=== PATIENT | male | born 1955 | race Caucasian/White ===

== ENCOUNTER → 2017-11-28 08:57 | Outpatient (CLI) | payer MEDICAID, SELFPAY ==
--- NOTE | 2017-11-28 09:01 | RAD_ITS ---
STUDY: X-RAY - CERVICAL SPINE REASON FOR EXAM: Male, 62 years old. Neck pain. TECHNIQUE: 3 view(s) of the cervical spine were obtained. COMPARISON: None FINDINGS: Normal anterior atlantoaxial articulation. Normal odontoid process. Normal cervical lordosis. Normal vertebral bodies and endplates. There is intervertebral disc space narrowing at C4-5, C5-6 and C6-7, most marked at C6-7 with osteophyte formation and subchondral sclerosis. There is diffuse facet sclerosis. There is minimal left carotid calcification. RAD/Cerv Spine 2 or 3 Views IMPRESSION: Lower cervical spondylosis as described. Electronically Signed: Selvin Thompson MD at 16:59 EST , Service support ,
== END ==
PROVIDERS: Family Provider Internal Medicine; PCP Internal Medicine; Visit Provider Internal Medicine
DX: M50.90 Cervical disc disorder, unspecified, unspecified cervical region (principal)
CPT/HCPCS: 72040

== ENCOUNTER 2017-12-07 10:14 | Emergency (ER) | payer MEDICAID, SELFPAY ==
[2017-12-07 10:15] VITALS: BP 163/90; PULSE 72; RESP 16; TEMP 36.4; O2SAT 99; BMI 33.3
--- NOTE | 2017-12-07 10:36 | EKG12_ITS ---
Test Reason : CP Blood Pressure : / mmHG Vent. Rate : 074 BPM Atrial Rate : 074 BPM P-R Int : 126 ms QRS Dur : 070 ms QT Int : 348 ms P-R-T Axes : 063 -05 -10 degrees QTc Int : 386 ms Normal sinus rhythm Normal ECG Confirmed by PAULA HUANG ([id number]), videotape editor FELICIANO ORTIZ ([id number]) on 12/11/2017 1:47:27 PM Referred By: Urszula Rubi Confirmed By:PAULA HUANG
[2017-12-07] MEDS: Ondansetron 4 MG/2 ML Vial IV (10:45)
[2017-12-07] MEDS: 0.9% Normal Saline 1,000 ML 1000 ML IV (10:46)
[2017-12-07 10:54] LABS: Absolute Lymphocyte Count 1.42 X10^3/ul (0.83-4.51); Absolute Neutrophil Count 4.8 X10^3/uL (2.0-7.7); Basophil# 0.02 X10^3/uL; Basophil% 0.3 % (0-1); Eosinophil# 0.12 X10^3/uL; Eosinophils% 1.7 % (0-5); Hematocrit 48.7 % (40-54); Lymphocyte # 1.42 X10^3/ul (4.0); Lymphocyte % 19.9 % (19-41); Mean Corp Hgb Conc 32.9 g/gl (32-36); Mean Corpuscular Hgb 28.9 pg (27.0-32.0); Mean Corpuscular Volume 87.9 fL (80-94); Mean Platelet Vol. 10.9 fl (6.2-12.0); Monocyte# 0.77 X10^3/uL; Monocyte% 10.8 % (0-10); Neutrophil # 4.81 X10^3/uL (2.7-7.7); Neutrophil % 67.2 % (47-70); Platelet Count 190 K/mm3 (150-450); RBC Distribution Width CV 13.1 % (11.6-14.6); RBC Distribution Width SD 42.4 fl (35.1-43.9); Red Blood Count 5.54 M/mm3 (4.6-6.2); White Blood Count 7.2 K/mm3 (4.4-11.0)
[2017-12-07 10:56] LABS: POSITIVE COUNT NO; POSITIVE DIFFERENTIAL NO; POSITIVE MORPHOLOGY NO
--- NOTE | 2017-12-07 10:57 | ED.DCSUM_ITS ---
- ER Visit Summary Date of Service: 12/07/17 Chief Complaint: Left-sided abdominal pain that awoke patient at 03: 00 History of Present Illness: The patient is a 62 M resents because he was awakened from sleep at 03:00 with acute left sided stabbing sharp abdominal pain with intermittent radiation to the back. There is a remote history of renal/ureterolithiasis. He denies dysuria, frequency, urgency or hematuria. He states movement does cause him pain. He does complain of nausea without vomiting. He denies any testicular pain. He has no history of hernia. He denies prior history. He denies history of diverticulosis/diverticulitis. He does have history of GERD and is on Celebrex. There is no alleviating factors. He denies chest discomfort, palpitations or rapid heart rate. He denies shortness of breath, cough, dyspnea on exertion, orthopnea or PND. He denies fever, chills or night sweats. No history of trauma. 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 Physical Examination: Patient appears uncomfortable. Blood pressure is elevated 163/90. Head is atraumatic normocephalic. Pupils are equal round reactive. Extraocular muscles are intact. TMs are pearly white with landmarks noted. Nares patent with no drainage. Posterior pharynx without erythema or exudate. Uvula is midline. There is no dysphonia or dysphasia. Trachea is midline. There is no stridor with auscultation of the neck. Heart is regular without murmur, gallop or rub. S1 and S2 are normal. Lungs are clear to auscultation with good movement of air bilaterally. Abdomen is slightly distended tympanitic with decreased bowel sounds. There is tenderness to palpation on the right without guarding or rebound tenderness. He has well- healed scars noted. There is no evidence of inguinal hernia or inguinal lymphadenopathy. Testes are descended bilateral no testicular epididymal tenderness. There is no CVA tenderness noted. There is no rash or skin lesions noted. Neuro exam is nonfocal Test Results: EKG was obtained per nurse protocol and reveals a sinus rhythm rate of 74 and is normal. CBC normal. BMP reveals slight elevation of BUN. UA is unremarkable. CT of the abdomen and pelvis with IV contrast only reveals mild pancreatitis. Patient states he is an alcoholic. Has not had a alcoholic beverage in 8 months. He has been using Listerine recently. He was informed there is significant amount of alcohol and Listerine. Emergency Department Course and Treatment: To evaluate patient's abdominal pain CBC, BMP and UA were obtained. He was medicated with Zofran and morphine. Differential includes perforation, diverticulitis, ureterolithiasis. Treatment Plan: Zofran, opiate analgesia and follow-up with PCP Disposition: Discharge to home in stable and improved condition Impression: 1. Acute pancreatitis 2. History of GERD 3. Status post cholecystectomy This note was generated with [employer] dictation software. It may contain incorrect words, spelling, and punctuation that were not noted in review of the chart prior to signing ED Disposition - Plan for ED Patient: Disposition: Home or Assisted Living Chief Complaint: Chest Pain Instructions: ED Pancreatitis Prescriptions: Oxycodone HCl/Acetaminophen [Percocet 7.5-325 mg Tablet] 1 tablet PO Q6H PRN PRN 5 Days #20 tablet PRN Reason: Pain Ondansetron [Zofran Odt] 8 mg PO Q12H PRN PRN #5 tab.rapdis PRN Reason: Nausea/Vomiting Referrals: Urszula Rubi MD [Primary Care Provider] - 3-5 Days
[2017-12-07 11:02] LABS: Anion Gap 6 (5-15); BUN 21 mg/dL (7-18); BUN/Creat Ratio 21.5 RATIO (10-20); Calcium,Total 8.7 mg/dL (8.5-10.1); Chloride 106 mmol/L (98-107); Creatinine, Serum 0.98 mg/dL (0.70-1.30); EST Glomerular Filtration Rate 83 mL/min (>60); Est Glom Filt Rate - Afr Amer 101 mL/min (>60); Estimated Creatinine Clearance 68.86 ml/min; Glucose 104 mg/dL (74-106); Potassium 4.1 mmol/L (3.5-5.1); Sodium Level 140 mmol/L (136-145)
[2017-12-07 11:32] VITALS: BP 118/101; PULSE 69; RESP 16; O2SAT 98
[2017-12-07 11:35] LABS: Mucous, Urine 0 SEEN /hpf (<or=2+); Squamous Epithelial Cells - UA 0 SEEN /hpf (0-5); White Blood Cells 0 SEEN /hpf (0-5)
[2017-12-07 11:42] LABS: Color, Urine Yellow (Yellow); Glucose, Dipstick Normal (Normal); Ketone-Dipstick Negative (Negative); Leukocyte Esterase-Dipstick Negative /ul (Negative); Nitrite-Dipstick Negative (Negative); Occult Blood-Urine Negative /ul (Negative); Protein-Dipstick Negative (Negative); Specific Gravity, Urine 1.015 (1.002-1.030); Urine Bilirubin Dipstick Negative (Negative); Urine Clarity Clear (Clear); Urine Urobilinogen 4 mg/dl (Normal)
[2017-12-07 11:56] LABS: Bacteria 1+ /hpf (None Seen); Red Blood Cells-Urine 0-5 SEEN /hpf (0-5)
[2017-12-07 12:09] VITALS: BP 140/93; PULSE 62; RESP 14; O2SAT 96
--- NOTE | 2017-12-07 12:22 | CT_ITS ---
STUDY: CT ABDOMEN AND PELVIS WITH CONTRAST REASON FOR EXAM: Male, 62 years old. Epigastric pain. RADIATION DOSAGE (If Supplied By Facility): CTDIvol = ( 14.38 ) mGy, DLP = ( 1035.37 ) mGycm TECHNIQUE: Transaxial images were obtained from the dome of the diaphragm to the symphysis pubis without oral contrast. 100 ml of Isovue 300 contrast was administered. Sagittal and coronal images were reconstructed. Individualized dose optimization techniques were used for this CT. COMPARISON: Comparison is made with prior study dated June 27, 2017. FINDINGS: Stable mild degree of increased linear markings at the lung bases suggestive of linear atelectasis and/or scarring. The visualized portions of the heart are within normal limits. Stable 1.5 cm cyst in the left lobe of the liver. There are surgical clips in the gallbladder fossa consistent with a prior cholecystectomy. Normal spleen. There now is evidence of a mild degree of increased markings in the peripancreatic mesenteric fat suggestive of mild degree of pancreatitis. No fluid collection or pseudocyst is seen at this time. Normal bilateral adrenal glands. Question tiny angiomyolipoma in the inferior posterior aspect of the right kidney. Normal left kidney. There is a small hiatal hernia. Normal small intestine. Normal colon. The appendix is visualized and appears normal. There is scattered atherosclerotic calcification of the abdominal aorta, without a demonstrated aneurysm. Normal inferior vena cava. Normal retroperitoneum. The urinary bladder is distended. Small inguinal hernias containing fat. There are mild degenerative changes of the visualized lumbar spine. CT/Abdomen/Pelvis W IV Cont ONLY IMPRESSION: Findings suggestive of a mild degree of pancreatitis without complications. The patient is status post cholecystectomy. Electronically Signed: Jefferson Garrido MD at 13:02 EDT Tel [phone], Service support ,
[2017-12-07 13:25] VITALS: PULSE 67; RESP 15; O2SAT 97
[2017-12-07 13:57] VITALS: BP 139/86; PULSE 71; RESP 16; O2SAT 97
[2017-12-07 14:20] LABS: AST(SGOT) 173 U/L (15-37); Alanine Aminotransfer ALT/SGPT 180 U/L (16-61); Alkaline Phosphatase 93 U/L (45-117); Globulin 3.5 g/dL (2.2-4.2); Lipase 12406 U/L (73-393); Protein, Total 7.5 g/dL (6.4-8.2)
== END 2017-12-07 13:57 | disposition home or self-care (01) ==
PROVIDERS: Emergency Provider Emergency Medicine; Family Provider Internal Medicine; PCP Internal Medicine
DX: K85.90 Acute pancreatitis without necrosis or infection, unspecified (principal); K21.9 Gastro-esophageal reflux disease without esophagitis; Z90.49 Acquired absence of other specified parts of digestive tract; F10.20 Alcohol dependence, uncomplicated; E66.9 Obesity, unspecified; Z87.442 Personal history of urinary calculi; Z79.899 Other long term (current) drug therapy
CPT/HCPCS: 74177; 80048; 80076; 81001; 83690; 85025; 93005; 96361; 96374; 96375; 99285; J7030; Q9967; A4216; J2405

== ENCOUNTER → 2017-12-14 07:26 | Outpatient (CLI) | payer MEDICAID, SELFPAY ==
[2017-12-14 10:04] LABS: AST(SGOT) 19 U/L (15-37); Alanine Aminotransfer ALT/SGPT 50 U/L (16-61); Albumin, Serum 3.7 g/dL (3.2-5.0); Alkaline Phosphatase 79 U/L (45-117); Anion Gap 5 (5-15); BUN 24 mg/dL (7-18); BUN/Creat Ratio 23.3 RATIO (10-20); Chloride 106 mmol/L (98-107); Cholesterol 125 mg/dL (200); Creatinine, Serum 1.03 mg/dL (0.70-1.30); EST Glomerular Filtration Rate 78 mL/min (>60); Est Glom Filt Rate - Afr Amer 94 mL/min (>60); Globulin 3.8 g/dL (2.2-4.2); Glucose 109 mg/dL (74-106); High Density Lipoprotein 35 mg/dL; Lipase 287 U/L (73-393); Potassium 4.3 mmol/L (3.5-5.1); Protein, Total 7.5 g/dL (6.4-8.2); Sodium Level 142 mmol/L (136-145); Triglycerides 128 mg/dL; Very Low Density Lipoprotein 26 mg/dL (5-40)
== END ==
PROVIDERS: Family Provider Internal Medicine; PCP Internal Medicine; Visit Provider Internal Medicine
DX: K85.90 Acute pancreatitis without necrosis or infection, unspecified (principal)
CPT/HCPCS: 36415; 80053; 80061; 83690

== ENCOUNTER → 2017-12-19 07:13 | Outpatient (CLI) | payer MEDICAID, SELFPAY | PROVIDERS: Family Provider Internal Medicine; PCP Internal Medicine; Visit Provider Internal Medicine | DX: R73.09 Other abnormal glucose (principal) | CPT/HCPCS: 36415; 83036 ==

== ENCOUNTER → 2017-12-21 08:33 | Outpatient (CLI) | payer MEDICAID, SELFPAY ==
--- NOTE | 2017-12-21 08:35 | RAD_ITS ---
STUDY: X-RAY - LEFT HAND REASON FOR EXAM: Male, 62 years old. Wrist pain. TECHNIQUE: 2 view(s) of the hand. COMPARISON: None. FINDINGS: Bones: There is mild generalized osteopenia. Joints: There is mild arthrosis of the radial carpal row, the first carpometacarpal joint, the metacarpophalangeal joints and the interphalangeal joints. Soft tissues: The soft tissues are unremarkable. Foreign body: None RAD/Hand 2 Views IMPRESSION: Mild generalized osteopenia with osteoarthritic changes as described. Electronically Signed: Selvin Thompson MD at 12:38 EDT , Service support ,
--- NOTE | 2017-12-21 08:35 | RAD_ITS ---
STUDY: X-RAY - RIGHT HAND REASON FOR EXAM: Male, 62 years old. Wrist pain. TECHNIQUE: 2 view(s) of the hand. COMPARISON: None. FINDINGS: Bones: There is mild generalized osteopenia. Joints: There is mild arthrosis of the radial carpal row, the first carpometacarpal joint, the metacarpophalangeal joints and the interphalangeal joints. Soft tissues: The soft tissues are unremarkable. Foreign body: None RAD/Hand 2 Views IMPRESSION: Mild generalized osteopenia with osteoarthritic changes as described. Electronically Signed: Selvin Thompsno MD at 12:37 EDT , Service support ,
== END ==
PROVIDERS: Family Provider Internal Medicine; PCP Internal Medicine; Visit Provider Orthopaedic Surgery
DX: G56.03 Carpal tunnel syndrome, bilateral upper limbs (principal)
CPT/HCPCS: 73120

== ENCOUNTER → 2018-03-14 07:53 | Outpatient (CLI) | payer MEDICAID, SELFPAY ==
--- NOTE | 2018-03-14 14:21 | NEURO ---
NCS and/or EMG Patient Report Ordering Doctor: Caryn Delatorre DATE OF SERVICE: 03/14/18 Lyle Riddle is a 62-year-old male presents for electrodiagnostic testing of the right upper limb. He has chief complaint of numbness and tingling in the right hand. He does not wish to pursue testing of the left upper limb today. Electrodiagnostic findings: Right median motor nerve demonstrates prolonged distal latency with reduced amplitude and reduced conduction velocity. Normal ulnar motor response, including conduction across the elbow. Prolonged right median F wave. Prolonged right median sensory sensory latency. Prolonged right median palmar latency. Prolonged right ulnar sensory latency. Needle EMG testing demonstrates 1+ fibrillation potentials in the right first dorsal interosseous. Electrodiagnostic impression: This is an abnormal study. 1. Electrodiagnostic findings demonstrate right-sided median mononeuropathy, consistent with an advanced right carpal tunnel syndrome. 2. Electrodiagnostic findings demonstrate right-sided ulnar sensory neuropathy. If there are any further questions, please not hesitate to contact me
== END ==
PROVIDERS: Family Provider Internal Medicine; PCP Internal Medicine; Visit Provider Orthopaedic Surgery
DX: G56.03 Carpal tunnel syndrome, bilateral upper limbs (principal)
CPT/HCPCS: 95886; 95910

== ENCOUNTER 2018-03-24 10:30 | Emergency (ER) | payer MEDICAID, SELFPAY ==
[2018-03-24 10:31] VITALS: BP 148/91; PULSE 69; RESP 16; TEMP 36.2; O2SAT 97; BMI 32.8
--- NOTE | 2018-03-24 10:41 | CT_ITS ---
STUDY: CT ABDOMEN AND PELVIS WITH CONTRAST REASON FOR EXAM: Male, 62 years old. Abdominal pain and weakness. RADIATION DOSAGE (If Supplied By Facility): CTDIvol = ( 18.02 ) mGy, DLP = ( 1188.95 ) mGycm TECHNIQUE: Transaxial images were obtained from the dome of the diaphragm to the symphysis pubis without oral contrast. 100 ml of Isovue 300 contrast was administered. Sagittal and coronal images were reconstructed. Individualized dose optimization techniques were used for this CT. COMPARISON: 12/07/2017 FINDINGS: The visualized lung bases are unremarkable. The visualized portions of the heart are within normal limits. Normal liver. There are surgical clips in the gallbladder fossa consistent with a prior cholecystectomy. Normal spleen. There is diffuse atrophy of the pancreas. Normal bilateral adrenal glands. Normal right kidney. Normal left kidney. There is a small hiatal hernia. Normal small intestine. There are multiple colonic diverticula consistent with diverticulosis. The appendix is visualized and appears normal. Normal abdominal aorta. Normal inferior vena cava. Normal retroperitoneum. Normal urinary bladder. Normal visualized prostate gland. Normal abdominal wall. There are diffuse degenerative changes of the visualized lumbar spine. CT/Abdomen/Pelvis W IV Cont ONLY IMPRESSION: Chronic diverticulosis without acute diverticulitis. Unremarkable appendix. No acute findings. Electronically Signed: Jonas Baez DO at 12:51 EDT Tel , Service support ,
--- NOTE | 2018-03-24 10:44 | ED.VISSUMM ---
- ER Visit Summary Date of Service: 03/24/18 Chief Complaint: Abdominal pain History of Present Illness: The patient is a 62 M who states for the past 2 days he has just ill. He states he has had decreased p.o. He notes diarrhea yesterday none today and a lot of gas. He notes he has pain lower abdomen right upper right flank. He notes increased amount of urination. He notes chills headache and myalgias. No fevers. He states this reminds him of when he had pancreatitis. He has had cholecystectomy. He takes Celebrex and omeprazole but has not taken them for the past 2 days because he has not felt well. Physical Examination: Afebrile vital signs are stable Gen: Well-nourished well-developed Head: Normocephalic atraumatic Eyes: Perrl EOMI ENT: TMs clear no rhinorrhea moist mucous membranes Neck: Supple no lymphadenopathy no JVD nontender CVS: Regular rate rhythm no murmurs normal S1-S2 Respiratory: No distress clear to auscultation bilaterally chest nontender Abdomen: Soft diffusely tender to palpation without guarding or rebound nondistended normal bowel sounds no masses Back: Nontender Extremity: Nontender no edema Skin: Normal color no rash Neuro: alert orientated ?3 CN II-XII intact normal strength sensation reflexes gait cerebellar Psych: Normal affect normal mood Test Results: CBC is normal. Total bilirubin at 1.7. Alk phos 74 ALT 95 AST 112. Lipase 117. Urinalysis is normal. CT scan of the abdomen pelvis was also negative. Emergency Department Course and Treatment: Patient received a dose of Zofran. Same. Imodium as needed for diarrhea. Return if worsening or concerns. Impression: 1. Gastroenteritis This note was generated with [employer] dictation software. It may contain incorrect words, spelling, and punctuation that were not noted in review of the chart prior to signing ED Disposition - Plan for ED Patient: Disposition: Home or Assisted Living Chief Complaint: Abd Pain Instructions: ED Gastroenteritis Viral Prescriptions: Ondansetron [Zofran Odt] 4 mg PO Q8H PRN PRN #10 tab PRN Reason: Nausea Referrals: Urszula Rubi MD [Primary Care Provider] - 3-5 Days if not improving
[2018-03-24] MEDS: Ondansetron 4 MG/2 ML Vial IV (11:36)
[2018-03-24 11:41] LABS: Absolute Lymphocyte Count 1.48 X10^3/ul (0.83-4.51); Absolute Neutrophil Count 5.9 X10^3/uL (2.0-7.7); Basophil# 0.03 X10^3/uL; Basophil% 0.3 % (0-1); Eosinophils% 1.1 % (0-5); Hematocrit 47.7 % (40-54); Lymphocyte # 1.48 X10^3/ul (4.0); Lymphocyte % 16.8 % (19-41); Mean Corp Hgb Conc 33.5 g/gl (32-36); Mean Corpuscular Hgb 28.8 pg (27.0-32.0); Mean Corpuscular Volume 85.8 fL (80-94); Mean Platelet Vol. 10.8 fl (6.2-12.0); Monocyte# 1.29 X10^3/uL; Monocyte% 14.6 % (0-10); POSITIVE COUNT NO; POSITIVE DIFFERENTIAL NO; POSITIVE MORPHOLOGY NO; Platelet Count 201 K/mm3 (150-450); RBC Distribution Width CV 13.5 % (11.6-14.6); RBC Distribution Width SD 42.2 fl (35.1-43.9); Red Blood Count 5.56 M/mm3 (4.6-6.2); White Blood Count 8.8 K/mm3 (4.4-11.0)
[2018-03-24 11:51] LABS: Bacteria 0 SEEN /hpf (None Seen); Mucous, Urine 0 SEEN /hpf (<or=2+); Red Blood Cells-Urine 0 SEEN /hpf (0-5); Squamous Epithelial Cells - UA 0 SEEN /hpf (0-5); White Blood Cells 0 SEEN /hpf (0-5)
[2018-03-24 11:52] LABS: Color, Urine Yellow (Yellow); Glucose, Dipstick Normal (Normal); Ketone-Dipstick Negative (Negative); Leukocyte Esterase-Dipstick Negative /ul (Negative); Nitrite-Dipstick Negative (Negative); Occult Blood-Urine Negative /ul (Negative); Protein-Dipstick Negative (Negative); Specific Gravity, Urine 1.015 (1.002-1.030); Urine Bilirubin Dipstick Negative (Negative); Urine Clarity Clear (Clear); Urine Urobilinogen 1 mg/dl (Normal)
[2018-03-24 11:58] LABS: AST(SGOT) 112 U/L (15-37); Alanine Aminotransfer ALT/SGPT 95 U/L (16-61); Albumin, Serum 3.7 g/dL (3.2-5.0); Alkaline Phosphatase 74 U/L (45-117); Anion Gap 6 (5-15); BUN 20 mg/dL (7-18); BUN/Creat Ratio 21.2 RATIO (10-20); Chloride 108 mmol/L (98-107); Creatinine, Serum 0.94 mg/dL (0.70-1.30); EST Glomerular Filtration Rate 86 mL/min (>60); Est Glom Filt Rate - Afr Amer 104 mL/min (>60); Estimated Creatinine Clearance 71.79 ml/min; Globulin 3.6 g/dL (2.2-4.2); Glucose 158 mg/dL (74-106); Lipase 117 U/L (73-393); Potassium 3.9 mmol/L (3.5-5.1); Protein, Total 7.3 g/dL (6.4-8.2); Sodium Level 142 mmol/L (136-145)
[2018-03-24 13:00] VITALS: RESP 20; O2SAT 97
[2018-03-24 14:08] VITALS: BP 129/84; PULSE 58; RESP 16; O2SAT 96
== END 2018-03-24 14:14 | disposition home or self-care (01) ==
PROVIDERS: Emergency Provider Emergency Medicine; Family Provider Internal Medicine; PCP Internal Medicine
DX: K52.9 Noninfective gastroenteritis and colitis, unspecified (principal); K21.9 Gastro-esophageal reflux disease without esophagitis; Z79.899 Other long term (current) drug therapy
CPT/HCPCS: 74177; 80053; 81001; 83690; 85025; 96374; 99283; Q9967; A4216; J2405

== ENCOUNTER → 2018-07-09 06:29 | Outpatient (CLI) | payer MEDICAID, SELFPAY ==
--- NOTE | 2018-07-09 06:48 | MRI_ITS ---
STUDY: MRI CERVICAL SPINE WITHOUT CONTRAST REASON FOR EXAM: Male, 62 years old. CERVICAL RADICULITIS, SPONDYLOSIS, NECK PAIN, SOME N/T. TECHNIQUE: Standardized fat and water weighted pulse sequences were obtained in the sagittal and axial planes. COMPARISON: None FINDINGS: Normal foramen magnum and brainstem-cervical cord junction. Normal craniovertebral junction. Normal anterior atlantoaxial articulation. Normal odontoid process. Normal cervical lordosis. C2-3: Normal endplates. Normal disc height, signal and morphology. Normal central canal and intervertebral neural foramina. C3-4: There is minimal disc space narrowing and endplate spondylosis. There is no significant disc herniation, central canal or foraminal stenosis. C4-5: There is moderate disc space narrowing and endplates spondylosis. There is mild disc osteophyte complex with moderate central canal stenosis. There is uncovertebral and facet arthropathy with moderate right and mild left foraminal stenosis. C5-6: There is mild disc space narrowing and endplates spondylosis. There is minimal disc osteophyte complex without significant central canal stenosis. Uncovertebral and facet arthropathy with mild right and moderate left foraminal stenosis. C6-7: There is moderate disc space narrowing and endplates spondylosis. there is mild disc osteophyte complex with mild central canal stenosis. Uncovertebral arthropathy with mild right and moderate left foraminal stenosis. C7-T1: Normal endplates. Normal disc height, signal and morphology. Normal central canal and intervertebral neural foramina. Normal cervical cord. Normal visualized soft tissue structures. MRI/Spine Cervical (Routine) IMPRESSION: C4/C5: Moderate central canal stenosis. Moderate right foraminal stenosis. C5/C6: Moderate left foraminal stenosis. C6/C7: Moderate left foraminal stenosis. Electronically Signed: Fabian Urrutia MD at 15:49 EDT Tel , Service support ,
== END ==
PROVIDERS: Family Provider Internal Medicine; PCP Internal Medicine; Referring Provider Nurse Practitioner Family
DX: M51.37 Other intervertebral disc degeneration, lumbosacral region (principal); M47.817 Spondylosis without myelopathy or radiculopathy, lumbosacral region
CPT/HCPCS: 72141

== ENCOUNTER → 2018-07-23 11:00 | Outpatient (CLI) | payer MEDICAID, SELFPAY | PROVIDERS: Family Provider Internal Medicine; PCP Internal Medicine; Visit Provider Nurse Practitioner Family | DX: G47.33 Obstructive sleep apnea (adult) (pediatric) (principal); Z46.89 Encounter for fitting and adjustment of other specified devices | CPT/HCPCS: 98960; G0463 ==

== ENCOUNTER 2019-02-07 17:00 | Outpatient (RCR) | payer MEDICAID, SELFPAY ==
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
--- NOTE | 2019-04-16 09:54 | HP.PTDCNRP_ITS ---
HP - Discharge Summary (1) - Patient Information BERKLEY ROMAN was seen in my office for initial evaluation on 12/21/18. The following Plan of Care was established for this patient: Initial Frequency: 2x /Week Initial Duration: 4 Weeks - Anticipated Interventions Patient/Client Instruction: Educate patient on: Condition, Plan of Care For the Purpose of:: To decrease pain, To increase ROM, To improve muscle perfor radha and motor function, To improve ability to perform ADL's, To increase tolerance to activity/condition/position, To improve ability of physical actions for home/community/work/leisure, To improve health of tissue, To decrease soft tissue restriction, To increase flexibility/ROM, To reduce risk of recurrence, To improve ability to perform tasks related to life management Therapeutic Exercise to Include: Strength training, Postural training, Flexibilty training, Active ROM For the Purpose of:: To decrease pain, To increase ROM, To improve muscle performance and motor function, To increase tolerance to activity/condition/position, To improve ability of physical actions for home/community/work/leisure, To improve health of tissue, To decrease soft tissue restriction, To increase flexibility/ROM, To improve ability to perform tasks related to life management Manual Therapy Techniques to Include: Mobilization Comment: CERVICAL TRACTION For the Purpose of:: To decrease pain, To increase ROM, To improve health of tissue, To decrease soft tissue restriction TENS: Yes IF ES: Yes Thermo therapy (hot pack): Yes Ultrasound (thermal/non thermal): Yes Intermittent cervical traction: Yes For the Purpose of:: To decrease pain, To increase ROM, To improve nutrient delivery to tissue, To increase oxygenation perfusion, To improve health of tissue, To decrease soft tissue restriction This patient was last seen in our office 02/07/19. Pertinent comments regarding their Physical therapy will appear below: Patient seen for PT for cervical DDD with PT rx focused on ICTX ,cervical /postural ex's ,strengthening thus is d/c after patient making progress with decreasing pain. At this point I will be discontinuing this patient from physical therapy. I would be happy to see this patient again in the future if found appropriate by the physician. Thank you! Juni Gastelum, PT, Cert MDT, OCS
== END 2019-02-07 19:00 | disposition home or self-care (01) ==
LOC: PT 17:00
PROVIDERS: Family Provider Internal Medicine; PCP Internal Medicine; Referring Provider Nurse Practitioner Family; Visit Provider Nurse Practitioner Family
DX: M50.30 Other cervical disc degeneration, unspecified cervical region (principal); M47.812 Spondylosis without myelopathy or radiculopathy, cervical region; G44.89 Other headache syndrome; M54.12 Radiculopathy, cervical region; M79.10 Myalgia, unspecified site; M48.9 Spondylopathy, unspecified
CPT/HCPCS: 97012; 97033; 97110; 97162

== ENCOUNTER 2019-02-09 12:52 | Emergency (ER) | payer MEDICAID, SELFPAY ==
[2019-01-29 08:19] VITALS: BMI 33.6
[2019-02-09 12:52] VITALS: BP 156/87; PULSE 76; RESP 16; TEMP 36.8; O2SAT 96; BMI 32.3
--- NOTE | 2019-02-09 13:18 | CT_ITS ---
STUDY: CT ABDOMEN AND PELVIS WITH CONTRAST REASON FOR EXAM: Male, 63 years old. Pain RADIATION DOSAGE (If Supplied By Facility): DLP = ( 1196.45 ) mGycm TECHNIQUE: Transaxial images were obtained from the dome of the diaphragm to the symphysis pubis with oral contrast. 100 ml of Isovue 300 contrast was administered. Sagittal and coronal images were reconstructed. Individualized dose optimization techniques were used for this CT. COMPARISON: CT abdomen and pelvis March 24, 2018 FINDINGS: The visualized lung bases are clear. The visualized portions of the heart and pericardium are within normal limits. The gallbladder has been removed. The liver is within normal limits. There are no suspicious hepatic lesions. A left hepatic 1.3 cm cyst is present. The spleen is normal in size. The pancreas is within normal limits. The adrenal glands are within normal limits. There are no obstructing renal stones. There is no hydronephrosis There are no focal renal lesions. A small to moderate hiatal hernia is present.. There is mild thickening of the distal esophageal wall at the GE junction. There is no bowel obstruction or inflammation. There is prominent stool throughout the colon.. A small right inguinal fat-containing hernia is present. The aorta is normal in caliber. There is no abdominal or pelvic free air, free fluid, fluid collection or lymphadenopathy. There are no destructive osseous lesions. CT/Abdomen/Pelvis WITH Contrast IMPRESSION: No acute abdominal or pelvic pathology. Prominent stool throughout the colon suggesting constipation. Small to moderate hernia. Mild thickening of the distal esophageal wall at the GE junction. Correlate clinically. Small right inguinal hernia containing fat. Electronically Signed: Pj Da Silva, at 15:34 EDT Tel , Service support ,
[2019-02-09] MEDS: 0.9% Normal Saline 1,000 ML 150 ML IV (13:33)
[2019-02-09 13:59] LABS: AST(SGOT) 20 U/L (15-37); Alanine Aminotransfer ALT/SGPT 32 U/L (16-61); Albumin, Serum 3.7 g/dL (3.2-5.0); Alkaline Phosphatase 73 U/L (45-117); Anion Gap 4 (5-15); BUN 13 mg/dL (7-18); BUN/Creat Ratio 14.2 RATIO (10-20); Bilirubin, Direct 0.23 mg/dL (0.00-0.30); Calcium,Total 8.9 mg/dL (8.5-10.1); Chloride 109 mmol/L (98-107); Creatinine, Serum 0.91 mg/dL (0.70-1.30); EST Glomerular Filtration Rate 89 mL/min (>60); Est Glom Filt Rate - Afr Amer 108 mL/min (>60); Estimated Creatinine Clearance 75.95 ml/min; Globulin 3.3 g/dL (2.2-4.2); Glucose 86 mg/dL (74-106); Lipase 87 U/L (73-393); Potassium 4.2 mmol/L (3.5-5.1); Sodium Level 141 mmol/L (136-145)
[2019-02-09 14:10] LABS: Absolute Lymphocyte Count 1.67 X10^3/ul (0.83-4.51); Absolute Neutrophil Count 2.6 X10^3/uL (2.0-7.7); Basophil# 0.03 X10^3/uL; Basophil% 0.6 % (0-1); Eosinophil# 0.18 X10^3/uL; Eosinophils% 3.4 % (0-5); Hematocrit 46.9 % (40-54); Hemoglobin 15.9 g/dl (13.0-16.5); Lymphocyte # 1.67 X10^3/ul (4.0); Lymphocyte % 31.9 % (19-41); Mean Corp Hgb Conc 33.9 g/gl (32-36); Mean Corpuscular Hgb 29.4 pg (27.0-32.0); Mean Corpuscular Volume 86.9 fL (80-94); Mean Platelet Vol. 11.1 fl (6.2-12.0); Monocyte# 0.79 X10^3/uL; Monocyte% 15.1 % (0-10); Neutrophil # 2.57 X10^3/uL (2.7-7.7); Platelet Count 186 K/mm3 (150-450); RBC Distribution Width SD 41.4 fl (35.1-43.9); White Blood Count 5.2 K/mm3 (4.4-11.0)
[2019-02-09 14:11] LABS: POSITIVE COUNT NO; POSITIVE DIFFERENTIAL NO; POSITIVE MORPHOLOGY NO
--- NOTE | 2019-02-09 14:39 | ED.DCSUM_ITS ---
- ER Visit Summary Date of Service: 02/09/19 Chief Complaint: Abdominal pain History of Present Illness: The patient is a 63 M with history of frequent abdominal pain and IBS. Patient states abdominal pain is been worse since yesterday. He points to the lower abdomen and left lower quadrant. He does report having increased gas. He reports having only small bowel movements in the last 4 days. He states at times he will go for 5 days without having a bowel movement. He denies having fever or chills. He has had no urinary symptoms. Physical Examination: Blood pressure is 156/87, otherwise vitals normal. Patient lying in bed no acute distress. He is nontoxic appearing. Head and neck examination normal. Heart is regular rate and rhythm. Lung sounds are clear. Abdomen is soft with mild tenderness in the left lower quadrant. Hypoactive bowel sounds are noted. There is no guarding or rebound. Test Results: CBC and chemistry studies normal. LFTs and lipase normal. CT scan abdomen pelvis with contrast is unremarkable other than prominent stool th roughout the colon. Emergency Department Course and Treatment: Patient is given morphine, Zofran, and IV fluids. Test results discussed with the patient. He was advised that the p.o. contrast for the CAT scan will sometimes help to treat constipation. He will be written for magnesium citrate. If he has not had significant bowel movement tomorrow morning he will take this. Treatment Plan: [] Disposition: Discharge Impression: 1. Abdominal pain 2. Constipation This note was generated with [employer] dictation software. It may contain incorrect words, spelling, and punctuation that were not noted in review of the chart prior to signing ED Disposition - Plan for ED Patient: Disposition: Home or Assisted Living Instructions: ED Constipation Prescriptions: Magnesium Citrate [Citrate Of Magnesia] 150 ml PO Q6H PRN PRN #300 ml PRN Reason: Constipation Referrals: Urszula Rubi MD [Primary Care Provider] - Virginie Badillo [NON-STAFF] - Keep Vinnie appointment
[2019-02-09 15:33] VITALS: BP 141/91; PULSE 87; RESP 18; O2SAT 98
[2019-02-09 16:04] VITALS: RESP 16
--- NOTE | 2019-02-09 16:05 | ED.RN ---
REVIEWED D/C INSTRUCTIONS, FOLLOW UP CARE, PRESCRIPTION, AND S/S THAT WOULD WARRANT A RETURN TO THE ED WITH PT. PT VERBALIZED AN UNDERSTANDING AND DENIES FURTHER QUESTIONS FOR THIS RN. PT SKIN P/W/D, RESP EVEN AND UNLABORED, PT A&O X 3, NO DISTRESS NOTED. PT AMBULATED OUT OF ED, GAIT STEADY.
== END 2019-02-09 16:05 | disposition home or self-care (01) ==
PROVIDERS: Emergency Provider Emergency Medicine; Family Provider Internal Medicine; PCP Internal Medicine
DX: K58.1 Irritable bowel syndrome with constipation (principal); R10.32 Left lower quadrant pain; K21.9 Gastro-esophageal reflux disease without esophagitis; Z87.442 Personal history of urinary calculi; Z79.899 Other long term (current) drug therapy
CPT/HCPCS: 74177; 80048; 80076; 83690; 85025; 96360; 96361; 99283; J7030; A4216; J2405

== ENCOUNTER → 2019-07-16 | Outpatient (CLI) | payer MEDICAID, SELFPAY ==
[2019-07-16 09:39] VITALS: BMI 32.3
--- NOTE | 2019-07-16 09:46 | RAD_ITS ---
STUDY: X-RAY - CERVICAL SPINE REASON FOR EXAM: Male, 63 years old. Neck pain. TECHNIQUE: 3 view(s) of the cervical spine were obtained. COMPARISON: None FINDINGS: There are degenerative changes of the anterior atlantoaxial articulation. Normal odontoid process. Normal cervical lordosis. There is multi-level endplate spondylosis. There is multi-level degenerative disc disease with multilevel disc space narrowing. There is no evidence of acute fracture or loss of vertebral axial height. There is maintenance of normal alignment. There is no alteration of alignment with flexion or extension. The soft tissue structures are unremarkable. RAD/Cerv Spine 4 or 5 Views IMPRESSION: Degenerative changes of the cervical spine. Electronically Signed: Gustavo Tirado DO at 19:55 EDT Tel [phone], Service support ,
== END | disposition home or self-care (01) ==
LOC: HPRAD 09:46
PROVIDERS: Family Provider Internal Medicine; PCP Internal Medicine; Referring Provider Orthopaedic Surgery; Visit Provider Orthopaedic Surgery
DX: M54.2 Cervicalgia (principal)
CPT/HCPCS: 72050

== ENCOUNTER 2019-08-10 18:17 | Emergency (ER) | payer MEDICAID, SELFPAY ==
[2019-07-16 09:39] VITALS: BMI 32.3
[2019-08-10 18:18] VITALS: BP 157/87; PULSE 73; RESP 16; TEMP 36.2; BMI 32.6
--- NOTE | 2019-08-10 18:35 | ED.VISSUMM ---
- ER Visit Summary Date of Service: 08/10/19 Chief Complaint: [Laceration right arm] History of Present Illness: The patient is a 63 M [presents to the emergency department with complaint of laceration to his right arm that occurred this evening. Patient states that he was moving a couch when he lacerated the antecubital region of his arm. Patient is right-hand dominant. He is up-to-date on tetanus. He denies any other injuries. Patient was unsure if he should come in but his made him come in.] Physical Examination: [Right arm-patient has a linear abrasion measuring approximately 5 cm over the right antecubital region of his arm. There is very superficial abrasion through the epidermis. There is no gaping. It does not involve any fat extruding from the wound. Is neurovascular intact distally. He is got normal range of motion flexion extension at the elbow.] Test Results: [None indicated] Emergency Department Course and Treatment: [Patient had the wound cleansed and clean dressing was applied.] Treatment Plan: [Patient to follow-up with primary care physician for wound check in 3 to 5 days. Vice return if increasing pain, redness, swelling, purulent drainage, or conditions worsen anyway. Laceration is very superficial and do not feel repair of any kind is indicated.] Disposition: [Discharged home in stable condition.] Impression: [Laceration right arm-superficial and no repair indicated] This note was generated with [employer] dictation software. It may contain incorrect words, spelling, and punctuation that were not noted in review of the chart prior to signing ED Disposition - Plan for ED Patient: Referrals: Urszula Rubi MD [Primary Care Provider] -
--- NOTE | 2019-08-10 18:38 | ED.DEP ---
ED Disposition - Plan for ED Patient: Instructions: LACERATION, Small/superficial, Not sutured Referrals: Urszula Rubi MD [Primary Care Provider] - 3-5 Days
== END 2019-08-10 19:00 | disposition home or self-care (01) ==
LOC: ED 18:51
PROVIDERS: Emergency Provider Emergency Medicine; Family Provider Internal Medicine; PCP Internal Medicine
DX: S41.111A Laceration without foreign body of right upper arm, initial encounter (principal); K21.9 Gastro-esophageal reflux disease without esophagitis; W26.8XXA Contact with other sharp object(s), not elsewhere classified, initial encounter; Y93.89 Activity, other specified; Y92.009 Unspecified place in unspecified non-institutional (private) residence as the place of occurrence of the external cause; Y99.8 Other external cause status
CPT/HCPCS: 99282

== ENCOUNTER 2020-02-05 15:31 | Emergency (ER) | payer MEDICAID, SELFPAY ==
[2019-11-08 09:59] VITALS: BMI 32.6
[2020-02-05 15:31] VITALS: BP 152/81; PULSE 80; RESP 18; TEMP 36.6; O2SAT 96; BMI 32.8
--- NOTE | 2020-02-05 15:54 | ED.VIS.UPPEX ---
History of Present Illness Chief Complaint: Upper Extremity Injury Informant: Patient Occurred: Yesterday Mechanism/Context: - - Heavy lifting Context: Sudden Onset Timing: Continuous Quality of Pain: Aching Location: Left volar upper arm near AC fossa Current Severity: Moderate Maximum Severity: Severe Worsened by: Bending at the elbow Relieved by: Remaining still Associated Symptoms: Negative for: Parasthesia, Weakness, Loss of Funtion Narrative: Patient was lifting a heavy box, 30 or 40 pounds, he felt sudden onset of pain and crackling in the muscle in his AC fossa of the left upper extremity. He has had some swelling there since then. He is right-hand dominant. He initially had some numbness down into his hand, but that resolved and has not recurred. - Past Medical History (1) Arthritis Status: Chronic (2) DDD (degenerative disc disease), lumbar Status: Chronic (3) Degenerative disc disease Status: Chronic (4) GERD (gastroesophageal reflux disease) Status: Chronic Past Medical History - Allergies and Home Meds Allergies/Adverse Reactions: Allergies No Known Allergies Allergy (Verified 02/05/20 15:34) Primary Care Physician: Urszula Rubi MD [Primary Care Provider] - Smoking Status: Former smoker Review of Systems General: Denies: Chills, Fever, Sweats Eyes: Denies: Visual changes - bilaterally, Diplopia ENT: Denies: Rhinorrhea, Sore throat Cardiovascular: Denies: Chest pain, Palpitations Respiratory: Denies: Dyspnea, Cough, Dyspnea on exertion Gastrointestinal: Denies: Abdominal pain, Nausea, Vomiting, Diarrhea, Melena, Hematochezia Genitourinary: Denies: Dysuria, Hematuria, Frequency Musculoskeletal: Reports: Extremity Pain. Denies: Back pain Skin: Denies: Rash, Wounds Neurological: Reports: Numbness - Resolved. See HPI.. Denies: Headache, Weakness Physical Exam Vital Signs/Narrative: Vital Signs Temp Pulse Resp BP Pulse Ox 02/05/20 15:31 97.8 F 80 18 152/81 H 96 General: Well nourished, Well developed, - - nad Head: Normocephalic, Atraumatic Eyes: Perrl, EOMI ENT: No Trauma, Moist Mucous Membranes Extremeties: Mild Vadim deformity of the left biceps muscle. There is palpable asymmetry at the insertion, with a gap palpable on the left. He is able to flex, but it is painful. Very painful Yergason sign maneuver. Skin: Normal color, No rash, No Trauma Neurological: Alert, Oriented x3, Cranial nerves II-XII grossly intact, Normal Strength, Normal Sensation, Normal Gait Psychological: Normal affect, Normal Mood Diagnostic/Tx/Re-eval Clinical Impression(s) from Imaging Studies Humerus X-Ray 02/05/20 16:01 IMPRESSION: No acute fracture or dislocation. Electronically Signed: Gustavo Tirado DO at 16:16 EDT Tel [phone], Service support , - Medical Decision Making X-ray shows no avulsion fracture. I suspect he ruptured the insertion of his biceps muscle at the AC fossa. He is placed in a sling given some analgesics and referred to orthopedics as an outpatient. Discussed with patient and all questions answered at the bedside. His left upper extremity is neurovascularly intact distally. ED Disposition - Plan for ED Patient: Disposition: Home or Assisted Living Diagnosis: Rupture of left distal biceps tendon Instructions: ED Strain Muscle Ext Prescriptions: traMADol [Ultram] 50 mg PO Q4H PRN PRN 3 Days #18 tablet PRN Reason: Pain Transmission Status: Received by [facility] Referrals: Urszula Rubi MD [Primary Care Provider] - Terrence Huertas DO [STAFF PHYSICIAN] - As soon as possible Additional Instructions: Suspected ruptured biceps tendon
[2020-02-05] MEDS: traMADol 50 MG Tablet PO (15:57)
--- NOTE | 2020-02-05 16:01 | RAD_ITS ---
STUDY: X-RAY - LEFT HUMERUS REASON FOR EXAM: Male, 64 years old. Left arm pain. [place] a pop after lifting something. TECHNIQUE: 2 view(s) of the humerus. COMPARISON: None. FINDINGS: Normal visualized humerus. There is no demonstrated fracture or osseous destructive process. The shoulder and elbow appear grossly unremarkable. There is no demonstrated soft tissue abnormality. RAD/Humerus min 2 Views IMPRESSION: No acute fracture or dislocation. Electronically Signed: Gustavo Tirado DO at 16:16 EDT Tel [phone], Service support ,
[2020-02-05 16:45] VITALS: BP 145/95; PULSE 78; RESP 15; O2SAT 98
--- NOTE | 2020-02-05 16:45 | ED.RN ---
PT GIVEN WRITTEN AND VERBAL DISCHARGE INSTRUCTIONS AND HOME GOING PAPERWORK. PT VERBALIZES UNDERSTANDING AND DENIES FURTHER QUESTIONS. EDUCATED NOT TO DRIVE WHEN TAKING PAIN MEDS. PT INSTRUCTED TO FOLLOW UP WITH ORTHOPEDICS REFERRED.
== END 2020-02-05 16:48 | disposition home or self-care (01) ==
PROVIDERS: Emergency Provider Emergency Medicine; PCP Internal Medicine
DX: S46.212A Strain of muscle, fascia and tendon of other parts of biceps, left arm, initial encounter (principal); K21.9 Gastro-esophageal reflux disease without esophagitis; M19.90 Unspecified osteoarthritis, unspecified site; Z87.891 Personal history of nicotine dependence; X50.0XXA Overexertion from strenuous movement or load, initial encounter; Y93.89 Activity, other specified; Y92.89 Other specified places as the place of occurrence of the external cause; Y99.8 Other external cause status
CPT/HCPCS: 73060; 99283

== ENCOUNTER → 2020-05-22 | Outpatient (CLI) | payer MEDICAID, SELFPAY ==
[2020-05-22 07:38] VITALS: BMI 32.8
[2020-05-22 11:54] LABS: Absolute Lymphocyte Count 1.28 X10^3/uL (0.83-4.51); Absolute Neutrophil Count 2.5 X10^3/uL (2.0-7.7); Basophil# 0.04 X10^3/uL; Basophil% 0.8 % (0-1); Eosinophils% 4.2 % (0-5); Hematocrit 46.8 % (40-54); Hemoglobin 14.9 g/dL (13.0-16.5); Lymphocyte # 1.28 X10^3/ul (4.0); Lymphocyte % 27.1 % (19-41); Mean Corp Hgb Conc 31.8 g/dL (32-36); Mean Corpuscular Hgb 28.5 pg (27.0-32.0); Mean Corpuscular Volume 89.5 fL (80-94); Mean Platelet Vol. 11.7 fl (6.2-12.0); Monocyte# 0.69 X10^3/uL; Monocyte% 14.6 % (0-10); NRBC Flagged by Analyzer 0 % (0-5); Neutrophil # 2.49 X10^3/uL (2.7-7.7); Neutrophil % 52.9 % (47-70); Platelet Count 197 K/mm3 (150-450); RBC Distribution Width CV 13.2 % (11.6-14.6); RBC Distribution Width SD 43.2 fl (35.1-43.9); Red Blood Count 5.23 M/mm3 (4.6-6.2); White Blood Count 4.7 K/mm3 (4.4-11.0)
[2020-05-22 12:47] LABS: ALB/GLOB Ratio 0.8 RATIO (0.9-2.4); AST(SGOT) 24 U/L (15-37); Alanine Aminotransfer ALT/SGPT 31 U/L (16-61); Albumin, Serum 3.4 g/dL (3.2-5.0); Alkaline Phosphatase 58 U/L (45-117); Anion Gap 5 (5-15); BUN 19 mg/dL (7-18); BUN/Creat Ratio 21.1 RATIO (10-20); Calcium,Total 8.7 mg/dL (8.5-10.1); Chloride 109 mmol/L (98-107); Cholesterol 114 mg/dL (200); EST Glomerular Filtration Rate 90 mL/min (>60); Est Glom Filt Rate - Afr Amer 109 mL/min (>60); Globulin 4.2 g/dL (2.2-4.2); Glucose 107 mg/dL (74-106); High Density Lipoprotein 38 mg/dL; Potassium 4.1 mmol/L (3.5-5.1); Protein, Total 7.6 g/dL (6.4-8.2); Sodium Level 141 mmol/L (136-145); Triglycerides 80 mg/dL; Very Low Density Lipoprotein 16 mg/dL (5-40)
[2020-05-27 14:08] LABS: Testosterone, Free 12.58 ng/dL (5.00-21.00)
[2020-05-27 17:22] LABS: Testosterone, Total 740 ng/dL (264-916)
== END | disposition home or self-care (01) ==
LOC: BIMLAB 08:00
PROVIDERS: PCP Internal Medicine; Referring Provider Nurse Practitioner Family; Visit Provider Nurse Practitioner Family
DX: K21.9 Gastro-esophageal reflux disease without esophagitis (principal); N52.9 Male erectile dysfunction, unspecified; E78.5 Hyperlipidemia, unspecified
CPT/HCPCS: 36415; 80053; 80061; 83036; 84402; 84403; 84443; 85025

== ENCOUNTER 2020-11-25 13:08 | Day surgery (SDC) | payer MEDICAID, SELFPAY ==
[2020-11-18 13:12] VITALS: BMI 31.9
[2020-11-25] VITALS (7 sets, daily range): BP systolic 125–134; BP diastolic 73–88; PULSE 66–75; RESP 16–18; TEMP 36.1–36.6; O2SAT 94–99
--- NOTE | 2020-11-25 10:52 | HP_ITS ---
I have re-examined the patient. There are no clinical changes since date of exam. Intake Intake Visit Reasons: RIGHT WRIST Accompanied by: Self Is patient in pain?: Yes Allergies No Known Allergies Allergy (Verified 11/12/20 10:05) Medications celecoxib 100 mg capsule 100 mg PO BID #60 cap 11/05/20 [Rx Confirmed 11/12/20] omeprazole 40 mg capsule,delayed release 40 mg PO DAILY #90 cap 11/06/20 [Rx Confirmed 11/12/20] PFSH Medical History (Updated 11/12/20 @ 10:18 by Zehra Taylor) Degenerative disc disease (Chronic) History of skin cancer (Acute) GERD (gastroesophageal reflux disease) (Chronic) Hearing loss (Chronic) Arthritis (Chronic) Surgical History History of cholecystectomy (Acute) Family History Father Alcoholism Arthritis Heart disease Social History (Updated 11/12/20 @ 10:[address] Caryn Delatorre DO) Smoking Status: Former smoker alcohol intake: never substance use type: does not use what type of physical activity do you participate in: none HPI RIGHT WRIST: Surgical H&P: Yes Details: Parts of this documentation were recorded by a scribe, this documentation accurately reflects the service provided and the decisions made by me, Dr. Caryn Delatorre DO 11/12/20 1003. BERKLEY ROMAN is a 65 year old M here today for to discuss having CTR done. Patient states his pain is worsening. Patient was last seen on: 04/30/2019 to discuss surgery. Basic ADL's causes pain. Pain is entire wrist, effecting all his digits. Reports numbness, stiffness and tingling. Reports fingers lock up. Pain is rated: 1/10 from the pain scale. Pain worsens at qhs. Patient reports he drops things frequently. ROS [facility] [place] system reviewed and no additional complaints, except as docu, Reports joint pain, Reports numbness, Reports stiffness, Reports tingling Neuro Yes numbness, Yes tingling Ortho Exam Right Wrist/Hand A1 arturo trigger: No Motor: EPL: 5, FDP-2: 4, 1st Dorsal Interosseous: 5, APB: 4 Sensation: Radial: I, Ulnar: I, Median: D Assessment & Plan Problems 1. Severe carpal tunnel syndrome of right wrist G56.01 2. Carpal tunnel syndrome of right wrist G56.01 Plan Personally reviewed the patient's medical history, medications, surgeries and recent exams if available. Reviewed the pre-operative plans with the patient. Risks and benefits of the procedure were fully explained, including but not limited to infection, neurovascular injury, continued pain, arthritis, stiffness, need for further surgery, re-injury, DVT, PE, general risks of anesthesia, and loss of limb or life. The patient understands all the risks and does wish to proceed with written consent for right carpal tunnel release. All questions answered. Patient in agreement of plan. Follow up post-op or sooner if pain, swelling, numbness or associated symptoms, or concerns develop. Plan Detail Goals Improve ROM Decrease spasm Barriers DDD Coding Level of Care Code Off vis,est,level 4 Diagnoses Severe carpal tunnel syndrome of right wrist G56.01 Carpal tunnel syndrome of right wrist G56.01 COVID (Procedure Consent) Procedure Criteria Procedure Criteria: Yes Elective The surgeon/proceduralist and patient have discussed in detail the risk of exposure to and/or potential harm posed by the COVID-19 virus with having a surgery/procedure at this time versus the risk of? delaying the surgery/procedure. It is not possible to know either the risk of delaying the surgery or procedure or chance of getting an infection with perfect accuracy, but a joint decision was made between the patient and the surgeon/proceduralist ?to proceed at this time with the scheduled surgery/procedure as indicated on the consent form.
[2020-11-25] MEDS: Lactated Ringers 1,000 ML 100 ML IV (13:53)
[2020-11-25] MEDS: Cefazolin 2 GM in 0.9% Normal Saline 100 ML IV (14:05)
--- NOTE | 2020-11-25 14:09 | DCINST_ITS ---
Discharge Diet: No Restrictions - follow up in 2 weeks, leave dressing intact- clean and dry Discharge Activity: May Not Drive May shower in (days): 1 Ice area for (Minutes): 20 - Every hour while awake. Weight Bearing Status: Weight bearing as tolerated Keep extremity elevated above heart level: Operative Extremity Call your doctor if your incision/area has: Continuous Slow Oozing, Sudden Increased Bleeding, Increased Pain/ Swelling, Increased Redness, Foul Smelling Discharge Call your doctor if you observe: Fever of 101 or Higher, Coldness, Increased Pain, Numbness or Tingling, Change in Color, Calf discomfort Allergies/Adverse Reactions: Allergies No Known Allergies Allergy (Verified 11/25/20 13:55) Medications to take at Discharge omeprazole 40 mg capsule,delayed release 40 mg PO DAILY #90 cap 11/06/20 Celecoxib 100 mg PO DAILY 11/20/20 Oxycodone HCl/Acetaminophen [Percocet 5/325] 1 - 2 tab PO Q6H PRN PRN 5 Days #28 tab 11/25/20 The following prescriptions were given: Oxycodone HCl/Acetaminophen [Percocet 5/325] 1 - 2 tab PO Q6H PRN PRN 5 Days #28 tab PRN Reason: Pain Transmission Status: Received by [facility] Primary Care Physician: Urszula Rubi MD [Primary Care Provider] - Test Results: Test results from this visit will be discussed in further detail at your follow- up appointment, if applicable. Please Follow Up With: Caryn Delatorre, - [phone]
--- NOTE | 2020-11-25 14:10 | PCM.OPRPT ---
Report of Operation Date of Procedure: 11/25/20 Pre-Operative Diagnosis: right carpal tunnel syndrome Post-Operative Diagnosis: same Surgery/Procedure Performed:: right carpal tunnel release Type of Anesthesia:: Piyush Lopez Anesthesiologist: Nilesh France Fluids Replaced: see chart Description of Procedure: Preoperative note Patient is a 65 year old patient with nerve conduction study confirming carpal tunnel syndrome. Patient failed conservative treatment for his carpal tunnel elected proceed with right carpal tunnel release. Risks benefits and alternatives surgery discussed with patient. Risks including but not limited to blood loss, blood clot, infection, neurovascular injury, failure procedure, loss of life and loss of limb. Patient is aware like proceed with right carpal tunnel release. Operative note Patient seen and examined preoperative holding area. right hand was marked. History and physical and consent reviewed. Patient was brought to the operating room placed supine on the operating table. Sign in, anesthesia, antibiotics were administered. right upper extremity was prepped and draped after Piyush block was initiated. All bony prominences well-padded SCDs placed on bilateral lower extremities. We marked out our incisions for our carpal tunnel release at the intersection of Ashish's line in the fourth ray flexed. We extended about a centimeter and a half. Timeout was performed. We then checked ensure that the [place] block was working with pickups which it was . We then used a 15 blade to make a skin incision. We then dissected down tenotomy syllable of the transverse carpal ligament. We then used a new 15 blade cut through the transverse carpal ligament down to the level of the median nerve. We then further released the median nerve the combination of the 15 blade and tenotomies. The nerve was grayish in color and adherent to the transverse carpal ligament volarly. We released the transverse carpal ligament distally to the fat pad and then proximally under standard technique. We then palpated to ensure that we released all of the transverse carpal ligament which we did. We irrigated the incision with copious amounts of sterile saline. All bleeders were coagulated. The incision was closed with interrupted 4-0 nylon stitches. Tourniquet was deflated for total working time of 10 minutes. Patient tolerated procedure well there were no complications. Patient transferred to recovery room in stable condition. Postoperative note Hospital pharmacy has prescription Call with concerns Follow-up in 2 weeks Discussed with via phone Call with increased pain numbness tingling further issues arise This note was generated with [employer] software. It may contain incorrect words, spelling, and punctuation that were not noted in checking the note before signing.
[2020-11-25] MEDS: Mupirocin Ointment 22gm Tube 1 APPLIC (14:31)
[2020-11-25] MEDS: HYDROcodone Bitartrate/Apap 5/325 Tablet PO (15:33)
== END 2020-11-25 17:04 | disposition home or self-care (01) ==
LOC: SDC 13:09 → AC 13:10
PROVIDERS: PCP Internal Medicine; Referring Provider Orthopaedic Surgery; Visit Provider Orthopaedic Surgery
PROC: (CPT 64721; principal; 2020-11-25 13:15)
DX: G56.01 Carpal tunnel syndrome, right upper limb (principal); K21.9 Gastro-esophageal reflux disease without esophagitis; M19.90 Unspecified osteoarthritis, unspecified site; G47.30 Sleep apnea, unspecified; Z79.899 Other long term (current) drug therapy; Z87.891 Personal history of nicotine dependence
CPT/HCPCS: 01810; 64721; J7120; A4216

== ENCOUNTER → 2021-04-21 15:53 | Outpatient (CLI) | payer BC, MEDICAID, SELFPAY ==
[2021-04-21 15:17] VITALS: BMI 32.8
[2021-04-21 16:55] LABS: Absolute Neutrophil Count 3.2 X10^3/uL (2.0-7.7); Basophil# 0.03 X10^3/uL; Basophil% 0.5 % (0-1); Eosinophil# 0.25 X10^3/uL; Eosinophils% 4.5 % (0-5); Hematocrit 47.1 % (40-54); Hemoglobin 14.8 g/dL (13.0-16.5); Mean Corp Hgb Conc 31.4 g/dL (32-36); Mean Corpuscular Hgb 28.1 pg (27.0-32.0); Mean Corpuscular Volume 89.5 fL (80-94); Mean Platelet Vol. 11.5 fl (6.2-12.0); Monocyte# 0.72 X10^3/uL; Monocyte% 12.8 % (0-10); NRBC Flagged by Analyzer 0 % (0-5); Platelet Count 198 K/mm3 (150-450); RBC Distribution Width CV 13.1 % (11.6-14.6); RBC Distribution Width SD 42.6 fl (35.1-43.9); Red Blood Count 5.26 M/mm3 (4.6-6.2); White Blood Count 5.6 K/mm3 (4.4-11.0)
[2021-04-21 17:07] LABS: Hemoglobin A1c 5.8 % (3.8-5.6)
[2021-04-21 17:28] LABS: AST(SGOT) 21 U/L (15-37); Alanine Aminotransfer ALT/SGPT 37 U/L (16-61); Albumin, Serum 3.6 g/dL (3.2-5.0); Alkaline Phosphatase 64 U/L (45-117); Amylase 31 U/L (25-115); Anion Gap 5 (5-15); BUN 21 mg/dL (7-18); BUN/Creat Ratio 19.8 RATIO (10-20); Calcium,Total 8.7 mg/dL (8.5-10.1); Chloride 107 mmol/L (98-107); Cholesterol 138 mg/dL (200); Creatinine, Serum 1.06 mg/dL (0.70-1.30); EST Glomerular Filtration Rate 75 mL/min (>60); Est Glom Filt Rate - Afr Amer 90 mL/min (>60); Globulin 3.6 g/dL (2.2-4.2); Glucose 96 mg/dL (74-106); High Density Lipoprotein 43 mg/dL; Lipase 99 U/L (73-393); Protein, Total 7.2 g/dL (6.4-8.2); Sodium Level 141 mmol/L (136-145); Thyroid Stim Hormone (TSH) 1.25 uIU/mL (0.358-3.74); Triglycerides 134 mg/dL; Very Low Density Lipoprotein 27 mg/dL (5-40)
== END ==
PROVIDERS: PCP Internal Medicine; Referring Provider Nurse Practitioner Family; Visit Provider Nurse Practitioner Family
DX: R73.03 Prediabetes (principal); R10.9 Unspecified abdominal pain
CPT/HCPCS: 36415; 80053; 80061; 82150; 83036; 83690; 84443; 85025

== ENCOUNTER 2021-12-27 09:00 | Outpatient (CLI) | payer MEDICAID, MEDICARE, SELFPAY | END 2021-12-27 23:59 | disposition home or self-care (01) | LOC: SL 12-28 10:38 | PROVIDERS: PCP Internal Medicine; Visit Provider Internal Medicine | DX: Z00.00 Encounter for general adult medical examination without abnormal findings (principal) ==

== ENCOUNTER 2021-12-27 09:36 | Outpatient (CLI) | payer MEDICARE, MEDICAID, SELFPAY ==
[2021-12-27 10:26] LABS: Absolute Neutrophil Count 2.8 X10^3/uL (2.0-7.7); Basophil# 0.02 X10^3/uL; Basophil% 0.4 % (0-1); Eosinophil# 0.28 X10^3/uL; Eosinophils% 5.3 % (0-5); Hematocrit 48.4 % (40-54); Hemoglobin 15.8 g/dL (13.0-16.5); Lymphocyte % 26.6 % (19-41); Mean Corp Hgb Conc 32.6 g/dL (32-36); Mean Corpuscular Hgb 28.9 pg (27.0-32.0); Mean Corpuscular Volume 88.5 fL (80-94); Monocyte# 0.74 X10^3/uL; NRBC Flagged by Analyzer 0 % (0-5); Neutrophil # 2.81 X10^3/uL (2.7-7.7); Neutrophil % 53.3 % (47-70); Platelet Count 197 K/mm3 (150-450); RBC Distribution Width SD 42.4 fl (35.1-43.9); Red Blood Count 5.47 M/mm3 (4.6-6.2); White Blood Count 5.3 K/mm3 (4.4-11.0)
[2021-12-27 11:08] LABS: ALB/GLOB Ratio 0.9 RATIO (0.9-2.4); AST(SGOT) 22 U/L (15-37); Alanine Aminotransfer ALT/SGPT 30 U/L (16-61); Albumin, Serum 3.5 g/dL (3.2-5.0); Alkaline Phosphatase 67 U/L (45-117); Amylase 26 U/L (25-115); Anion Gap 3 (5-15); BUN 14 mg/dL (7-18); BUN/Creat Ratio 15.6 RATIO (10-20); Bilirubin, Direct 0.25 mg/dL (0.00-0.30); Calcium,Total 9.1 mg/dL (8.5-10.1); Chloride 107 mmol/L (98-107); EST Glomerular Filtration Rate 90 mL/min (>60); Est Glom Filt Rate - Afr Amer 109 mL/min (>60); Glucose 109 mg/dL (74-106); Lipase 50 U/L (73-393); Potassium 4.3 mmol/L (3.5-5.1); Protein, Total 7.5 g/dL (6.4-8.2); Sodium Level 140 mmol/L (136-145)
== END 2021-12-27 23:59 | disposition home or self-care (01) ==
LOC: LAB 09:43
PROVIDERS: PCP Internal Medicine; Visit Provider Nurse Practitioner Adult Health
DX: R10.9 Unspecified abdominal pain (principal); K58.1 Irritable bowel syndrome with constipation; Z87.19 Personal history of other diseases of the digestive system
CPT/HCPCS: 36415; 80053; 82150; 82248; 83690; 85025

== ENCOUNTER → 2022-01-25 | Outpatient (CLI) | payer MEDICARE, MEDICAID, SELFPAY ==
--- NOTE | 2022-01-25 17:32 | CT_ITS ---
ACR Level 3 findings have been noted. An addendum which confirms receipt of the report will follow. INDICATION: abd pain -- oral and IV please EXAMINATION: CT Abdomen And Pelvis W/ Contrast Injection TECHNIQUE: Helically acquired images were obtained of the abdomen and pelvis after IV contrast. A radiation dose optimization technique was used for this scan. IV Contrast dosage and agent: Oral Readi-CAT Oral contrast: None. COMPARISON: 02/09/2019. FINDINGS: Visualized lung bases: Unremarkable Liver: Simple 1.4 center cyst in the left hepatic lobe. Gallbladder: Surgically absent. Spleen: Unremarkable Pancreas: Fatty atrophic changes. Adrenal Glands: Unremarkable Kidneys: Unremarkable Vasculature: Mild scattered aortoiliac atherosclerotic calcifications. GI Tract: A few loops of small bowel are dilated up to 3.2 cm in diameter. Lymphadenopathy: None Peritoneum: No ascites. Bladder: Unremarkable Reproductive organs: Unremarkable Bones/Soft tissues: Mild scattered degenerative changes of the visualized spine. CT/Abdomen/Pelvis WITH Contrast IMPRESSION: A few loops of proximal small bowel are dilated up to 3.2 cm. This could represent early or partial small bowel obstruction. Note clear transition point. Electronically Signed: Mark Peters MD at 21:12 EDT ,
== END | disposition home or self-care (01) ==
LOC: CT 17:30
PROVIDERS: PCP Internal Medicine; Visit Provider Nurse Practitioner Adult Health
DX: R10.9 Unspecified abdominal pain (principal); K58.1 Irritable bowel syndrome with constipation
CPT/HCPCS: 74177

== ENCOUNTER → 2022-01-28 | Outpatient (CLI) | payer MEDICARE, MEDICAID, SELFPAY ==
--- NOTE | 2022-01-28 08:50 | RAD_ITS ---
EXAM: XR ABDOMEN, 1 VIEW CLINICAL INDICATION: SBO on CT, eval if contrast passed TECHNIQUE: Frontal supine view of the abdomen/pelvis. This report was created using [employer] report generation technology. COMPARISON: CT Jan 25 2022 5:43pm FINDINGS: LOWER THORAX: No acute pathology. GASTROINTESTINAL TRACT: Since the study performed 3 days ago, contrast is now visualized in the rectal vault. Non-obstructive. No bowel or stomach distention. ORGANS: The gallbladder is surgically absent. No organomegaly. No abnormal calcifications. BONES/JOINTS: Degenerative findings in the lumbar spine. SOFT TISSUES: No acute pathology. RAD/Abdomen Single View IMPRESSION: Since the study performed 3 days ago, contrast is now visualized in the rectal vault. Electronically Signed: Cristiano Cali MD at 17:05 EDT Reading Location ID and State: [facility] / [place] , Service support ,
== END | disposition home or self-care (01) ==
PROVIDERS: PCP Internal Medicine; Referring Provider Nurse Practitioner Adult Health; Visit Provider Nurse Practitioner Adult Health
DX: K56.609 Unspecified intestinal obstruction, unspecified as to partial versus complete obstruction (principal)
CPT/HCPCS: 74018

== ENCOUNTER → 2022-01-29 | Outpatient (CLI) | payer MEDICARE, MEDICAID, SELFPAY ==
--- NOTE | 2022-01-29 07:55 | RAD_ITS ---
HISTORY: patency capsule. TECHNIQUE: XR Abdomen 3 views. COMPARISON: 01/28/2022. FINDINGS: BOWEL GAS PATTERN: Residual enteric contrast and moderate stool in the colon. No dilated bowel loops identified. Patency capsule identified in the right upper quadrant in the region of the hepatic flexure colon. Right upper quadrant surgical clips noted. FREE AIR: Not assessed on supine views. RAD/Abdomen Single View IMPRESSION: Patency capsule in the right upper quadrant. Moderate stool in the colon with retained enteric contrast in the colon again noted. Electronically Signed: Veronica Monique MD at 16:48 EDT ,
== END | disposition home or self-care (01) ==
LOC: RAD 07:54
PROVIDERS: PCP Internal Medicine; Referring Provider Nurse Practitioner Adult Health; Visit Provider Nurse Practitioner Adult Health
DX: K56.609 Unspecified intestinal obstruction, unspecified as to partial versus complete obstruction (principal)
CPT/HCPCS: 74018

== ENCOUNTER → 2022-02-02 | Outpatient (CLI) | payer MEDICARE, MEDICAID, SELFPAY ==
--- NOTE | 2022-02-02 10:50 | RAD_ITS ---
INDICATION: reevaluate constipation EXAMINATION/TECHNIQUE: X-RAY - XR Abdomen 1 View COMPARISON: 01/29/2022 FINDINGS: BOWEL GAS PATTERN: There is a nonobstructive bowel gas pattern. Patency capsule noted on prior exam is not visualized on current exam. No evidence of bowel obstruction. There has been a limitation of the contrast previously noted in the colon. No pneumatosis. Postoperative changes are present in the gallbladder fossa. FREE AIR: Not assessed on a single supine view. ORGANOMEGALY: Not seen. CALCIFICATIONS: No abnormal calcifications observed. LOWER CHEST: No acute pathology. BONES AND SOFT TISSUES: No acute pathology. RAD/Abdomen Single View IMPRESSION: 1. Non-obstructive bowel gas pattern. 2. Patency capsule noted on prior exam is not present on current exam.. Electronically Signed: Jeff Macario MD at 21:44 EDT ,
== END | disposition home or self-care (01) ==
PROVIDERS: PCP Internal Medicine; Visit Provider Nurse Practitioner Adult Health
DX: K59.01 Slow transit constipation (principal)
CPT/HCPCS: 74018

== ENCOUNTER 2022-11-21 06:03 | Day surgery (SDC) | payer MEDICARE, MEDICAID, SELFPAY ==
--- NOTE | 2022-11-21 | IMM_PTH ---
PATIENT: BERKLEY ROMAN LOC: EN U#:[id number] AGE/SX: 67/M ROOM: RE11/21/[address]: Dr. Tate Chase DO : 1955 BED: DIS: 11/21/2022 SPEC #: [id number] RECD: 11/22/22 13:47 STATUS: ALFREDO REQ #: [id number] MOHINDER: 11/21/22 00:[address]: Tate Chase DEPT: IMMUNOHISTOCHEMISTRY RECD BY: Anitra Marion ENTERED: 11/22/22 13:48 SP TYPE: IMMUNO OTHR DR: Dr. Urszula Rubi MD Tissues: Esophagus, NOS Procedures: P53 (initial) KI-67 (add) PHYSICIAN & INSTITUTION [place] [address] SPECIMEN INFORMATION: Tissue Source: Distal esophagus Clinical Info: GERD, Terry?s esophagus Specimen Number: [id number] CPT code: 93430, 27562 METHODOLOGY: Deparaffinized sections of prefer/formalin-fixed tissue or PAP/DQ stained slides are incubated with monoclonal/polyclonal antibodies/oligonucleotide probes. Localization is made via biotin free immunoperoxidase method. Appropriate controls are performed and reacted as expected. Results on target cell population are indicated in the following table: RESULTS: ANTIBODY / CLONE RESULT P53 (DO-7) negative Ki-67 (30-9) positive, low These tests were developed and their performance characteristics determined by [facility]. They may not have been cleared or approved by the U.S. Food and Drug Administration. The FDA has determined that such clearance or approval is not necessary. The above immunohistochemical/dualISH markers are ordered and reviewed by the Pathologist. INTERPRETATION: Distal esophagus, biopsy: Negative for dysplasia. WOOD:lesa 11/23/2022
--- NOTE | 2022-11-21 | ESO_PTH ---
PATIENT: BERKLEY ROMAN LOC: EN U#:[id number] AGE/SX: 67/M ROOM: RE11/21/[address]: Dr. Tate Chase DO : 1955 BED: DIS: 11/21/2022 SPEC #: [id number] RECD: 11/21/22 11:20 STATUS: ALFREDO ASHKAN #: [id number] MOHINDER: 11/21/22 00:[address]: Tate Chase DEPT: SURGICAL PATHOLOGY RECD BY: Benoit Lucas ENTERED: 11/21/22 11:20 SP TYPE: WINSOME DALY DR: Dr. 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 Chronic inflammation. Negative for dysplasia. See comment. WOOD:lesa 11/22/2022 COMMENT Alcian blue/PAS stain with matched control is used in the evaluation of the specimen. Immunohistochemistry ([id number]) for P53 and Ki-67 will be performed and results will be reported separately. Case has been reviewed in consultation with Dr. Fishman who concurs with the above diagnosis. IDC:AM MICROSCOPIC DESCRIPTION Slides are reviewed. GROSS DESCRIPTION Received in fixative is one container labeled with the patient's name and designated distal esophagus. The specimen consists of multiple irregular fragments of light wilkins soft tissue that in aggregate measure 1.5 x 1.0 x 0.1 cm. The specimen is totally submitted in one cassette. / AM:lesa 11/21/2022 TC:5 CPT: 78073, 41378
[2022-11-21 06:23] VITALS: BP 136/95; PULSE 76; RESP 16; TEMP 35.7; O2SAT 96; BMI 31.8
[2022-11-21] MEDS: Lactated Ringers 1,000 ML 15 ML IV (06:29)
--- NOTE | 2022-11-21 07:03 | PCM.HP.BLA ---
History and Physical Date of Admission: 11/21/22 BERKLEY ROMAN, is a 66 M who presents to the office today requesting refill of esomeprazole 40 mg daily.? At his last appointment in January 2022 the plan was for him to get EGD because of history of Terry's esophagus, as well as screening colonoscopy.? He has chronic constipation.? He canceled his endoscopies and got a second opinion with another zigzag topstitcher.? He was prescribed something for constipation, it may have been Linzess, but the prescription was too expensive.? He reports he is managing his constipation with prune juice.? He says that zigzag topstitcher declined to prescribe medication for acid reflux.? If he does not take as omeprazole then he has terrible heartburn and difficulty swallowing.? He says his and daughter question if he should remain on it.? Patient says he would like to proceed with upper endoscopy at this time. Exam Const General: cooperative and comfortable Nutritional Appearance: overweight Orientation: alert, awake and oriented x3 Quality Reporting Tobacco Screening ([facility]) Smoking Status: Never smoker Assessment and Plan Assessment and Plan (1) GERD (gastroesophageal reflux disease): ?Status:?Chronic ?Plan: 66 yr old male with GERD, hx Terry's esophagus. Will refill his esomeprazole 40 mg daily. He will be scheduled for EGD with office f/u 2 wks later. (2) History of Terry's esophagus: ?Status:?Acute ?Plan: as above ? ? ? Medications: Refilled esomeprazole magnesium 40 mg? PO DAILY 90 caps 3RF ? ? I have examined the patient and the H&P has been reviewed. There are no clinical changes since date of exam. ROS Eyes Eyes: No blurry vision, change in vision, double vision, irritation, discharge, vision loss, dry eyes, bulging eyes, floaters, visual disturbances, eye pain, Light sensitivity, spots in vision, tunnel vision or other ENT ENT: No abnormal hearing, ear or mastoid pain, ear discharge, ear pressure, hearing loss, tinnitus, dizziness/vertigo, balance problems, nosebleed/epistaxis, nasal congestion, nasal obstruction, nose pain, sinus pressure, sinus pain, nasal discharge, post nasal drip, facial pain, dental pain, dry mouth, difficulty swallowing, bad breath, hoarseness, lip swelling, mouth lesions, mouth pain, neck pain, sore throat, tongue swelling, throat swelling or other Resp Respiratory: No cough, change in phlegm color, chest congestion, excessive phlegm production, hemoptysis, pain on inspiration, shortness of breath, pain with cough, stridor, wheezing or other Cardio Cardiology: No chest pain at rest, chest pain with exertion, leg pain with exertion, shortness of breath, dyspnea on exertion, generalized swelling, irregular heart rhythm, lightheadedness, orthopnea, radiating jaw, neck or arm pain, fast heart rate, slow heart rate, palpitations, difficulty breathing or other Gastro GI: No abdominal pain, No belching, No bloating, No change in bowel habits, No change in stool character, No coffee ground emesis, No constipation, No cramping, No diarrhea, No heartburn, No Difficulty Swallowing, No feeling full early, No excessive flatus, No incontinent of stools, No Vomiting blood/hematemesis, No Blood in stool, No loose stools, No Black,tarry stools, No nausea/dyspepsia, No pain with swallowing, No vomiting, No hemorrhoids and No rectal pain Genitourinary: No difficulty urinating, burning urination, painful urination, urinary incontinence, urinary frequency, urinary urgency, urinary hesitancy, urinary retention, blood in urine, Frequent nighttime urination/ nocturia, post void dribbling, suprapubic fullness, side pain, sexual problems, genital lesions, genital itching, hot flashes, abnormal periods, abnormal vaginal bleeding, absent period, painful periods, light periods, heavy periods, difficulty getting , painful intercourse, pelvic pain, vaginal dryness, vaginal odor, vaginal itching, erectile dysfunction, penile discharge, difficulty with ejaculations, blood in semen, scrotal swelling, testicle lump, testicle pain or other Musc Musculoskeletal: No abnormal gait, joint pain, back pain, deformity, joint swelling, limited range of motion, loss of height, muscle cramps, muscle weakness, decreased muscle mass, myalgias, neck pain, numbness, radiating pain into limb, stiffness, tingling, Arthritis, sciatica, restless legs, leg pain at night, leg pain with exertion or other Breast Breast: No change in breast shape, breast lump, breast pain, breast skin changes, breast swelling or nipple discharge Neuro Neurology: No abnormal gait, abnormal hearing, numbness, tingling, visual disturbances or restless legs Psych Psychiatric: No lack of enjoyment, No anxiety, No depression, No difficulty concentrating, No hopelessness, No irritability, No mood swings, No panic attacks, No paranoia, No Thoughts of harming yourself/Others, No hallucinations, No Behavioral Problems, No Compulsive Behavior, No hyperactivity, No inattentiveness, No obsessions/compulsions, No Temper Tantrums, No suicidal ideation and No other Endo Endo: No change in body appearance, No cold intolerance, No flushing, No heat intolerance, No increased thirst/drinking, No increased hunger, No increased urine leakage, No change in pigmentation, No nervousness, No abnormal hair distribution, No abnormal change in skin pigmentation, No tremors and No other Aller/Imm Allergy/Immunologic: No food intolerance, lip swelling, seasonal allergy symptoms, throat swelling, tongue swelling, hives, wheezing or other Evans/Lymp Hematologic/Lymphatic: No easy bleeding, easy bruising, enlarged lymph nodes or other
[2022-11-21 08:00] VITALS: BP 120/88; BP 136/95; PULSE 86; RESP 16; TEMP 36.5; O2SAT 95
--- NOTE | 2022-11-21 08:02 | OP.EGD_ITS ---
Patient Name: Lyle Sarmiento Procedure Date: 11/21/2022 7:37 AM Date of : 1955 Age: 67 Procedure: Upper GI endoscopy Indications: Heartburn Providers: Tate Chase DO Medicines: Monitored Anesthesia Care Patient Profile: This is a 67 year old male. Refer to note in patient chart for documentation of history and physical. Patient has symptoms of chronic heartburn. Complications: No immediate complications. Procedure: Pre-Anesthesia Assessment: - Prior to the procedure, a History and Physical was performed, and patient medications and allergies were reviewed. The risks and benefits of the procedure and the sedation options and risks were discussed with the patient. All questions were answered and informed consent was obtained. Patient identification and proposed procedure were verified by the physician. Mental Status Examination: normal. Prophylactic Antibiotics: The patient does not require prophylactic antibiotics. Prior Anticoagulants: The patient has taken no previous anticoagulant or antiplatelet agents. After reviewing the risks and benefits, the patient was deemed in satisfactory condition to undergo the procedure. The anesthesia plan was to use monitored anesthesia care (MAC). Immediately prior to administration of medications, the patient was re-assessed for adequacy to receive sedatives. The heart rate, respiratory rate, oxygen saturations, blood pressure, adequacy of pulmonary ventilation, and response to care were monitored throughout the procedure. The physical status of the patient was re-assessed after the procedure. After obtaining informed consent, the endoscope was passed under direct vision. Throughout the procedure, the patient's blood pressure, pulse, and oxygen saturations were monitored continuously. The gastroscope was introduced through the mouth, and advanced to the second part of duodenum. The upper GI endoscopy was accomplished without difficulty. The patient tolerated the procedure well. Scope In: 7:49:31 AM Scope Out: 7:56:55 AM Total Procedure Duration Time 0 hours 7 minutes 24 seconds Findings: There were esophageal mucosal changes suggestive of short-segment Terry's esophagus present in the lower third of the esophagus. The maximum longitudinal extent of these mucosal changes was 3 cm in length. Mucosa was biopsied with a cold forceps for histology in 4 quadrants at intervals of 1 cm in the lower third of the esophagus. One specimen bottle was sent to pathology. Verification of patient identification for the specimen was done. Estimated blood loss was minimal. A small hiatal hernia was present. No other significant abnormalities were identified in a careful examination of the stomach. The duodenal bulb was normal. Impression: - Esophageal mucosal changes suggestive of short-segment Terry's esophagus. Biopsied. - Small hiatal hernia. - Normal duodenal bulb. Recommendation: - Discharge patient to home. - Resume previous diet. - Continue present medications. - Await pathology results. Procedure Code(s): --- Professional --- 43001, Esophagogastroduodenoscopy, flexible, transoral; with biopsy, single or multiple CPT copyright 2017 [employer]. All rights reserved. The codes documented in this report are preliminary and upon jet handler review may be revised to meet current compliance requirements. Tate Chase DO 11/21/2022 8:02:09 AM This report has been signed electronically. Number of Addenda: 0 Note Initiated On: 11/21/2022 7:37 AM
--- NOTE | 2022-11-21 08:03 | OP.CCLET_ITS ---
11/21/2022 Urszula Rubi MD [address] [place] [address] [place] [address] Re : Upper GI endoscopy procedure for Lyle Sarmiento Dear Dr. Rubi This procedure was performed on Monday, November 21, 2022. My impressions and recommendations are as follows: Impressions : - Esophageal mucosal changes suggestive of short-segment Terry's esophagus. Biopsied. - Small hiatal hernia. - Normal duodenal bulb. Recommendations : - Discharge patient to home. - Resume previous diet. - Continue present medications. - Await pathology results. My findings are described in the full procedure note, which is enclosed. If I can be of further assistance, please feel free to contact me at . Sincerely, Tate Chase, 11/21/2022 8:02:09 AM This report has been signed electronically.
[2022-11-21 08:05] VITALS: BP 124/94; BP 136/95; PULSE 64; RESP 16; O2SAT 97
[2022-11-21 08:10] VITALS: BP 136/87; BP 136/95; PULSE 63; RESP 18; O2SAT 96
[2022-11-21 08:15] VITALS: BP 132/87; BP 136/95; PULSE 62; RESP 18; TEMP 36.3; O2SAT 97
== END 2022-11-21 09:45 | disposition home or self-care (01) ==
LOC: EN 06:06 → AC 06:07
PROVIDERS: PCP Internal Medicine; Referring Provider Internal Medicine; Visit Provider Internal Medicine Gastroenterology
PROC: 0DJ08ZZ Inspection of Upper Intestinal Tract, Via Natural or Artificial Opening Endoscopic (ICD-10-PCS; CPT 43235; principal; 2022-11-21 07:25)
DX: K22.70 Barrett's esophagus without dysplasia (principal); K44.9 Diaphragmatic hernia without obstruction or gangrene; K21.9 Gastro-esophageal reflux disease without esophagitis
CPT/HCPCS: 43239; 88305; 88313; 88341; 88342; J7120; J2405

== ENCOUNTER 2022-12-10 09:29 | Emergency (ER) | payer MEDICARE, MEDICAID, SELFPAY ==
[2022-12-10 09:29] VITALS: BP 141/89; PULSE 79; RESP 18; TEMP 36.5; O2SAT 99; BMI 31.6
--- NOTE | 2022-12-10 10:05 | CT_ITS ---
STUDY: CT ABDOMEN AND PELVIS WITH CONTRAST REASON FOR EXAM: Male, 67 years old. Abdominal pain -- RADIATION DOSAGE (If Supplied By Facility): CTDIvol = ( 16.75 ) mGy, DLP = ( 1041.04 ) mGycm TECHNIQUE: Transaxial images were obtained from the dome of the diaphragm to the symphysis pubis with oral contrast. IV 100mL Isovue-370 was administered. Sagittal and coronal images were reconstructed. Individualized dose optimization techniques were used for this CT. COMPARISON: January 25, 2022. FINDINGS: The visualized lung bases are unremarkable. The visualized portions of the heart are within normal limits. There is 1.2 cm cyst in the liver. There are surgical clips in the gallbladder fossa consistent with a prior cholecystectomy. Normal spleen. Normal pancreas. Normal bilateral adrenal glands. Normal right kidney. Normal left kidney. There is a small hiatal hernia. Normal small intestine. Normal colon. There is moderately abundant stool. The appendix is visualized and appears normal. There is atherosclerotic calcification of the abdominal aorta, without a demonstrated aneurysm. Normal inferior vena cava. Normal retroperitoneum. Normal urinary bladder. There is no free fluid in the abdomen or pelvis. Normal abdominal wall. There are diffuse degenerative changes of the visualized lumbar spine. CT/Abdomen/Pelvis WITH Contrast IMPRESSION: No obstruction. Electronically Signed: Kg Guajardo MD at 14:14 EDT ,
[2022-12-10] MEDS: Ondansetron 4 MG/2 ML Vial IV (10:14)
[2022-12-10] MEDS: Morphine 4 MG/ML Syringe IV (10:14)
[2022-12-10] MEDS: 0.9% Normal Saline 1,000 ML 1000 ML IV (10:15)
[2022-12-10 10:32] LABS: Absolute Lymphocyte Count 1.15 X10^3/uL (0.83-4.51); Basophil# 0.02 X10^3/uL; Basophil% 0.5 % (0-1); Eosinophil# 0.22 X10^3/uL; Eosinophils% 5.3 % (0-5); Hematocrit 49.6 % (40-54); Hemoglobin 15.9 g/dL (13.0-16.5); Lymphocyte # 1.15 X10^3/ul (0.83-4.51); Lymphocyte % 27.8 % (19-41); Mean Corp Hgb Conc 32.1 g/dL (32-36); Mean Corpuscular Hgb 28.7 pg (27.0-32.0); Mean Corpuscular Volume 89.5 fL (80-94); Mean Platelet Vol. 11.8 fl (6.2-12.0); Monocyte# 0.73 X10^3/uL; Monocyte% 17.6 % (0-10); NRBC Flagged by Analyzer 0 % (0-5); Neutrophil # 2.01 X10^3/uL (2.7-7.7); Neutrophil % 48.6 % (47-70); Platelet Count 173 K/mm3 (150-450); RBC Distribution Width CV 12.9 % (11.6-14.6); RBC Distribution Width SD 42.5 fl (35.1-43.9); Red Blood Count 5.54 M/mm3 (4.6-6.2); White Blood Count 4.1 K/mm3 (4.4-11.0)
--- NOTE | 2022-12-10 10:34 | NURSING ---
NEED A NEW BLUE TOP,
--- NOTE | 2022-12-10 10:38 | ED.VIS.GI ---
HPI HPI - GI History of Present Illness Chief Complaint: Abd Pain Informant: patient Abdominal Pain/Flank Pain Onset: Today Context: Gradual Onset Timing: Intermittent and Lasts (40 minutes to an hour) Quality: Aching Location: Diffuse Worsened by: Nothing Relieved by: Nothing Nausea/Vomiting/Emesis GI Symptom: Positive for Nausea and Vomiting Quality: Negative for Blood streaks, Coffee ground or Hematemesis Diarrhea/Melena/Hematochezia GI Symptom: Negative for Diarrhea, Melena or Hematochezia Associated Symptoms Associated Symptoms: Negative for Dysuria, Frequency or Hematuria Narrative Narrative: Patient present with nausea and vomiting that began today. Patient states she also has diffuse abdominal pain today. Patient states that he has had similar episodes in the past but those have been on the right side of his abdomen. Patient states today the pain is more diffuse across his abdomen. Patient states it comes and goes. Patient states it lasted approxi-40 minutes to an hour. Patient states nothing makes it worse and nothing makes it better. Patient denies any hematemesis or coffee-ground emesis. Patient denies any diarrhea, melena, or hematochezia. Patient denies any urinary complaints. PFSH [facility] Medical History Abdominal pain Anxiety Arthritis Chest pain CPAP (continuous positive airway pressure) dependence Degenerative disc disease Fatigue Gastric reflux GERD (gastroesophageal reflux disease) Hearing loss History of Terry's esophagus History of IBS History of skin cancer Hx of pancreatitis Injury of head and neck Irritable bowel syndrome with constipation Kidney stone Obstructive sleep apnea Prediabetes Severe headache Shortness of breath on exertion Wears glasses Wears hearing aid Home Medications celecoxib 100 mg capsule 100 mg PO DAILY 11/15/22 [History Last Taken Unknown] esomeprazole magnesium 40 mg capsule,delayed release 40 mg PO BID #180 caps 12/05/22 [Rx Last Taken Unknown] Allergy/AdvReac Type Severity Reaction Status Date / Time No Known Allergies Allergy Verified 12/10/22 09:32 Family History Father Alcoholism Arthritis Heart disease Surgical History History of carpal tunnel surgery of right wrist History of cholecystectomy Social History Smoking Status: Never smoker alcohol intake: never substance use type: does not use what type of physical activity do you participate in: none ROS ROS ED Constitutional Constitutional ED: Denies chills or fever(s) Eyes Eyes: Denies blurry vision or change in vision ENT ENT ED: Denies rhinorrhea or sore throat Cardiovascular Cardiovascular: Denies chest pain or palpitations Respiratory/Chest Respiratory/Chest: Reports cough; Denies dyspnea Gastrointestinal Gastrointestinal: Reports abdominal pain, nausea and vomiting Genitourinary Genitourinary ED: Denies dysuria or hematuria Musculoskeletal Musculoskeletal: Denies back pain or neck pain Integumentary Denies abscess or rash Neurologic Neurologic: Denies headache(s) or weakness Allergic/Immunologic Allergic/Immunologic ED: Denies mouth swelling or urticaria EXAM Physical Exam Const Vital Signs: 12/10/22 09:29 12/10/22 11:29 12/10/22 13:29 Temperature 97.7 F L Temperature Source Oral Pulse Rate 79 Respiratory Rate 18 18 Blood Pressure 141/89 H 133/81 H Blood Pressure Mean 106 98 Pulse Ox 99 Oxygen Delivery Method Room Air Positive well nourished and well developed General Appearance ED: well developed and NAD HEENT Reports moist mucous membranes Neck supple and no JVD Resp normal respiratory effort and clear to auscultation bilaterally Cardio regular rate, regular rhythm and no murmurs GI normal to inspection, nondistended, normoactive bowel sounds Palpation: soft and tender epigastric, LLQ, RLQ, LUQ, RUQ, periumbilical and suprapubic; Negative for guarding or rebound tenderness present Extremity normal to inspection General Extremety ED: Negative for edema or tenderness General Extremity: Negative for edema Neuro oriented x3, CN's II-XII intact bilaterally and no sensory deficits noted Sensorium / Orientation: alert Motor Exam: strength 5/5 throughout Psych mental status grossly normal Skin no rashes or lesions noted MDM MDM MDM Narrative Medical decision making narrative: Differential diagnosis includes pancreatitis, gastroenteritis, bowel obstruction, perforation, pyelonephritis, urinary tract infection, ureteral calculus, and hepatitis. CBC will be obtained to assess for leukocytosis and anemia. Comprehensive metabolic profile will be obtained to assess for electrolyte abnormality, renal function. Lipase will be obtained to assess for pancreatitis. PT was INR and PTT will be obtained to assess for coagulopathy. Urinalysis will be obtained to assess for urinary tract infection and hematuria. CT scan of the abdomen pelvis will be obtained to assess for bowel obstruction, perforation, and pancreatitis. Lab Data Lab results narrative: CBC was reviewed and was essentially within normal limits. Comprehensive metabolic profile was reviewed and was within normal limits. Lipase was reviewed and was normal. PT with INR and PTT were reviewed and were within normal limits. Urinalysis was reviewed and was within normal limits. Labs: Laboratory Results - last 24 hr 12/10/22 12/10/22 12/10/22 10:10 10:10 10:10 WBC 4.1 L RBC 5.54 Hgb 15.9 Hct 49.6 MCV 89.5 MCH 28.7 MCHC 32.1 RDW Std Deviation 42.5 RDW Coeff of Campos 12.9 Plt Count 173 MPV 11.8 Immature Gran % (Auto) 0.200 Neut % (Auto) 48.6 Lymph % (Auto) 27.8 Hubbard % (Auto) 17.6 H Eos % (Auto) 5.3 H Baso % (Auto) 0.5 Absolute Neuts (auto) 2.0 Absolute Lymphs (auto) 1.15 Nucleated RBC % 0 PT Cancelled INR Cancelled APTT Cancelled Sodium 143 Potassium 4.0 Chloride 107 Carbon Dioxide 28.0 Anion Gap 8 BUN 18 Creatinine 1.03 Estim Creat Clear Calc 61.37 Est GFR (MDRD) Af Amer 93 Est GFR (MDRD) Non-Af 77 BUN/Creatinine Ratio 17.5 Glucose 82 Calcium 9.1 Total Bilirubin 1.20 H AST 33 ALT 37 Alkaline Phosphatase 73 Total Protein 7.7 Albumin 3.5 Globulin 4.2 Albumin/Globulin Ratio 0.8 L Lipase 84 Urine Color Urine Clarity Urine pH Ur Specific [place] Urine Protein Urine Glucose (UA) Urine Ketones Urine Occult Blood Urine Nitrite Urine Bilirubin Urine Urobilinogen Ur Leukocyte Esterase Urine RBC Urine WBC Ur Squamous Epith Cells Urine Bacteria Urine Mucus 12/10/22 12/10/22 10:35 12:00 WBC RBC Hgb Hct MCV MCH MCHC RDW Std Deviation RDW Coeff of Campos Plt Count MPV Immature Gran % (Auto) Neut % (Auto) Lymph % (Auto) Hubbard % (Auto) Eos % (Auto) Baso % (Auto) Absolute Neuts (auto) Absolute Lymphs (auto) Nucleated RBC % PT 13.1 INR 1.0 APTT 28.8 Sodium Potassium Chloride Carbon Dioxide Anion Gap BUN Creatinine Estim Creat Clear Calc Est GFR (MDRD) Af Amer Est GFR (MDRD) Non-Af BUN/Creatinine Ratio Glucose Calcium Total Bilirubin AST ALT Alkaline Phosphatase Total Protein Albumin Globulin Albumin/Globulin Ratio Lipase Urine Color Yellow Urine Clarity Clear Urine pH 7.0 Ur Specific [place] 1.010 Urine Protein Negative Urine Glucose (UA) Normal Urine Ketones Negative Urine Occult Blood Negative Urine Nitrite Negative Urine Bilirubin Negative Urine Urobilinogen Normal Ur Leukocyte Esterase Negative Urine RBC 0 SEEN Urine WBC 0 SEEN Ur Squamous Epith Cells 0 SEEN Urine Bacteria 0 SEEN Urine Mucus 0 SEEN Radiography Diagnostic Testing: Clinical Impression(s) from Imaging Studies Abdomen/Pelvis CT 12/10/22 10:05 IMPRESSION: No obstruction. Electronically Signed: Kg Guajardo MD at 14:14 EDT , CT scan of the abdomen pelvis was obtained. There is no evidence of bowel obstruction or perforation. There is no free air or free fluid. There is no ureteral calculus noted. There is no hydronephrosis or hydroureter noted. This was interpreted by the radiologist and was also independently reviewed by myself. Treatment and Re-Evaluation :: Patient was given IV fluids, morphine, and Zofran. Patient is feeling better on reevaluation. Patient was advised of his findings. Patient was instructed to follow-up with his primary care physician in 5 to 7 days for further evaluation. Patient understood and was agreeable with the plan. All questions were answered. Discharge Plan Triage Chief Complaint: Abd Pain Other Complaint: Shortness of Breath ED Provider: Hi Fisher Dx/Rx/DC Orders Clinical Impression: Abdominal pain, Prediabetes, Obesity (BMI 30-39.9) Instructions: ED Abdominal Pain Unkn Cause Male... Prescriptions: No Action esomeprazole magnesium 40 mg capsule,delayed release(DR/EC) 40 mg PO BID Qty: 180 3RF celecoxib 100 mg capsule 100 mg PO DAILY Primary Care Provider: Urszula Rubi Referrals: Urszula Rubi MD [Primary Care Provider] - 5-7 Days Disposition Disposition: Home, Self Care
[2022-12-10 10:44] LABS: ALB/GLOB Ratio 0.8 RATIO (0.9-2.4); AST(SGOT) 33 U/L (15-37); Alanine Aminotransfer ALT/SGPT 37 U/L (16-61); Albumin, Serum 3.5 g/dL (3.2-5.0); Alkaline Phosphatase 73 U/L (45-117); Anion Gap 8 (5-15); BUN 18 mg/dL (7-18); BUN/Creat Ratio 17.5 RATIO (10-20); Calcium,Total 9.1 mg/dL (8.5-10.1); Chloride 107 mmol/L (98-107); Creatinine, Serum 1.03 mg/dL (0.70-1.30); EST Glomerular Filtration Rate 77 mL/min (>60); Est Glom Filt Rate - Afr Amer 93 mL/min (>60); Estimated Creatinine Clearance 61.37 ml/min; Globulin 4.2 g/dL (2.2-4.2); Glucose 82 mg/dL (74-106); Lipase 84 U/L (73-393); Protein, Total 7.7 g/dL (6.4-8.2); Sodium Level 143 mmol/L (136-145)
[2022-12-10 10:52] LABS: Prothrombin Time (Protime)PT. 13.1 SECONDS (11.7-14.9)
[2022-12-10 10:53] LABS: Partial Thromboplast Time 28.8 Seconds (24.1-36.2)
[2022-12-10 11:29] VITALS: BP 133/81
[2022-12-10 12:01] LABS: Bacteria 0 SEEN /hpf (None Seen); Mucous, Urine 0 SEEN /hpf (<or=2+); Red Blood Cells-Urine 0 SEEN /hpf (0-5); Squamous Epithelial Cells - UA 0 SEEN /hpf (0-5); White Blood Cells 0 SEEN /hpf (0-5)
[2022-12-10 12:03] LABS: Color, Urine Yellow (Yellow); Glucose, Dipstick Normal (Normal); Ketone-Dipstick Negative (Negative); Leukocyte Esterase-Dipstick Negative /ul (Negative); Nitrite-Dipstick Negative (Negative); Occult Blood-Urine Negative /ul (Negative); Protein-Dipstick Negative (Negative); Urine Bilirubin Dipstick Negative (Negative); Urine Clarity Clear (Clear); Urine Urobilinogen Normal (Normal)
[2022-12-10 13:29] VITALS: RESP 18
[2022-12-10 14:51] VITALS: BP 135/88; PULSE 72; RESP 16; O2SAT 98
== END 2022-12-10 14:52 | disposition home or self-care (01) ==
PROVIDERS: Emergency Provider Emergency Medicine; PCP Internal Medicine; Visit Provider Emergency Medicine
DX: R10.9 Unspecified abdominal pain (principal); R06.02 Shortness of breath; R11.2 Nausea with vomiting, unspecified; E66.9 Obesity, unspecified; R73.03 Prediabetes
CPT/HCPCS: 74177; 80053; 81001; 83690; 85025; 85610; 85730; 96361; 96374; 96375; 99283; J7030; Q9967; A4216; J2405

== ENCOUNTER 2023-02-11 09:52 | Emergency (ER) | payer MEDICARE, MEDICAID, SELFPAY ==
[2023-02-11 09:53] VITALS: BP 151/85; PULSE 75; RESP 18; TEMP 36.6; O2SAT 98; BMI 31.7
--- NOTE | 2023-02-11 10:14 | EDS_ITS ---
HPI History of Present Illness Chief Complaint: Wound Check Narrative Narrative: 67-year-old male presenting with foot wound on the left foot second digit. He states this started as a blister. He states he had it evaluated by his primary care who states its not infection but they did put him on Keflex. He has a referral to a truck service technician on Monday. No systemic signs or symptoms. No fevers or chills. He is actually cut his sock and the top part of his shoe off so that his toe is open to air. He denies any trauma. There is no numbness. Taking inflammatories covers his pain. [facility] Medical History Abdominal pain Anxiety Arthritis Chest pain CPAP (continuous positive airway pressure) dependence Degenerative disc disease Fatigue Gastric reflux GERD (gastroesophageal reflux disease) Hearing loss History of Terry's esophagus History of IBS History of skin cancer Hx of pancreatitis Injury of head and neck Irritable bowel syndrome with constipation Kidney stone Obstructive sleep apnea Prediabetes Severe headache Shortness of breath on exertion Wears glasses Wears hearing aid Home Medications celecoxib 100 mg capsule 100 mg PO DAILY 11/15/22 [History Last Taken Unknown] esomeprazole magnesium 40 mg capsule,delayed release 40 mg PO BID #180 caps 12/05/22 [Rx Last Taken Unknown] Allergy/AdvReac Type Severity Reaction Status Date / Time No Known Allergies Allergy Verified 02/11/23 09:56 Family History Father Alcoholism Arthritis Heart disease Surgical History History of carpal tunnel surgery of right wrist History of cholecystectomy Social History Smoking Status: Never smoker alcohol intake: never substance use type: does not use what type of physical activity do you participate in: none ROS ROS ED Constitutional Constitutional ED: Denies chills, fever(s) or sweats Eyes Eyes: Denies blurry vision or change in vision ENT ENT ED: Denies ear pain or sore throat Cardiovascular Cardiovascular: Denies chest pain, palpitations or racing heartbeat Respiratory/Chest Respiratory/Chest: Denies cough, dyspnea or sputum Gastrointestinal Gastrointestinal: Denies abdominal pain, constipation, diarrhea, nausea or vomiting Genitourinary Genitourinary ED: Denies dysuria, hematuria or urinary frequency Musculoskeletal Musculoskeletal: Denies arthralgias, myalgias or neck pain Integumentary Reports rash; Denies abscess or Abrasions Neurologic Neurologic: Denies headache(s), paresthesias or weakness Psychiatric Psychiatric: Denies anxiety, depression, suicidal ideation or suicidal thoughts Endocrine Endocrinology: Denies polydipsia or polyuria EXAM Physical Exam Const Vital Signs: 02/11/23 09:53 Temperature 97.8 F Temperature Source Temporal Pulse Rate 75 Respiratory Rate 18 Blood Pressure 151/85 H Blood Pressure Mean 107 Pulse Ox 98 Oxygen Delivery Method Room Air Positive well nourished General Appearance ED: NAD HEENT normocephalic and atraumatic Resp normal respiratory effort Auscultation: Negative for rales, rhonchi or wheezes Cardio regular rate and regular rhythm Extremity Extremity Narrative: Left foot second digit has a large fluid-filled blister. The fluid inside is pink. There is no erythema anywhere else on the foot. No lymphangitic streaking. Normally tender to palpation. Left foot neurovascular intact with brisk cap refill to all 5 toes. Neuro oriented x3 and CN's II-XII intact bilaterally Psych mental status grossly normal Skin Skin Narrative: As described above MDM MDM MDM Narrative Medical decision making narrative: 67-year-old male presenting with concern for infected left second digit. This looks like a fluid-filled blister. He states he is having some pain but is denying any analgesia. He is able to ambulate. No systemic signs or symptoms. Differential includes a blister, cellulitis, osteomyelitis, occult fracture. CBC to assess white blood cell count, hemoglobin, platelets. BMP to assess renal function, electrolytes. ESR and CRP to assess for inflammation. X-ray of the left foot will be obtained to rule out fracture. Foot x-ray on my interpretation shows no acute fractures. No evidence of osteomyelitis. CBC shows a white blood count of 4.4. Hemoglobin 14.8, platelets 188. Renal function within normal limits. Electrolytes normal. CRP is less than 2.90. ESR 16. Patient counseled this is likely not cellulitis because his inflammatory markers are low and his white blood cell count is low. I recommended wound care and follow-up with his truck service technician. He has an appointment on Monday. Impression: 1. Blister Lab Data Attestation: I reviewed the patient's lab results. Labs: Laboratory Results - last 24 hr 02/11/23 02/11/23 10:25 10:25 WBC 4.4 RBC 5.07 Hgb 14.8 Hct 44.7 MCV 88.2 MCH 29.2 MCHC 33.1 RDW Std Deviation 42.9 RDW Coeff of Campos 13.3 Plt Count 188 MPV 10.7 Immature Gran % (Auto) 0.200 Neut % (Auto) 52.6 Lymph % (Auto) 27.6 [place] % (Auto) 13.2 H Eos % (Auto) 5.5 H Baso % (Auto) 0.9 Absolute Neuts (auto) 2.3 Absolute Lymphs (auto) 1.21 Nucleated RBC % 0 ESR 16 Sodium 143 Potassium 4.3 Chloride 110 H Carbon Dioxide 26.0 Anion Gap 7 BUN 23 H Creatinine 0.84 Estim Creat Clear Calc 75.25 Est GFR (MDRD) Af Amer 117 Est GFR (MDRD) Non-Af 97 BUN/Creatinine Ratio 27.3 H Glucose 127 H Calcium 9.0 C-React Prot Ext Range < 2.90 Radiography Diagnostic Testing: Clinical Impression(s) from Imaging Studies Foot X-Ray 02/11/23 10:51 IMPRESSION: Minimal bone spur in the lateral surface of the metatarsal head of the left big toe but no acute osseous abnormality of the left foot. Electronically Signed: Carlos Odom MD at 11:11 EDT Reading Location ID and State: [address] [place] [address] , Service support , Discharge Plan Triage Chief Complaint: Wound Check ED Provider: Rivera Dumont Dx/Rx/DC Orders Clinical Impression: Blister Instructions: ED Blister (Adult) Prescriptions: No Action esomeprazole magnesium 40 mg capsule,delayed release(DR/EC) 40 mg PO BID Qty: 180 3RF celecoxib 100 mg capsule 100 mg PO DAILY Primary Care Provider: Urszula Rubi Referrals: Urszula Rubi MD [Primary Care Provider] - Disposition Disposition: Home, Self Care Discharge Date/Time: 02/11/23 11:30
[2023-02-11 10:35] LABS: Absolute Lymphocyte Count 1.21 X10^3/uL (0.83-4.51); Absolute Neutrophil Count 2.3 X10^3/uL (2.0-7.7); Basophil# 0.04 X10^3/uL; Basophil% 0.9 % (0-1); Eosinophil# 0.24 X10^3/uL; Eosinophils% 5.5 % (0-5); Hematocrit 44.7 % (40-54); Hemoglobin 14.8 g/dL (13.0-16.5); Lymphocyte # 1.21 X10^3/ul (0.83-4.51); Lymphocyte % 27.6 % (19-41); Mean Corp Hgb Conc 33.1 g/dL (32-36); Mean Corpuscular Hgb 29.2 pg (27.0-32.0); Mean Corpuscular Volume 88.2 fL (80-94); Mean Platelet Vol. 10.7 fl (6.2-12.0); Monocyte# 0.58 X10^3/uL; Monocyte% 13.2 % (0-10); NRBC Flagged by Analyzer 0 % (0-5); Neutrophil # 2.31 X10^3/uL (2.7-7.7); Neutrophil % 52.6 % (47-70); Platelet Count 188 K/mm3 (150-450); RBC Distribution Width CV 13.3 % (11.6-14.6); RBC Distribution Width SD 42.9 fl (35.1-43.9); Red Blood Count 5.07 M/mm3 (4.6-6.2); White Blood Count 4.4 K/mm3 (4.4-11.0)
[2023-02-11 10:45] LABS: Erythrocyte Sedimentation Rate 16 mm/hr (0-20)
[2023-02-11 10:50] LABS: Anion Gap 7 (5-15); BUN 23 mg/dL (7-18); BUN/Creat Ratio 27.3 RATIO (10-20); CRP < 2.90 mg/L (0.0-3.0); Chloride 110 mmol/L (98-107); Creatinine, Serum 0.84 mg/dL (0.70-1.30); EST Glomerular Filtration Rate 97 mL/min (>60); Est Glom Filt Rate - Afr Amer 117 mL/min (>60); Estimated Creatinine Clearance 75.25 ml/min; Glucose 127 mg/dL (74-106); Potassium 4.3 mmol/L (3.5-5.1); Sodium Level 143 mmol/L (136-145)
--- NOTE | 2023-02-11 10:51 | RAD_ITS ---
EXAM: XR LEFT FOOT COMPLETE, 3 OR MORE VIEWS CLINICAL INDICATION: Left foot pain. TECHNIQUE: Frontal, lateral and oblique views of the left foot. COMPARISON: No relevant prior studies available. FINDINGS: BONES/JOINTS: Minimal bone spur in the lateral surface of the first metatarsal head. No acute fracture. No subluxation. Normal alignment. Preservation of the joint space. No sclerotic or destructive changes observed. SOFT TISSUES: Unremarkable. No soft tissue swelling or gas. No radiopaque foreign body. RAD/Foot min 3 Views IMPRESSION: Minimal bone spur in the lateral surface of the metatarsal head of the left big toe but no acute osseous abnormality of the left foot. Electronically Signed: Carlos Odom MD at 11:11 EDT ,
== END 2023-02-11 11:30 | disposition home or self-care (01) ==
PROVIDERS: Emergency Provider Student in an Organized Health Care Education/Training Program; PCP Internal Medicine; Visit Provider Student in an Organized Health Care Education/Training Program
DX: S90.425A Blister (nonthermal), left lesser toe(s), initial encounter (principal); X58.XXXA Exposure to other specified factors, initial encounter
CPT/HCPCS: 73630; 80048; 85025; 85652; 86140; 99283

== ENCOUNTER 2023-05-19 14:59 | Observation (INO) | payer MEDICARE, SELFPAY ==
[2023-05-19] VITALS (12 sets, daily range): BP systolic 133–175; BP diastolic 80–100; PULSE 18–96; RESP 13–75; TEMP 36.2–36.7; O2SAT 94–99; BMI 31.6; BMI 29.5
--- NOTE | 2023-05-19 15:03 | NURSING ---
STROKE ALERT CALLED
--- NOTE | 2023-05-19 15:11 | CT_ITS ---
We are attempting to reach an attending provider to discuss findings. An addendum with communication details will be sent when the communication is complete. INDICATION: Stroke symptoms EXAMINATION: CT BRAIN - CT Head or Brain W/O Contrast Injection TECHNIQUE: Multiple axial images were obtained of the head without intravenous contrast. A radiation dose optimization technique was used for this scan. IV Contrast dosage and agent: None. COMPARISON: None. FINDINGS: BRAIN PARENCHYMA: No intra- or extra-axial hemorrhage. No evidence of acute infarct. No intracranial mass or mass effect. Posterior fossa structures are unremarkable. CSF SPACES: Appropriate for age. No hydrocephalus. Basal cisterns are patent. CALVARIUM, SKULL BASE, PARANASAL SINUSES AND MASTOID AIR CELLS: Clear. No discrete lytic or blastic abnormalities. ORBITS: Both globes, extraocular muscles, optic nerves and retrobulbar fat appear unremarkable. ASPECTS Score for Acute Strokes: 10 CT/STROKE Brain/Head without Cont IMPRESSION: No acute intracranial findings. Electronically Signed: Myke Dixon MD at 15:31 EDT ,
--- NOTE | 2023-05-19 15:11 | CT_ITS ---
We are attempting to reach an attending provider to discuss findings. An addendum with communication details will be sent when the communication is complete. INDICATION: STROKE ALERT EXAMINATION: CTA CAROTIDS AND BRAIN - CTA Head and Neck Stroke W/ Contrast (and W/O if performed) TECHNIQUE: Routine CTA of the head and neck was performed with post processing of the angiographic images for volumetric reconstructions. In addition, images were obtained of the [place] of [place]. [place]et criteria using the distal ICAs for comparison were used for evaluation of stenoses. 3D reconstructions were reviewed. A radiation dose optimization technique was used for this scan. IV Contrast dosage and agent: 100 cc [id number] COMPARISON: Noncontrast head CT same date. FINDINGS: --NECK: AORTIC ARCH AND BRANCHES: Vessel origins patent. RIGHT CCA: No occlusion, significant stenosis or dissection. RIGHT ICA: No occlusion, significant stenosis or dissection. LEFT CCA: No occlusion, significant stenosis or dissection. LEFT ICA: No occlusion, significant stenosis or dissection. RIGHT VERTEBRAL ARTERY: No occlusion, significant stenosis or dissection. LEFT VERTEBRAL ARTERY: No occlusion, significant stenosis or dissection. NECK SOFT TISSUES: Unremarkable. LUNG APICES: Clear. BONES: Mild degenerative changes. --HEAD: --Anterior circulation: ICAs: No significant stenosis at the intracranial/visualized segments. ACAs: No significant stenosis at the visualized segments. ACOM: Present. MCAs: No significant stenosis at the visualized segments. --Posterior circulation: PCOMs: Patent on the left. van helper: No significant stenosis at the visualized segments. BASILAR ARTERY: No significant stenosis. VERTEBRAL ARTERIES: No significant stenosis at the intradural/visualized segments. No evidence of intracranial aneurysm or vascular malformation. CT/STROKE CTA Head AND Neck W/Con IMPRESSION: Negative CTA Head and Neck. Electronically Signed: Myke Dixon MD at 15:59 EDT ,
--- NOTE | 2023-05-19 15:26 | ED.VIS.STROK ---
HPI History of Present Illness Chief Complaint: Stroke Alert Detail of Chief Complaint: Stroke CT and CTA was placed by Dr. Hansen. Informant: patient and spouse/S.O. Onset/Context/Timing Onset: - (Patient had dizziness that started May 15. Please read HPI narrative for complete detail) Timing: Continuous (With respect to the dizziness) and Intermittent (With respect to expressive aphasia) Quality and Location: Positive for Expressive Aphasia and Difficulty with Ambulation Onset: Monday thought it may be benign positional vertigo. Monday at 299 diffic Current Severity: Moderate Maximum Severity: Moderate Worsened by: Nothing Relieved by: Nothing Associated Symptoms Associated Symptoms: Negative for Headache, Nausea, Vomiting or Chest Pain Narrative Narrative: Patient is a 67-year-old male with history of pancreatitis, sleep apnea, Terry's esophagitis, irritable bowel syndrome, prediabetes and skin cancer who presents because of dizziness. Dizziness started on Monday. He thought he was having benign positional vertigo and did not present. Monday at 0300 patient had difficulty ambulating to the restroom. told him to lie back in bed and presumed it was paroxysmal benign positional vertigo. He has had persistent dizziness since Monday. He has had problems with his gait that is been intermittent. Apparently he was able to walk without problems this morning and presented to the emergency room at 11 AM; however, he left because he thought it was busy. states at 1430 he was unable to speak. He also had twitching of his extremity. He is still complaining of dizziness. He was unaware that he had a facial droop. Patient and states his speech is back to normal. Prior similar symptoms: No Recent Illness/Hospitalization: No PFSH PFSH Medical History Abdominal pain Anxiety Arthritis Chest pain CPAP (continuous positive airway pressure) dependence Degenerative disc disease Fatigue Gastric reflux GERD (gastroesophageal reflux disease) Hearing loss History of Terry's esophagus History of IBS History of skin cancer Hx of pancreatitis Injury of head and neck Irritable bowel syndrome with constipation Kidney stone Obstructive sleep apnea Prediabetes Severe headache Shortness of breath on exertion Wears glasses Wears hearing aid Home Medications celecoxib 100 mg capsule 100 mg PO DAILY pain 05/19/23 [History Last Taken 05/19/23] cephalexin 500 mg capsule 500 mg PO Q8H 05/19/23 [History Last Taken 05/19/23] esomeprazole magnesium 40 mg capsule,delayed release 40 mg PO Q24H 05/19/23 [History Last Taken 05/19/23] mupirocin 2 % topical ointment 1 applic topical BID SORE ON LEG 05/19/23 [History Last Taken 05/19/23] Allergy/AdvReac Type Severity Reaction Status Date / Time No Known Allergies Allergy Verified 02/11/23 09:56 Family History Father Alcoholism Arthritis Heart disease Surgical History History of carpal tunnel surgery of right wrist History of cholecystectomy Social History Smoking Status: Never smoker alcohol intake: never substance use type: does not use what type of physical activity do you participate in: none ROS ROS ED Constitutional Constitutional ED: Denies chills, fever(s), subjective, sweats or weakness Eyes Eyes: Denies blurry vision, change in vision or diplopia ENT ENT ED: Denies ear pain, rhinorrhea or sore throat Cardiovascular Cardiovascular: Denies chest pain, palpitations, paroxysmal nocturnal dyspnea or racing heartbeat Respiratory/Chest Respiratory/Chest: Denies cough, dyspnea, dyspnea on exertion or paroxysmal nocturnal dyspnea Gastrointestinal Gastrointestinal: Reports nausea; Denies abdominal pain, constipation, diarrhea, melena or vomiting Genitourinary Genitourinary ED: Denies dysuria, hematuria or urinary frequency Musculoskeletal Musculoskeletal: Denies arthralgias, back pain or myalgias Neurologic Neurologic: Denies headache(s), paresthesias or weakness Endocrine Endocrinology: Denies polydipsia or polyphagia Hematologic/Lymphatic Hematologic/Lymphatic: Denies easy bleeding or easy bruising EXAM Physical Exam Const Vital Signs: 05/19/23 15:04 05/19/23 15:06 05/19/23 15:25 Temperature 97.2 F L 97.7 F L Temperature Source Temporal Temporal Pulse Rate 18 L 75 96 Respiratory Rate 75 H 18 18 Blood Pressure 175/100 H 175/100 H 157/88 H Blood Pressure Mean 125 125 111 Pulse Ox 97 97 99 Oxygen Delivery Method Room Air Room Air Room Air 05/19/23 15:55 Temperature 98.1 F Temperature Source Oral Pulse Rate 75 Respiratory Rate 18 Blood Pressure 150/89 H Blood Pressure Mean 109 Pulse Ox 97 Oxygen Delivery Method Room Air Positive well nourished, well developed and obese General Appearance ED: well developed and NAD Nutritional Appearance: obese HEENT Reports TM's clear and moist mucous membranes atraumatic Tympanic Membrane ED: Yes TM's clear Eyes PERRL and EOMs intact bilaterally General Eye ED: Negative for pale conjunctiva or scleral icterus Neck no lymphadenopathy, supple and no JVD Neck Narrative: There are no carotid bruits. Chest Wall inspection of chest normal and palpation of chest normal Resp normal respiratory effort and clear to auscultation bilaterally Cardio no murmurs Rate: regular rate Rhythm: regular rhythm Heart Sounds: S1 normal and S2 normal GI normal to inspection, nondistended, normoactive bowel sounds, soft to palpation, non-tender, non-distended and no masses Back/Spine no CVA tenderness Extremity Extremity Narrative: Patient has a nonhealing wound anterior distal right leg. Eschar is noted. There is slight erythema. There is no induration, warmth, lymphangitis or popliteal lymphadenopathy. Patient does have stigmata of peripheral arterial disease. Neuro oriented x3, No CN's II-XII intact bilaterally and no sensory deficits noted Lutz Coma Scale: document GCS findings Spontaneous Obeys Commands Oriented 15 Sensorium / Orientation: alert Speech: speech normal Gait (Neuro): Negative for normal gait Motor Exam: strength 5/5 throughout Psych mental status grossly normal Skin No no wounds Skin Narrative: Abrasion anterior right leg General Skin Exam: Negative for jaundice Lesions: no lesions NIHSS NIHSS Initial: 1a Level of Consciousness: 0 1b LOC Questions (Score 2 if aphasic/stupor): 0 1c LOC Commands (Only score 1st attempt): 0 2 Best Gaze (If aphasic, use reflexive mvmts.): 0 3 Visual: 0 4 Facial Palsy: 1 5 Motor Arm Right (UN = amputation/fusion): 0 5 Motor Arm Left: 0 6 Motor Leg Right: 0 6 Motor Leg Left: 0 7 Limb ataxia (Only + if out of proportion): 2 8 Sensory (Aphasia/stupor=0 or 1, coma=2): 0 9 Best Language: 0 10 Dysarthria (mute, coma=2, intubated=UN): 0 11 Extinction and Inattention (only scored if +): 0 Total Score: 3 MDM MDM MDM Narrative Medical decision making narrative: Patient presents with posterior strokelike symptoms. Also an expressive aphasia. Stroke order set was initiated. Prior labs were reviewed. History & Record Review Discussion w/independent historian: Patient Additional record(s) reviewed:: Prior outpatient record (Office visit with Dr. Gaffney, orthopedic visit for fractured rib with Dr. TAMAYO), Prior ED visit and Prior labs Lab Data Attestation: I reviewed the patient's lab results. Lab results narrative: CBC is well. Basic metabolic panel is unremarkable. BUN to creatinine ratio is elevated. Troponin is normal. Labs: Laboratory Results - last 24 hr 05/19/23 15:10 WBC 6.4 RBC 5.15 Hgb 14.9 Hct 45.9 MCV 89.1 MCH 28.9 MCHC 32.5 RDW Std Deviation 41.6 RDW Coeff of Campos 12.6 Plt Count 193 MPV 10.8 Immature Gran % (Auto) 0.200 Neut % (Auto) 56.8 Lymph % (Auto) 26.5 [place] % (Auto) 12.6 H Eos % (Auto) 3.3 Baso % (Auto) 0.6 Absolute Neuts (auto) 3.6 Absolute Lymphs (auto) 1.68 Nucleated RBC % 0 PT 13.5 INR 1.0 APTT 30.4 Sodium 139 Potassium 3.8 Chloride 109 H Carbon Dioxide 25.0 Anion Gap 5 BUN 22 H Creatinine 0.85 Estim Creat Clear Calc 74.36 Est GFR (MDRD) Af Amer 116 Est GFR (MDRD) Non-Af 96 BUN/Creatinine Ratio 25.9 H Glucose 96 Calcium 9.1 Troponin I High Sens 12 Radiography Chest X-Ray - ED: 1 View and Read by ED Physician (Independently reviewed interpreted by me as negative for any abnormality. There is no infiltrate, effusion, pneumothorax, cardiac silhouette and size normal. Perihilar region normal. Osseous structures are normal.) Diagnostic Testing: Clinical Impression(s) from Imaging Studies Brain CT 05/19/23 15:11 IMPRESSION: No acute intracranial findings. Electronically Signed: Myke Dixon MD at 15:31 EDT , ADDENDUM: 05/19/23 1544 IMPRESSION: No acute intracranial findings. N.B. : The above Results were Read Back by Myke Dixon MD to Brayan Bhatt MD, and understanding confirmed on 05/19/2023 15:37:32 (ET). Electronically Signed: Myke Dixon MD at 15:31 EDT , ADDENDUM: 05/19/23 1608 IMPRESSION: No acute intracranial findings. N.B. : The above Results were Read Back by Myke Dixon MD to Brayan Bhatt MD, and understanding confirmed on 05/19/2023 16:01:51 (ET). Electronically Signed: Myke Dixon MD at 15:31 EDT , Head/Neck CTA 05/19/23 15:11 IMPRESSION: Negative CTA Head and Neck. Electronically Signed: Myke Dixon MD at 15:59 EDT , ADDENDUM: 05/19/23 1608 IMPRESSION: Negative CTA Head and Neck. N.B. : The above Results were Read Back by Myke Dixon MD to MILLER HUSAIN MD, and understanding confirmed on 05/19/2023 16:01:37 (ET). Electronically Signed: Myke Dixon MD at 15:59 EDT , Chest X-Ray 05/19/23 15:50 IMPRESSION: No definite acute or significant abnormality seen. Electronically Signed: Kumar Servin MD at 16:16 EDT , EKG Initial EKG: Interpretation: Sinus Rhythm (Rate is 80. GA interval is 98 ms. Cures duration 72 ms. QT duration 3 and 54 ms. [place] is normal. There is artifact which computer is reading as an ossific ST-T wave changes.) Management Discussion w/another healthcare provider: Hospitalist, Radiologist (Spoke with the radiologist regarding the unenhanced scan. There is no obvious abnormality noted.) and Other (Neurologist at [facility] and since that time is truly unknown he is not a candidate for thrombolytics and he is outside the window for clot retrieval.) Stroke Documentation Questions Stroke Team Activated: Yes Reviewed Inclusion/Exclusion criteria: Yes IV Thrombolytic Administered: No (After further detail since he was sent from triage to radiology suite was d) No contraindications from thrombolytic administration: No (Outside of window) Risks, Benefits, Alternatives Discussed: No Discharge Plan Dx/Rx/DC Orders Clinical Impression: Expressive aphasia, Ataxia due to cerebrovascular disease, Abrasion of leg, right Disposition Disposition: Acute Care Hospital [facility]
[2023-05-19 15:33] LABS: Absolute Lymphocyte Count 1.68 X10^3/uL (0.83-4.51); Absolute Neutrophil Count 3.6 X10^3/uL (2.0-7.7); Basophil# 0.04 X10^3/uL; Basophil% 0.6 % (0-1); Eosinophil# 0.21 X10^3/uL; Eosinophils% 3.3 % (0-5); Hematocrit 45.9 % (40-54); Hemoglobin 14.9 g/dL (13.0-16.5); Lymphocyte # 1.68 X10^3/ul (0.83-4.51); Lymphocyte % 26.5 % (19-41); Mean Corp Hgb Conc 32.5 g/dL (32-36); Mean Corpuscular Hgb 28.9 pg (27.0-32.0); Mean Corpuscular Volume 89.1 fL (80-94); Mean Platelet Vol. 10.8 fl (6.2-12.0); Monocyte% 12.6 % (0-10); NRBC Flagged by Analyzer 0 % (0-5); Neutrophil # 3.61 X10^3/uL (2.7-7.7); Neutrophil % 56.8 % (47-70); Platelet Count 193 K/mm3 (150-450); RBC Distribution Width CV 12.6 % (11.6-14.6); RBC Distribution Width SD 41.6 fl (35.1-43.9); Red Blood Count 5.15 M/mm3 (4.6-6.2); White Blood Count 6.4 K/mm3 (4.4-11.0)
[2023-05-19 15:38] LABS: Prothrombin Time (Protime)PT. 13.5 SECONDS (11.7-14.9)
[2023-05-19 15:39] LABS: Partial Thromboplast Time 30.4 Seconds (24.1-36.2)
[2023-05-19 15:46] LABS: Anion Gap 5 (5-15); BUN 22 mg/dL (7-18); BUN/Creat Ratio 25.9 RATIO (10-20); Calcium,Total 9.1 mg/dL (8.5-10.1); Chloride 109 mmol/L (98-107); Creatinine, Serum 0.85 mg/dL (0.70-1.30); EST Glomerular Filtration Rate 96 mL/min (>60); Est Glom Filt Rate - Afr Amer 116 mL/min (>60); Estimated Creatinine Clearance 74.36 ml/min; Glucose 96 mg/dL (74-106); Potassium 3.8 mmol/L (3.5-5.1); Sodium Level 139 mmol/L (136-145); Troponin-I HS 12 pg/mL (3.0-78.0)
--- NOTE | 2023-05-19 15:50 | RAD_ITS ---
STUDY: X-RAY CHEST REASON FOR EXAM: Male, 67 years old. Neuro deficit, acute, stroke suspected TECHNIQUE: Single AP portable view of the chest. COMPARISON: None. FINDINGS: The lungs are clear and expanded. There is no demonstrated pleural abnormality. Normal size heart. Normal mediastinum and merlin. Normal visualized pulmonary arteries. Normal visualized aortic arch and descending thoracic aorta. There are diffuse degenerative changes of the visualized thoracic spine. Normal visualized ribs, clavicles, and shoulders. There is no demonstrated abnormality of the visualized soft tissue structures of the upper abdomen. RAD/Chest 1 View IMPRESSION: No definite acute or significant abnormality seen. Electronically Signed: Kumar Servin MD at 16:16 EDT ,
--- NOTE | 2023-05-19 16:51 | HP.PCM.HOS_ITS ---
HPI - General General Date of Admission: 05/19/23 Date of Service: 05/19/23 Chief Complaint: Dizziness, stroke rule out HPI Narrative BERKLEY ROMAN is a 67 M with history of GERD with Terry's esophagus, degenerative disc disease, ROBYN and vertigo who presented to [facility] ED on 05/19/2023 with concern for worsening dizziness with ataxia. Patient seen at bedside, daughters present. Patient sitting comfortably in bed, in no acute distress. Does occasionally have some slowing/jumbling of speech, but is answering all questions appropriately. Patient states that symptoms have been going on since Monday. He reports dizziness/lightheadedness specifically when going from sitting to standing over that timeframe. Has no history of hypertension, does not take any antihypertensive medications at home. Patient reports eating and drinking fine recently. He states that he feels like his balance is very off, and he is not able to walk straight. He also began to notice slurring of his speech over the last few days. He does have a history of vertigo, with last episode a few years back. States those episodes were more consistent with the room spinning at various times, very different than current episode. He denies any fevers or chills. Denies any recent infections. Denies any chest pain or shortness of breath. He denies any arm or leg weakness. Denies any numbness or paresthesia in his limbs. No other acute concerns. Vitals on admit were notable for mild hypertension, otherwise benign. Labs were unremarkable. CT head and CTA head/neck showed no acute pathology. Chest x-ray was nonacute. [facility] Medical History (Updated 05/19/23 @ 20:[address] Ford Blanc DO) Abdominal pain Anxiety Arthritis Chest pain CPAP (continuous positive airway pressure) dependence Degenerative disc disease Fatigue Gastric reflux GERD (gastroesophageal reflux disease) Hearing loss History of Terry's esophagus History of IBS History of skin cancer Hx of pancreatitis Injury of head and neck Irritable bowel syndrome with constipation Kidney stone Non-smoker Obstructive sleep apnea Prediabetes Severe headache Shortness of breath on exertion Spondylarthrosis Wears glasses Wears hearing aid Home Medications celecoxib 100 mg capsule 100 mg PO DAILY pain 05/19/23 [History Last Taken 05/19/23] cephalexin 500 mg capsule 500 mg PO Q8H 05/19/23 [History Last Taken 05/19/23] esomeprazole magnesium 40 mg capsule,delayed release 40 mg PO Q24H 05/19/23 [History Last Taken 05/19/23] mupirocin 2 % topical ointment 1 applic topical BID SORE ON LEG 05/19/23 [History Last Taken 05/19/23] Allergy/AdvReac Type Severity Reaction Status Date / Time No Known Allergies Allergy Verified 02/11/23 09:56 Family History Father Alcoholism Arthritis Heart disease Surgical History History of carpal tunnel surgery of right wrist History of cholecystectomy Social History Smoking Status: Never smoker alcohol intake: never substance use type: does not use what type of physical activity do you participate in: none ROS Constitutional Constitutional: Denies chills, fatigue, fever(s) or weakness Eyes Eyes: Denies change in vision Cardiovascular Cardiovascular: Denies chest pain Respiratory/Chest Respiratory/Chest: Denies cough Gastrointestinal Gastrointestinal: Denies abdominal pain Musculoskeletal Musculoskeletal: Denies arthralgias Neurologic Neurologic: Reports abnormal speech, disequilibrium and dizziness; Denies confusion, headache(s), numbness or paresthesias Vital Signs Vital Signs Vital Signs: 05/19/23 15:04 05/19/23 15:06 05/19/23 15:25 Temperature 97.2 F L 97.7 F L Temperature Source Temporal Temporal Pulse Rate 18 L 75 96 Respiratory Rate 75 H 18 18 Blood Pressure 175/100 H 175/100 H 157/88 H Blood Pressure Mean 125 125 111 Pulse Ox 97 97 99 Oxygen Delivery Method Room Air Room Air Room Air 05/19/23 15:55 05/19/23 16:25 Temperature 98.1 F Temperature Source Oral Pulse Rate 75 72 Respiratory Rate 18 15 Blood Pressure 150/89 H 152/87 H Blood Pressure Mean 109 108 Pulse Ox 97 96 Oxygen Delivery Method Room Air Room Air Weight Weight: 86.4 kg Body Mass Index (BMI) 31.6 Physical Exam Const alert and oriented x3 Constitutional Narrative: Sitting comfortably in bed, conversing normally, no acute distress. General Appearance: cooperative and comfortable HEENT normocephalic, head/scalp atraumatic, hearing grossly normal bilaterally, nasal mucous membranes and turbinates normal and moist oral mucous membranes Eyes PERRL, EOMs intact bilaterally and conjunctivae normal Neck full ROM, no lymphadenopathy and supple Lymph Lymphatic: no lymphadenopathy noted Chest inspection of chest normal Resp normal respiratory effort, normal air movement, no use of accessory muscles and clear to auscultation bilaterally Cardio regular rate, regular rhythm, no murmurs and peripheral pulses 2+ throughout GI normal to inspection, nondistended, normoactive bowel sounds, soft to palpation, non-tender and non-distended Back/Spine normal ROM Extremity normal to inspection, full ROM and no pedal edema Skin no rashes or lesions noted Neuro moves all extremities and no focal motor deficits Sensorium / Orientation: awake and alert Psych mental status grossly normal Results Lab / Micro Data 05/19/23 15:10 05/19/23 15:10 Labs: Laboratory Results - last 24 hr 05/19/23 15:10: WBC 6.4, RBC 5.15, Hgb 14.9, Hct 45.9, MCV 89.1, MCH 28.9, MCHC 32.5, RDW Std Deviation 41.6, RDW Coeff of Campos 12.6, Plt Count 193, MPV 10.8, Immature Gran % (Auto) 0.200, Neut % (Auto) 56.8, Lymph % (Auto) 26.5, [place] % (Auto) 12.6 H, Eos % (Auto) 3.3, Baso % (Auto) 0.6, Absolute Neuts (auto) 3.6, Absolute Lymphs (auto) 1.68, Nucleated RBC % 0, PT 13.5, INR 1.0, APTT 30.4, Sodium 139, Potassium 3.8, Chloride 109 H, Carbon Dioxide 25.0, Anion Gap 5, BUN 22 H, Creatinine 0.85, Estim Creat Clear Calc 74.36, Est GFR (MDRD) Af Amer 116, Est GFR (MDRD) Non-Af 96, BUN/Creatinine Ratio 25.9 H, Glucose 96, Calcium 9.1, Troponin I High Sens [address] 05/19/23 15:11 IMPRESSION: No acute intracranial findings. Electronically Signed: Myke Dixon MD at 15:31 EDT , ADDENDUM: 05/19/23 1544 IMPRESSION: No acute intracranial findings. N.B. : The above Results were Read Back by Myke Dixon MD to Brayan Bhatt MD, and understanding confirmed on 05/19/2023 15:37:32 (ET). Electronically Signed: Myke Dixon MD at 15:31 EDT , ADDENDUM: 05/19/23 1608 IMPRESSION: No acute intracranial findings. N.B. : The above Results were Read Back by Myke Dixon MD to Brayan Bhatt MD, and understanding confirmed on 05/19/2023 16:01:51 (ET). Electronically Signed: Myke Dixon MD at 15:31 EDT , Head/Neck CTA 05/19/23 15:11 IMPRESSION: Negative CTA Head and Neck. Electronically Signed: Myke Dixon MD at 15:59 EDT , ADDENDUM: 05/19/23 1608 IMPRESSION: Negative CTA Head and Neck. N.B. : The above Results were Read Back by Myke Dixon MD to MILLER HUSAIN MD, and understanding confirmed on 05/19/2023 16:01:37 (ET). Electronically Signed: Myke Dixon MD at 15:59 EDT , Chest X-Ray 05/19/23 15:50 IMPRESSION: No definite acute or significant abnormality seen. Electronically Signed: Kumar Servin MD at 16:16 EDT , Assessment & Plan Assessment/Plan (1) Dizziness: PLAN: Plan Patient is a 67-year-old male with history of GERD with Terry's esophagus, degenerative disc disease, ROBYN and vertigo who presented to [facility] ED on 05/19/2023 with concern for worsening dizziness with ataxia. 1. Dizziness, concern for CVA Unclear etiology, requires CVA rule out. Does have known history of vertigo in the past, but had not had symptoms for several years. Notes that this episode was different than previous episodes of vertigo, was more consistent with ataxia rather than room spinning. Rule out orthostatic hypotension. CT head and CTA head/neck in the ED negative for any acute pathology as noted above. -MRI brain ordered. Orthostatic vitals ordered. TTE ordered. PT/OT/case management consulted. Lipid panel ordered. We will hold on aspirin and statin for now, can consider as needed. 2. GERD with Terry's esophagus ? Continue home PPI. DVT prophylaxis: Lovenox CODE STATUS: Full code, verified Expected disposition: Home, 1 to 2 days Total clinical time spent by myself addressing the patient's medical issues, re viewing all the data, and collaborating with patient's care team: 55 minutes. Charges/Coding Visit Charges Inpatient E&M: 03531 Init Hosp L2
--- NOTE | 2023-05-19 18:19 | ECHOD_ITS ---
Reason For Study: TIA/CVA Procedure This was a 2D Doppler, Color Flow transthoracic echocardiogram. Exam performed portable in patient room. Left Ventricle Normal size and thickness. The left ventricular ejection fraction is 65 %. Normal diastology for age. Right Ventricle Normal right ventricle. Atria The left and right atria are normal. Bubble contrast study is negative for PFO/ASD. Mitral Valve Trivial mitral valve insufficiency. Tricuspid Valve Mild tricuspid valve insufficiency. Normal pulmonary artery pressure. Aortic Valve Normal aortic valve. Pulmonic Valve The pulmonic valve is not well visualized. Great Vessels Normal sized aortic root. Pericardium/Pleural No pericardial effusion. Medication Performed a rapid injection of agitated mix of 9 cc saline and 1cc air to assess for atrial septal defect. MMode/2D Measurements & Calculations LVIDd: 4.4 cm IVSd: 0.94 cm Ao root diam: 3.1 cm LVIDs: 3.2 cm LVPWd: 1.0 cm RVDd: 2.8 cm FS: 27.7 % LAV(MOD-bp): 58.6 ml LVAd ap4: 29.2 cm2 SV(MOD-sp4): 50.1 ml LAV(MOD-bp) Indexed: 31.2 ml/m2 LVLd ap4: 8.4 cm LAV(MOD-sp2): 39.8 ml EDV(MOD-sp4): 83.2 ml LAV(MOD-sp4): 71.4 ml EDV(sp4-el): 85.8 ml LVAs ap4: 15.6 cm2 LVLs ap4: 6.2 cm ESV(MOD-sp4): 33.1 ml ESV(sp4-el): 33.0 ml EF(MOD-sp4): 60.2 % EF(sp4-el): 61.5 % SV(sp4-el): 52.8 ml LA A4 area: 23.7 cm2 RA A4 area: 17.8 cm2 TAPSE: 2.0 cm Time Measurements MV dec time: 0.20 sec Doppler Measurements & Calculations MV E max vamsi: 66.1 cm/sec Lat Peak E' Vamsi: 11.0 cm/sec Med Peak E' Vamsi: 8.0 cm/sec MV A max vamsi: 67.8 cm/sec E/E' lat: 6.0 E/E' med: 8.3 MV E/A: 0.98 MV V2 max: 80.4 cm/sec Ao V2 max: 124.5 cm/sec MV max P.6 mmHg MV dec slope: 348.9 cm/sec2 Ao max P.2 mmHg MV V2 mean: 45.0 cm/sec Ao V2 mean: 80.0 cm/sec MV mean P.93 mmHg Ao mean P.0 mmHg MV V2 VTI: 25.1 cm Ao V2 VTI: 28.1 cm AV (velocity ratio): 0.91 LV V1 max: 117.0 cm/sec PA V2 max: 81.6 cm/sec TR max vamsi: 260.5 cm/sec LV V1 max P.5 mmHg PA V2 mean: 57.8 cm/sec TR max P.1 mmHg LV V1 mean P.0 mmHg LV V1 mean: 81.0 cm/sec LV V1 VTI: 25.5 cm ECHO/Echo Complete Interpretation Summary The left ventricular ejection fraction is 65 %. Bubble contrast study is negative for PFO/ASD. Mild tricuspid valve insufficiency. Ordering Physician: Ford Blanc Referring Physician: Urszula Rubi Performed By: Kellie Fajardo RCS
--- NOTE | 2023-05-19 18:19 | MRI_ITS ---
STUDY: MRI BRAIN WITHOUT CONTRAST REASON FOR EXAM: Male, 67 years old. CVA rule out, dizzy, difficulty with speach TECHNIQUE: Standardized multiplanar fat and water weighted pulse sequences were obtained. COMPARISON: CT earlier today FINDINGS: Normal size of the ventricles and extra-axial spaces for the patient''s age. Normal white matter tracts of the supratentorial brain. There is no evidence for recent intracranial ischemia or other cause of cytotoxic edema on diffusion weighted imaging (DWI). Normal T2* images of the brain without demonstrated susceptibility artifact. There is no demonstrated hemosiderin stain. Normal bilateral basal ganglia. Normal thalami. There is no extra-axial fluid accumulation. Normal flow voids within the major intracranial circulation suggesting patency by spin echo criteria. Normal sella turcica, pituitary gland, infundibular stalk, optic chiasm and hypothalamus. Normal tectal plate and pineal gland. Normal midbrain, zara and medulla. Normal cerebellum. Normal basal cisterns. Normal bilateral temporal bones. Normal bilateral internal auditory canals. No demonstrated orbital abnormality, within the constraints of a routine brain study. Normal visualized paranasal sinuses. Normal calvarium and skull base. Normal visualized soft tissue structures. Normal visualized upper cervical spine. MRI/Brain without Contrast IMPRESSION: Normal unenhanced MRI of the brain. Electronically Signed: Jeff Simmons MD at 20:21 EDT ,
[2023-05-19] MEDS: Mupirocin Ointment 22gm Tube 1 APPLIC TOPICAL (20:47)
[2023-05-19 21:10] LABS: Bedside Glucose 84 mg/dL (74-106)
[2023-05-19 21:41] LABS: Cholesterol 156 mg/dL (200); High Density Lipoprotein 44 mg/dL; Triglycerides 162 mg/dL; Very Low Density Lipoprotein 32 mg/dL (5-40)
[2023-05-20 00:30] VITALS: BP 130/80; BP 145/84; BP 161/81; PULSE 64; PULSE 69; PULSE 71; RESP 18; TEMP 36.5; O2SAT 97
[2023-05-20 01:35] VITALS: BMI 29.5
[2023-05-20 03:35] LABS: Bedside Glucose 99 mg/dL (74-106)
[2023-05-20 04:30] VITALS: BP 129/79; PULSE 60; RESP 18; TEMP 36.5; O2SAT 99
--- NOTE | 2023-05-20 05:41 | PCM.PN.HOSP ---
Reason for Visit Reason for Visit: Diagnoses Dizziness and giddiness (05/19/23) Subjective Subjective Patient with no acute events overnight per self and per nursing report. He notes resolution of neurological symptoms except still has some mild dizziness but but denies any at this moment and denies specifically any vertiginous type symptoms or any leaning to one side specifically. He states he did have chronic issues with dizziness in the past. Bilateral ear evaluation today with significant cerumen impaction and discussed this with him and his family present with planned ENT follow-up per their preference. Patient denies fevers, chills, nausea, emesis, abdominal pain, chest pain or dyspnea. Objective Data Objective Data Vital Signs: Vital Signs Temp Pulse Resp BP Pulse Ox O2 Del Method 97.7 F L 60 18 129/79 H 99 CPAP 05/20/23 04:30 05/20/23 04:30 05/20/23 04:30 05/20/23 04:30 05/20/23 04:30 05/20/23 04:30 Oxygen Delivery Method CPAP Weight: 177 lb 4.026 oz Body Mass Index (BMI) 29.5 Intake & Output: Intake and Output for Last 24 Hours 05/18/23 05/19/23 05/20/23 23:59 23:59 23:59 Intake Total 100 / 100 Balance 100 / 100 Lab / Micro Data 05/20/23 06:55 05/20/23 06:55 Labs: Laboratory Results - last 24 hr 05/19/23 15:10: WBC 6.4, RBC 5.15, Hgb 14.9, Hct 45.9, MCV 89.1, MCH 28.9, MCHC 32.5, RDW Std Deviation 41.6, RDW Coeff of Campos 12.6, Plt Count 193, MPV 10.8, Immature Gran % (Auto) 0.200, Neut % (Auto) 56.8, Lymph % (Auto) 26.5, [place] % (Auto) 12.6 H, Eos % (Auto) 3.3, Baso % (Auto) 0.6, Absolute Neuts (auto) 3.6, Absolute Lymphs (auto) 1.68, Nucleated RBC % 0, PT 13.5, INR 1.0, APTT 30.4, Sodium 139, Potassium 3.8, Chloride 109 H, Carbon Dioxide 25.0, Anion Gap 5, BUN 22 H, Creatinine 0.85, Estim Creat Clear Calc 74.36, Est GFR (MDRD) Af Amer 116, Est GFR (MDRD) Non-Af 96, BUN/Creatinine Ratio 25.9 H, Glucose 96, Calcium 9.1, Troponin I High Sens 12, Triglycerides 162, Cholesterol 156, LDL Cholesterol 80, VLDL Cholesterol 32, HDL Cholesterol 44 05/19/23 20:43: POC Glucose 84 05/20/23 03:08: POC Glucose 99 Radiography Diagnostic Testing: Radiology Impression Brain CT 05/19/23 15:11 IMPRESSION: No acute intracranial findings. Electronically Signed: Myke Dixon MD at 15:31 EDT , ADDENDUM: 05/19/23 1544 IMPRESSION: No acute intracranial findings. N.B. : The above Results were Read Back by Myke Dixon MD to Brayan Bhatt MD, and understanding confirmed on 05/19/2023 15:37:32 (ET). Electronically Signed: Myke Dixon MD at 15:31 EDT , ADDENDUM: 05/19/23 1608 IMPRESSION: No acute intracranial findings. N.B. : The above Results were Read Back by Myke Dixon MD to Brayan Bhatt MD, and understanding confirmed on 05/19/2023 16:01:51 (ET). Electronically Signed: Myke Dixon MD at 15:31 EDT , Head/Neck CTA 05/19/23 15:11 IMPRESSION: Negative CTA Head and Neck. Electronically Signed: Myke Dixon MD at 15:59 EDT , ADDENDUM: 05/19/23 1608 IMPRESSION: Negative CTA Head and Neck. N.B. : The above Results were Read Back by Myke Dixon MD to LOU HUSAIN MD, and understanding confirmed on 05/19/2023 16:01:37 (ET). Electronically Signed: Myke Dixon MD at 15:59 EDT , Chest X-Ray 05/19/23 15:50 IMPRESSION: No definite acute or significant abnormality seen. Electronically Signed: Kumar Servin MD at 16:16 EDT , Brain MRI 05/19/23 18:19 IMPRESSION: Normal unenhanced MRI of the brain. Electronically Signed: Jeff Simmons MD at 20:21 EDT , Physical Exam Narrative Physical Examination: General: Awake, alert, oriented x 3 and cooperative, seated upright in the bedside chair, no acute distress, notes feeling well and all neurological symptoms currently resolved. Does state he occasionally will have dizziness and this has been chronic but has been sometime since has had it. Skin: Normal color, normal turgor, no icterus, no cyanosis built various stage abrasions and ecchymoses, recent abrasion to the right anterior soto with scab in place, appears to be healing. HEENT: AT/NC, EOMI, PERRLA, MMM, bilateral ear cerumen impaction noted. Lungs: CTA bilaterally, moderate effort, mild decrease BL bases, no rales, ronchi or wheezing. Heart: Regular rate and rhythm; no gallop, rub audible. Abdomen: Soft, weight, NTTP, ND, normal BS. Extremities: No cyanosis, clubbing, or edema, see skin. Neurological: Patient awake, alert, oriented as noted, cognitive function is baseline intact; pupils equally reactive to light and accommodation, cranial nerves II-XII grossly normal, moving all 4 extremities, strength mildly to moderately global decrease but no focal deficits, no aphasia, dysarthria, sensation intact, denies any dizziness at this time but has noted bilateral cerumen impaction evident. Psychiatric: Affect appears normal, no acute evidence of depressive or anxiety feelings. Assessment & Plan Assessment/Plan (1) Dizziness: PLAN: Plan The patient is a 67 y/o F M w/ PMHx: Obesity, Anxiety and Depression, ROBYN on CPAP, GERD w/ Hx Terry's esophagus, Prediabetes, Hx Pancreatitis who presents to the [facility] ED on 05/19/23 with history of dizziness starting 05/15/2023 which has been continuous however he had onset of intermittent expressive aphasia as well as difficulty ambulating and given since it was recurrent including episode most recently at 1430 on day of presentation with inability to speak as well as questionable twitching of his extremities and dizziness in addition to a facial droop although normalized prior to ED arrival prompted ED evaluation. #1. Intermittent dizziness, intermittent expressive aphasia as well as gait disturbance concerning for TIA, CVA Ruled out: Work-up in the ED included T97.8, heart rate 68, BP 133/88, respiratory rate 16, 94% on room air, CBC with WBC 6.4, hemoglobin 14.9, platelet 193 without marked shift, unremarkable coags, BMP not marked appearing, troponin 12, CT the brain with no acute intracranial findings, CTA head and neck unremarkable, chest x-ray with no acute cardiopulmonary findings, EKG with sinus rhythm with no acute evidence of ischemia. ED initial NIH stroke scale noted to be 3. Admitted to PCU, MRI brain without acute intracranial findings with no evidence of any acute stroke, ECHO w/ left ventricular ejection fraction is 65 %, mild TVI, bubble contrast study is negative for PFO/ASD. PT/OT/Speech/Nutrition evaluation per protocol. Patient maintained on asa, added statin w/ AM FLP, fall precautions. Mag 2.2, TSH 3.35, FLP with TG 162, TChol 156, LDL 80, VLDL 32, HDL 44, HgbA1c 5.8% with last noted prior 04/21/21 HgBA1c 5.8%. Given clinical improvement and no obvious evidence of stroke patient discharged to home with TIA with recommended continue baby aspirin and low-dose statin as well as follow-up with ENT as noted #2 as well as PCP follow-up. #2. Bilateral cerumen impaction: Likely contributing to patient complaint of dizziness and he notes that he has had chronic issues with dizziness previously but has not had it in some time. Discussed with staff unable to unfortunately have irrigation performed at this time therefore following discussion with patient and family present we will have patient follow-up outpatient with ENT with recommended usage of system like Debrox until evaluation. #3. Anxiety and depression: From current list on regimen, encourage continued outpatient follow-up and evaluation as needed. #4. Right lower extremity anterior leg abrasion with possibly recent cellulitis diagnosis: We will continue patient recently initiated mupirocin and oral Keflex regimen. #5. GERD with history of Terry's esophagus: We will continue patient on PPI. #6. Prediabetes: Not on regimen, ADA diet, accu checks w/ ISS, HgBA1c 5.8% unchanged from prior remote noted 04/21/21, nutrition consulted also per stroke protocol encouraged continued lifestyle and diet changes to bring this down further. #7. Obesity: Weight loss and lifestyle changes encouraged. #8. ROBYN: CPAP nightly. #9. DVT prophylaxis: Lovenox. Charges/Coding Visit Charges Inpatient E&M: 73554 Subs Hosp L2
[2023-05-20] MEDS: Cephalexin 500 MG Capsule PO ×2 (06:20→13:40)
[2023-05-20 07:07] LABS: Bedside Glucose 97 mg/dL (74-106)
[2023-05-20 08:36] LABS: Hemoglobin A1c 5.8 % (3.8-5.6)
[2023-05-20 08:50] LABS: Cholesterol 150 mg/dL (200); High Density Lipoprotein 50 mg/dL; Magnesium 2.2 mg/dL (1.6-2.6); Thyroid Stim Hormone (TSH) 3.53 uIU/mL (0.358-3.74); Triglycerides 91 mg/dL; Very Low Density Lipoprotein 18 mg/dL (5-40)
[2023-05-20 09:40] VITALS: BP 134/69; PULSE 67; RESP 16; TEMP 37; O2SAT 96
[2023-05-20] MEDS: Mupirocin Ointment 22gm Tube 1 APPLIC TOPICAL (09:41)
[2023-05-20] MEDS: Aspirin 81 MG TAB.CHEW PO (09:41)
[2023-05-20 09:54] LABS: ALB/GLOB Ratio 0.9 RATIO (0.9-2.4); AST(SGOT) 16 U/L (15-37); Alanine Aminotransfer ALT/SGPT 24 U/L (16-61); Albumin, Serum 3.4 g/dL (3.2-5.0); Alkaline Phosphatase 66 U/L (45-117); Anion Gap 9 (5-15); BUN 16 mg/dL (7-18); BUN/Creat Ratio 22.5 RATIO (10-20); Calcium,Total 9.1 mg/dL (8.5-10.1); Chloride 109 mmol/L (98-107); Creatinine, Serum 0.71 mg/dL (0.70-1.30); EST Glomerular Filtration Rate 118 mL/min (>60); Est Glom Filt Rate - Afr Amer 142 mL/min (>60); Estimated Creatinine Clearance 63.21 ml/min; Globulin 3.6 g/dL (2.2-4.2); Glucose 94 mg/dL (74-106); Potassium 3.8 mmol/L (3.5-5.1); Sodium Level 142 mmol/L (136-145)
[2023-05-20 10:06] LABS: Absolute Neutrophil Count 3.4 X10^3/uL (2.0-7.7); Basophil# 0.04 X10^3/uL; Basophil% 0.7 % (0-1); Eosinophil# 0.24 X10^3/uL; Hematocrit 46.9 % (40-54); Hemoglobin 15.2 g/dL (13.0-16.5); Lymphocyte % 26.4 % (19-41); Mean Corp Hgb Conc 32.4 g/dL (32-36); Mean Corpuscular Hgb 28.7 pg (27.0-32.0); Mean Corpuscular Volume 88.5 fL (80-94); Mean Platelet Vol. 11.9 fl (6.2-12.0); Monocyte# 0.72 X10^3/uL; Monocyte% 11.9 % (0-10); NRBC Flagged by Analyzer 0 % (0-5); Neutrophil # 3.44 X10^3/uL (2.7-7.7); Neutrophil % 56.8 % (47-70); Platelet Count 183 K/mm3 (150-450); RBC Distribution Width CV 12.8 % (11.6-14.6); RBC Distribution Width SD 41.9 fl (35.1-43.9); White Blood Count 6.1 K/mm3 (4.4-11.0)
--- NOTE | 2023-05-20 11:36 | CASEMGMT ---
Social Work PHQ-9 not completed as stroke has been ruled out. SINDI Cordova
[2023-05-20 13:17] VITALS: O2SAT 98
--- NOTE | 2023-05-20 13:40 | DCINST_ITS ---
Discharge Instructions Diet Discharge Diet: Low fat / Low cholesterol and 1800 Calorie Control Diet Activity Discharge Activity: - (Encourage slow positional changes, use assistive devices especially until ENT visit for cerumen removal.) May resume sexual activity in: No Restrictions Dressing / Incision Call your doctor if you observe: Fever of 101 or Higher, Numbness or Tingling, Shortness of breath, Dizziness (Increased dizziness, lightheadedness, vertigo.), Chest pain, Increased palpitations (irregular heartbeat), Calf discomfort, Uncontrolled pain and - (Please also notify your physician if your right lower extremity appears red or starts to have drainage/odor.) Follow Up Care Test Results: Test results from this visit will be discussed in further detail at your follow- up appointment, if applicable. Discharge Plan Admission Admit Date/Time: 05/19/23 17:36 Primary Reason for Your Visit: TIA, acute CVA ruled out, Bilateral cerumen impaction Attending Provider: Renata Ness Primary Care Provider: Urszula Rubi Consulting Providers: oFrd Blanc Patient Instructions: What Is a TIA?, TIA Dc, Impacted Earwax Additional Instructions / Restrictions: ADDITIONAL INSTRUCTIONS/RECOMMENDATIONS: During the admission you were evaluated for potential acute stroke however this was ruled out an MRI demonstrating no acute evidence of recent stroke. In the situations with neurological changes that have resolved within 24 hours we consider this a transient ischemic attack. Work-up has included an echocardiogram which did not demonstrate any concerning findings, MRI with no acute findings as noted as well as routine lab work-up. Your hemoglobin A1c is still 5.8% and was last noted the same level in 2020 therefore we encourage diet and lifestyle continued changes with repeat follow-up testing with PCP. Your thyroid function was normal. Magnesium level was normal. Cholesterol was not severely elevated however in this situation we did start a low-dose cholesterol medicine as well as a baby aspirin and these were continued at discharge. Please continue to utilize antibiotic therapy both topical and oral which was prescribed to you prior to presentation for your right lower extremity abrasion. Please continue to wash your lower extremity gently with soap and water and pat dry with an application of the antibiotic topical as prescribed. You did have noted bilateral cerumen impaction and we encourage you until you have follow-up with ear nose and throat to utilize [id number] Debrox earwax removal as an option. Discharge Orders/Prescriptions Prescriptions: New atorvastatin 20 mg Tablet 20 mg PO QHS 30 Days Qty: 30 0RF aspirin 81 mg Tablet,Chewable 81 mg PO BREAKFAST 30 Days Qty: 30 0RF Continued esomeprazole magnesium 40 mg capsule,delayed release(DR/EC) 40 mg PO Q24H celecoxib 100 mg capsule 100 mg PO DAILY cephalexin 500 mg capsule 500 mg PO Q8H Rx Instructions: X7D FILLED 05/16 mupirocin 2 % ointment 1 applic TOPICAL BID Referrals / Follow Up: Urszula Rubi MD [Primary Care Provider] - (Follow-up within 3-5 days to review admission, medication additions.) Benjamin Pierre MD [Med Staff - Active Staff] - (Please follow-up with ENT, may see physician with first open visit for assessment BL cerumen impaction.) Juan Pablo Gillespie DPM [Med Staff - Active Staff] - (Please follow-up with podiatry for your routine foot care. Please contact office to make visit with the filter filler you have been following with most recently.) Disposition Disposition (needs filled in before D/C Order can be placed): Home, Self Care
--- NOTE | 2023-05-20 13:42 | PCM.DC.SUM ---
Providers Date of Admission: 05/19/23 Date of Discharge: 05/20/23 Primary Care Physician: Dr. Urszula Rubi MD Reason For Visit: CVA RULE OUT Diagnosis Discharge Diagnosis (1) Dizziness: Status: Acute Code(s): R42 - Dizziness and giddiness Plan: Discharge Diagnoses: #1. Intermittent dizziness, intermittent expressive aphasia as well as gait disturbance concerning for TIA, CVA Ruled out complicated by #2 #2. Bilateral cerumen impaction #3. Anxiety and depression #4. Right lower extremity anterior leg abrasion with possibly recent cellulitis diagnosis, well appearing, on treatment #5. GERD with history of Terry's esophagus #6. Prediabetes (HgBA1c 5.8%, similar to last 2020 level noted in [place]) #7. Obesity #8. ROBYN on CPAP nightly. Medications at Discharge Home Medications celecoxib 100 mg capsule 100 mg PO DAILY pain 05/19/23 cephalexin 500 mg capsule 500 mg PO Q8H 05/19/23 esomeprazole magnesium 40 mg capsule,delayed release 40 mg PO Q24H 05/19/23 mupirocin 2 % topical ointment 1 applic topical BID SORE ON LEG 05/19/23 aspirin 81 mg chewable tablet 81 mg PO BREAKFAST 30 days #30 tabs 05/20/23 atorvastatin 20 mg tablet 20 mg PO QHS 30 days #30 tabs 05/20/23 Hospital Course Operations None Procedures 2-D Echocardiogram and EKG Summary of Care Provided Minutes Spent on Discharge: 35 Hospital Course: The patient is a 67 y/o F M w/ PMHx: Obesity, Anxiety and Depression, ROBYN on CPAP, GERD w/ Hx Terry's esophagus, Prediabetes, Hx Pancreatitis who presented to the [facility] [place] ED on 05/19/23 with history of dizziness starting 05/15/2023 which has been continuous however he had onset of intermittent expressive aphasia as well as difficulty ambulating and given since it was recurrent including episode most recently at 1430 on day of presentation with inability to speak as well as questionable twitching of his extremities and dizziness in addition to a facial droop although normalized prior to ED arrival prompted ED evaluation. Work-up in the ED included T97.8, heart rate 68, BP 133/88, respiratory rate 16, 94% on room air, CBC with WBC 6.4, hemoglobin 14.9, platelet 193 without marked shift, unremarkable coags, BMP not marked appearing, troponin 12, CT the brain with no acute intracranial findings, CTA head and neck unremarkable, chest x-ray with no acute cardiopulmonary findings, EKG with sinus rhythm with no acute evidence of ischemia. ED initial NIH stroke scale noted to be 3. Admitted to PCU, MRI brain without acute intracranial findings with no evidence of any acute stroke, ECHO w/ left ventricular ejection fraction is 65 %, mild TVI, bubble contrast study is negative for PFO/ASD. PT/OT/Speech/Nutrition evaluation per protocol. Patient maintained on asa, added lower dose statin w/ AM FLP, fall precautions. Mag 2.2, TSH 3.35, FLP with TG 162, TChol 156, LDL 80, VLDL 32, HDL 44, HgbA1c 5.8% with last noted prior 04/21/21 HgBA1c 5.8%. Patient with bilateral cerumen impaction and unfortunately unable to have irrigation system in house thus following discussion with patient and family preference will have follow-up with ENT in the interim recommended usage of potentially Debrox type system outpatient. Patient with recent right lower extremity abrasion healing well with recent cellulitis diagnosed outpatient, appears resolving and encouraged completion of his antibiotic topical and oral regimen. Patient given clinical improvement and resolution of neurological symptoms was discharged home in stable condition with recommended follow-up with primary care physician as well as ENT. Weight / BMI Weight Weight: 177 lb 4.026 oz Body Mass Index (BMI) 29.5 ABG / Lab / Microbiology Data 05/20/23 06:55 05/20/23 06:55 Laboratory: Laboratory Results - last 24 hr 05/19/23 15:10: WBC 6.4, RBC 5.15, Hgb 14.9, Hct 45.9, MCV 89.1, MCH 28.9, MCHC 32.5, RDW Std Deviation 41.6, RDW Coeff of Campos 12.6, Plt Count 193, MPV 10.8, Immature Gran % (Auto) 0.200, Neut % (Auto) 56.8, Lymph % (Auto) 26.5, [place] % (Auto) 12.6 H, Eos % (Auto) 3.3, Baso % (Auto) 0.6, Absolute Neuts (auto) 3.6, Absolute Lymphs (auto) 1.68, Nucleated RBC % 0, PT 13.5, INR 1.0, APTT 30.4, Sodium 139, Potassium 3.8, Chloride 109 H, Carbon Dioxide 25.0, Anion Gap 5, BUN 22 H, Creatinine 0.85, Estim Creat Clear Calc 74.36, Est GFR (MDRD) Af Amer 116, Est GFR (MDRD) Non-Af 96, BUN/Creatinine Ratio 25.9 H, Glucose 96, Calcium 9.1, Troponin I High Sens 12, Triglycerides 162, Cholesterol 156, LDL Cholesterol 80, VLDL Cholesterol 32, HDL Cholesterol 44 05/19/23 20:43: POC Glucose 84 05/20/23 03:08: POC Glucose 99 05/20/23 06:22: POC Glucose 97 05/20/23 06:55: WBC 6.1, RBC 5.30, Hgb 15.2, Hct 46.9, MCV 88.5, MCH 28.7, MCHC 32.4, RDW Std Deviation 41.9, RDW Coeff of Campos 12.8, Plt Count 183, MPV 11.9, Immature Gran % (Auto) 0.200, Neut % (Auto) 56.8, Lymph % (Auto) 26.4, [place] % (Auto) 11.9 H, Eos % (Auto) 4.0, Baso % (Auto) 0.7, Absolute Neuts (auto) 3.4, Absolute Lymphs (auto) 1.60, Nucleated RBC % 0, Sodium 142, Potassium 3.8, Chloride 109 H, Carbon Dioxide 24.0, Anion Gap 9, BUN 16, Creatinine 0.71, Estim Creat Clear Calc 63.21, Est GFR (MDRD) Af Amer 142, Est GFR (MDRD) Non-Af 118, BUN/Creatinine Ratio 22.5 H, Glucose 94, Hemoglobin A1c 5.8 H, Calcium 9.1, Magnesium 2.2, Total Bilirubin 1.10 H, AST 16, ALT 24, Alkaline Phosphatase 66, Total Protein 7.0, Albumin 3.4, Globulin 3.6, Albumin/Globulin Ratio 0.9, Triglycerides 91, Cholesterol 150, LDL Cholesterol 82, VLDL Cholesterol 18, HDL Cholesterol 50, TSH 3.53 Radiography Diagnostic Testing: Radiology Impression Brain CT 05/19/23 15:11 IMPRESSION: No acute intracranial findings. Electronically Signed: Myke Dixon MD at 15:31 EDT , ADDENDUM: 05/19/23 1544 IMPRESSION: No acute intracranial findings. N.B. : The above Results were Read Back by Myke Dixon MD to Brayan Bhatt MD, and understanding confirmed on 05/19/2023 15:37:32 (ET). Electronically Signed: Myke Dixon MD at 15:31 EDT , ADDENDUM: 05/19/23 1608 IMPRESSION: No acute intracranial findings. N.B. : The above Results were Read Back by Myke Dixon MD to Brayan Bhatt MD, and understanding confirmed on 05/19/2023 16:01:51 (ET). Electronically Signed: Myke Dixon MD at 15:31 EDT , Head/Neck CTA 05/19/23 15:11 IMPRESSION: Negative CTA Head and Neck. Electronically Signed: Myke Dixon MD at 15:59 EDT , ADDENDUM: 05/19/23 1608 IMPRESSION: Negative CTA Head and Neck. N.B. : The above Results were Read Back by Myke Dixon MD to LOU HUSAIN MD, and understanding confirmed on 05/19/2023 16:01:37 (ET). Electronically Signed: Myke Dixon MD at 15:59 EDT , Chest X-Ray 05/19/23 15:50 IMPRESSION: No definite acute or significant abnormality seen. Electronically Signed: Kumar Servin MD at 16:16 EDT , Brain MRI 05/19/23 18:19 IMPRESSION: Normal unenhanced MRI of the brain. Electronically Signed: Jeff Simmons MD at 20:21 EDT , Echocardiogram 05/19/23 18:19 Interpretation Summary The left ventricular ejection fraction is 65 %. Bubble contrast study is negative for PFO/ASD. Mild tricuspid valve insufficiency. Ordering Physician: Ford Blanc Referring Physician: Urszula Rubi Performed By: Kellie Fajardo RCS D/C Instructions Discharge Diet: Low fat / Low cholesterol and 1800 Calorie Control Diet May resume sexual activity in: No Restrictions Call your doctor if you observe: Fever of 101 or Higher, Numbness or Tingling, Shortness of breath, Dizziness (Increased dizziness, lightheadedness, vertigo.), Chest pain, Increased palpitations (irregular heartbeat), Calf discomfort, Uncontrolled pain and - (Please also notify your physician if your right lower extremity appears red or starts to have drainage/odor.) Meaningful Use Info Meaningful Use Diagnoses (Choose all that apply): None applicable Discharge Plan Admission Admit Date/Time: 05/19/23 17:36 Primary Reason for Your Visit: TIA, acute CVA ruled out, Bilateral cerumen impaction Attending Provider: Renata Ness Primary Care Provider: Urszula Rubi Consulting Providers: Ford Blanc Instructions Patient Instructions: What Is a TIA?, TIA Dc, Impacted Earwax Additional Instructions / Restrictions: ADDITIONAL INSTRUCTIONS/RECOMMENDATIONS: During the admission you were evaluated for potential acute stroke however this was ruled out an MRI demonstrating no acute evidence of recent stroke. In the situations with neurological changes that have resolved within 24 hours we consider this a transient ischemic attack. Work-up has included an echocardiogram which did not demonstrate any concerning findings, MRI with no acute findings as noted as well as routine lab work-up. Your hemoglobin A1c is still 5.8% and was last noted the same level in 2020 therefore we encourage diet and lifestyle continued changes with repeat follow-up testing with PCP. Your thyroid function was normal. Magnesium level was normal. Cholesterol was not severely elevated however in this situation we did start a low-dose cholesterol medicine as well as a baby aspirin and these were continued at discharge. Please continue to utilize antibiotic therapy both topical and oral which was prescribed to you prior to presentation for your right lower extremity abrasion. Please continue to wash your lower extremity gently with soap and water and pat dry with an application of the antibiotic topical as prescribed. You did have noted bilateral cerumen impaction and we encourage you until you have follow-up with ear nose and throat to utilize [id number] Debrox earwax removal as an option. Discharge Orders/Prescriptions Prescriptions: New atorvastatin 20 mg Tablet 20 mg PO QHS 30 Days Qty: 30 0RF aspirin 81 mg Tablet,Chewable 81 mg PO BREAKFAST 30 Days Qty: 30 0RF Continued esomeprazole magnesium 40 mg capsule,delayed release(DR/EC) 40 mg PO Q24H celecoxib 100 mg capsule 100 mg PO DAILY cephalexin 500 mg capsule 500 mg PO Q8H Rx Instructions: X7D FILLED 05/16 mupirocin 2 % ointment 1 applic TOPICAL BID Referrals / Follow Up: Urszula Rubi MD [Primary Care Provider] - (Follow-up within 3-5 days to review admission, medication additions.) Benjamin Pierre MD [Med Staff - Active Staff] - (Please follow-up with ENT, may see physician with first open visit for assessment BL cerumen impaction.) Juan Pablo Gillespie DPM [[facility] Staff - Active Staff] - (Please follow-up with podiatry for your routine foot care. 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
--- NOTE | 2023-05-20 14:41 | CASEMGMT ---
FRANCISCA MARTINES DC Planning: Reviewed PT and OT evaluations. Noted recommendations for vestibular tx at discharge. Script obtained from Dr. Ness and was provided to pt. Pt agreeable for outpt tx. Noted walker was recommended but pt declines at this time. Pt states he doesn't think there is enough room in his home to navigate with a walker and states he will use his cane. Family at bedside state that pt will be supervised 17/04 and pt agreeable. Information provided re: [facility] for possible ear impaction procedure. Pt denies any additional needs at this time. Plan: Home w/family support and outpt PT for vestibular tx. Rachel Lobo RN CM
[2023-05-20 15:15] VITALS: BP 122/81; PULSE 68; RESP 16; TEMP 36.6; O2SAT 97
[2023-05-31 10:36] LABS: Bedside Glucose 93 mg/dL (74-106)
== END 2023-05-20 13:35 | disposition home or self-care (01) ==
LOC: ED 15:48 → PCU 17:52
PROVIDERS: Admitting Provider Hospitalist; Emergency Provider Emergency Medicine; PCP Internal Medicine; Visit Provider Family Medicine
DX: R42 Dizziness and giddiness (principal); K21.9 Gastro-esophageal reflux disease without esophagitis; F41.9 Anxiety disorder, unspecified; F32.A Depression, unspecified; G47.33 Obstructive sleep apnea (adult) (pediatric); S80.811A Abrasion, right lower leg, initial encounter; R47.01 Aphasia; E66.9 Obesity, unspecified; H61.23 Impacted cerumen, bilateral; R73.03 Prediabetes; I69.393 Ataxia following cerebral infarction; Z68.31 Body mass index [BMI] 31.0-31.9, adult; Z79.899 Other long term (current) drug therapy; X58.XXXA Exposure to other specified factors, initial encounter; I08.1 Rheumatic disorders of both mitral and tricuspid valves; R94.31 Abnormal electrocardiogram [ECG] [EKG]; R29.810 Facial weakness; R06.02 Shortness of breath
CPT/HCPCS: 36415; 70450; 70496; 70498; 70551; 71045; 80048; 80053; 80061; 82962; 83036; 83735; 84443; 84484; 85025; 85610; 85730; 93005; 93306; 97162; 97166; 99221; 99285; Q9967; G0378

== ENCOUNTER 2023-05-30 07:48 | Outpatient (RCR) | payer MEDICARE, SELFPAY ==
[2023-05-30 08:02] VITALS: BP 133/83; PULSE 63; RESP 16; TEMP 36.1; BMI 28.3
--- NOTE | 2023-05-30 14:12 | HP.PCM_ITS ---
History of Present Illness Date of Service: 05/30/23 Chief Complaint: Ulceration of the right medial calf History of Wound: This is a 67-year-old male who presents with an ulceration on the right medial calf. It has been present for several weeks, and started as a blister. Patient has been treated with a course of cephalexin 500 mg p.o. every 8 hours, which is now finished. He has been applying mupirocin topically. The patient denies a history of swelling. He also denies a history of lower ext remity thrombophlebitis. 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 Patient owns graduated compression stockings, but is unaware of the degree of compression. The patient was admitted to the emergency department at [facility] on May 19, 2023, with symptoms of a TIA. A CT scan revealed no acute intracranial findings. A CTA of the head and neck was negative. EKG revealed a normal sinus rhythm. An echocardiogram was unremarkable. The patient's laboratory studies were as follows: White blood count 6.1, hemoglobin 15.2, hematocrit 46.9, platelets 183,000, sodium 142, potassium 3.8, chloride 109, BUN 16, creatinine 0.71, glucose 94, calcium 9.1, magnesium 2.2, total bilirubin 1.10, AST 16, ALT 24, alkaline phosphatase 66, total protein 7.0, albumin 3.4. The patient was discharged on May 20, 2023, one day following his admission. [facility] Medical History Abdominal pain Anxiety Arthritis Chest pain Chronic venous insufficiency CPAP (continuous positive airway pressure) dependence Degenerative disc disease Edema of right lower leg Fatigue Gastric reflux GERD (gastroesophageal reflux disease) Hearing loss History of Terry's esophagus History of IBS History of skin cancer History of TIA (transient ischemic attack) Hx of pancreatitis Injury of head and neck Irritable bowel syndrome with constipation Kidney stone Mini stroke Non-smoker Obstructive sleep apnea Prediabetes Right leg swelling Severe headache Shortness of breath on exertion Spondylarthrosis Venous stasis ulcer Wears glasses Wears hearing aid Home Medications celecoxib 100 mg capsule 100 mg PO DAILY pain 05/19/23 [History Last Taken 05/19/23] esomeprazole magnesium 40 mg capsule,delayed release 40 mg PO Q24H 05/19/23 [History Last Taken 05/19/23] mupirocin 2 % topical ointment 1 applic topical BID SORE ON LEG 05/19/23 [History Last Taken 05/19/23] aspirin 81 mg chewable tablet 81 mg PO BREAKFAST 30 days #30 tabs 05/20/23 [Rx Last Taken Unknown] atorvastatin 20 mg tablet 20 mg PO QHS 30 days #30 tabs 05/20/23 [Rx Last Taken Unknown] Allergy/AdvReac Type Severity Reaction Status Date / Time No Known Allergies Allergy Verified 05/30/23 08:16 Family History Father Alcoholism Arthritis Heart disease Surgical History History of carpal tunnel surgery of right wrist History of cholecystectomy Social History Smoking Status: Never smoker alcohol intake: never substance use type: does not use what type of physical activity do you participate in: none Vital Signs Vital Signs Vital Signs: 05/30/23 08:02 Temperature 96.9 F L Temperature Source Temporal Pulse Rate 63 Respiratory Rate 16 Blood Pressure 133/83 H Blood Pressure Mean 99 Blood Pressure Source Monitor Blood Pressure Position Sitting Blood Pressure Location Right Arm Oxygen Delivery Method Room Air Weight Weight: 170 lb Body Mass Index (BMI) 28.3 Physical Exam Const alert, oriented x3, no apparent distress, average body habitus and well nourished General Appearance: cooperative, comfortable, well kempt and well developed Orientation / Consciousness: awake, oriented to person, oriented to place and oriented to time HEENT normocephalic, head/scalp atraumatic and hearing grossly normal bilaterally Head and Scalp: normal to inspection, normocephalic and atraumatic External Ear: external ears normal Eyes PERRL and EOMs intact bilaterally General Eye: normal appearance of both eyes Resp normal respiratory effort, normal air movement, no retractions and no use of accessory muscles Effort and Inspection: able to speak in complete sentences Extremity no calf tenderness General Extremity: Negative for clubbing or cyanosis Skin Wound Narrative: A small ulceration is noted on the patient right medial calf. Dimensions are documented elsewhere. There is a moderate amount of bioburden. There is no sign of infection or cellulitis. Slight swelling is noted in the patient's right lower extremity. Neuro oriented x3, CN's II-XII intact bilaterally and moves all extremities Sensorium / Orientation: awake, alert, oriented to person, oriented to place and oriented to time Psych Appearance: grossly normal and appropriate Attitude: calm and engaged Activity / Motor Behavior: appropriate eye contact Speech: normal speech Mood & Affect: euthymic mood Thought Process: normal thought process Thought Content: normal thought content Attention / Concentration: attention grossly intact Debridement Note Debridement Note Wound debrided: Right medial calf Laterality: Right Type of Debridement: Excisional debridement Anesthesia Used: 5% Lidocaine Gel Depth: Down to and including healthy tissue and in the subcutaneous layer Percentage of wound debrided: 100 Instrument Used: 5mm curette Severity: Fat Layer Exposed Amount of bleeding with debridement: Mild Bleeding Controlled with: Compression and gauze Patient tolerated procedure: Patient tolerated procedure well Post-Debridement Measurements and Additional Note: Post-Debridement Measurements/Treatment - Nurse 1 - General Ulcer Assessment Start: 05/30/23 08:02 Freq: Status: Active Protocol: ANKUSH Activity Type Activity Date Activity User E-sign Co-sign Detail Recorded Client Recorded Date Recorded By Document 05/30/23 08:02 [facility] [id number] 05/30/23 08:13 [facility] 05/30/23 08:02 - Today's Visit Information Type of service Initial Visit Arrival Mode Ambulatory Transfer Assistance None Patient Identification Verified (Name & Yes ) Patient Requires Transmission-Based No Precautions Height and Weight Height 5 ft 5 in Weight 170 lb Weight in Pounds 170.0 lbs Body Mass Index (BMI) 28.3 BMI Classification Overweight BSA - Donell 1.85 Vital Signs Temperature (97.8 F-99.1 F) 96.9 F L Temperature Source Temporal Pulse Rate (60-100) 63 Pulse Location Monitor Respiratory Rate (12-18) 16 Respiratory rate source Observation Oxygen Delivery Method Room Air Blood Pressure (90/60-120/80) 133/83 H Blood Pressure Mean 99 Source Monitor Position Sitting Blood Pressure Location Right Arm History Since Last Visit- (Skip if this is Patient's initial visit) Left Footwear Regular Shoe Right Footwear Regular Shoe Pain Scale: 0-10 Numeric Is Patient Pain Free? Yes Lower Extremity Assessment/ Foot Assessment/ Toe Nail Assessment Right -Posterior Tibial Doppler Multiphasic -Dorsalis Pedis Palpable Yes -Dorsalis Pedis Doppler Multiphasic -Extremity Color Hyperpigmented -Hair Growth on Legs Yes -Hair Growth on Toes No -Thick Yes -Discolored Yes -Deformed No -Improper Length & Hygeine Yes Left -Posterior Tibial Palpable Yes -Posterior Tibial Doppler Multiphasic -Dorsalis Pedis Palpable Yes -Dorsalis Pedis Doppler Multiphasic -Extremity Color Hyperpigmented -Hair Growth on Legs Yes -Hair Growth on Toes No -Thick Yes -Discolored Yes -Deformed No -Improper Length & Hygeine Yes Communication Assessment Preferred language Maltese Design Coordinator Required No Able to Read Yes Able to Write Yes Communication Tools None Right Hearing Abillity Normal Left Hearing Abillity Normal Visual Assistive Devices Glasses Teaching Assessment Preferences Verbal,Written, Audio/Visual, Demonstration Barriers to Learning None Readiness To Learn Excellent Willingness to Engage in Self Management High Activies Readiness to Engage in Self Management High Activities Anxiety Level Calm Cooperation Cooperative Perception Coherent Interest in Health Problem Asks Questions Education Importance Acknowledges Need Does Patient Smoke tobacco or other No substances Is Patient Diabetic Yes Culture/Nondenominational/Truck 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 Cultural/Nondenominational Needs that may affect No Treatment Plan Teaching: Wound Center *Welcome to the Wound Center -Person Taught Patient,Family -Teaching Method Discussion -Response to teaching Verbalize understanding Welcome to the Wound Care Center English PALMER - Nurse 1 - General Ulcer Measurement Start: 05/30/23 08:02 Freq: Status: Active Protocol: Activity Type Activity Date Activity User E-sign Co-sign Detail Recorded Client Recorded Date Recorded By Document 05/30/23 08:02 [facility] [id number] 05/30/23 08:13 [facility] 05/30/23 08:02 Wound Center Nurse 1 #1- R MED LE -Combined with other wound No -Current Size (cm) - Length 0.1 -Current Size (cm) - Width 0.1 -Current Size (cm) - Depth 0.1 -Total Square Cm 0.01 -Date of Last Picture (Recall this 05/30/23 field) -Photo Taken Yes -Exudate Amt None Present -Wound Margin Distinct, Outline Attached -Slough/Fibrin Yes -Necrosis Amt Large (67-100%) -Necrotic Tissue Type Eschar -Texture (Barbara-wound Skin Appearance) Assessed, Scarring -Moisture (Barbara-wound Skin Appearance) Assessed -Color (Barbara-wound Skin Appearance) Assessed -Temperature (Barbara-wound Skin No Abnormality Appearance) (Pt Warm) -Tenderness on Palpation (Barbara-wound No Skin Appearance) -Ulcer Cleansing Rinsed/ Irrigated with Saline -Foul Odor after Cleansing No -Anesthetic Used 5% Lidocaine Gel Lower Limb Edema Present Yes Right Calf (cm) 36.8 Right Ankle (cm) 22.1 Left Calf (cm) 32.8 Left Ankle (cm) 20.4 WC - Nurse 2 - General Ulcer CM Notes Start: 05/30/23 08:02 Freq: Status: Active Protocol: Activity Type Activity Date Activity User E-sign Co-sign Detail Recorded Client Recorded Date Recorded By Document 05/30/23 13:55 [address] [id number] 05/30/23 13:56 PL 05/30/23 13:55 Wound Center Nurse 2 #1- R MED LE -Time 08:26 -Correct Patient Yes -Correct Side, Site, Position Yes -Correct Procedure Yes -Procedure Performed Yes -Type of Procedure Debridement -Clinical Debridement Subcutaneous -Tissue Removed Subcutaneous -Post Debridement (cm) - Length 0.1 -Post Debridement (cm) - Width 0.1 -Post Debridement (cm) - Depth 0.1 -Total Square (Post) (cm) 0.01 -Area of Debridement (cm) - Length 0.1 -Area of Debridement (cm) - Width 1.1 -Total Square (Area) (cm) 0.11 -Tunneling No -Undermining/Tunneling No -Circular Undermining No -Wound/Ulcer Outcome Not Healed -Ulcer Cleansing Rinsed/ Irrigated with Saline -Foul Odor after Cleansing No -Bioengineered Tissue No -Bleeding Controlled with Pressure -Treatment Response Procedure Tolerated Well -Debridement - Subq, 1st 20sq cm Yes Pain Scale: 0-10 Numeric Is Patient Pain Free? Yes - Nurse 3 - General Ulcer D/C NN Start: 05/30/23 08:02 Freq: Status: Active Protocol: Activity Type Activity Date Activity User E-sign Co-sign Detail Recorded Client Recorded Date Recorded By Document 05/30/23 08:56 DL [id number] 05/30/23 08:57 DL 05/30/23 08:56 Wound Care Center Nurse 3 #1- R MED LE -Ulcer Cleansing Rinsed/ Irrigated with Saline -Foul Odor after Cleansing No -Primary Dressing Applied C Hydrogel ($), Mepilex Border -Mepilex Border 1 sahil -Multi-Layered Wrap Application Multi-Layer Comp - Bilat ($ ) Treatment Response Procedure Tolerated Well Pain Scale: 0-10 Numeric Is Patient Pain Free? Yes WC - Visit Discharge Discharge Condition Stable Ambulatory Status Ambulatory Transportation Private Auto Assessment/Plan Assessment/Plan (1) Venous stasis ulcer: CODE(S): I83.009 - Varicose veins of unspecified lower extremity with ulcer of unspecified site; L97.909 - Non-pressure chronic ulcer of unspecified part of unspecified lower leg with unspecified severity (2) Right leg swelling: CODE(S): M79.89 - Other specified soft tissue disorders (3) Edema of right lower leg: CODE(S): R60.0 - Localized edema (4) Chronic venous insufficiency: CODE(S): I87.2 - Venous insufficiency (chronic) (peripheral) (5) Terry's esophagus without dysplasia: CODE(S): K22.70 - Terry's esophagus without dysplasia (6) Sleep apnea: CODE(S): G47.30 - Sleep apnea, unspecified (7) Hx of pancreatitis: CODE(S): Z87.19 - Personal history of other diseases of the digestive system (8) Psoriasis, unspecified: CODE(S): L40.9 - Psoriasis, unspecified (9) DDD (degenerative disc disease), lumbar: CODE(S): M51.36 - Other intervertebral disc degeneration, lumbar region (10) Chronic constipation: CODE(S): K59.09 - Other constipation (11) Degenerative cervical disc: CODE(S): M50.30 - Other cervical disc degeneration, unspecified cervical region (12) Obstructive sleep apnea: CODE(S): G47.33 - Obstructive sleep apnea (adult) (pediatric) (13) History of Terry's esophagus: CODE(S): Z87.19 - Personal history of other diseases of the digestive system (14) Irritable bowel syndrome with constipation: CODE(S): K58.1 - Irritable bowel syndrome with constipation (15) Prediabetes: CODE(S): R73.03 - Prediabetes (16) Degenerative disc disease: (17) History of skin cancer: CODE(S): Z85.828 - Personal history of other malignant neoplasm of skin (18) GERD (gastroesophageal reflux disease): CODE(S): K21.9 - Gastro-esophageal reflux disease without esophagitis (19) Arthritis: CODE(S): M19.90 - Unspecified osteoarthritis, unspecified site (20) History of TIA (transient ischemic attack): CODE(S): Z86.73 - Personal history of transient ischemic attack (TIA), and cerebral infarction without residual deficits PLAN: Plan This is a 67-year-old male who presented with an ulceration on the right medial calf. It started as a blister several weeks prior to his presentation. We are to implement the conservative treatment regimen. Patient has been advised to elevate his lower extremities is much as possible. Elevation is to be to heart level, or higher, is much as possible. This is to be accomplished during both daytime and nighttime hours. He has been encouraged to sleep on a flat surface at night. Prolonged idle sitting has been discouraged. Activity has been encouraged. We are to implement compression to the lower extremities by means of Tubigrip's, which will be donned on a daily basis. Tubigrip's of 20 to 30 mmHg compression have been provided. Collagen hydrogel will be applied topically to the ulceration on the right medial calf. This will be applied on a daily basis. The patient has been instructed in the appropriate means of application. The patient has been instructed to bring his graduated compression stockings with him to his next clinic visit, so it can be ascertained whether these are appropriately fitted and of adequate compression. Total time: 50 minutes
--- NOTE | 2023-05-30 14:28 | PCM.WC.PN ---
History of Present Illness Date of Service: 05/30/23 Chief Complaint: Ulceration of the right medial calf History of Wound: This is a 67-year-old male who presents with an ulceration on the right medial calf. It has been present for several weeks, and started as a blister. Patient has been treated with a course of cephalexin 500 mg p.o. every 8 hours, which is now finished. He has been applying mupirocin topically. The patient denies a history of swelling. He also denies a history of lower extremity thrombophlebitis. 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 Patient owns graduated compression stockings, but is unaware of the degree of compression. The patient was admitted to the emergency department at [facility] on May 19, 2023, with symptoms of a TIA. A CT scan revealed no acute intracranial findings. A CTA of the head and neck was negative. EKG revealed a normal sinus rhythm. An echocardiogram was unremarkable. The patient's laboratory studies were as follows: White blood count 6.1, hemoglobin 15.2, hematocrit 46.9, platelets 183,000, sodium 142, potassium 3.8, chloride 109, BUN 16, creatinine 0.71, glucose 94, calcium 9.1, magnesium 2.2, total bilirubin 1.10, AST 16, ALT 24, alkaline phosphatase 66, total protein 7.0, albumin 3.4. The patient was discharged on May 20, 2023, one day following his admission. Objective Data Objective Data Vital Signs: Vital Signs Temp Pulse Resp BP O2 Del Method 96.9 F L 63 16 133/83 H Room Air 05/30/23 08:02 05/30/23 08:02 05/30/23 08:02 05/30/23 08:02 05/30/23 08:02 Oxygen Delivery Method Room Air Weight: 170 lb Body Mass Index (BMI) 28.3 Debridement Note Debridement Note Post-Debridement Measurements and Additional Note: Post-Debridement Measurements/Treatment WC - Nurse 1 - General Ulcer Assessment Start: 05/30/23 08:02 Freq: Status: Active Protocol: ABBIEXSheila Activity Type Activity Date Activity User E-sign Co-sign Detail Recorded Client Recorded Date Recorded By Document 05/30/23 08:02 [facility] [id number] 05/30/23 08:13 [facility] 05/30/23 08:02 WC - Today's Visit Information Type of service Initial Visit Arrival Mode Ambulatory Transfer Assistance None Patient Identification Verified (Name & Yes ) Patient Requires Transmission-Based No Precautions Height and Weight Height 5 ft 5 in Weight 170 lb Weight in Pounds 170.0 lbs Body Mass Index (BMI) 28.3 BMI Classification Overweight BSA - Donell 1.85 Vital Signs Temperature (97.8 F-99.1 F) 96.9 F L Temperature Source Temporal Pulse Rate (60-100) 63 Pulse Location Monitor Respiratory Rate (12-18) 16 Respiratory rate source Observation Oxygen Delivery Method Room Air Blood Pressure (90/60-120/80) 133/83 H Blood Pressure Mean 99 Source Monitor Position Sitting Blood Pressure Location Right Arm History Since Last Visit- (Skip if this is Patient's initial visit) Left Footwear Regular Shoe Right Footwear Regular Shoe Pain Scale: 0-10 Numeric Is Patient Pain Free? Yes Lower Extremity Assessment/ Foot Assessment/ Toe Nail Assessment Right -Posterior Tibial Doppler Multiphasic -Dorsalis Pedis Palpable Yes -Dorsalis Pedis Doppler Multiphasic -Extremity Color Hyperpigmented -Hair Growth on Legs Yes -Hair Growth on Toes No -Thick Yes -Discolored Yes -Deformed No -Improper Length & Hygeine Yes Left -Posterior Tibial Palpable Yes -Posterior Tibial Doppler Multiphasic -Dorsalis Pedis Palpable Yes -Dorsalis Pedis Doppler Multiphasic -Extremity Color Hyperpigmented -Hair Growth on Legs Yes -Hair Growth on Toes No -Thick Yes -Discolored Yes -Deformed No -Improper Length & Hygeine Yes Communication Assessment Preferred language Fijian Slat Basket Top Maker Required No Able to Read Yes Able to Write Yes Communication Tools None Right Hearing Abillity Normal Left Hearing Abillity Normal Visual Assistive Devices Glasses Teaching Assessment Preferences Verbal,Written, Audio/Visual, Demonstration Barriers to Learning None Readiness To Learn Excellent Willingness to Engage in Self Management High Activies Readiness to Engage in Self Management High Activities Anxiety Level Calm Cooperation Cooperative Perception Coherent Interest in Health Problem Asks Questions Education Importance Acknowledges Need Does Patient Smoke tobacco or other No substances Is Patient Diabetic Yes Culture/Uatsdin/Automotive Sales Specialist Cultural/Uatsdin Needs that may affect No Treatment Plan Teaching: Wound Center *Welcome to the Wound Center -Person Taught Patient,Family -Teaching Method Discussion -Response to teaching Verbalize understanding Welcome to the Wound Care Center Fijian - Nurse 1 - General Ulcer Measurement Start: 05/30/23 08:02 Freq: Status: Active Protocol: Activity Type Activity Date Activity User E-sign Co-sign Detail Recorded Client Recorded Date Recorded By Document 05/30/23 08:02 [facility] [id number] 05/30/23 08:13 [facility] 05/30/23 08:02 Wound Center Nurse 1 #1- R MED LE -Combined with other wound No -Current Size (cm) - Length 0.1 -Current Size (cm) - Width 0.1 -Current Size (cm) - Depth 0.1 -Total Square Cm 0.01 -Date of Last Picture (Recall this 05/30/23 field) -Photo Taken Yes -Exudate Amt None Present -Wound Margin Distinct, Outline Attached -Slough/Fibrin Yes -Necrosis Amt Large (67-100%) -Necrotic Tissue Type Eschar -Texture (Barbara-wound Skin Appearance) Assessed, Scarring -Moisture (Barbara-wound Skin Appearance) Assessed -Color (Barbara-wound Skin Appearance) Assessed -Temperature (Barbara-wound Skin No Abnormality Appearance) (Pt Warm) -Tenderness on Palpation (Barbara-wound No Skin Appearance) -Ulcer Cleansing Rinsed/ Irrigated with Saline -Foul Odor after Cleansing No -Anesthetic Used 5% Lidocaine Gel Lower Limb Edema Present Yes Right Calf (cm) 36.8 Right Ankle (cm) 22.1 Left Calf (cm) 32.8 Left Ankle (cm) 20.4 - Nurse 2 - General Ulcer CM Notes Start: 05/30/23 08:02 Freq: Status: Active Protocol: Activity Type Activity Date Activity User E-sign Co-sign Detail Recorded Client Recorded Date Recorded By Document 05/30/23 13:55 PL [id number] 05/30/23 13:56 PL 05/30/23 13:55 Wound Center Nurse 2 #1- R MED LE -Time 08:26 -Correct Patient Yes -Correct Side, Site, Position Yes -Correct Procedure Yes -Procedure Performed Yes -Type of Procedure Debridement -Clinical Debridement Subcutaneous -Tissue Removed Subcutaneous -Post Debridement (cm) - Length 0.1 -Post Debridement (cm) - Width 0.1 -Post Debridement (cm) - Depth 0.1 -Total Square (Post) (cm) 0.01 -Area of Debridement (cm) - Length 0.1 -Area of Debridement (cm) - Width 1.1 -Total Square (Area) (cm) 0.11 -Tunneling No -Undermining/Tunneling No -Circular Undermining No -Wound/Ulcer Outcome Not Healed -Ulcer Cleansing Rinsed/ Irrigated with Saline -Foul Odor after Cleansing No -Bioengineered Tissue No -Bleeding Controlled with Pressure -Treatment Response Procedure Tolerated Well -Debridement - Subq, 1st 20sq cm Yes Pain Scale: 0-10 Numeric Is Patient Pain Free? Yes - Nurse 3 - General Ulcer D/C NN Start: 05/30/23 08:02 Freq: Status: Active Protocol: Activity Type Activity Date Activity User E-sign Co-sign Detail Recorded Client Recorded Date Recorded By Document 05/30/23 08:56 DL [id number] 05/30/23 08:57 DL 05/30/23 08:56 Wound Care Center Nurse 3 #1- R MED LE -Ulcer Cleansing Rinsed/ Irrigated with Saline -Foul Odor after Cleansing No -Primary Dressing Applied C Hydrogel ($), Mepilex Border -Mepilex Border 1 sahil -Multi-Layered Wrap Application Multi-Layer Comp - Bilat ($ ) Treatment Response Procedure Tolerated Well Pain Scale: 0-10 Numeric Is Patient Pain Free? Yes WC - Visit Discharge Discharge Condition Stable Ambulatory Status Ambulatory Transportation Private Auto
== END 2023-06-24 23:59 | disposition home or self-care (01) ==
LOC: WC 07:48
PROVIDERS: PCP Family Medicine; Referring Provider Surgery; Visit Provider Surgery
DX: I83.012 Varicose veins of right lower extremity with ulcer of calf (principal); L97.212 Non-pressure chronic ulcer of right calf with fat layer exposed; G47.33 Obstructive sleep apnea (adult) (pediatric); M50.30 Other cervical disc degeneration, unspecified cervical region; L40.9 Psoriasis, unspecified; I87.2 Venous insufficiency (chronic) (peripheral); K58.9 Irritable bowel syndrome, unspecified; Z79.82 Long term (current) use of aspirin; R73.03 Prediabetes; M19.90 Unspecified osteoarthritis, unspecified site; K22.70 Barrett's esophagus without dysplasia; I83.90 Asymptomatic varicose veins of unspecified lower extremity; Z79.1 Long term (current) use of non-steroidal anti-inflammatories (NSAID); R60.0 Localized edema; M51.36 Other intervertebral disc degeneration, lumbar region
CPT/HCPCS: 11042; 29581; 99213; G0463

== ENCOUNTER 2023-10-11 12:21 | Emergency (ER) | payer MEDICARE, SELFPAY ==
[2023-10-11 12:22] VITALS: BP 152/89; PULSE 73; RESP 18; TEMP 35.5; O2SAT 99; BMI 29.8
--- NOTE | 2023-10-11 14:07 | ED.RN ---
PATIENT UPSET WITH WAIT TIME. PT INFORMED HE IS NEXT TO GO BACK WHEN A ROOM IS AVAILABLE LONG SOMETHING MORE URGENT DOES NOT COME IN
--- NOTE | 2023-10-11 15:21 | CT_ITS ---
STUDY: CT ABDOMEN AND PELVIS WITH CONTRAST REASON FOR EXAM: Male, 68 years old. LLQ pain RADIATION DOSAGE (If Supplied By Facility): CTDIvol = ( 16.94 ) mGy, DLP = ( 918.35 ) mGycm TECHNIQUE: Transaxial images were obtained from the dome of the diaphragm to the symphysis pubis without oral contrast. IV 100mL Isovue-370 was administered. Sagittal and coronal images were reconstructed. Individualized dose optimization techniques were used for this CT. COMPARISON: December 10 2022 FINDINGS: The visualized lung bases are unremarkable. The visualized portions of the heart are within normal limits. Liver is normal in size and homogeneous attenuation. There is a small cyst in left lobe. Bile ducts are not dilated.. Normal gallbladder and extrahepatic biliary system. Normal spleen. Mildly atrophic fatty infiltrated pancreas. Normal bilateral adrenal glands. Normal right kidney. Normal left kidney. Normal visualized stomach. Normal small intestine. Normal colon. The appendix is visualized and appears normal. Minor atherosclerotic change of the aorta without evidence for aneurysm. Normal inferior vena cava. Normal retroperitoneum. Poorly distended thick walled bladder likely of no significance. Nonspecific prominence of the prostate Small bilateral inguinal hernias . the lumbar spine demonstrates degenerative changes CT/Abdomen/Pelvis W IV Cont ONLY IMPRESSION: Mild nonspecific enlargement of prostate. Poorly distended thick walled bladder of uncertain significance. No evidence for small bowel obstruction or other acute abnormality. Electronically Signed: Pj Gao MD at 16:29 EST ,
--- NOTE | 2023-10-11 15:35 | EX.ED.DYSGE1 ---
HPI History of Present Illness Chief Complaint: Abd Pain Informant: patient Onset/Context/Timing Onset: Days (4 days) Narrative Narrative: Patient presents with 4-day history of intermittent sharp left lower quadrant abdominal pain. He states when he tries to flex his hips 90 degrees to sit upright he gets sharp pain in the left lower quadrant. He has not felt a bulge consistent with a hernia. He reports some intermittent mild dysuria. He does have a history of diverticulitis as well. PFSH PFS Medical History Abdominal pain Anxiety Arthritis Chest pain Chronic venous insufficiency CPAP (continuous positive airway pressure) dependence Degenerative disc disease Edema of right lower leg Fatigue Gastric reflux GERD (gastroesophageal reflux disease) Hearing loss History of Terry's esophagus History of IBS History of skin cancer History of TIA (transient ischemic attack) Hx of pancreatitis Injury of head and neck Irritable bowel syndrome with constipation Kidney stone Mini stroke Non-smoker Obstructive sleep apnea Prediabetes Right leg swelling Severe headache Shortness of breath on exertion Spondylarthrosis Venous stasis ulcer Wears glasses Wears hearing aid Home Medications mupirocin 2 % topical ointment 1 applic topical BID SORE ON LEG 05/19/23 [History Last Taken 05/19/23] aspirin 81 mg chewable tablet 81 mg PO BREAKFAST 30 days #30 tabs 05/20/23 [Rx Last Taken Unknown] atorvastatin 20 mg tablet 20 mg PO QHS 30 days #30 tabs 05/20/23 [Rx Last Taken Unknown] celecoxib 100 mg capsule See Rx Instructions .Route .COMPLEX #90 caps 05/31/23 [Rx Last Taken Unknown] esomeprazole magnesium 40 mg capsule,delayed release 40 mg PO Q24H #30 caps 06/14/23 [Rx Last Taken Unknown] naproxen 500 mg tablet (Naprosyn) 500 mg PO BID PRN pain #10 tabs 10/11/23 [Rx Last Taken Unknown] Allergy/AdvReac Type Severity Reaction Status Date / Time No Known Allergies Allergy Verified 10/11/23 12:22 Family History Father Alcoholism Arthritis Heart disease Surgical History History of carpal tunnel surgery of right wrist History of cholecystectomy Social History household members: spouse housing: house Smoking Status: Never smoker alcohol intake: never substance use type: does not use what type of physical activity do you participate in: none ROS ROS ED Constitutional Constitutional ED: Denies chills or fever(s) Eyes Eyes: Denies discharge from eye(s) ENT ENT ED: Denies discharge from eye(s), rhinorrhea or sore throat Cardiovascular Cardiovascular: Denies chest pain or palpitations Respiratory/Chest Respiratory/Chest: Denies cough or dyspnea Gastrointestinal Gastrointestinal: Reports abdominal pain; Denies diarrhea, nausea or vomiting Genitourinary Genitourinary ED: Reports dysuria Musculoskeletal Musculoskeletal: Denies back pain or extremity pain Integumentary Denies Abrasions or rash Neurologic Neurologic: Denies headache(s) or weakness Psychiatric Psychiatric: Denies anxiety or depression Allergic/Immunologic Allergic/Immunologic ED: Denies lip swelling or urticaria EXAM Physical Exam Const Vital Signs: 10/11/23 12:22 Temperature 96 F L Temperature Source Temporal Pulse Rate 73 Respiratory Rate 18 Blood Pressure 152/89 H Blood Pressure Mean 110 Pulse Ox 99 Oxygen Delivery Method Room Air Positive well nourished and well developed General Appearance ED: well developed HEENT Reports moist mucous membranes Eyes EOMs intact bilaterally Chest Wall inspection of chest normal and palpation of chest normal Resp normal respiratory effort and clear to auscultation bilaterally Cardio regular rate and regular rhythm GI GI Narrative: Abdomen soft with no reproducible tenderness to palpation. No overlying skin changes. No evidence of hernia or palpable mass. Back/Spine no CVA tenderness Extremity normal to inspection Neuro oriented x3 and no sensory deficits noted Motor Exam: strength 5/5 throughout Psych mental status grossly normal Skin no rashes or lesions noted MDM MDM MDM Narrative Medical decision making narrative: IV line will be initiated. Labwork obtained to evaluate for leukocytosis, anemia, and electrolyte derangement. Urinalysis obtained to evaluate for infection/hematuria. CT scan of the abdomen pelvis with IV contrast will be obtained to evaluate for potential hernia, diverticulitis, kidney stone. History & Record Review Discussion w/independent historian: Patient Additional record(s) reviewed:: Prior ED visit and Prior labs Lab Data Attestation: I reviewed the patient's lab results. Labs: Laboratory Results - last 24 hr 10/11/23 15:31 WBC 6.5 RBC 5.13 Hgb 15.1 Hct 45.5 MCV 88.7 MCH 29.4 MCHC 33.2 RDW Std Deviation 42.5 RDW Coeff of Campos 13.1 Plt Count 211 MPV 10.9 Immature Gran % (Auto) 0.200 Neut % (Auto) 53.4 Lymph % (Auto) 27.8 Meriwether % (Auto) 12.4 H Eos % (Auto) 5.6 H Baso % (Auto) 0.6 Absolute Neuts (auto) 3.5 Absolute Lymphs (auto) 1.80 Nucleated RBC % 0 Sodium 141 Potassium 3.9 Chloride 109 H Carbon Dioxide 30.0 Anion Gap 2 L BUN 19 H Creatinine 0.79 Estim Creat Clear Calc 91.05 Est GFR (MDRD) Af Amer 126 Est GFR (MDRD) Non-Af 104 BUN/Creatinine Ratio 24.1 H Glucose 86 Calcium 9.2 Urine Color Yellow Urine Clarity Clear Urine pH 7.0 Ur Specific Eads 1.010 Urine Protein Negative Urine Glucose (UA) Normal Urine Ketones Negative Urine Occult Blood Negative Urine Nitrite Negative Urine Bilirubin Negative Urine Urobilinogen Normal Ur Leukocyte Esterase Negative Urine RBC 0 SEEN Urine WBC 0 SEEN Ur Squamous Epith Cells 0 SEEN Urine Bacteria 0 SEEN Urine Mucus 0 SEEN Radiography Diagnostic Testing: Clinical Impression(s) from Imaging Studies Abdomen/Pelvis CT 10/11/23 15:21 IMPRESSION: Mild nonspecific enlargement of prostate. Poorly distended thick walled bladder of uncertain significance. No evidence for small bowel obstruction or other acute abnormality. Electronically Signed: Pj Gao MD at 16:29 EST Reading Location ID and State: [facility] / [place] Tel , Service support , Treatment and Re-Evaluation :: CBC was in a white count 6.5 with a hemoglobin of 15.1. Normal differential. Chemistry studies unremarkable. Urinalysis reveals no evidence of infection or hematuria. CT scan with IV contrast shows mild nonspecific enlargement of the prostate. No other acute abnormality. Test results discussed with the patient. He has focal sharp pain over the anterior abdominal area. We discussed potential of nerve being pinched in this area, possibly by scar tissue. He is currently on Celebrex. He will stop this and we will put him on 5 days and naproxen to see if we get better anti-inflammatory response. He can then go back on his Celebrex. We did discuss potential follow-up with pain management for nerve block if this does not help. He voices understanding and agreement. Discharge Plan Triage Chief Complaint: Abd Pain ED Provider: Trini Slater Dx/Rx/DC Orders Clinical Impression: Abdominal wall pain Instructions: ED Abdominal Pain Unkn Cause Male... Prescriptions: New naproxen [Naprosyn] 500 mg tablet 500 mg PO BID PRN (Reason: pain) Qty: 10 0RF No Action mupirocin 2 % ointment 1 applic TOPICAL BID atorvastatin 20 mg Tablet 20 mg PO QHS 30 Days Qty: 30 0RF aspirin 81 mg Tablet,Chewable 81 mg PO BREAKFAST 30 Days Qty: 30 0RF celecoxib 100 mg capsule See Rx Instructions .ROUTE .COMPLEX Qty: 90 0RF Dose Instruction: TAKE 1 CAPSULES BY MOUTH DAILY NEEDED FOR PAIN Rx Instructions: TAKE 1 CAPSULES BY MOUTH DAILY NEEDED FOR PAIN esomeprazole magnesium 40 mg capsule,delayed release(DR/EC) 40 mg PO Q24H Qty: 30 11RF Primary Care Provider: Kinsey Rogers Referrals: Kinsey Rogers, [Primary Care Provider] - 10-14 Days if not better Activity Restrictions/Additional Instructions: As discussed, please stop your Celebrex while you are taking the naproxen. Once the naproxen course is finished you can restart your Celebrex. Disposition Disposition: Home, Self Care Capacity [employer] Consultant Reflex Medical hold order details:: IF a medical hold is selected below, a suggested order for a MEDICAL HOLD will reflex upon signing the document. Next of kin: [place] law dictates a PRIORITY LIST for identifying legal decision-maker/legal next of kin in the following order (LNOK): 1st: The patient?s legal guardian, if any 2nd: The patient's spouse (if status is questionable, consult Risk Management) 3rd: The patient?s adult child(consuelo) (majority, if multiple children) 4th: The patient?s parents 5th: The patient?s adult siblings (majority, if multiple children siblings)
[2023-10-11 15:42] LABS: Bacteria 0 SEEN /hpf (None Seen); Mucous, Urine 0 SEEN /hpf (<or=2+); Red Blood Cells-Urine 0 SEEN /hpf (0-5); Squamous Epithelial Cells - UA 0 SEEN /hpf (0-5); White Blood Cells 0 SEEN /hpf (0-5)
[2023-10-11 15:53] LABS: Absolute Neutrophil Count 3.5 X10^3/uL (2.0-7.7); Basophil# 0.04 X10^3/uL; Basophil% 0.6 % (0-1); Eosinophil# 0.36 X10^3/uL; Eosinophils% 5.6 % (0-5); Hematocrit 45.5 % (40-54); Hemoglobin 15.1 g/dL (13.0-16.5); Lymphocyte % 27.8 % (19-41); Mean Corp Hgb Conc 33.2 g/dL (32-36); Mean Corpuscular Hgb 29.4 pg (27.0-32.0); Mean Corpuscular Volume 88.7 fL (80-94); Mean Platelet Vol. 10.9 fl (6.2-12.0); Monocyte% 12.4 % (0-10); NRBC Flagged by Analyzer 0 % (0-5); Neutrophil # 3.46 X10^3/uL (2.7-7.7); Neutrophil % 53.4 % (47-70); Platelet Count 211 K/mm3 (150-450); RBC Distribution Width CV 13.1 % (11.6-14.6); RBC Distribution Width SD 42.5 fl (35.1-43.9); Red Blood Count 5.13 M/mm3 (4.6-6.2); White Blood Count 6.5 K/mm3 (4.4-11.0)
[2023-10-11 15:57] LABS: Color, Urine Yellow (Yellow); Glucose, Dipstick Normal (Normal); Ketone-Dipstick Negative (Negative); Leukocyte Esterase-Dipstick Negative /ul (Negative); Nitrite-Dipstick Negative (Negative); Occult Blood-Urine Negative /ul (Negative); Protein-Dipstick Negative (Negative); Urine Bilirubin Dipstick Negative (Negative); Urine Clarity Clear (Clear); Urine Urobilinogen Normal (Normal)
[2023-10-11 15:59] LABS: Anion Gap 2 (5-15); BUN 19 mg/dL (7-18); BUN/Creat Ratio 24.1 RATIO (10-20); Calcium,Total 9.2 mg/dL (8.5-10.1); Chloride 109 mmol/L (98-107); Creatinine, Serum 0.79 mg/dL (0.70-1.30); EST Glomerular Filtration Rate 104 mL/min (>60); Est Glom Filt Rate - Afr Amer 126 mL/min (>60); Estimated Creatinine Clearance 91.05 ml/min; Glucose 86 mg/dL (74-106); Potassium 3.9 mmol/L (3.5-5.1); Sodium Level 141 mmol/L (136-145)
--- OUTSIDE RECORDS SUMMARY | 2023-10-11 16:22 | XMS RPT_ITS | CCD ---
Author Name Unknown Address [address] [place] [address] Organization [facility] Care Team Providers Care Dairy Helper Name Role Phone EZIO FYLNN Attending Unavailable IMCA Referring Unavailable Urszula Rubi MD Primary Care Provider [phone] OLEGHE, EFEWONGBE B Primary Care Unavailable OLEGHE, EFEWONGBE B Primary Care Unavailable JUSTIN DANG Referring Unavailable OLEGHE, EFEWONGBE B Primary Care Unavailable OLEGHE, EFEWONGBE B Primary Care Unavailable OLEGHE, EFEWONGBE B Primary Care Unavailable T[place]SA [place] Referring Unavailable OLEGHE, EFEWONGBE B Primary Care Unavailable OLEGHE, EFEWONGBE B Primary Care Unavailable OLEGHE, EFEWONGBE B Primary Care Unavailable OLEGHE, EFEWONGBE B Primary Care Unavailable FRANDY WHITEHEAD Referring Unavailable Gregorio Lemus DO Primary Care Provid er GREGORIO LEMUS Attending GREGORIO Travis Primary Care Walt paredes Medications Current Medications Medication Drug Class(es) Dates Sig (Normalized) Sig (Original) aspirin 81 mg delayed release oral tablet (2 sources) Platelet Aggregation Inhibitor, Nonsteroidal Anti-inflammatory Drug Start: 06-01-2023 take 1 tablet by mouth once daily aspirin, enteric coated (ADULT LOW DOSE ASPIRIN) 81 mg EC tablet Take 1 tablet by mouth once daily. 90 tablet 3 06/01/2023 Active Completed/Discontinued Medications Medication Drug Class(es) Dates Sig (Normalized) Sig (Original) acetaminophen 500 mg oral tablet (1 source) take 1 tablet by mouth every eight hours as needed acetaminophen (TYLENOL EXTRA STRENGTH) 500 mg tablet Take 500 mg by mouth every 8 hours as needed. 0 Active Problems Active Problems Problem Classification Problem Date Documented Da te Episodic/Chronic Chronic ulcer of skin (1 source) Non-pressure chronic ulcer of other part of right lower leg limited to breakdown of skin; Translations: [Venous stasis ulcer of other part of right lower leg limited to breakdown of skin with varicose veins (HCC)] Onset: 3 Chronic Conditions associated with dizziness or vertigo (1 source) Dizziness; Translations: [Dizziness and giddiness] 05-19-2023 Episodic Disorders of lipid metabolism (2 sources) Mixed hyperlipidemia; Translations: [Mixed hyperlipidemia] Onset: 3 06-01-2023 Chronic Esophageal disorders (7 sources) Gastroesophageal reflux disease; Translations: [Gastro-esophageal reflux disease without esophagitis] Onset: 6 11-11-2015 Chronic Other gastrointestinal disorders (6 sources) Irritable bowel syndrome with diarrhea; Translations: [Irritable bowel syndrome with diarrhea] Onset: 6 11-11-2015 Chronic Other nutritional; endocrine; and metabolic disorders (6 sources) Morbid obesity; Translations: [Morbid (severe) obesity due to excess calories] Onset: 6 11-11-2015 Chronic Other nutritional; endocrine; and metabolic disorders (1 source) Overweight; Translations: [Overweight with body mass index (BMI) of 29 to 29.9 in adult] Onset: 3 Episodic Other nutritional; endocrine; and metabolic disorders (1 source) Body mass index (BMI) 29.0-29.9, adult; Translations: [Overweight with body mass index (BMI) of 29 to 29.9 in adult] Onset: 3 Episodic Residual codes; unclassified (6 sources) Obstructive sleep apnea syndrome; Translations: [Obstructive sleep apnea (adult) (pediatric)] Onset: 6 09-20-2021 Chronic Skin and subcutaneous tissue infections (2 sources) Infection of skin; Translations: [Local infection of the skin and subcutaneous tissue, unspecified] Onset: 3 05-16-2023 Episodic Spondylosis; intervertebral disc disorders; other back problems (2 sources) Lumbar arthritis; Translations: [Spondylosis without myelopathy or radiculopathy, lumbar region] Onset: 3 06-01-2023 Chronic Transient cerebral ischemia (2 sources) Transient cerebral ischemia; Translations: [Transient cerebral ischemic attack, unspecified] Onset: 3 06-01-2023 Chronic Unclassified (1 source) Acute cough; Translations: [Acute cough] Onset: 3 Varicose veins of lower extremity (2 sources) Skin ulcer; Translations: [Varicose veins of unspecified lower extremity with ulcer of unspecified site] Onset: 3 06-01-2023 Episodic Past or Other Problems Problem Classification Problem Date Documented Da te Episodic/Chronic Malaise and fatigue (6 sources) Left hemiparesis; Translations: [Weakness] Onset: 11-11-2015 11-11-2015 Episodic Open wounds of extremities (1 source) Laceration without foreign body of left wrist, initial encounter; Translations: [Wrist laceration, left, initial encounter] Onset: 06-03-2022 Episodic Other and unspecified benign neoplasm (6 sources) History of polyp of colon; Translations: [Personal history of colonic polyps] Onset: 02-17-2016 09-20-2021 Episodic Other gastrointestinal disorders (6 sources) History of Terry's esophagus; Translations: [Personal history of other diseases of the digestive system] Onset: 02-17-2016 02-17-2016 Episodic Other inflammatory condition of skin (1 source) Itching of skin; Translations: [Pruritus, unspecified] Onset: 11-11-2015 11-11-2015 Episodic Other inflammatory condition of skin (5 sources) Pruritus, unspecified; Translations: [Unspecified pruritic disorder] Onset: 11-11-2015 11-11-2015 Episodic Other non-epithelial cancer of skin (6 sources) History of malignant neoplasm of skin; Translations: [Personal history of other malignant neoplasm of skin] Onset: 11-11-2015 09-20-2021 Episodic Other skin disorders (6 sources) Asteatosis cutis; Translations: [Xerosis cutis] Onset: 11-11-2015 11-11-2015 Episodic Other upper respiratory infections (1 source) Acute upper respiratory infection, unspecified; Translations: [URI, acute] Onset: 12-07-2022 Episodic Spondylosis; intervertebral disc disorders; other back problems (6 sources) Cervical disc disorder with radiculopathy; Translations: [Cervical disc disorder with radiculopathy, unspecified cervical region] Onset: 03-25-2019 03-25-2019 Episodic Results Test Name Value Interpretation Reference Range Facil ity Vital Signs Date Time Vital Sign Value Performing Clinician Karishma elbert 05-19-2023 10:57-0400 Body temperature 97.59 [degF] Sonali Alfredo APRN.SHIPYARD HELPER Work Phone: [facility] 05-19-2023 10:57-0400 Body weight 81.92 kg Sonali Alfredo APRN.SHIPYARD HELPER Work Phone: [facility] 05-19-2023 10:57-0400 Diastolic blood pressure 78 mm[Hg] Sonali Alfredo APRN.SHIPYARD HELPER Work Phone: [facility] 05-19-2023 10:57-0400 Heart rate 74 /min Sonali Alfredo APRN.SHIPYARD HELPER Work Phone: [facility] 05-19-2023 10:57-0400 Respiratory rate 18 /min Sonali Alfredo APRN.SHIPYARD HELPER Work Phone: [facility] 05-19-2023 10:57-0400 SaO2% (BldA) [Mass fraction] 97 % Sonali Alfredo APRN.SHIPYARD HELPER Work Phone: [facility] 05-19-2023 10:57-0400 Systolic blood pressure 126 mm[Hg] Sonali Alfredo APRN.SHIPYARD HELPER Work Phone: [facility] 05-16-2023 13:28-0400 Body temperature 97.39 [degF] Tessa Beach APRN.SHIPYARD HELPER Work Phone: [facility] 05-16-2023 13:28-0400 Body weight 81.83 kg Tessa Beach APRN.SHIPYARD HELPER Work Phone: [facility] 05-16-2023 13:28-0400 Diastolic blood pressure 80 mm[Hg] Tessa Quiñonez-Prabhakar PROPOSAL CONSULTANT.SHIPYARD HELPER Work Phone: [facility] 05-16-2023 13:28-0400 Heart rate 76 /min Tessa Beach APRN.SHIPYARD HELPER Work Phone: [facility] 05-16-2023 13:28-0400 Respiratory rate 18 /min Tessa Beach APRN.SHIPYARD HELPER Work Phone: [facility] 05-16-2023 13:28-0400 SaO2% (BldA) [Mass fraction] 96 % Tessa Beach APRN.AROLDO Work Phone: [facility] 05-16-2023 13:28-0400 Systolic blood pressure 118 mm[Hg] Tessa Beach APRN.SHIPYARD HELPER Work Phone: [facility] Encounters Encounter Date Encounter Type Care Provider Facility Start: 05-31-2023 ambulatory [place] Maurice Lemus DO Work Phone: [facility] Procedures Date Procedure Procedure Detail Performing Clinician Start: 05-16-2023 Cul bact xcpt urine blood/stool aerobic isol Tessa Beach APRN.SHIPYARD HELPER Work Phone: Start: 03-15-2019 Colonoscopy Burt MEDRANO Work Phone: Plan of Treatment Date Care Activity Detail Author Start: 03-15-2029 Colonoscopy COLONOSCOPY [facility] Start: 03-15-2029 COLORECTAL CANCER SCREENING COLORECTAL CANCER SCREENING [facility] Start: 08-10-2027 Urine microalbumin profile [facility] Start: 05-16-2026 DIABETES SCREEN DIABETES SCREEN [facility] Start: 05-26-2023 Influenza vaccination INFLUENZA (#1) [facility] Start: 05-16-2023 End: 07-16-2023 Comprehensive metabolic 2000 panel - Serum or Plasma [facility] Work Phone: Immunizations Immunization Date Immunization Notes Care Provider Adenike castellanos 08-10-2017 tetanus toxoid, redu henri diphtheria toxoid, and acellular pertussis vaccine, adsorbed Burt MEDRANO Work Phone: [facility] 08-03-2017 influenza, injectabl e, madin adalgisa canine kidney, preservative free Burt MEDRANO Work Phone: [facility] 10-29-2014 TD(adult) unspecifie d formulation Burt MEDRANO Work Phone: [facility] 10-29-2014 tetanus and diphther ia toxoids, adsorbed, preservative free, for adult use (2 Lf of tetanus toxoid and 2 Lf of diphtheria toxoid) Burt MEDRANO Work Phone: [facility] 11-09-2011 tetanus toxoid, redu henri diphtheria toxoid, and acellular pertussis vaccine, adsorbed Burt Barroso PA Work Phone: [facility] Work Phone: 07-22-2011 influenza, seasonal, injectable Burt MEDRANO Work Phone: [facility] 12-11-2002 tetanus toxoid, adsorbed Burt MEDRANO Work Phone: [facility] Payers Date Payer Category Payer Medicare [id number] 2023 Unknown [id number] 2021 Medicaid [place] [id number] 2021-Present [phone] [address] [place] [address] Medicaid [id number] 2021 Medicaid [id number] 2021 Medicare [id number] 2021 Medicare [id number] 1955 Unknown [id number] Medicaid [id number] Social History Date Type Detail Facility Start: 06-03-2022 [facility] Start: 09-25-1967 End: 09-25-1978 History of tobacco use Current smoker [facility] Start: 09-25-1967 End: 09-25-1978 History of tobacco use Cigarette Smoker [facility] Start: 06-03-2022 End: 05-25-2023 Cigarettes smoked current (pack per day) - Reported 1 [facility] Start: 06-03-2022 Tobacco use and exposure Smoke less tobacco non-user [facility] Start: 12-07-2022 End: 05-19-2023 Alcohol intake Current non-drinker of alcohol (finding) [facility] Start: 1955 Sex Assigned At Not on file [facility] Start: 05-16-2023 End: 05-25-2023 Tobacco use panel [facility] Adult Depression Scr eening Assessment 0 [facility] Start: 05-25-2023 Alcohol intake Ex-drinker (finding) [facility] Clinical Notes 06-03-2022 to 05-25-2023 Sonali Alfredo APRN.[facility] - 05/19/2023 11:09 AM EDTTelephone Encounter - Rin Moore MA - 05/19/2023 8:15 AM EDTTelephone Encounter - Pj Sepulveda APRN.[facility] - 05/19/2023 7:15 AM EDT Note Date & Type Note Facility 05-25-2023 Note HNO ID: [id number] Author: Gregorio Lemus DO Service: ? Author Type: Physician Type: Progress Notes Filed: 06/01/2023 6:37 AM Note Text: [facility] Gregorio Lemus DO [address] [place] [address] Date of Evaluation: 05/25/2023 Patient Name: Lyle Sarmiento : 1955 Chief Complaint: Patient presents with: Establish Care Follow Up: TIA having trouble taking Atorvastatin Nursing Intake: There are no exam notes on file for this visit. Subjective Mr. Sarmiento is a 67 year old male who presents with the following complaint(s): The history is provided by the patient. No construction technician was used. Review of Systems Constitutional: Negative for fatigue and unexpected weight change. HENT: Negative for nosebleeds. Eyes: Negative for redness and visual disturbance. Respiratory: Negative for apnea, cough and shortness of breath. Cardiovascular: Negative for chest pain, palpitations and leg swelling. Genitourinary: Negative for hematuria. Neurological: Negative for dizziness, weakness, light-headedness, numbness and headaches. Hematological: Does not bruise/bleed easily. Psychiatric/Behavioral: The patient is not nervous/anxious. PAST MEDICAL HISTORY Diagnosis Date Anxiety 2011 Arthritis Terry's esophagus 11/11/2015 Degenerative disc disease 2012 neck Diverticulosis Fecal incontinence Fibromyalgia GERD (gastroesophageal reflux disease) 11/11/2015 Hemorrhoids Hiatal hernia History of colon polyps 02/17/2016 Tubular adenoma History of shingles History of skin cancer 11/11/[address] Boss? 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, postpolio per patient Morbid obesity due to excess calories (HCC) 11/11/2015 ROBYN on CPAP 11/11/2015 AutoPAP 6-16 DME [facility] Pancreatitis Panic disorder Rectal bleeding Snoring Xerosis cutis 11/11/2015 PAST SURGICAL HISTORY Procedure Laterality Date COLONOSCOPY FLX DX W/COLLJ SPEC WHEN PFRMD 11/10/06;01/16/2009 Colonoscopy COLONOSCOPY FLX DX W/COLLJ SPEC WHEN PFRMD 03/15/2019 Colonoscopy ESOPHAGOGASTRODUODENOSCOPY TRANSORAL DIAGNOSTIC 2004,2006,12/2008 EGD ESOPHAGOGASTRODUODENOSCOPY TRANSORAL DIAGNOSTIC 03/15/2019 EGD LAPAROSCOPY SURG CHOLECYSTECTOMY 11/19/2007 Cholecystectomy, lap PAST SURGICAL 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 Current Outpatient Medications Medication Sig MULTI-VITAMIN ORAL Take 1 tablet by mouth once daily. vitamin B complex (B COMPLEX 1 ORAL) Take 1 tablet by mouth twice daily. B cmplx 4/vit D3/C/folic/zinc (VITAL-D RX ORAL) Take 1 capsule by mouth once daily. zinc sulfate (ZINC-15 ORAL) Take 1 tablet by mouth once daily. Ascorbic Acid (VITAMIN C) 1,000 mg tablet Take 1,000 mg by mouth once daily. Vitamin E, dl, acetate, 1,000 unit capsule Take 1,000 Units by mouth once daily. acetaminophen (TYLENOL EXTRA STRENGTH) 500 mg tablet Take 500 mg by mouth every 8 hours as needed. aspirin 81 mg chewable tablet Take 81 mg by mouth once daily. atorvastatin (LIPITOR) 20 mg tablet Take 20 mg by mouth once daily. Omeprazole 40 mg capsule Take 1 capsule by mouth once daily. celecoxib (CELEBREX) 100 mg capsule Take by mouth. lactase (LACTAID) 3,000 unit tablet Take 1 tablet by mouth three times daily with meals. CPAP Chin strap used with CPAP device. CPAP AutoPAP 6-16 cmH2O, suitable mask, humidity, filters. Lifetime supplies. Dx: G47.33. Download to [facility] in 6 weeks. mupirocin (BACTROBAN) 2 % ointment Apply 1 application to affected area twice daily. (Patient not taking: Reported on 05/25/2023) polyethylene glycol 3350 (MIRALAX, GLYCOLAX) 17 gram/dose powder Take 17 g by mouth once daily. (Patient not taking: Reported on 05/25/2023) No current facility-administered medications for this visit. I have confirmed and edited as necessary the past medical, family and social histories, HPI, and ROS obtained by others. Objective BP 120/80 Pulse 70 Temp 98 Ht 5' 5 (1.65m) Wt 177 lb (80.3kg) SpO2 97% BMI 29.45 kg/(m2). Physical Exam Vitals and nursing note reviewed. Constitutional: General: He is not in acute distress. Appearance: Normal appearance. He is well-developed. He (more content not included)... [facility] 05-19-2023 Note HNO ID: [id number] Author: Sonali Alfredo APRN.[facility] Service: ? Author Type: Nurse Practitioner Type: Progress Notes Filed: 05/19/2023 11:20 AM Note Text: She came in with complaints of extreme dizziness. Patient says he feels like he is going to fall over. Patient says it seems to be getting worse over the last few days. Patient recently had lab work done that all seem to be within normal limits. At this time patient is being referred to the emergency room for full evaluation due to symptoms severity. Patient was okay with this care plan and prefers to take himself. [facility] 05-19-2023 History of Presen t illness Narrative She came in with complaints of extreme dizziness. Patient says he feels like he is going to fall over. Patient says it seems to be getting worse over the last few days. Patient recently had lab work done that all seem to be within normal limits. At this time patient is being referred to the emergency room for full evaluation due to symptoms severity. Patient was okay with this care plan and prefers to take himself. documented in this encounter [facility] 05-19-2023 Miscellaneous Notes Patient notified of results, verbalized understanding of instructions given. Rin Moore MA No significant bacterial infection noted on wound culture. Continue antibiotics symptoms are improving. Pj Sepulveda APRN.CNP documented in this encounter [facility] 05-17-2023 Miscellaneous Notes Patient given results and verbalized understanding of instructions given. Romy Espitia No significant abnormal findings noted on lab work. Follow-up with PCP as discussed during visit. Pj Sepulveda APRN.CNP documented in this encounter [facility] 05-16-2023 Note HNO ID: [id number] Author: Tessa Beach APRN.SHIPYARD HELPER Service: ? Author Type: Nurse Practitioner Type: Progress Notes Filed: 05/16/2023 2:01 PM Note Text: Subjective HPI Lyle Sarmiento is a 67 year old male who presents with a sore on his right lower leg. Present for the past 5 days. He states it started as a blister and then the blister popped and now it is just an open sore. He states it is painful. He has not used any medication on it at home. He has not had a fever. He saw the injection wax molder for a similar blister on his toe and he told him he probably has diabetes. Review of Systems Constitutional: Negative for chills and fever. Respiratory: Negative. Cardiovascular: Negative. Musculoskeletal: Negative for falls, joint pain and myalgias. Skin: Negative for itching and rash. See HPI BP 118/80 Pulse 76 Temp 36.3 ?C (97.4 ?F) (Tympanic) Resp 18 Wt 81.8 kg (180 lb 6.4 oz) SpO2 96% BMI 29.12 kg/m? PAST MEDICAL HISTORY Diagnosis Date Anxiety 2011 Arthritis Terry's esophagus 11/11/2015 Degenerative disc disease 2012 neck Diverticulosis Fecal incontinence Fibromyalgia GERD (gastroesophageal reflux disease) 11/11/2015 Hemorrhoids Hiatal hernia History of colon polyps 02/17/2016 Tubular adenoma History of shingles History of skin cancer 11/11/[address] Boss? 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, postpolio per patient Morbid obesity due to excess calories (HCC) 11/11/2015 ROBYN on CPAP 11/11/2015 AutoPAP 6-16 DME [facility] Panic disorder Rectal bleeding Snoring Xerosis cutis 11/11/2015 PAST SURGICAL HISTORY Procedure Laterality Date COLONOSCOPY FLX DX W/COLLJ SPEC WHEN PFRMD 11/10/06;01/16/2009 Colonoscopy COLONOSCOPY FLX DX W/COLLJ SPEC WHEN PFRMD 03/15/2019 Colonoscopy ESOPHAGOGASTRODUODENOSCOPY TRANSORAL DIAGNOSTIC 2004,2006,12/2008 EGD ESOPHAGOGASTRODUODENOSCOPY TRANSORAL DIAGNOSTIC 03/15/2019 EGD LAPAROSCOPY SURG CHOLECYSTECTOMY 11/19/2007 Cholecystectomy, lap PAST SURGICAL HISTORY OF 7 congenital pyloric stenosis ALLERGIES Patient has no known allergies. MEDICATIONS Omeprazole 40 mg capsule Take 1 capsule by mouth once daily. celecoxib (CELEBREX) 100 mg capsule Take by mouth. CPAP Chin strap used with CPAP device. CPAP AutoPAP 6-16 cmH2O, suitable mask, humidity, filters. Lifetime supplies. Dx: G47.33. Download to [facility] in 6 weeks. cephALEXin (KEFLEX) 500 mg capsule Take 1 capsule by mouth three times daily for 7 days. mupirocin (BACTROBAN) 2 % ointment Apply 1 application to affected area twice daily. polyethylene glycol 3350 (MIRALAX, GLYCOLAX) 17 gram/dose powder Take 17 g by mouth once daily. lactase (LACTAID) 3,000 unit tablet Take 1 tablet by mouth three times daily with meals. (Patient not taking: Reported on 10/22/2022) FAMILY HISTORY Problem Relation Age of Onset Heart Father heart enlargement Alcohol/Drug Father No Ocular Disease No Family History Social History Tobacco Use Smoking status: Former Packs/day: 1.00 Years: 10.00 Additional pack years: 0.00 Total pack years: 10.00 Types: Cigarettes Start date: 09/25/1967 Quit date: 09/25/1978 Years since quittin.6 Smokeless tobacco: Never Substance Use Topics Alcohol use: No Drug use: No Comment: No IVDA. Objective Physical Exam Vitals and nursing note reviewed. Constitutional: Appearance: Normal appearance. Cardiovascular: Rate and Rhythm: Normal rate and regular rhythm. Skin: General: Skin is warm and dry. Capillary Refill: Capillary refill takes less than 2 seconds. Findings: Erythema and lesion present. No rash. Neurological: Mental Status: He is alert. ASSESSMENT/PLAN: 1. Skin infection - ICD9: 686.9, ICD10: L08.9 - Begin treatment with Cephalexin - continue warm water and epsom salt soaks. - HGB A1C - CBC + DIFF - COMP METABOLIC PANEL - ABSCESS AND WOUND CULTURE WITH GRAM STAIN - CEPHALEXIN 500 MG CAPSULE - Follow-up with your PCP in 3-5 days if symptoms have not improved or sooner if symptoms worsen - Discussed red flags and need for immediate medical evaluation if any occur. - Discussed supportive care treatment with fluids, rest and analgesia. - Discussed expected course of illness Tessa Beach APRN.[facility] 05-16-2023 History of Presen t illness Narrative Images from the original note were not included. Subjective HPI Lyle Sarmiento is a 67 year old male who presents with a sore on his right lower leg. Present for the past 5 days. He states it started as a blister and then the blister popped and now it is just an open sore. He states it is painful. He has not used any medication on it at home. He has not had a fever. He saw the injection wax molder for a similar blister on his toe and he told him he probably has diabetes. Review of Systems Constitutional: Negative for chills and fever. Respiratory: Negative. Cardiovascular: Negative. Musculoskeletal: Negative for falls, joint pain and myalgias. Skin: Negative for itching and rash. See HPI BP 118/80 Pulse 76 Temp 36.3 C (97.4 F) (Tympanic) Resp 18 Wt 81.8 kg (180 lb 6.4 oz) SpO2 96% BMI 29.12 kg/m PAST MEDICAL HISTORY Diagnosis Date Anxiety 2012 Arthritis Terry's esophagus 11/11/2015 Degenerative disc disease 2012 neck Diverticulosis Fecal incontinence Fibromyalgia GERD (gastroesophageal reflux disease) 11/11/2015 Hemorrhoids Hiatal hernia History of colon polyps 02/17/2016 Tubular adenoma History of shingles History of skin cancer 11/11/[address] Boss? 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, postpolio per patient Morbid obesity due to excess calories (HCC) 11/11/2015 ROBYN on CPAP 11/11/2015 AutoPAP 6-16 [facility] Panic disorder Rectal bleeding Snoring Xerosis cutis 11/11/2015 PAST SURGICAL HISTORY Procedure Laterality Date COLONOSCOPY FLX DX W/COLLJ SPEC WHEN PFRMD 11/10/06;01/16/2009 Colonoscopy COLONOSCOPY FLX DX W/COLLJ SPEC WHEN PFRMD 03/15/2019 Colonoscopy ESOPHAGOGASTRODUODENOSCOPY TRANSORAL DIAGNOSTIC 2004,2006,12/2008 EGD ESOPHAGOGASTRODUODENOSCOPY TRANSORAL DIAGNOSTIC 03/15/2019 EGD LAPAROSCOPY SURG CHOLECYSTECTOMY 11/19/2007 Cholecystectomy, lap PAST SURGICAL 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 MEDICATIONS Omeprazole 40 mg capsule Take 1 capsule by mouth once daily. celecoxib (CELEBREX) 100 mg capsule Take by mouth. CPAP Chin strap used with CPAP device. CPAP AutoPAP 6-16 cmH2O, suitable mask, humidity, filters. Lifetime supplies. Dx: G47.33. Download to [facility] in 6 weeks. cephALEXin (KEFLEX) 500 mg capsule Take 1 capsule by mouth three times daily for 7 days. mupirocin (BACTROBAN) 2 % ointment Apply 1 application to affected area twice daily. polyethylene glycol 3350 (MIRALAX, GLYCOLAX) 17 gram/dose powder Take 17 g by mouth once daily. lactase (LACTAID) 3,000 unit tablet Take 1 tablet by mouth three times daily with meals. (Patient not taking: Reported on 10/22/2022) FAMILY HISTORY Problem Relation Age of Onset Heart Father heart enlargement Alcohol/Drug Father No Ocular Disease No Family History Social History Tobacco Use Smoking status: Former Packs/day: 1.00 Years: 10.00 Additional pack years: 0.00 Total pack years: 10.00 Types: Cigarettes Start date: 09/25/1967 Quit date: 09/25/1978 Years since quittin.6 Smokeless tobacco: Never Substance Use Topics Alcohol use: No Drug use: No Comment: No IVDA. Objective Physical Exam Vitals and nursing note reviewed. Constitutional: Appearance: Normal appearance. Cardiovascular: Rate and Rhythm: Normal rate and regular rhythm. Skin: General: Skin is warm and dry. Capillary Refill: Capillary refill takes less than 2 seconds. Findings: Erythema and lesion present. No rash. Neurological: Mental Status: He is alert. ASSESSMENT/PLAN: 1. Skin infection - ICD9: 686.9, ICD10: L08.9 - Begin treatment with Cephalexin - continue warm water and epsom salt soaks. - HGB A1C - CBC + DIFF - COMP METABOLIC PANEL - ABSCESS AND WOUND CULTURE WITH GRAM STAIN - CEPHALEXIN 500 MG CAPSULE - Follow-up with your PCP in 3-5 days if symptoms have not improved or sooner if symptoms worsen - Discussed red flags and need for immediate medical evaluation if any occur. - Discussed supportive care treatment with fluids, rest and analgesia. - Discussed expected course of illness Tessa Beach APRN.SHIPYARD HELPER documented in this encounter [facility] 05-16-2023 Instructions Tessa Beach APRN.AROLDO - 05/16/2023 1:42 PM EDT ASSESSMENT/PLAN: 1. Skin infection - ICD9: 686.9, ICD10: L08.9 - Begin treatment with Cephalexin - continue warm water and epsom salt soaks. - HGB A1C - CBC + DIFF - COMP METABOLIC PANEL - ABSCESS AND WOUND CULTURE WITH GRAM STAIN - CEPHALEXIN 500 MG CAPSULE - Follow-up with your PCP in 3-5 days if symptoms have not improved or sooner if symptoms worsen - Discussed red flags and need for immediate medical evaluation if any occur. - Discussed supportive care treatment with fluids, rest and analgesia. - Discussed expected course of illness Tessa Beach APRN.SHIPYARD HELPER [facility] PATIENT INFO SKIN INFECTION OVERVIEW Cellulitis is an infection of the skin and soft tissue of the skin. The infection is usually caused by bacteria that normally live on the skin, such as staphylococci ( Staph ) or streptococci ( Strep ). The infection develops when there is a break in the skin, such as a wound or injury, which may be minor. This allows bacteria to enter the skin and grow, causing infection and swelling. Most cases of cellulitis are mild and heal completely with antibiotic treatment. However, the infection can become severe and cause a bodywide infection if left untreated. It is important to seek medical care promptly if you could have a skin infection. SKIN INFECTION RISK FACTORS Certain conditions increase the risk of developing cellulitis. These include: Recent injury to the skin (a wound, abrasion, cut, recent shaving, or injection drug use) Swelling of the skin due to radiation therapy Current skin infection, such as athlete's foot or impetigo Accumulation of fluid (edema) due to poor circulation, heart failure, liver disease, or past surgery to remove lymph nodes Being overweight Chronic skin conditions, such as eczema or psoriasis However, cellulitis can also develop in people who have no known risk factors. SKIN INFECTION SYMPTOMS Cellulitis -- The most common symptom of cellulitis is pain or tenderness. Other cellulitis symptoms can include swelling, warmth, and redness in a distinct area of skin. These symptoms usually worsen and the redness may expand over the course of a few days. The skin is usually smooth and shiny rather than raised or bumpy. Fever and chills are not common. The most common areas of the body for cellulitis to develop include the legs and the arms; it can also develop around the eye, on the abdominal wall, in the mouth, and around the anus. Other skin infections -- Other types of skin infections include abscesses, furuncles ( boils ), and carbuncles. These usually cause a collection of pus under the skin. Skin that is raised, reddened, tender, and pus-filled may be caused by a skin infection known as methicillin-resistant Staphylococcus aureus (MRSA). DO I NEED TO BE EXAMINED? There are many types and causes of skin infections, and it is important to know the most likely cause of the infection before beginning treatment. Using the wrong treatment could allow the infection to worsen. To ensure that the correct treatment is used, it is important to be evaluated by a healthcare provider. SKIN INFECTION TREATMENT Cellulitis treatment includes antibiotics as well as treatment of any underlying condition that led to the skin infection. Elevate the area -- Elevating the arm or leg above the level of the heart can help to reduce swelling and speed healing. Keep the area clean and dry -- It is important to keep the infected area clean and dry. You can shower or bathe normally, and pat the area dry with a clean towel. You can use a bandage or gauze to protect the skin, if needed. Do not use any antibiotic ointments or creams. Antibiotics -- Most people with cellulitis are treated with an antibiotic that is taken by mouth for one to two weeks. The best antibiotic depends upon your situation. If the infection is severe, you may need to be hospitalized and treated with antibiotics given into a vein (IV). It is important to take the antibiotic exactly as recommended and to finish the entire course of treatment. Skipping doses or ending treatment early could potentially allow the bacteria to become resistant and require longer treatment. Time to heal -- The swelling, warmth, and redness should begin to improve within one to three days after starting antibiotics, although these symptoms can persist for two weeks. If the reddened area becomes larger, more swollen, or more tender, call your healthcare provider. He or she may want to reexamine you to determine if further testing or an alternate antibiotic are needed. SKIN INFECTION PROGNOSIS In most cases, you will recover completely from an episode of cellulitis without any complications. If you have skin infection risk factors talk to your healthcare provider to determine if there are steps you can take to minimize the risk of infections in the future. documented in this encounter [facility] 02-07-2023 Note HNO ID: [id number] Author: Tessa Beach APRN.SHIPYARD HELPER Service: ? Author Type: Nurse Practitioner Type: Progress Notes Filed: 02/07/2023 12:11 PM Note Text: Subjective HPI Lyle Sarmiento is a 67 year old male who presents with a blister on his left second toe. He has had this for 3 days. It is painful if he touches it. He thinks it is from a new pair of socks he was wearing which were tight. He denies fever. He denies any drainage from the blister. He denies any injury to the toe. Review of Systems Constitutional: Negative for chills and fever. Musculoskeletal: Negative for falls and joint pain. Skin: Negative for itching and rash. BP 120/72 Pulse 76 Temp 36.3 ?C (97.4 ?F) Resp 16 Wt 86.6 kg (191 lb) SpO2 97% BMI 30.83 kg/m? PAST MEDICAL HISTORY Diagnosis Date Anxiety 2012 Arthritis Terry's esophagus 11/11/2015 Degenerative disc disease 2012 neck Diverticulosis Fecal incontinence Fibromyalgia GERD (gastroesophageal reflux disease) 11/11/2015 Hemorrhoids Hiatal hernia History of colon polyps 02/17/2016 Tubular adenoma History of shingles History of skin cancer 11/11/[address] Boss? 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, postpolio per patient Morbid obesity due to excess calories (HCC) 11/11/2015 ROBYN on CPAP 11/11/2015 AutoPAP 6-16 [facility] Panic disorder Rectal bleeding Snoring Xerosis cutis 11/11/2015 PAST SURGICAL HISTORY Procedure Laterality Date COLONOSCOPY FLX DX W/COLLJ SPEC WHEN PFRMD 11/10/06;01/16/2009 Colonoscopy COLONOSCOPY FLX DX W/COLLJ SPEC WHEN PFRMD 03/15/2019 Colonoscopy ESOPHAGOGASTRODUODENOSCOPY TRANSORAL DIAGNOSTIC 2004,2006,12/2008 EGD ESOPHAGOGASTRODUODENOSCOPY TRANSORAL DIAGNOSTIC 03/15/2019 EGD LAPAROSCOPY SURG CHOLECYSTECTOMY 11/19/2007 Cholecystectomy, lap PAST SURGICAL 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 MEDICATIONS Omeprazole 40 mg capsule Take 1 capsule by mouth once daily. celecoxib (CELEBREX) 100 mg capsule Take by mouth. CPAP Chin strap used with CPAP device. CPAP AutoPAP 6-16 cmH2O, suitable mask, humidity, filters. Lifetime supplies. Dx: G47.33. Download to [facility] in 6 weeks. cephALEXin (KEFLEX) 500 mg capsule Take 1 capsule by mouth twice daily for 7 days. polyethylene glycol 3350 (MIRALAX, GLYCOLAX) 17 gram/dose powder Take 17 g by mouth once daily. lactase (LACTAID) 3,000 unit tablet Take 1 tablet by mouth three times daily with meals. (Patient not taking: Reported on 10/22/2022) FAMILY HISTORY Problem Relation Age of Onset Heart Father heart enlargement Alcohol/Drug Father No Ocular Disease No Family History Social History Tobacco Use Smoking status: Former Packs/day: 1.00 Years: 10.00 Pack years: 10.00 Types: Cigarettes Start date: 09/25/1967 Quit date: 09/25/1978 Years since quittin.4 Smokeless tobacco: Never Substance Use Topics Alcohol use: No Drug use: No Comment: No IVDA. Objective Physical Exam Vitals and nursing note reviewed. Constitutional: Appearance: Normal appearance. Musculoskeletal: General: Swelling and tenderness present. No signs of injury. Feet: Feet: Left foot: Skin integrity: Blister and erythema present. Toenail Condition: Left toenails are abnormally thick. Skin: General: Skin is warm and dry. Capillary Refill: Capillary refill takes less than 2 seconds. Findings: Erythema present. No bruising or rash. Neurological: Mental Status: He is alert. ASSESSMENT/PLAN: 1. Infected blister of second toe - ICD9: 917.3, ICD10: S90.426A, L08.9 - Begin treatment with Cephalaxin (Keflex) - CEPHALEXIN 500 MG CAPSULE - warm water with epsom salt soaks 2-3 times daily - CONSULT TO PODIATRY - Follow-up with your PCP in 3-5 days if symptoms have not improved or sooner if symptoms worsen - Discussed red flags and need for immediate medical evaluation if any occur. - Discussed supportive care treatment with fluids, rest and analgesia. - Discussed expected course of illness Tessa Beach APRN.AROLDO [facility] 12-08-2022 Miscellaneous Notes Patient notified and verbalized understanding of instructions given.Alma Villar LPN You tested positive for COVID-19. Follow the CDC guidelines for isolation: 1. Everyone, regardless of vaccination status, should stay home for 5 days. 2. If you have no symptoms or your symptoms are resolving after 5 days, you can leave your house. 3. Continue to wear a mask around others for 5 additional days. If you have a fever, continue to stay home until your fever resolves, even if it is longer than 5 days. You may be eligible for additional treatments for COVID-19. -Please tell patient to call PCP or schedule an [facility] care virtual visit to discuss antiviral if interested. documented in this encounter [facility] 12-07-2022 Note HNO ID: [id number] Author: RT Esther(Juliocesar) Service: ? Author Type: Mechanic/Welder Type: Progress Notes Filed: 12/07/2022 4:34 PM Note Text: Radiology Service Progress Note PATIENT NAME: Lyle Sarmiento DATE OF SERVICE: December 07, 2022 TIME: 4:26 PM PATIENT IDENTITY VERIFICATION COMPLETED USING TWO (2) IDENTIFIERS: Name and Date of confirmed by patient verbally. FALL SCREENING: Has the patient had 2 falls in the last year or 1 fall with injury or currently using an Ambulatory Assistive Device (Walker, Cane, Wheelchair, Crutches, etc.)? No PATIENT GENDER DATA: Male PATIENT RELEVANT IMPLANT DATA REVIEWED: Yes RADIOLOGY DEPARTMENT: General X-ray: Exam(s) Completed: Chest X-Ray PERIPHERAL IV DATA: Not applicable SIGNED BY: RT Esther(R) December 07, 2022 4:26 PM [facility] 12-07-2022 Note HNO ID: [id number] Author: Frandy Whitehead APRN.SHIPYARD HELPER Service: ? Author Type: Nurse Practitioner Type: Progress Notes Filed: 12/07/2022 5:14 PM Note Text: This note was created using ConsiderCriter. Subjective Lyle Sarmiento is a 67 year old male. 67 year old male with PMH GERD, IBS, obesity presents for illness. Acute onset 3 days ago +fever +sore throat + cough +chest congestion +yellow and productive sputum. +headache Just felt like I was hit by something States he slept for 14 hours. Endorses he is starting to feel better today. Denies tobacco usage. States is starting with illness. The history is provided by the patient. No construction technician was used. Cough This is a new problem. The current episode started more than 2 days ago. The problem occurs constantly. The problem has been gradually improving. The cough is Productive of sputum. The maximum temperature recorded prior to his arrival was 100 to 100.9 F. Associated symptoms include sore throat, myalgias and shortness of breath. Pertinent negatives include no chest pain, no chills, no sweats, no weight loss, no ear congestion, no ear pain, no headaches, no rhinorrhea, no wheezing and no eye redness. He has tried nothing for the symptoms. He is not a smoker. His past medical history does not include bronchitis, pneumonia, bronchiectasis, COPD, emphysema or asthma. PAST MEDICAL HISTORY Diagnosis Date Anxiety 2011 Arthritis Terry's esophagus 11/11/2015 Degenerative disc disease 2012 neck Diverticulosis Fecal incontinence Fibromyalgia GERD (gastroesophageal reflux disease) 11/11/2015 Hemorrhoids Hiatal hernia History of colon polyps 02/17/2016 Tubular adenoma History of shingles History of skin cancer 11/11/[address] Boss? 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, postpolio per patient Morbid obesity due to excess calories (HCC) 11/11/2015 ROBYN on CPAP 11/11/2015 AutoPAP 6-16 [facility] Panic disorder Rectal bleeding Snoring Xerosis cutis 11/11/2015 PAST SURGICAL HISTORY Procedure Laterality Date COLONOSCOPY FLX DX W/COLLJ SPEC WHEN PFRMD 11/10/06;01/16/2009 Colonoscopy COLONOSCOPY FLX DX W/COLLJ SPEC WHEN PFRMD 03/15/2019 Colonoscopy ESOPHAGOGASTRODUODENOSCOPY TRANSORAL DIAGNOSTIC 2004,2006,12/2008 EGD ESOPHAGOGASTRODUODENOSCOPY TRANSORAL DIAGNOSTIC 03/15/2019 EGD LAPAROSCOPY SURG CHOLECYSTECTOMY 11/19/2007 Cholecystectomy, lap PAST SURGICAL 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 MEDICATIONS Omeprazole 40 mg capsule Take 1 capsule by mouth once daily. celecoxib (CELEBREX) 100 mg capsule Take by mouth. CPAP Chin strap used with CPAP device. CPAP AutoPAP 6-16 cmH2O, suitable mask, humidity, filters. Lifetime supplies. Dx: G47.33. Download to [facility] in 6 weeks. polyethylene glycol 3350 (MIRALAX, GLYCOLAX) 17 gram/dose powder Take 17 g by mouth once daily. lactase (LACTAID) 3,000 unit tablet Take 1 tablet by mouth three times daily with meals. (Patient not taking: Reported on 10/22/2022) FAMILY HISTORY Problem Relation Age of Onset Heart Father heart enlargement Alcohol/Drug Father No Ocular Disease No Family History Social History Tobacco Use Smoking status: Former Packs/day: 1.00 Years: 10.00 Pack years: 10.00 Types: Cigarettes Start date: 09/25/1967 Quit date: 09/25/1978 Years since quittin.2 Smokeless tobacco: Never Substance Use Topics Alcohol use: No Drug use: No Comment: No IVDA. Review of Systems Constitutional: Positive for activity change and fatigue. Negative for chills and weight loss. HENT: Positive for congestion, postnasal drip and sore throat. Negative for ear pain and rhinorrhea. Eyes: Negative for pain, discharge, redness and itching. Respiratory: Positive for cough and shortness of breath. Negative for apnea, choking, chest tightness and wheezing. Cardiovascular: Negative for chest pain, palpitations and leg swelling. Gastrointestinal: Negative for abdominal pain, diarrhea, nausea and vomiting. Musculoskeletal: Positive for myalgias. Negative for back pain. Skin: Negative for color change, pallor, rash and wound. Allergic/Immunologic: Negative for environmental allergies, food allergies and immunocompromised state. Neurological: Negative for dizziness, facial asymmetry and headaches. Hematological: Negative for adenopathy. Does not bruise/bleed easily. Psychiatric/Behavioral: Negative for agitation and behavioral problems. Objective BP 142/72 Pulse 74 Temp 36.9 ?C (98.4 ?F) (Tympanic) Resp 16 Wt 89.2 kg (196 lb 9.6 oz) SpO2 97% BMI 31.73 kg/m? Physical Exam Vitals and nursing note reviewed. Constitutional: General: He is not in acute distress. Appearance: Normal appearance. He is obese. He is not ill-appearing, toxic-appearing or diaphoretic. HENT: (more content not included)... [facility] 10-22-2022 Note HNO ID: [id number] Author: Asha Mclean APRN.SHIPYARD HELPER Service: ? Author Type: Nurse Practitioner Type: Progress Notes Filed: 10/22/2022 11:00 AM Note Text: Subjective The history is provided by the patient. No construction technician was used. HPI Lyle Sarmiento is a 67 year old male who presents today for CC of dental/jaw pain on right lower jaw. This started over the past 2 days. He has used tylenol without relief. He denies any fever chills body aches. No ear pain. Per patient normal kidney function. BP 148/88 Pulse 76 Temp 36.1 ?C (97 ?F) Resp 21 Wt 89 kg (196 lb 3.2 oz) SpO2 97% BMI 31.67 kg/m? Social History Tobacco Use Smoking status: Former Packs/day: 1.00 Years: 10.00 Pack years: 10.00 Types: Cigarettes Start date: 09/25/1967 Quit date: 09/25/1978 Years since quittin.1 Smokeless tobacco: Never Substance Use Topics Alcohol use: No Drug use: No Comment: No IVDA. PAST MEDICAL HISTORY Diagnosis Date Anxiety 2012 Arthritis Terry's esophagus 11/11/2015 Degenerative disc disease 2012 neck Diverticulosis Fecal incontinence Fibromyalgia GERD (gastroesophageal reflux disease) 11/11/2015 Hemorrhoids Hiatal hernia History of colon polyps 02/17/2016 Tubular adenoma History of shingles History of skin cancer 11/11/[address] Boss? 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 HENT: Dental, jaw pain Musculoskeletal: Negative for joint pain and myalgias. Skin: Negative for itching and rash. All other systems reviewed and are negative. Objective Physical Exam Vitals and nursing note reviewed. HENT: Head: Normocephalic and atraumatic. Right Ear: Tympanic membrane, ear canal and external ear normal. Left Ear: Tympanic membrane, ear canal and external ear normal. Nose: No mucosal edema, congestion or rhinorrhea. Right Sinus: No maxillary sinus tenderness or frontal sinus tenderness. Left Sinus: No maxillary sinus tenderness or frontal sinus tenderness. Mouth/Throat: Mouth: Mucous membranes are moist. Dentition: Abnormal dentition. Dental caries present. Pharynx: No pharyngeal swelling or posterior oropharyngeal erythema. Comments: Area of discomfort marked. Pulmonary: Effort: Pulmonary effort is normal. Skin: General: Skin is warm and dry. Neurological: Mental Status: He is alert and oriented to person, place, and time. Psychiatric: Mood and Affect: Affect normal. ASSESSMENT/PLAN: 1. Pain, dental - ICD9: 525.9, ICD10: K08.89 (primary diagnosis) 2. Jaw pain - ICD9: 784.92, ICD10: R68.84 Appears to be possible dental infection, mild swelling along lower jaw, no sign of parotid gland swelling, TMJ Amoxil as ordered Follow up with dentist on Monday To er for worsening pain or swelling Diagnosis and treatment plan were discussed and questions were answered to the patient's satisfaction. Pt acknowledged understanding of concepts and follow up plan. Specific signs and symptoms that would indicate the need for higher level of care were discussed in detail warranting prompt ER evaluation. Asha Mclean APRN.[facility] 06-03-2022 Note HNO ID: [id number] Author: Justin Dang PA-C Service: ? Author Type: Physician Joint Finisher Type: Progress Notes Filed: 06/03/2022 1:22 PM Note Text: This note was created using NoteWriter. Subjective Lyle Sarmiento is a 66 year old male. HPI Patient presents with a left hand laceration. He states he was trying to cut a watermelon when the knife slipped and cut him in the bottom of the hand wrist area. This happened about 18 hours ago. His last Tdap was 2016. He still had pain today and it was little bit red around it so he came in for evaluation. No numbness or weakness. No active bleeding. Review of Systems Constitutional: Negative. HENT: Negative. Musculoskeletal: Left hand laceration All other systems reviewed and are negative. PAST MEDICAL HISTORY Diagnosis Date Anxiety 2011 Arthritis Terry's esophagus 11/11/2015 Degenerative disc disease 2012 neck Diverticulosis Fecal incontinence Fibromyalgia GERD (gastroesophageal reflux disease) 11/11/2015 Hemorrhoids Hiatal hernia History of colon polyps 02/17/2016 Tubular adenoma History of shingles History of skin cancer 11/11/[address] Boss? 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 30 capsule 11 celecoxib (CELEBREX) 100 mg capsule Take by mouth. lactase (LACTAID) 3,000 unit tablet Take 1 tablet by mouth three times daily with meals. 90 tablet 3 CPAP Chin strap used with CPAP device. 1 Device 0 CPAP AutoPAP 6-16 cmH2O, suitable mask, humidity, filters. Lifetime supplies. Dx: G47.33. Download to [facility] in 6 weeks. 1 Device 0 cephALEXin (KEFLEX) 500 mg capsule Take 1 capsule by mouth three times daily for 5 days. 15 capsule 0 polyethylene glycol 3350 (MIRALAX, GLYCOLAX) 17 gram/dose powder Take 17 g by mouth once daily. 510 g 11 No current facility-administered medications for this visit. 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 Objective BP 132/84 Pulse 82 Temp 36.7 ?C (98.1 ?F) Resp 16 Wt 86 kg (189 lb 9.6 oz) SpO2 97% BMI 30.60 kg/m? Physical Exam Vitals reviewed. Constitutional: Appearance: Normal appearance. HENT: Head: Normocephalic and atraumatic. Musculoskeletal: Hands: Comments: 1 cm laceration to the dorsal distal wrist/hand area. No active bleeding. There is some mild surrounding erythema. Normal strength against resistance of the first and second digits. No sign of tendon laceration. Does have some pain on flexion of the wrist. Radial pulse 2+. Normal distal sensation. Skin: General: Skin is warm and dry. Neurological: Mental Status: He is alert. Assessment and Plan ASSESSMENT/PLAN: 1. Wrist laceration, left, initial encounter - ICD9: 881.02, ICD10: S61.512A Patient was concern for bony injury so x-ray was obtained and unremarkable. I did clean the wound out and place a Steri-Strip. At this time follow risk for infection was too high to suture at this point. It is well approximated. His Tdap was already updated. Discussed wound care and signs to return. Given Keflex prophylactically. Patient agreeable with plan. - XR WRIST INJURY 4V PA/LAT/OBL/SCAPH LEFT Justin Dang PA-C [facility] 06-03-2022 Note HNO ID: [id number] Author: Rosamaria Marshall RT(R) Service: Radiology Author Type: Technologist Type: Progress Notes Filed: 06/03/2022 11:24 AM Note Text: Radiology Service Progress Note PATIENT NAME: Lyle Sarmiento DATE OF SERVICE: June 03, 2022 TIME: 11:17 AM PATIENT IDENTITY VERIFICATION COMPLETED USING TWO (2) IDENTIFIERS: Name and Date of confirmed by patient verbally. FALL SCREENING: Has the patient had 2 falls in the last year or 1 fall with injury or currently using an Ambulatory Assistive Device (Walker, Cane, Wheelchair, Crutches, etc.)? No PATIENT GENDER DATA: Male PATIENT RELEVANT IMPLANT DATA REVIEWED: Yes RADIOLOGY DEPARTMENT: General X-ray: Exam(s) Completed: Upper Extremity X-Ray(s): Wrist, left PERIPHERAL IV DATA: Not applicable SIGNED BY: Rosamaria Marshall RT(R) June 03, 2022 11:17 AM [facility] Dizziness- Primary Dizziness and giddiness documented in this encounter [facility] Summary Purpose Family History No Family History Records FoundNo Family History Records FoundNo Family History Records Found Advance Directives No Advanced Directives Records FoundNo Advanced Directives Records FoundNo Advanced Directives Records Found Health Concerns Infection Onset Date Last Indicated Resolved Time COVID-19 Rule-Out 12/07/2022 12/07/2022 12/08/2022 4:28 AM EDT COVID-19 Confirmed 12/07/2022 12/07/2022 Additional Source Comments (unrecognized sect ion and content) No Status Records FoundNo Status Records FoundNo Status Records Found INFORMATION SOURCE (unrecogn ized section and content) DATE CREATED AUTHOR AUTHOR'S ORGANIZ ATION 05/20/2023 [facility] DATE CREATED AUTHOR AUTHOR'S ORGANIZ ATION 06/02/2023 [facility] Source Comments (unrecognize d section and content) In the event this informatio n is protected by the Federal Confidentiality of Alcohol and Drug Abuse Patient Records regulations: The Federal rules restrict any use of the information to criminally investigate or prosecute any alcohol or drug abuse patient.[facility] the event this information is protected by the Federal Confidentiality of Alcohol and Drug Abuse Patient Records regulations: The Federal rules restrict any use of the information to criminally investigate or prosecute any alcohol or drug abuse patient.[facility] the event this information is protected by the Federal Confidentiality of Alcohol and Drug Abuse Patient Records regulations: The Federal rules restrict any use of the information to criminally investigate or prosecute any alcohol or drug abuse patient.[facility] the event this information is protected by the Federal Confidentiality of Alcohol and Drug Abuse Patient Records regulations: The Federal rules restrict any use of the information to criminally investigate or prosecute any alcohol or drug abuse patient.[facility] the event this information is protected by the Federal Confidentiality of Alcohol and Drug Abuse Patient Records regulations: The Federal rules restrict any use of the information to criminally investigate or prosecute any alcohol or drug abuse patient.[facility] the event this information is protected by the Federal Confidentiality of Alcohol and Drug Abuse Patient Records regulations: The Federal rules restrict any use of the information to criminally investigate or prosecute any alcohol or drug abuse patient.[facility] Reason for Visit (unrecogniz ed section and content) Reason Comments sore on right lower leg X 5 days Reason Comments dizzy and nausea X 3 days Care Teams (unrecognized sec tion and content) Dairy Helper Relationship Specialty Start Date End Date Urszula Rubi MD PCP - General Internal Medicine 03/23/19 Dairy Helper Relationship Specialty Start Date End Date Urszula Rubi MD PCP - General Internal Medicine 03/23/19 Dairy Helper Relationship Specialty Start Date End Date Urszula Rubi MD PCP - General Internal Medicine 03/23/19 Dairy Helper Relationship Specialty Start Date End Date Gregorio Lemus DO [address] [place] [address] PCP - General Family Medicine 05/22/23 FOR RECORDS PERTAINING TO PATIENTS WHO ARE OR HAVE BEEN ENROLLED IN A CHEMICAL DEPENDENCY/SUBSTANCEABUSE PROGRAM, SOME INFORMATION MAY BE OMITTED. This clinical summary was aggregated from multiple sources. Caution should be exercised in using it in the provision of clinical care. This summary normalizes information from multiple sources, and as a consequence, information in this document may materially change the coding, format and clinical context of patient data. In addition, data may be omitted in some cases. CLINICAL DECISIONS SHOULD BE BASED ON THE PRIMARY CLINICAL RECORDS. [facility] [employer] [facility]. provides no warranty or guarantee of the accuracy or completeness of information in this document.
== END 2023-10-11 17:01 | disposition home or self-care (01) ==
PROVIDERS: Emergency Provider Emergency Medicine; PCP Family Medicine; Visit Provider Emergency Medicine
DX: R10.32 Left lower quadrant pain (principal); R30.0 Dysuria
CPT/HCPCS: 74177; 80048; 81001; 85025; 99283; Q9967; A4216

== ENCOUNTER 2023-11-27 09:30 | Outpatient (CLI) | payer MEDICARE, SELFPAY ==
[2023-11-27 10:18] LABS: Erythrocyte Sedimentation Rate 6 mm/hr (0-20)
[2023-11-27 10:41] LABS: CRP < 2.90 mg/L (0.0-3.0)
[2023-11-28 11:09] LABS: Anti-Centromere B Ab <0.2 AI (0.0-0.9); Anti-Chromatin <0.2 AI (0.0-0.9); Anti-Jo <0.2 AI (0.0-0.9); Anti-Scleroderma-70 AB <0.2 AI (0.0-0.9); Anti-dsDNA Ab <1 IU/mL (0-9); RNP Ab 0.5 AI (0.0-0.9); SJOGREN'S Anti-SS-A test < 0.2 AI (0.0-0.9); SJOGREN'S Anti-SS-B test < 0.2 AI (0.0-0.9); Smith Ab <0.2 AI (0.0-0.9)
[2023-11-30 16:10] LABS: Anti-Parietal Cell AB, QN 2.5 Units (0.0-20.0); Carbohydrate AG 19-9 8 U/mL (0-35); Cytoplasmic Ab (C-ANCA) <1:20 titer (Neg:<1:20); Endomysial Antibody IgA Negative (Negative); Gastrin, Serum 16 pg/mL (0-115); IgG, Quant 1123 mg/dL (603-1613); Immunoglobulin A 80 mg/dL (61-437); Immunoglobulin G, Subclass 1 484 mg/dL (248-810); Immunoglobulin G, Subclass 2 361 mg/dL (130-555); Immunoglobulin G, Subclass 3 80 mg/dL (15-102); Immunoglobulin G, Subclass 4 82 mg/dL (2-96); Intrinsic Factor Ab 1.1 AU/mL (0.0-1.1); Perinuclear Ab (P-ANCA) <1:20 titer (Neg:<1:20); t-Transglutaminase IgA <2 U/mL (0-3)
== END 2023-11-27 23:59 | disposition home or self-care (01) ==
LOC: LAB 09:33
PROVIDERS: PCP Family Medicine Geriatric Medicine; Referring Provider Internal Medicine Gastroenterology; Visit Provider Internal Medicine Gastroenterology
DX: K85.90 Acute pancreatitis without necrosis or infection, unspecified (principal)
CPT/HCPCS: 36415; 82784; 82787; 82941; 83516; 85652; 86140; 86225; 86235; 86255; 86256; 86301; 86340

== ENCOUNTER 2024-01-15 09:26 | Day surgery (SDC) | payer MEDICARE, SELFPAY ==
--- NOTE | 2024-01-15 | IMM_PTH ---
PATIENT: BERKLEY ROMAN LOC: EN U#:[id number] AGE/SX: 68/M ROOM: RE01/15/[address]: Dr. Tate Chase DO : 1955 BED: DIS: 01/15/2024 SPEC #: [id number] RECD: 01/16/24 11:16 STATUS: ALFREDO REQ #: [id number] MOHINDER: 01/15/24 00:[address]: Tate Chase DEPT: IMMUNOHISTOCHEMISTRY RECD BY: Yoseph Gallegos ENTERED: 01/16/24 11:16 SP TYPE: IMMUNO OTHR DR: Dr. Kinsey Rogers DO Tissues: Esophagus, NOS Procedures: P53 (initial) KI-67 (add) PHYSICIAN & INSTITUTION [place] [id number] SPECIMEN INFORMATION: Tissue Source: Distal esophagus biopsy Clinical Info: Pancreatitis, Terry's esophagus without dysplasia Specimen Number: [id number] CPT code: 26495,46532 METHODOLOGY: Deparaffinized sections of prefer/formalin-fixed tissue or PAP/DQ stained slides are incubated with monoclonal/polyclonal antibodies/oligonucleotide probes. Localization is made via biotin free immunoperoxidase method. Appropriate controls are performed and reacted as expected. Results on target cell population are indicated in the following table: RESULTS: ANTIBODY / CLONE RESULT P53 (DO-7) negative (null pattern) Ki-67 (30-9) positive, low These tests were developed and their performance characteristics determined by [facility]. They may not have been cleared or approved by the U.S. Food and Drug Administration. The FDA has determined that such clearance or approval is not necessary. The above immunohistochemical/dualISH markers are ordered and reviewed by the Pathologist. INTERPRETATION: Distal esophagus, biopsy: Negative for dysplasia. WOOD/ 01/17/2024
[2024-01-15 09:49] VITALS: BP 139/77; PULSE 65; RESP 16; TEMP 36.3; O2SAT 98; BMI 29.7
[2024-01-15] MEDS: Lactated Ringers 1,000 ML 15 ML IV (09:58)
--- NOTE | 2024-01-15 10:03 | PCM.HP.BLA ---
History and Physical Date of Admission: 01/15/24 BERKLEY ROMAN, is a 68 M who presents to the office today for follow up. *BGI established 4.4.22 with intermittent abdominal pain approximately monthly with nausea lasting 45 minutes before spontaneously passing. BM are hard stool with difficult passing; prune juice causes gas. History of pancreatitis with heavy alcohol use, stopped.?Start Linzess, esomeprazole. EGD/colonoscopy recommended, rescheduled ?Biochemical 4.4.22?CBC, CMP, d.bili, amylase without pertinent abnormality? AST 22-ALT 30-AP 67-t.bili H1.3, lipase L50 ?CT abd/pel 5..22?simple hepatic cyst; small bowel loop dilation, ?early SBO; fatty pancreas ?KUB 5.6.22?contrast seen in rectal vault ?KUB 5.7.22?patency capsule RUQ; moderate stool burden ?KUB 5.11.22?patency capsule not visualized OV 5.16 using smooth-move tea and psyllium husk with PRN MiraLAX for BM; continue esomeprazole. EGD rescheduled, declines colonoscopy OV 09.08.22?continue esomeprazole ?EGD 11.21.22?short-segment Terry?s, metaplasia+; small hiatal hernia OV 3?increase esomeprazole to BID?as Mylanta has been needed recently ?CT abd/pel 12.10.22 (PCP)?s/p cholecystectomy; small hiatal hernia ?CT abd/pel 1 (ED, LLQ pain)?small hepatic cyst; fatty pancreas; small bilateral inguinal hernia OV 3.4.24 Pt well since last visit. Continues to take Esomeprazole 40mg BID. Is not having any heartburn or dysphagia. Reports his BM are regular as long as he drinks prune juice daily. Also reports increase in gas. ROS Const Constitutional: No fatigue ENT ENT: No difficulty swallowing Gastro GI: Positive for constipation; No abdominal pain, belching, bloating, change in bowel habits, change in stool character, coffee ground emesis, cramping, diarrhea, heartburn, difficulty swallowing, feeling full early, excessive flatus, incontinent of stools, Vomiting blood/hematemesis, Blood in stool, loose stools, Black,tarry stools, nausea/dyspepsia, pain with swallowing, vomiting or other Musc Musculoskeletal: No joint pain Skin Skin: No yellowing of the eye or itchy eyes Psych Psychiatric: No anxiety and No depression Endo Endocrine: No fatigue Aller/Imm Allergy/Immunologic: No itchy eyes Evans/Lymp Hematologic/Lymphatic: No easy bleeding or easy bruising Exam Const General: cooperative, healthy appearing, comfortable and no acute distress Orientation: alert, awake and oriented x3 HENMT Head: normal to inspection and atraumatic Ears: hearing grossly normal bilaterally, external ears normal, TM's normal bilaterally, EAC's normal, mastoids normal and EAC abnormal cerumen impaction bilaterally (Right- 90% Blocked, Left-50%) Nose: external nose normal, nares normal and no nasal discharge Mouth: oral mucosae normal, lip normal, tongue normal, oropharynx normal, moist mucous membranes and no drooling Teeth and gingiva: dentition normal Throat: posterior oropharynx normal, tonsils normal and uvula midline Eyes General: appearance normal, both eyes and all related structures Eyelids: eyelids normal Conjunctivae: conjunctivae normal Neck Neck: normal visual inspection and no lymphadenopathy Chest Chest palpation & inspection: normal inspection of the chest Resp Effort & Inspection: normal respiratory effort, able to speak in complete sentences and symmetric chest movement Auscultation: Bilateral: Clear to Auscultation Cardio Rhythm: regular rhythm Heart Sounds: S1 normal, S2 normal and no murmurs GI Inspection: normal to inspection Auscultation: normal bowel sounds Palpation: soft, not firm, no guarding and nontender Skin General: no rashes or lesions noted Quality Reporting Tobacco Screening ([facility] 138) Smoking Status: Never smoker Assessment and Plan Assessment and Plan (1) Pancreatitis: Status: Acute (2) Terry's esophagus without dysplasia: Status: Chronic Plan: 68-year-old gentleman with past medical history of 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 We will perform a surveillance endoscopy on. Because he is having some problems with bloating, abdominal pain, cramping we will also order some blood work due to his history of pancreatitis. His last imaging did not show any signs of chronic pancreatitis and has been gaining weight and not having any diarrhea at this time. Orders: Orders Gastrin, Serum Today K85.90 - Acute pancreatitis without necrosis or infection, unspecified Erythrocyte Sed Rate Today K85.90 - Acute pancreatitis without necrosis or infection, unspecified CRP Today K85.90 - Acute pancreatitis without necrosis or infection, unspecified Anti-Parietal Cell AB, QN Today K85.90 - Acute pancreatitis without necrosis or infection, unspecified Intrinsic Factor Ab Today K85.90 - Acute pancreatitis without necrosis or infection, unspecified IgG Subclasses Today K85.90 - Acute pancreatitis without necrosis or infection, unspecified KIRK Comprehensive Panel Today K85.90 - Acute pancreatitis without necrosis or infection, unspecified ANCA Today K85.90 - Acute pancreatitis without necrosis or infection, unspecified Carbohydrate AG 19-9 Today K85.90 - Acute pancreatitis without necrosis or infection, unspecified Celiac Disease Profile Today K85.90 - Acute pancreatitis without necrosis or infection, unspecified I have examined the patient and the H&P has been reviewed. There are no clinical changes since date of exam.
--- NOTE | 2024-01-15 10:35 | EGD_PTH ---
PATIENT: BERKLEY ROMAN LOC: EN U#:[id number] AGE/SX: 68/M ROOM: RE01/15/[address]: Dr. Tate Chase DO : 1955 BED: DIS: 01/15/2024 SPEC #: [id number] RECD: 01/15/24 13:15 STATUS: ALFREDO REJessica #: [id number] MOHINDER: 01/15/24 10:[address]: Tate Chase DEPT: SURGICAL PATHOLOGY RECD BY: Saritha Kumar ENTERED: 01/15/24 13:41 SP TYPE: EGD BIOPSY OT DR: Dr. Kinsey Rogers DO Tissues: Esophagus, NOS Procedures: Special Stain Group II Surgery Specimen Level IV Alcian Blue/PAS (control) HEADER OPERATION: EGD PRE-OP DIAGNOSIS: Pancreatitis, Terry's esophagus without dysplasia TISSUE SUBMITTED: Distal esophagus biopsy MICROSCOPIC DIAGNOSIS Distal esophagus, biopsy: Fragments of gastroesophageal mucosa with focal intestinal metaplasia (goblet cell metaplasia), consistent with Terry's esophagus. Chronic inflammation. Negative for dysplasia. See comment. [facility] 01/16/2024 COMMENT Alcian blue/PAS stain with matched control is used in the evaluation of the specimen. Immunohistochemistry ([id number]) for P53 and Ki-67 will be performed and results will be reported separately. MICROSCOPIC DESCRIPTION Slides are reviewed. GROSS DESCRIPTION Received in fixative is one container labeled with the patient's name and designated Distal esophagus biopsy. The specimen consists of multiple irregular fragments of light wilkins soft tissue that in aggregate measure 0.8 x 0.4 x 0.1 cm. The specimen is totally submitted in one cassette. [facility] 01/15/24 TC:5 CPT:14202 ,66149
[2024-01-15 10:51] VITALS: BP 127/84; BP 139/77; PULSE 88; RESP 18; TEMP 36.2; O2SAT 94
--- NOTE | 2024-01-15 10:54 | OP.EGD_ITS ---
Patient Name: Lyle Sarmiento Procedure Date: 01/15/2024 10:32 AM Date of : 1955 Age: 68 Procedure: Upper GI endoscopy Indications: Failure to respond to medical treatment, Follow-up of Terry's esophagus Providers: Tate Chase DO Referring MD: Kinsey Rogers Medicines: Monitored Anesthesia Care Patient Profile: This is a 68 year old male. Refer to note in patient chart for documentation of history and physical. Patient has symptoms of acute chest pain. His most recent EGD for Terry's biopsy. Complications: No immediate complications. Procedure: Pre-Anesthesia Assessment: - Prior to the procedure, a History and Physical was performed, and patient medications and allergies were reviewed. The patient is competent. The risks and benefits of the procedure and the sedation options and risks were discussed with the patient. All questions were answered and informed consent was obtained. Patient identification and proposed procedure were verified by the physician in the pre-procedure area. Mental Status Examination: alert and oriented. Airway Examination: normal oropharyngeal airway and neck mobility. Respiratory Examination: clear to auscultation. CV Examination: normal. Prophylactic Antibiotics: The patient does not require prophylactic antibiotics. Prior Anticoagulants: The patient has taken no anticoagulant or antiplatelet agents. ASA Grade Assessment: II - A patient with mild systemic disease. After reviewing the risks and benefits, the patient was deemed in satisfactory condition to undergo the procedure. The anesthesia plan was to use monitored anesthesia care (MAC). Immediately prior to administration of medications, the patient was re-assessed for adequacy to receive sedatives. The heart rate, respiratory rate, oxygen saturations, blood pressure, adequacy of pulmonary ventilation, and response to care were monitored throughout the procedure. The physical status of the patient was re-assessed after the procedure. After obtaining informed consent, the endoscope was passed under direct vision. Throughout the procedure, the patient's blood pressure, pulse, and oxygen saturations were monitored continuously. The Endoscope was introduced through the mouth, and advanced to the second part of duodenum. The upper GI endoscopy was accomplished without difficulty. The patient tolerated the procedure well. Scope In: 10:42:10 AM Scope Out: 10:45:24 AM Total Procedure Duration Time 0 hours 3 minutes 14 seconds Findings: Abnormal motility was noted in the middle third of the esophagus. The cricopharyngeus was abnormal. There is spasticity and extra peristaltic waves of the esophageal body. The distal esophagus/lower esophageal sphincter is open. There were esophageal mucosal changes secondary to established short-segment Terry's disease present in the lower third of the esophagus. The maximum longitudinal extent of these mucosal changes was 3 cm in length. Mucosa was biopsied with a cold forceps for histology in a targeted manner at intervals of 1 cm in the lower third of the esophagus. One specimen bottle was sent to pathology. Verification of patient identification for the specimen was done. Estimated blood loss was minimal. No gross lesions were noted in the entire examined stomach. But there was bile reflux into the stomach. Diffuse moderately erythematous mucosa without active bleeding and with no stigmata of bleeding was found in the duodenal bulb, in the first portion of the duodenum and in the second portion of the duodenum. This is secondary to a lot of bile in the proximal duodenum. Impression: - Abnormal esophageal motility, suspicious for esophageal spasm. - Esophageal mucosal changes secondary to established short-segment Terry's disease. Biopsied. - No gross lesions in the entire stomach. - Erythematous duodenopathy. Recommendation: - Discharge patient to home. - Resume previous diet. - Continue present medications. - Await pathology results. Procedure Code(s): --- Professional --- 48343, Esophagogastroduodenoscopy, flexible, transoral; with biopsy, single or multiple CPT copyright 2021 [employer]. All rights reserved. The codes documented in this report are preliminary and upon set up mold technician review may be revised to meet current compliance requirements. Tate Chase DO 01/15/2024 10:53:57 AM This report has been signed electronically. Number of Addenda: 0 Note Initiated On: 01/15/2024 10:32 AM
--- NOTE | 2024-01-15 10:54 | OP.CCLET_ITS ---
01/15/2024 Kinsey Rogers Re : Upper GI endoscopy procedure for Lyle Sarmiento Dear Ken This procedure was performed on Monday, January 15, 2024. My impressions and recommendations are as follows: Impressions : - Abnormal esophageal motility, suspicious for esophageal spasm. - Esophageal mucosal changes secondary to established short-segment Terry's disease. Biopsied. - No gross lesions in the entire stomach. - Erythematous duodenopathy. Recommendations : - Discharge patient to home. - Resume previous diet. - Continue present medications. - Await pathology results. My findings are described in the full procedure note, which is enclosed. If I can be of further assistance, please feel free to contact me at . Sincerely, Tate Chase, 01/15/2024 10:53:57 AM This report has been signed electronically.
[2024-01-15 10:55] VITALS: BP 128/78; BP 139/77; PULSE 71; RESP 18; O2SAT 93
[2024-01-15 11:00] VITALS: BP 123/91; BP 139/77; PULSE 68; RESP 18; O2SAT 95
[2024-01-15 11:05] VITALS: BP 122/80; BP 139/77; PULSE 72; RESP 18; TEMP 36.3; O2SAT 96
[2024-01-15 11:35] VITALS: BP 139/77
== END 2024-01-15 11:36 | disposition home or self-care (01) ==
LOC: EN 09:34 → AC 09:35
PROVIDERS: PCP Family Medicine; Referring Provider Family Medicine; Visit Provider Internal Medicine Gastroenterology
PROC: 0DJ08ZZ Inspection of Upper Intestinal Tract, Via Natural or Artificial Opening Endoscopic (ICD-10-PCS; CPT 43235; principal; 2024-01-15 10:30)
DX: K22.70 Barrett's esophagus without dysplasia (principal); K85.90 Acute pancreatitis without necrosis or infection, unspecified; K44.9 Diaphragmatic hernia without obstruction or gangrene; Z79.82 Long term (current) use of aspirin; Z79.899 Other long term (current) drug therapy; K21.00 Gastro-esophageal reflux disease with esophagitis, without bleeding
CPT/HCPCS: 43239; J7120; 88305; 88313; 88341; 88342; J2405

== ENCOUNTER → 2024-03-11 | Outpatient (CLI) | payer MEDICARE, SELFPAY | END | disposition home or self-care (01) | LOC: SL 13:49 | PROVIDERS: PCP Family Medicine | DX: Z00.00 Encounter for general adult medical examination without abnormal findings (principal) ==

== ENCOUNTER → 2024-03-25 | Outpatient (CLI) | payer MEDICARE, SELFPAY ==
[2024-03-25 17:10] LABS: Absolute Lymphocyte Count 1.57 X10^3/uL (0.83-4.51); Absolute Neutrophil Count 2.9 X10^3/uL (2.0-7.7); Basophil# 0.06 X10^3/uL; Eosinophil# 0.44 X10^3/uL; Eosinophils% 7.6 % (0-5); Hematocrit 44.2 % (40-54); Hemoglobin 14.2 g/dL (13.0-16.5); Lymphocyte # 1.57 X10^3/ul (0.83-4.51); Lymphocyte % 27.1 % (19-41); Mean Corp Hgb Conc 32.1 g/dL (32-36); Mean Corpuscular Hgb 28.5 pg (27.0-32.0); Mean Corpuscular Volume 88.8 fL (80-94); Mean Platelet Vol. 11.5 fl (6.2-12.0); Monocyte# 0.79 X10^3/uL; Monocyte% 13.6 % (0-10); NRBC Flagged by Analyzer 0 % (0-5); Neutrophil # 2.91 X10^3/uL (2.7-7.7); Neutrophil % 50.4 % (47-70); Platelet Count 189 K/mm3 (150-450); RBC Distribution Width SD 41.8 fl (35.1-43.9); Red Blood Count 4.98 M/mm3 (4.6-6.2); White Blood Count 5.8 K/mm3 (4.4-11.0)
[2024-03-25 17:43] LABS: Hemoglobin A1c 5.5 % (3.8-5.6)
[2024-03-25 18:25] LABS: ALB/GLOB Ratio 1.1 RATIO (0.9-2.4); AST(SGOT) 21 U/L (15-37); Alanine Aminotransfer ALT/SGPT 28 U/L (16-61); Albumin, Serum 3.5 g/dL (3.2-5.0); Alkaline Phosphatase 62 U/L (45-117); Anion Gap 8 (5-15); BUN 19 mg/dL (7-18); BUN/Creat Ratio 18.4 RATIO (10-20); Chloride 111 mmol/L (98-107); Cholesterol 137 mg/dL (200); Creatinine, Serum 1.03 mg/dL (0.70-1.30); EST Glomerular Filtration Rate 77 mL/min (>60); Est Glom Filt Rate - Afr Amer 93 mL/min (>60); Globulin 3.1 g/dL (2.2-4.2); Glucose 97 mg/dL (74-106); High Density Lipoprotein 44 mg/dL; PSA,Total - Annual Screen 1.44 ng/mL (0.00-4.00); Potassium 4.2 mmol/L (3.5-5.1); Protein, Total 6.6 g/dL (6.4-8.2); Sodium Level 142 mmol/L (136-145); Triglycerides 162 mg/dL; Very Low Density Lipoprotein 32 mg/dL (5-40)
== END | disposition home or self-care (01) ==
LOC: BIMLAB 14:54
PROVIDERS: PCP Internal Medicine; Referring Provider Internal Medicine; Visit Provider Internal Medicine
DX: K21.9 Gastro-esophageal reflux disease without esophagitis (principal); R73.03 Prediabetes; Z86.73 Personal history of transient ischemic attack (TIA), and cerebral infarction without residual deficits; Z13.6 Encounter for screening for cardiovascular disorders; Z12.5 Encounter for screening for malignant neoplasm of prostate
CPT/HCPCS: 36415; 80053; 80061; 83036; 84153; 85025; G0103

== ENCOUNTER → 2025-01-20 | Outpatient (CLI) | payer MEDICARE, SELFPAY ==
[2025-01-20 13:30] LABS: Absolute Lymphocyte Count 1.17 X10^3/uL (0.83-4.51); Absolute Neutrophil Count 3.1 X10^3/uL (2.0-7.7); Basophil# 0.04 X10^3/uL; Basophil% 0.8 % (0-1); Eosinophils% 7.6 % (0-5); Hematocrit 45.6 % (40-54); Hemoglobin 14.7 g/dL (13.0-16.5); Lymphocyte # 1.17 X10^3/ul (0.83-4.51); Lymphocyte % 22.2 % (19-41); Mean Corp Hgb Conc 32.2 g/dL (32-36); Mean Corpuscular Hgb 28.7 pg (27.0-32.0); Mean Corpuscular Volume 89.1 fL (80-94); Mean Platelet Vol. 11.3 fl (6.2-12.0); Monocyte# 0.54 X10^3/uL; Monocyte% 10.2 % (0-10); NRBC Flagged by Analyzer 0 % (0-5); Neutrophil # 3.09 X10^3/uL (2.7-7.7); Neutrophil % 58.6 % (47-70); Platelet Count 199 K/mm3 (150-450); RBC Distribution Width CV 13.2 % (11.6-14.6); RBC Distribution Width SD 43.2 fl (35.1-43.9); Red Blood Count 5.12 M/mm3 (4.6-6.2); White Blood Count 5.3 K/mm3 (4.4-11.0)
[2025-01-20 15:09] LABS: ALB/GLOB Ratio 1.4 RATIO (0.9-2.4); AST(SGOT) 23 U/L (<=37); Alanine Aminotransfer ALT/SGPT 26 U/L (<=46); Albumin, Serum 3.9 g/dL (3.4-4.8); Alkaline Phosphatase 77 U/L (40-129); Anion Gap 12 (5-15); BUN 22 mg/dL (4-19); BUN/Creat Ratio 25.6 RATIO (10-20); Calcium,Total 9.3 mg/dL (7.6-11.0); Carbon Dioxide 21.3 mmol/L (21.0-32.0); Chloride 110 mmol/L (98-108); Cholesterol 154 mg/dL (<=200); Creatinine, Serum 0.85 mg/dL (0.70-1.20); EST Glomerular Filtration Rate 95 (>60); Globulin 2.9 g/dL (2.2-4.2); Glucose 121 mg/dL (70-99); High Density Lipoprotein 52 mg/dL; Low Density Lipoprotein Calc. 87 mg/dL; Potassium 4.4 mmol/L (3.3-5.1); Protein, Total 6.8 g/dL (5.9-8.4); Sodium Level 143 mmol/L (133-145); Total Bilirubin 0.36 mg/dL (0.00-1.30); Triglycerides 78 mg/dL; Very Low Density Lipoprotein 16 mg/dL (5-40); cholesterol:hdl ratio screen 2.97
== END | disposition home or self-care (01) ==
LOC: BIMLAB 10:46
PROVIDERS: PCP Internal Medicine; Visit Provider Internal Medicine
DX: K21.9 Gastro-esophageal reflux disease without esophagitis (principal); R73.03 Prediabetes; E78.5 Hyperlipidemia, unspecified
CPT/HCPCS: 36415; 80053; 80061; 83036; 85025

== ENCOUNTER 2025-05-17 19:11 | Emergency (ER) | payer MEDICARE, SELFPAY ==
[2025-05-17 19:11] VITALS: BP 169/111; PULSE 85; RESP 22; TEMP 36.6; O2SAT 98
[2025-05-17 20:16] VITALS: BMI 31.7
[2025-05-17 20:17] VITALS: BP 174/85; PULSE 69; RESP 16; O2SAT 98; O2SAT 99
--- NOTE | 2025-05-17 20:31 | EX.ED.GENINJ ---
HPI History of Present Illness Chief Complaint: Back [facility] Medical History (Updated 01/20/25 @ 12:[address] Urszula Rubi MD) Flatulence Health care maintenance Borderline type 2 diabetes mellitus History of hiatal hernia Diverticulosis History of TIA (transient ischemic attack) Venous stasis ulcer Edema of right lower leg Right leg swelling Chronic venous insufficiency Mini stroke Spondylarthrosis Non-smoker Wears hearing aid Wears glasses Anxiety Kidney stone Hx of pancreatitis Injury of head and neck History of IBS Gastric reflux CPAP (continuous positive airway pressure) dependence Shortness of breath on exertion Obstructive sleep apnea History of Terry's esophagus Irritable bowel syndrome with constipation Prediabetes Abdominal pain Chest pain Fatigue Severe headache Pancreatitis Degenerative disc disease History of skin cancer GERD (gastroesophageal reflux disease) Hearing loss Arthritis Home Medications ?Medication ?Instructions ?Recorded ?Last Taken ?Type esomeprazole magnesium 40 mg 40 mg PO Q24H #90 caps 02/08/24 Unknown Rx capsule,delayed release olopatadine 0.2 % eye drops 1 drp ophthalmic (eye) QAM #2.5 mL 04/06/24 Unknown Rx (Pataday Once Daily Relief) aspirin 81 mg tablet,delayed 81 mg PO QDAY #90 tabs 05/07/25 Unknown Rx release (Enteric Coated Aspirin) celecoxib 200 mg capsule 200 mg PO Q24H #90 caps 05/07/25 Unknown Rx Allergy/AdvReac Type Severity Reaction Status Date / Time No Known Allergies Allergy Verified 05/17/25 19:11 Family History Father Alcoholism Arthritis Heart disease Surgical History History of wisdom tooth extraction History of esophagogastroduodenoscopy (EGD) History of carpal tunnel surgery of right wrist History of cholecystectomy Social History household members: spouse housing: house Smoking Status: Never smoker alcohol intake: never substance use type: does not use what type of physical activity do you participate in: none EXAM Physical Exam Const Vital Signs: 05/17/25 19:11 05/17/25 20:17 05/17/25 20:17 Temperature 98 F Temperature Source Temporal Pulse Rate 85 69 69 Respiratory Rate 22 H 16 Blood Pressure 169/111 H 174/85 H 174/85 H Blood Pressure Mean 130 114 114 Pulse Ox 98 98 99 Oxygen Delivery Method [place] [facility] [place] Medical decision making narrative: HISTORY OF PRESENT ILLNESS: Chief complaint: Back pain 69-year-old male history of degenerative disc disease, spondylarthritis, IBS, GERD presents with back pain. Acute onset of right lower back pain with no inciting event. Says he was working today but denies any falls or trauma. Denies any difficulty urinating. Denies flank pain. Denies abdominal pain. Denies history of aneurysms. Patient denies any saddle anesthesia, urinary retention, bowel or bladder incontinence, lower extremity weakness, fever or IV drug use, no recent spinal manipulation or surgery, no recent urinary catheterization. REVIEW OF SYSTEMS: Pertinent positives: Back pain Pertinent negatives: As per [facility] PHYSICAL EXAM: Nursing triage notes reviewed, Vital signs reviewed Constitutional: please see [facility] [place] HENT: MMM Eyes: Pupils equal round and reactive to light, Extraocular muscles intact Neck: No stridor, no JVD, full neck ROM Lungs: Clear to auscultation, No wheezing or rales. No increased work of breathing, no conversational dyspnea, no accessory muscle use, no nasal flaring. No respiratory distress noted Heart: Regular rate and rhythm, No murmurs, No rubs and No gallops, 2+ distal pulses (radial, femoral, posterior tibial) in all extremities Abdomen: Soft, there is no tenderness, rigidity, rebound or guarding, no obvious peritoneal signs, no palpable pulsatile abdominal masses, no auscultated abdominal bruit : No CVAT Extremities: No edema Back: TTP over right lateral lumbar spine musculature. No midline tenderness or step-offs or deformities. Neuro: Intact sensation L1-S1 dermatomal distributions. Intact 5/5 strength in hip flexion (T12-L3). Knee extension (L2-L4). Ankle dorsiflexion (L4-L5). Ankle plantar flexion (S1). Great toe extension (L5). 2+ patellar and Achilles DTRs. Skin: No rash or lesions noted MEDICAL DECISION MAKING: Chief Complaint: please see [facility] External records reviewed: Reviewed prior imaging Factors affecting care: As per [facility] Social determinants of health: Denies IV drug use History obtained from others: Significant other Consults: none [facility] Narrative: The patient was initially hemodynamically stable, afebrile and nontoxic-appearing. Exam consistent with musculoskeletal back pain. There is no pulsatile abdominal masses or auscultated bruits. There are no focal neurologic deficits of the lower extremities. There is no CVA tenderness or flank pain noted. I considered the following differential diagnosis: Musculoskeletal back pain, space-occupying lesion spine (Epidural abscess, epidural hematoma), AAA, pyelonephritis The patient's history and physical exam most consistent musculoskeletal back pain. The patient no back pain red flags to suggest a space-occupying lesion of the spine. No indication for MRI or transfer to a neurosurgeon at this time. Initially provided pain relief with IM morphine, IM Toradol, oral Tylenol, Norflex as well as topical Lidoderm patch. Upon reassessment patient was in bed improvement. To ambulate. Will discharge with similar medications including narcotics, steroids and muscle relaxers strict return precautions will be discussed. The patient and/or family, caregivers express understanding. The patient and/or family, caregivers agrees with the plan. Shared decision making: I will have a discussion with the patient and or visitors regarding risk/benefits of further testing or admission. They will be made aware of of the risk/benefits inherent in this decision they will be given the opportunity to voice understanding. Total critical care time today provided was at least 0 minutes. This excludes separately billable procedures. Critical care time (if documented) is secondary to the patient having high probability of clinically significant/life threatening deterioration in the patient's condition which required my urgent intervention. Impression: 1. Acute back pain 2. History of degenerative disc disease Dispo: Discharge home This note was generated with [employer] dictation software. It may contain incorrect words, spelling, and punctuation that were not noted in review of the chart prior to signing. Discharge Plan Triage Chief Complaint: Back ED Provider: Baudilio Andres Dx/Rx/DC Orders Prescriptions: No Action olopatadine [Pataday Once Daily Relief] 0.2 % drops 1 drp ophthalmic (eye) QAM Qty: 2.5 0RF Rx Instructions: One drop per eye once per day esomeprazole magnesium 40 mg capsule,delayed release(DR/EC) 40 mg PO Q24H Qty: 90 11RF celecoxib 200 mg capsule 200 mg PO Q24H Qty: 90 1RF aspirin [Enteric Coated Aspirin] 81 mg tablet,delayed release (DR/EC) 81 mg PO QDAY Qty: 90 1RF Primary Care Provider: Urszula Rubi Referrals: Urszula Rubi MD [Primary Care Provider] - Print Language: Anguill[place]
--- OUTSIDE RECORDS SUMMARY | 2025-05-17 20:52 | XMS RPT_ITS | CCD ---
Author Organization [facility] Care Team Providers Care User Interface Artist Name Role Phone EZIO FLYNN Attending Unavailable [facility] Referring Unavailable Dr. Rinku Rubi Primary Care Provider [phone] Dr. Rinku Rubi Referring Provider [phone] Emanuel MICHAEL, PARAPROFESSIONAL AIDE-C Raoul Attending Provider [phone] Chuck MICHAEL, PARAPROFESSIONAL AIDE-C She Smith Attending Provider [phone]) Dr. Rinku Rubi Primary Care Provider [phone] Dr. Rinku Rubi Referring Provider [phone] Chuck MICHAEL, PARAPROFESSIONAL AIDE-C She Smith Attending Provider [phone]) Dr. Tate Chase Attending Provider [phone] Dr. Tate Chase Other Provider [phone] Rinku Rubi MD Primary Care Provider 1([phone]) Dr. Rinku Rubi Primary Care Provider [phone] Dr. Rinku Rubi Referring Provider [phone] Chuck MICHAEL, PARAPROFESSIONAL AIDE-C She Smith Attending Provider [phone] Dr. Tate Chase Attending Provider [phone] Dr. Tate Chase Other Provider [phone] Dr. Rinku Ruib Primary Care Provider [phone] Dr. Rinku Rubi Referring Provider [phone] Emanuel PARAPROFESSIONAL AIDE, PARAPROFESSIONAL AIDE-C Raoul Attending Provider [phone] OLEGHE, EFEWONGBE B Primary Care Unavailable OLEGHE, EFEWONGBE B Primary Care Unavailable JUSTIN LEIGH Referring Unavailable OLEGHE, EFEWONGBE B Primary Care Unavailable OLEGHE, EFEWONGBE B Primary Care Unavailable OLEGHE, EFEWONGBE B Primary Care Unavailable YONG TESSA Referring Unavailable OLEGHE, EFEWONGBE B Primary Care Unavailable OLEGHE, EFEWONGBE B Primary Care Unavailable OLEGHE, EFEWONGBE B Primary Care Unavailable OLEGHE, EFEWONGBE B Primary Care Unavailable HELENA WHITEHEAD Referring Unavailable Dr. Miller Husain Emergency Provider Dr. Ford Blanc Admit Provider Dr. Ford Blanc Other Provider Dr. Renata Ness Attending Provider Dr. Renata Ness Other Provider Dr. Claire Garcia Attending Provider Ronnell Rogers DO Primary Care [facility] er Dr. Rinku Rubi Primary Care Provider Dr. Claire Garcia Referring Provider Dr. Rinku Rubi Referring Provider [phone] Lucy PARAPROFESSIONAL AIDE, PARAPROFESSIONAL AIDE-Horacio Hancock Attending Provider Dr. Rinku Rubi Referring Provider [phone] Dr. Tate Chase Attending Provider [phone] Dr. Kinsey Rogers Primary Care Provider [phone] Dr. Rinku Rubi Referring Provider [phone] Dr. Tate Chase Attending Provider [phone] Dr. Kinsey Rogers Primary Care Provider Dr. Tate Chase Other Provider [phone] Kinsey Rogers Referring Provider Rinku Rubi MD Primary Care Provider [phone] Ronnell Rogers DO Primary Care Provid er Oleghe, Efewongbe Primary Care Unavailable Roof PARAPROFESSIONAL AIDE, Berkley Hancock Attending Unavailable Oleghe, Efewongbe Referring Unavailable Oleghe, Efewongbe Primary Care Unavailable Shannan Chowdary Attending Unavailable Oleghe, Efewongbe Referring Unavailable Oleghe, Efewongbe Attending Unavailable Oleghe, Efewongbe Primary Care Unavailable Oleghe, Efewongbe Attending Unavailable Oleghe, Efewongbe Primary Care Unavailable Oleghe, Efewongbe Referring Unavailable Medications Current Medications Medication Drug Class(es) Dates Sig (Normalized) Sig (Original) acetaminophen 500 mg oral tablet (7 sources) take 1 tablet by mouth every eight hours as needed acetaminophen (TYLENOL EXTRA STRENGTH) 500 mg tablet Take 500 mg by mouth every 8 hours as needed. Active Comment on above: Take 500 mg by mouth every 8 hours as needed. ascorbic acid 1000 mg oral tablet (7 sources) Vitamin C take 1 tablet by mouth once daily Ascorbic Acid (VITAMIN C) 1,000 mg tablet Take 1,000 mg by mouth once daily. Active Comment on above: Take 1,000 mg by sheldon th once daily. aspirin 81 mg delayed release oral tablet (18 sources) Platelet Aggregation Inhibitor, Nonsteroidal Anti-inflammatory Drug Start: 06-01-2023 take 1 tablet by mouth once daily aspirin, enteric coated (ADULT LOW DOSE ASPIRIN) 81 mg EC tablet Take 1 tablet by mouth once daily. 90 tablet 3 06/01/2023 Active Start: 05-20-2023 take 81 mg by mouth at break st Aspirin Active 81 MG PO WITH BREAKFAST May 20, 2023 12:00am Comment on above: Take 1 tablet by sheldon th once daily. Take 81 mg by mouth once daily. atorvastatin 20 mg oral tablet (17 sources) HMG-CoA Reductase Inhibitor Start: 3 take 1 tablet by mouth once daily atorvastatin (LIPITOR) 20 mg tablet Take 1 tablet by mouth once daily. 90 tablet 3 08/02/2023 Active Comment on above: Take 20 mg by mouth once daily. Take 1 tablet by sheldon th once daily. B cmplx 4/vit D3/C/folic/zinc (VITAL-D RX ORAL) (7 sources) take 1 capsule by mouth once daily B cmplx 4/vit D3/C/folic/zinc (VITAL-D RX ORAL) Take 1 capsule by mouth once daily. Active take 1 capsule by mouth once rebekah ly B cmplx 4/vit D3/C/folic/zinc (VITAL-D RX ORAL) Take 1 capsule by mouth once daily. 0 Active Comment on above: Take 1 capsule by mo [facility] once daily. celecoxib 200 mg oral capsule (20 sources) Nonsteroidal Anti-inflammatory Drug Start: 01-11-2024 End: 01-10-2025 take 1 capsule by mouth once daily celecoxib (CELEBREX) 200 mg capsule Indications: Arthritis, lumbar spine Take 1 capsule by mouth once daily 30 capsule 01/06/2025 Active Start: 01-04-2024 End: 04-03-2024 take 1 capsule by mouth once daily celecoxib (CELEBREX) 100 mg capsule Take 1 capsule by mouth once daily. 30 capsule 0 01/04/2024 01/11/2024 Discontinued Start: 04-22-2021 End: 11-15-2022 take 100 mg by mouth twice daily Celecoxib Discontinued 100 MG PO TWICE A DAY 180 November 15, 2021 2:30pm November 15, 2022 3:48pm Start: 11-28-2017 End: 01-27-2018 take 1 capsule by mouth once daily Celecoxib (Celebrex) 200 mg capsule Discontinued 200 MG PO daily January 24, 2018 1:08pm January 27, 2018 8:59am Start: 07-22-2011 End: 01-02-2024 celecoxib (CELEBREX) 100 mg capsule Take by mouth. 07/22/2011 10/04/2023 Discontinued Start: 07-22-2011 End: 11-20-2020 take 1 capsule by mouth twice daily Celecoxib (Celebrex) 100 mg capsule Discontinued 100 MG PO TWICE A DAY 60 November 05, 2020 10:30am November 20, 2020 2:25pm Comment on above: Take by mouth. Take 1 capsule by mo [facility] once daily. CPAP (20 sources) Start: 08-17-2016 CPAP Chin stra p used with CPAP device. 1 Device 0 08/17/2016 Active Start: 03-30-2016 CPAP Indicatio ns: ROBYN on CPAP AutoPAP 6-16 cmH2O, suitable mask, humidity, filters. Lifetime supplies. Dx: G47.33. Download to [facility] in 6 weeks. 1 Device 0 03/30/2016 Active Comment on above: AutoPAP 6-16 cmH2O, suitable mask, humidity, filters. Lifetime supplies. Dx: G47.33. Download to [facility] in 6 weeks. Chin strap used with CPAP device. esomeprazole 40 mg delayed release oral capsule (20 sources) Proton Pump Inhibitor Start: End: take 40 mg by mouth every twenty-four hours Esomeprazole Magnesium Active 40 MG PO Q24H June 14, 2023 8:41am Start: 12-05-2022 End: 05-19-2023 take 40 mg by mouth twice daily Esomeprazole Magnesium Discontinued 40 MG PO TWICE A DAY December 05, 2022 10:31am May 19, 2023 3:26pm Start: 12-27-2021 End: 12-05-2022 take 40 mg by mouth once daily Esomeprazole Magnesium Discontinued 40 MG PO DAILY July 11, 2022 10:22am September 08, 2022 12:06pm Start: 04-21-2021 End: 04-23-2021 take 1 capsule by mouth once daily Esomeprazole Magnesium (Nexium) 40 mg capsule,delayed release(DR/EC) Discontinued 40 MG PO DAILY April 21, 2021 12:00am April 23, 2021 8:22am Start: 06-28-2017 End: 11-28-2017 take 20 mg by mouth once daily Esomeprazole Magnesium Discontinued 20 MG PO DAILY June 28, 2017 12:00am November 28, 2017 9:22am lactase 3000 unt oral tablet (14 sources) Start: 03-04-2019 take 1 tablet by mouth three times daily at mealtime lactase (LACTAID) 3,000 unit tablet Take 1 tablet by mouth three times daily with meals. 90 tablet 3 03/04/2019 Active Comment on above: Take 1 tablet by sheldon th three times daily with meals. MULTI-VITAMIN ORAL (7 sources) take 1 tablet by mouth once daily MULTI-VITAMIN ORAL Take 1 tablet by mouth once daily. Active take 1 tablet by mouth once alecia y MULTI-VITAMIN ORAL Take 1 tablet by mouth once daily. 0 Active Comment on above: Take 1 tablet by [facility] once daily. mupirocin 0.02 mg/mg topical ointment (16 sources) RNA Synthetase Inhibitor Antibacterial Start: 3 End: 4 mupirocin (BACTROBAN) 2 % ointment Apply 1 application to affected area twice daily. 22 g 05/16/2023 Active Comment on above: Apply 1 application to affected area twice daily. 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 90 capsule 3 01/11/2024 01/10/2025 Active Start: 01-24-2018 End: 12-25-2018 take 40 mg by mouth once daily Omeprazole Discontinued 40 MG PO daily 90 November 27, 2018 9:32am December 25, 2018 11:40am Start: 06-27-2017 End: 12-14-2017 take 1 tablet by mouth once daily Omeprazole Discontinued 1 TABLET PO DAILY June 27, 2017 12:00am December 14, 2017 2:28pm Comment on above: Take 1 capsule by [facility] once daily. polyethylene glycol 3350 76171 mg powder for oral solution (20 sources) Osmotic Laxative Start: 9 End: 2 polyethylene glycol 3350 (MIRALAX, GLYCOLAX) 17 gram/dose powder Indications: Constipation, unspecified constipation type Take 17 g by mouth once daily. 510 g 11 06/04/2019 Active Comment on above: Take 17 g by mouth o nce daily. polyethylene glycol 3350 214394 mg / potassium chloride 2970 mg / sodium bicarbonate 6740 mg / sodium chloride 5860 mg / sodium sulfate 34038 mg powder for oral solution (4 sources) Osmotic Laxative Start: 2 Peg 3350-Electrolytes Active 240 ML PO Q10M 4000 January 31, 2022 8:58am until fecal effluent is clear Vitamin B Complex (7 sources) take 1 tablet by mouth twice daily vitamin B complex (B COMPLEX 1 ORAL) Take 1 tablet by mouth twice daily. Active take 1 tablet by mouth twice rebekah ly vitamin B complex (B COMPLEX 1 ORAL) Take 1 tablet by mouth twice daily. 0 Active Comment on above: Take 1 tablet by sheldon th twice daily. vitamin e 450 mg oral capsule (7 sources) take 1 capsule by mouth once daily Vitamin E, dl, acetate, 1,000 unit capsule Take 1,000 Units by mouth once daily. Active Comment on above: Take 1,000 Units by mouth once daily. Zinc Sulfate (7 sources) take 1 tablet by mouth once daily zinc sulfate (ZINC-15 ORAL) Take 1 tablet by mouth once daily. Active take 1 tablet by mouth once alecia y zinc sulfate (ZINC-15 ORAL) Take 1 tablet by mouth once daily. 0 Active Comment on above: Take 1 tablet by sheldon th once daily. Completed/Discontinued Medications Medication Drug Class(es) Dates Sig (Normalized) Sig (Original) acetaminophen 325 mg / oxyCODONE hydrochloride 5 mg oral tablet (20 sources) Opioid Agonist Start: 11-25-2020 End: 11-30-2020 take 1 tablet by mouth every six hours as needed Oxycodone-Acetamino phen Discontinued 1 - 2 TABLET PO EVERY 6 HOURS NEEDED 19 02November 25, 2020 November 30, 2020 1:03am Start: 12-07-2017 End: 12-12-2017 take 1 tablet by mouth every six hours as needed Oxycodone-Acetaminophen Discontinued 1 TABLET PO EVERY 6 HOURS NEEDED 11 02December 07, 2017 12:00am December 12, 2017 9:32am amoxicillin 875 mg / clavulanate 125 mg oral tablet (13 sources) Penicillin-class Antibacterial Start: 05-22-2020 End: 11-12-2020 take 1 tablet by mouth twice daily Amoxicillin-Pot Clavulanate (Augmentin) 875-125 mg tablet Discontinued 1 TABLET PO TWICE A DAY May 22, 2020 12:00am November 12, 2020 11:05am betamethasone 3 mg/ml / betamethasone acetate 3 mg/ml injectable suspension (1 source) Corticosteroid Start: 12-11-2023 End: 12-11-2023 betamethasone acetate-betamethason e sodium phosphate 6 mg injection (CELESTONE) cephalexin 500 mg oral capsule (9 sources) Cephalosporin Antibacterial Start: 05-19-2023 End: 05-30-2023 take 500 mg by mouth every eight hours Cephalexin Discontinued 500 MG PO Q8H May 19, 2023 12:00am May 30, 2023 8:16am X7D FILLED 05/16 Start: 05-16-2023 End: 05-23-2023 take 1 capsule by mouth three times daily cephALEXin (KEFLEX) 500 mg capsule Indications: Skin infection Take 1 capsule by mouth three times daily for 7 days. 21 capsule 0 05/16/2023 05/23/2023 Active Comment on above: Take 1 capsule by mo [facility] three times daily for 7 days. cyclobenzaprine hydrochloride 10 mg oral tablet (13 sources) Muscle Relaxant Start: 07-03-20 End: 11-29-19 take 10 mg by mouth three times daily Cyclobenzaprine Discontinued 10 MG PO THREE TIMES A DAY July 03, 2017 12:00am November 28, 2017 9:21am hearing evaluation (13 sources) Start: 09-06-20 End: 09-20-20 hearing evaluation Discontinued September 06, 2017 6:22pm September 20, 2017 3:44pm Hearing evaluation for hearing aides Start: 09-06-2017 End: 09-20-2017 hearing evaluation Discontin ued September 06, 2017 1:00am September 20, 2017 3:44pm Hearing evaluation for hearing aides Start: 09-06-2017 End: 09-20-2017 hearing evaluation Discontin ued September 06, 2017 12:00am September 20, 2017 2:44pm Hearing evaluation for hearing aides Lidocaine (1 source) Antiarrhythmic, Amide Local Anesthetic Start: 12-11-2023 End: 12-11-2023 lidocaine 10 mg/mL (1 %) 1 mL injection (XYLOCAINE) linaclotide 0.145 mg oral capsule (13 sources) Guanylate Cyclase-C Agonist Start: 12-27-2021 End: 02-07-2022 take 145 ug by mouth once daily in the morning Linaclotide Discontinued 145 MCG PO EVERY MORNING December 27, 2021 12:00am February 07, 2022 9:02am naproxen 500 mg oral tablet (2 sources) Nonsteroidal Anti-inflammatory Drug Start: 10-11-2023 End: 01-11-2024 take 1 tablet by mouth twice daily Naproxen (Naprosyn) 500 mg tablet Discontinued 500 MG PO TWICE A DAY October 11, 2023 1:00am January 11, 2024 12:31pm ondansetron 4 mg disintegrating oral tablet (20 sources) Serotonin-3 Receptor Antagonist Start: 03-24-2018 End: 07-23-2018 take 4 mg by mouth every eight hours as needed Ondansetron Discontinued 4 MG PO EVERY 8 HOURS NEEDED March 24, 2018 12:00am July 23, 2018 8:20am Start: 12-07-2017 End: 12-12-2017 take 8 mg by mouth every twelve hours as needed Ondansetron Discontinued 8 MG PO EVERY 12 HOURS NEEDED December 07, 2017 12:00am December 12, 2017 9:32am pantoprazole 40 mg delayed release oral tablet (20 sources) Proton Pump Inhibitor Start: 12-22-2021 End: 02-07-2022 take 40 mg by mouth twice daily Pantoprazole Discontinued 40 MG PO TWICE A DAY 60 December 22, 2021 4:06pm February 07, 2022 9:02am Start: 12-14-2017 End: 01-24-2018 take 40 mg by mouth once daily in the morning Pantoprazole Discontinued 40 MG PO EVERY MORNING 60 December 14, 2017 12:00am January 24, 2018 1:09pm silver sulfADIAZINE 10 mg/ml topical cream (13 sources) Sulfonamide Antibacterial Start: 03-19-2020 End: 11-12-2020 Silver Sulfadiazine (Silvadene) 1 % cream Discontinued 1 APPLIC TOPICAL TWICE A DAY 50 March 19, 2020 12:00am November 12, 2020 11:05am apply a 1.5 mm thickness sucralfate 1000 mg oral tablet (20 sources) Aluminum Complex Start: 12-22-2021 End: 02-07-2022 take 1 tablet by mouth at bedtime Sucralfate (Carafate) 1 gram tablet Discontinued 1 GM PO before meals and at bedtime 120 December 22, 2021 4:06pm February 07, 2022 9:01am traMADol hydrochloride 50 mg oral tablet (13 sources) Opioid Agonist Start: 02-05-2020 End: 02-08-2020 take 50 mg by mouth every four hours as needed Tramadol Discontinued 50 MG PO EVERY 4 HOURS NEEDED 18 3 February 05, 2020 12:00am February 08, 2020 12:02am triamcinolone acetonide 0.001 mg/mg topical ointment (13 sources) Corticosteroid Start: 03-19-2020 End: 11-12-2020 Triamcinolone Acetonide Discontinued 1 APPLIC TOPICAL DAILY March 19, 2020 12:00am November 12, 2020 11:05am apply to plaque on right knee Problems Active Problems Problem Classification Problem Date Documented Da te Episodic/Chronic Abdominal pain (20 sources) Abdominal pain; Translations: [Unspecified abdominal pain] Episodic Conditions associated with dizziness or vertigo (3 sources) Dizziness; Translations: [Dizziness and giddiness] 05-19-2023 Episodic Diabetes mellitus without complication (15 sources) Prediabetes; Translations: [Prediabetes] Onset: 5 04-21-2021 Episodic Disorders of lipid metabolism (9 sources) Mixed hyperlipidemia; Translations: [Mixed hyperlipidemia] Onset: 3 06-01-2023 Chronic Esophageal disorders (20 sources) Gastroesophageal reflux disease; Translations: [Gastro-esophageal reflux disease without esophagitis] Onset: 6 Chronic Headache; including migraine (13 sources) Headache; Translations: [Headache] 08-10-2021 Episodic Intestinal obstruction without hernia (11 sources) Small bowel obstruction; Translations: [Unspecified intestinal obstruction, unspecified as to partial versus complete obstruction] 01-27-2022 Episodic Open wounds of extremities (2 sources) Laceration without foreign body of left wrist, initial encounter; Translations: [Laceration of left wrist] Onset: 2 06-03-2022 Episodic Osteoarthritis (18 sources) Arthritis; Translations: [Unspecified osteoarthritis, unspecified site] 11-28-2017 Chronic Other and ill-defined cerebrovascular disease (2 sources) Ataxia; Translations: [Cerebrovascular disease, unspecified] 05-19-2023 Chronic Other and ill-defined cerebrovascular disease (2 sources) Cerebrovascular disease, unspecified; Translations: [Unspecified cerebrovascular disease] 05-19-2023 Chronic Other bone disease and musculoskeletal deformities (20 sources) Segmental and somatic dysfunction; Translations: [Segmental and somatic dysfunction of cervical region] 02-05-2020 Episodic Other circulatory disease (3 sources) History of transient ischemic attack; Translations: [Personal history of transient ischemic attack (TIA), and cerebral infarction without residual deficits] 05-30-2023 Episodic Other circulatory disease (1 source) Personal history of transient ischemic attack (TIA), and cerebral infarction without residual deficits; Translations: [Personal history of transient ischemic attack (TIA), and cerebral infarction without residual deficits] 06-24-2023 Episodic Other connective tissue disease (3 sources) Swelling of right lower limb; Translations: [Other specified soft tissue disorders] 05-30-2023 Episodic Other connective tissue disease (1 source) Other specified soft tissue disorders; Translations: [Swelling of limb] 06-24-2023 Episodic Other connective tissue disease (2 sources) Pain in right hand; Translations: [Pain in right hand] 12-18-2023 Episodic Other diseases of veins and lymphatics (3 sources) Peripheral venous insufficiency; Translations: [Venous insufficiency (chronic) (peripheral)] 05-30-2023 Episodic Other diseases of veins and lymphatics (1 source) Venous insufficiency (chronic) (peripheral); Translations: [Venous (peripheral) insufficiency, unspecified] 06-24-2023 Episodic Other ear and sense organ disorders (13 sources) Hearing loss; Translations: [Unspecified hearing loss, unspecified ear] 11-28-2017 Chronic Other ear and sense organ disorders (3 sources) Impacted cerumen; Translations: [Impacted cerumen, unspecified ear] 05-21-2023 Episodic Other ear and sense organ disorders (1 source) Impacted cerumen, unspecified ear; Translations: [Impacted cerumen] 05-21-2023 Episodic Other gastrointestinal disorders (13 sources) Irritable bowel syndrome characterized by constipation; Translations: [Irritable bowel syndrome with constipation] 12-27-2021 Chronic Other gastrointestinal disorders (7 sources) Irritable bowel syndrome with constipation; Translations: [Irritable bowel syndrome] Chronic Other gastrointestinal disorders (14 sources) Irritable bowel syndrome with diarrhea; Translations: [Irritable bowel syndrome with diarrhea] Onset: 6 11-11-2015 Chronic Other gastrointestinal disorders (13 sources) Chronic constipation; Translations: [Other constipation] 07-23-2018 Episodic Other gastrointestinal disorders (13 sources) History of pancreatitis; Translations: [Personal history of other diseases of the digestive system] 12-27-2021 Episodic Other gastrointestinal disorders (13 sources) Slow transit constipation; Translations: [Slow transit constipation] 03-19-2020 Episodic Other gastrointestinal disorders (16 sources) Personal history of other diseases of the digestive system; Translations: [Personal history of other diseases of digestive system] Episodic Other gastrointestinal disorders (1 source) Other constipation; Translations: [Constipation, unspecified] 06-24-2023 Episodic Other inflammatory condition of skin (13 sources) Psoriasis; Translations: [Psoriasis, unspecified] 03-19-2020 Chronic Other inflammatory condition of skin (1 source) Psoriasis, unspecified; Translations: [Other psoriasis] 06-24-2023 Chronic Other injuries and conditions due to external causes (5 sources) Blister; Translations: [Other injury of unspecified body region, initial encounter] 02-19-2023 Episodic Other lower respiratory disease (1 source) Cough; Translations: [Acute cough] 12-07-2022 Episodic Other nervous system disorders (20 sources) Carpal tunnel syndrome; Translations: [Carpal tunnel syndrome, right upper limb] 11-12-2020 Chronic Other nervous system disorders (2 sources) Expressive dysphasia; Translations: [Aphasia] 05-19-2023 Chronic Other nervous system disorders (2 sources) Aphasia; Translations: [Aphasia] 05-19-2023 Chronic Other nervous system disorders (2 sources) Carpal tunnel syndrome of right wrist; Translations: [Carpal tunnel syndrome, right upper limb] 05-28-2023 Chronic Other non-traumatic joint disorders (1 source) Osteophyte, right wrist; Translations: [Exostosis of unspecified site] 12-11-2023 Episodic Other nutritional; endocrine; and metabolic disorders (14 sources) Morbid obesity; Translations: [Morbid (severe) obesity due to excess calories] Onset: 6 11-11-2015 Chronic Other nutritional; endocrine; and metabolic disorders (6 sources) Body mass index 30+ - obesity; Translations: [Obesity, unspecified] 12-10-2022 Chronic Other nutritional; endocrine; and metabolic disorders (1 source) Obesity; Translations: [Obesity, unspecified] 01-11-2024 Chronic Other screening for suspected conditions (not mental disorders or infectious disease) (2 sources) Patient encounter status; Translations: [Encounter for screening for other suspected endocrine disorder] 01-11-2024 Episodic Other skin disorders (13 sources) Blisters of multiple sites; Translations: [Other skin changes] 03-19-2020 Episodic Other upper respiratory infections (15 sources) Acute upper respiratory infection; Translations: [Acute upper respiratory infection, unspecified] Onset: 3 08-10-2021 Episodic Pancreatic disorders (not diabetes) (15 sources) Pancreatitis; Translations: [Acute pancreatitis without necrosis or infection, unspecified] 12-12-2017 Episodic Residual codes; unclassified (20 sources) Obstructive sleep apnea syndrome; Translations: [Obstructive sleep apnea (adult) (pediatric)] Onset: 6 01-05-2022 Chronic Residual codes; unclassified (11 sources) Sleep apnea; Translations: [Sleep apnea, unspecified] 01-04-2022 Chronic Residual codes; unclassified (5 sources) Obstructive sleep apnea (adult) (pediatric); Translations: [Obstructive sleep apnea (adult)(pediatric)] Chronic Residual codes; unclassified (1 source) Sleep apnea, unspecified; Translations: [Unspecified sleep apnea] 06-24-2023 Chronic Residual codes; unclassified (3 sources) Edema of right lower leg; Translations: [Localized edema] 05-30-2023 Episodic Residual codes; unclassified (1 source) Localized edema; Translations: [Edema] 06-24-2023 Episodic Skin and subcutaneous tissue infections (2 sources) Infection of skin; Translations: [Local infection of the skin and subcutaneous tissue, unspecified] Onset: 3 05-16-2023 Episodic Spondylosis; intervertebral disc disorders; other back problems (20 sources) Degeneration of cervical intervertebral disc; Translations: [Other cervical disc degeneration, unspecified cervical region] Onset: 3 11-28-2017 Chronic Sprains and strains (13 sources) Rupture of tendon of biceps; Translations: [Strain of muscle, fascia and tendon of other parts of biceps, left arm, initial encounter] 02-06-2020 Episodic Superficial injury; contusion (11 sources) Blister of foot; Translations: [Blister (nonthermal), right lesser toe(s), initial encounter] 02-10-2023 Episodic Transient cerebral ischemia (7 sources) Transient cerebral ischemia; Translations: [Transient cerebral ischemic attack, unspecified] Onset: 3 06-01-2023 Chronic Unclassified (1 source) Acute cough; Translations: [Acute cough] Onset: 3 Past or Other Problems Problem Classification Problem Date Documented Da te Episodic/Chronic Malaise and fatigue (14 sources) Left hemiparesis; Translations: [Weakness] Onset: 11-11-2015 11-11-2015 Episodic Other and unspecified benign neoplasm (14 sources) History of polyp of colon; Translations: [Personal history of colonic polyps] Onset: 02-17-2016 09-20-2021 Episodic Other gastrointestinal disorders (20 sources) History of Terry's esophagus; Translations: [Personal history of other diseases of the digestive system] Onset: 02-17-2016 12-27-2021 Episodic Other inflammatory condition of skin (1 source) Itching of skin; Translations: [Pruritus, unspecified] Onset: 11-11-2015 11-11-2015 Episodic Other inflammatory condition of skin (13 sources) Pruritus, unspecified; Translations: [Unspecified pruritic disorder] Onset: 11-11-2015 11-11-2015 Episodic Other non-epithelial cancer of skin (20 sources) History of malignant neoplasm of skin; Translations: [Personal history of other malignant neoplasm of skin] Onset: 11-11-2015 11-28-2017 Episodic Other skin disorders (14 sources) Asteatosis cutis; Translations: [Xerosis cutis] Onset: 11-11-2015 11-11-2015 Episodic Spondylosis; intervertebral disc disorders; other back problems (17 sources) Cervical disc disorder with radiculopathy; Translations: [Cervical disc disorder with radiculopathy, unspecified cervical region] Onset: 03-25-2019 03-25-2019 Episodic Varicose veins of lower extremity (11 sources) Skin ulcer; Translations: [Varicose veins of unspecified lower extremity with ulcer of unspecified site] Onset: 06-01-2023 06-01-2023 Episodic Results Test Name Value Interpretation Reference Range Facility CBC W/Diff, Automatedon 12-25 Absolute Lymph 1.17 X10 3/uL Normal 0.83-4.51 [facility] Comment on above: Performed By: #### L 501.1687, L500.4100, L100.0100, L500.4050 #### [facility] [address] [place], [address] Absolute Neut 3.1 X10 3/uL Normal 2.0-7.7 [facility] Comment on above: Performed By: #### L 501.9985, L500.4100, L100.0100, L500.4050 #### [facility] [address] [place], [address] Basophils/100 WBC (Bld) 0.8 % Normal 0-1 [facility] Comment on above: Performed By: #### L 501.9985, L500.4100, L100.0100, L500.4050 #### [facility] [address] [place], [address] Eosinophils/100 WBC (Bld) 7.6 % High 0-5 [facility] Comment on above: Performed By: #### L 501.9985, L500.4100, L100.0100, L500.4050 #### [facility] [address] [place], [address] Erythrocyte distribution width (RBC) [Ratio] 13.2 % Normal 11.6-14.6 [facility] Comment on above: Performed By: #### L 501.9985, L500.4100, L100.0100, L500.4050 #### [facility] [address] [place], [address] Hematocrit (Bld) [Volume fraction] 45.6 % Normal 40-54 [facility] Comment on above: Performed By: #### L 501.9985, L500.4100, L100.0100, L500.4050 #### [facility] [address] [place], [address] Hemoglobin (Bld) [Mass/Vol] 14.7 g/dL Normal 13.0-16.5 [facility] Comment on above: Performed By: #### L 501.9985, L500.4100, L100.0100, L500.4050 #### [facility] [address] [place], [address] IG% 0.600 Normal 0.0-0.9 [facility] Comment on above: Result Comment: IG% - Immature Granulocytes (promyelocytes, myelocytes and metamyelocytes) > 1% indicates that a LEFT SHIFT is Present. Performed By: #### L 501.9985, L500.4100, L100.0100, L500.4050 #### [facility] [address] [place], [address] Lymphocytes/100 WBC (Bld) 22.2 % Normal 19-41 [facility] Comment on above: Performed By: #### L 501.9985, L500.4100, L100.0100, L500.4050 #### [facility] [address] [place], [address] MCH (RBC) [Entitic mass] 28.7 pg Normal 27.0-32.0 [facility] Comment on above: Performed By: #### L 501.9985, L500.4100, L100.0100, L500.4050 #### [facility] [address] [place], [address] MCHC (RBC) [Mass/Vol] 32.2 g/dL Normal 32-36 [facility] Comment on above: Performed By: #### L 501.9985, L500.4100, L100.0100, L500.4050 #### [facility] [address] [place], [address] MCV (RBC) [Entitic vol] 89.1 fL Normal 80-94 [facility] Comment on above: Performed By: #### L 501.9985, L500.4100, L100.0100, L500.4050 #### [facility] [address] [place], [address] Monocytes/100 WBC (Bld) 10.2 % High 0-10 [facility] Comment on above: Performed By: #### L 501.9985, L500.4100, L100.0100, L500.4050 #### [facility] [address] [place], [address] Neutrophils/100 WBC (Bld) 58.6 % Normal 47-70 [facility] Comment on above: Performed By: #### L 501.9985, L500.4100, L100.0100, L500.4050 #### [facility] [address] [place], [address] Nucleated RBC (Bld) [#/Vol] 0 10*3/uL Normal 0-5 [facility] Comment on above: Performed By: #### L 501.9985, L500.4100, L100.0100, L500.4050 #### [facility] [address] [place], [address] Platelet mean volume (Bld) [Entitic vol] 11.3 fL Normal 6.2-12.0 [facility] Comment on above: Performed By: #### L 501.9985, L500.4100, L100.0100, L500.4050 #### [facility] [address] [place], [address] Platelets (Bld) [#/Vol] 199 10*3/uL Normal 150-450 [facility] Comment on above: Performed By: #### L 501.9985, L500.4100, L100.0100, L500.4050 #### [facility] [address] [place], [address] RBC (Bld) [#/Vol] 5.12 10*6/uL Normal 4.6-6.2 [facility] Comment on above: Performed By: #### L 501.9985, L500.4100, L100.0100, L500.4050 #### [facility] [address] [place], [address] RDW SD 43.2 fl Normal 35.1-43.9 [facility] Comment on above: Performed By: #### L 501.9985, L500.4100, L100.0100, L500.4050 #### [facility] [address] [place], [address] WBC (Bld) [#/Vol] 5.3 10*3/uL Normal 4.4-11.0 [facility] Comment on above: Performed By: #### L 501.9985, L500.4100, L100.0100, L500.4050 #### [facility] [address] [place], [address] Comprehensive Metabolic Prof ilon 01-20-2025 Albumin [Mass/Vol] 3.9 g/dL Normal 3.4-4.8 [facility] Comment on above: Performed By: #### L 501.9985, L500.4100, L100.0100, L500.4050 #### [facility] [address] [place], [address] Albumin/Globulin [Mass ratio] 1.4 {ratio} Normal 0.9-2.4 [facility] Comment on above: Performed By: #### L 501.9985, L500.4100, L100.0100, L500.4050 #### [facility] [address] [place], [address] ALK PHOS 77 U/L Normal 40-129 [facility] Comment on above: Performed By: #### L 501.9985, L500.4100, L100.0100, L500.4050 #### [facility] [address] [place], [address] ALT [Catalytic activity/Vol] 26 U/L Normal <=46 [facility] Comment on above: Performed By: #### L 501.9985, L500.4100, L100.0100, L500.4050 #### [facility] [address] [place], [address] AST [Catalytic activity/Vol] 23 U/L Normal <=37 [facility] Comment on above: Performed By: #### L 501.9985, L500.4100, L100.0100, L500.4050 #### [facility] [address] [place], [address] Bilirubin [Mass/Vol] 0.36 mg/dL Normal 0.00-1.30 [facility] Comment on above: Performed By: #### L 501.9985, L500.4100, L100.0100, L500.4050 #### [facility] [address] [place], [address] BUN/CRE 25.6 RATIO High 10-20 [facility] Comment on above: Performed By: #### L 501.9985, L500.4100, L100.0100, L500.4050 #### [facility] [address] [place], [address] Calcium [Mass/Vol] 9.3 mg/dL Normal 7.6-11.0 [facility] Comment on above: Performed By: #### L 501.9985, L500.4100, L100.0100, L500.4050 #### [facility] [address] [place], [address] Chloride [Moles/Vol] 110 mmol/L High 98-108 [facility] Comment on above: Performed By: #### L 501.9985, L500.4100, L100.0100, L500.4050 #### [facility] [address] [place], [address] CO2 [Moles/Vol] 21.3 mmol/L Normal 21.0-32.0 [facility] Comment on above: Performed By: #### L 501.9985, L500.4100, L100.0100, L500.4050 #### [facility] [address] [place], [address] Creatinine [Mass/Vol] 0.85 mg/dL Normal 0.70-1.20 [facility] Comment on above: Performed By: #### L 501.9985, L500.4100, L100.0100, L500.4050 #### [facility] [address] [place], [address] GAP 12 Normal 5-15 [facility] Comment on above: Performed By: #### L 501.9985, L500.4100, L100.0100, L500.4050 #### [facility] [address] [place], [address] GFR/1.73 sq M.predicted among non-blacks MDRD (S/P/Bld) [Vol rate/Area] 95 mL/min/{1.73_m2} Normal >[address] [facility] Comment on above: Result Comment: mL/m in/1.73m2 CKD-EPI Creatinine Equation (2020) Performed By: #### L 501.9985, L500.4100, L100.0100, L500.4050 #### [facility] [address] [place], [address] Globulin (S) [Mass/Vol] 2.9 g/dL Normal 2.2-4.2 [facility] Comment on above: Performed By: #### L 501.9985, L500.4100, L100.0100, L500.4050 #### [facility] [address] [place], [address] Glucose [Mass/Vol] 121 mg/dL High 70-99 [facility] Comment on above: Performed By: #### L 501.9985, L500.4100, L100.0100, L500.4050 #### [facility] [address] [place], [address] Potassium [Moles/Vol] 4.4 mmol/L Normal 3.3-5.1 [facility] Comment on above: Performed By: #### L 501.9985, L500.4100, L100.0100, L500.4050 #### [facility] [address] [place], [address] Sodium [Moles/Vol] 143 mmol/L Normal 133-145 [facility] Comment on above: Performed By: #### L 501.9985, L500.4100, L100.0100, L500.4050 #### [facility] [address] [place], [address] T PROT 6.8 g/dL Normal 5.9-8.4 [facility] Comment on above: Performed By: #### L 501.9985, L500.4100, L100.0100, L500.4050 #### [facility] [address] [place], [address] Urea nitrogen [Mass/Vol] 22 mg/dL High 4-19 [facility] Comment on above: Performed By: #### L 501.9985, L500.4100, L100.0100, L500.4050 #### [facility] [address] [place], [address] Hemoglobin A1con 01-20-2025 HbA1c (Bld) [Mass fraction] 6.0 % High <=5.6 [facility] Comment on above: Result Comment: Norm al < 5.7 % Prediabetic 5.7 - 6.4 % Diabetic >or= 6.5 % Please note range changes. Performed By: #### L 501.9985, L500.4100, L100.0100, L500.4050 #### [facility] [address] [place], [address] Internal Medicine Office Vis itoleoncio 01-20-2025 Internal Medicine Office Visit [facility] [address] [place] [address] [place] [address] OFFICE VISIT Date of Service: 01/20/25 MR#: [id number] Acct: [id number] Name: BERKLEY SARMIENTO Rep #: [id number] : 1955 Provider: Dr. Rinku lamb MD Age/Sex: 69/M Location: [facility] Status: Signed Intake Vital Signs 06/02/24 12:46 01/20/25 09:54 Height 5 ft 6 in 5 ft 6 in Weight: 190 lb 6 oz BMI 30.7 BP 122/78 H Blood Pressure Location Lt brachial Position Sitting Respiration 16 Pulse 75 Pulse Source Monitor Temp 96.7 F L Temp Source Temporal Pulse Oximetry (%) 75 Oxygen Delivery Method room air Intake Visit Reasons: MED FU Chief Complaint: fu chronic conditions Interventional Radiology Rn Required: No Accompanied by: Self Is patient in pain?: No Allergies No Known Allergies Allergy (Verified 01/20/25 09:53) Medications ???Medication ???Instructions ???Recorded ???Confirmed ???Type esomeprazole magnesium 40 mg 40 mg PO Q24H #90 caps 02/08/24 Rx capsule,delayed release atorvastatin 20 mg tablet 20 mg PO QHS 3 months #90 tabs 10/1801/20/25 Rx loratadine 10 mg tablet 10 mg PO DAILY #30 tabs 04/06/24 0 01/20/25 Rx olopatadine 0.2 % eye drops 1 drp ophthalmic (eye) QAM #2.5 mL 04/06/24 01/20/25 Rx (Pataday Once Daily Relief) celecoxib 200 mg capsule 200 mg PO Q24H #90 caps 12/10/24 0 01/20/25 Rx aspirin 81 mg tablet,delayed 81 mg PO QDAY #90 tabs 12/30/24 Rx release (Enteric Coated Aspirin) Have you fallen in the past year?: No [facility] Medical History (Updated 01/20/25 @ 12:[address] Rinku Rubi MD) Flatulence Health care maintenance Borderline type 2 diabetes mellitus History of hiatal hernia Diverticulosis History of TIA (transient ischemic attack) Venous stasis ulcer Edema of right lower leg Right leg swelling Chronic venous insufficiency Mini stroke Spondylarthrosis Non-smoker Wears hearing aid Wears glasses Anxiety Kidney stone Hx of pancreatitis Injury of head and neck History of IBS Gastric reflux CPAP (continuous positive airway pressure) dependence Shortness of breath on exertion Obstructive sleep apnea History of Terry's esophagus Irritable bowel syndrome with constipation Prediabetes Abdominal pain Chest pain Fatigue Severe headache Pancreatitis Degenerative disc disease History of skin cancer GERD (gastroesophageal reflux disease) Hearing loss Arthritis Surgical History History of wisdom tooth extraction History of esophagogastroduodenoscop y (EGD) History of carpal tunnel surgery of right wrist History of cholecystectomy Family History Father Alcoholism Arthritis Heart disease Social History household members: spouse housing: house Smoking Status: Never smoker alcohol intake: never substance use type: does not use what type of physical activity do you participate in: none HPI HPI Chief Complaint: fu chronic conditions Details: BERKLEY SARMIENTO, is a 69 M who presents to the office today for follow-up of his chronic conditions. He reports a lot of gas. This has been present for years. Recent EGD with no significant concerns noted. History of Terry's currently on Nexium which he reports compliance with. No dark or bloody stool or unintentional weight changes. Chronic history of arthritis. Follows up at [facility] in [place]. Has been on Celebrex which he takes as needed. Pain largely persists. Surgery has been recommended for his right hand however due to his work, he states that he is unable to take time off to do this. Other chronic conditions are stable. ROS Const Constitutional: No body ache, excessive sweating, fatigue, fever(s), frequent falls, headache(s), snoring, weakness, weight change, sleep problems or change in appetite Eyes Eyes: No blurry vision, change in vision, floaters, visual disturbances, eye pain or Light sensitivity ENT ENT: No abnormal hearing, ear or mastoid pain, tinnitus, balance problems, nosebleed/epistaxis, nasal congestion, headache(s), neck pain or sore throat Resp Respiratory: No cough, excessive phlegm production, pain on inspiration, shortness of breath, snoring or wheezing Cardio Cardiology: No chest pain at rest, chest pain with exertion, excessive sweating, shortness of breath, dyspnea on exertion, lightheadedness, orthopnea or palpitations Gastro GI: No abdominal pain, change in bowel habits, constipation, cramping, diarrhea, nausea/dyspepsia or vomiting Genitourinary Male: No burning urination, painful urination, urinary incontinence, urinary frequency or blood in urine Musc Musculoskeletal: Posi (more content not included)... Normal [facility] Lipid Profileon 01-20-2025 CHOL:HDL 2.97 Normal [facility] Comment on above: Performed By: #### L 501.9985, L500.4100, L100.0100, L500.4050 #### [facility] [address] [place], [address] Cholesterol [Mass/Vol] 154 mg/dL Normal <=[address] [facility] Comment on above: Result Comment: Chol esterol level, Desirable <200 mg/dL Borderline high cholesterol 200-239 mg/dL High cholesterol >=240 mg/dL Recommendations of the NCEP Adult Treatment Panel for the following risk-cutoff thresholds for the [place] population. Performed By: #### L 501.9985, L500.4100, L100.0100, L500.4050 #### [facility] [address] [place], [address] Cholesterol in HDL [Mass/Vol] 52 mg/dL Normal [facility] Comment on above: Result Comment: Julissa onal Cholesterol Education Program (NCEP) guidelines: <40 mg/dL: Low HDL-cholesterol (major risk factor for CHD) >= 60 mg/dL: High HDL-cholesterol (negative risk factor for CHD) HDL-cholesterol is affected by a number of factors, e.g. smoking, exercise, hormones, sex and age. Performed By: #### L 501.9985, L500.4100, L100.0100, L500.4050 #### [facility] [address] [place], [address] Cholesterol in LDL [Mass/Vol] 87 mg/dL Normal [facility] Comment on above: Result Comment: Bord swrzps=823-204 mg/dL Higher Hevu=909 mg/dL or greater Performed By: #### L 501.9985, L500.4100, L100.0100, L500.4050 #### [facility] [address] [place], [address] Cholesterol in VLDL [Mass/Vol] 16 mg/dL Normal 5-40 [facility] Comment on above: Performed By: #### L 501.9985, L500.4100, L100.0100, L500.4050 #### [facility] [address] [place], [address] Triglyceride [Mass/Vol] 78 mg/dL Normal [facility] Comment on above: Result Comment: The drugs N-Acetylcysteine and Metamizole may falsely depress this assay. Normal range: <150 mg/dL Borderline High: 150-199 mg/dL High: 200-499 mg/dL Very High: >500 mg/dL Performed By: #### L 501.9985, L500.4100, L100.0100, L500.4050 #### [facility] [address] [place], [address] Urgent Care Visit Reporton 0 06-02-2024 Urgent Care Visit Report [facility] [address], [address] [place], [place] [address] OFFICE VISIT Date of Service: 06/02/24 MR#: [id number] Acct: [id number] Name: BERKLEY SARMIENTO Rep #: [id number] : 1955 Provider: AGNES mcfadden Age/Sex: 68/M [place] [facility] [place] Status: Signed Intake Vital Signs 03/25/24 14:26 06/02/24 12:29 06/02/24 12:46 Height 5 ft 6 in 5 ft 6 in 5 ft 6 in Weight: 190 lb 194 lb 4 oz BMI 30.7 31.3 BP 142/82 H 138/90 H Blood Pressure Location Lt brachial Lt brachial Position Sitting Sitting Respiration 16 18 Pulse 70 78 Pulse Source Monitor Monitor Temp 97.8 F 98.3 F Temp Source Temporal Temporal Pulse Oximetry (%) 98 98 Oxygen Delivery Method room air room air Intake Visit Reasons: Rash Chief Complaint: Rash Is patient in pain?: No Allergies No Known Allergies Allergy (Verified 04/06/24 13:30) Have you fallen in the past year?: No PFSH Medical History (Updated 06/02/24 @ 13:07 by Berkley Ayala PARAPROFESSIONAL AIDE, PARAPROFESSIONAL AIDE-C) Health care maintenance Borderline type 2 diabetes mellitus History of hiatal hernia Diverticulosis History of TIA (transient ischemic attack) Venous stasis ulcer Edema of right lower leg Right leg swelling Chronic venous insufficiency Mini stroke Spondylarthrosis Non-smoker Wears hearing aid Wears glasses Anxiety Kidney stone Hx of pancreatitis Injury of head and neck History of IBS Gastric reflux CPAP (continuous positive airway pressure) dependence Shortness of breath on exertion Obstructive sleep apnea History of Terry's esophagus Irritable bowel syndrome with constipation Prediabetes Abdominal pain Chest pain Fatigue Severe headache Pancreatitis Degenerative disc disease History of skin cancer GERD (gastroesophageal reflux disease) Hearing loss Arthritis Surgical History History of wisdom tooth extraction History of esophagogastroduodenoscop y (EGD) History of carpal tunnel surgery of right wrist History of cholecystectomy Family History Father Alcoholism Arthritis Heart disease Social History household members: spouse housing: house Smoking Status: Never smoker alcohol intake: never substance use type: does not use what type of physical activity do you participate in: none HPI HPI Chief Complaint: Rash Details: BERKLEY SARMIENTO, is a 68 M who presents to the office today for right arm rash that started approximately one week. He states he was working out in his flower bed and noted rash. He has been using [id number] treatment options with minimal to no improvement. He acknowledges that it is itchy. He denies drainage. He denies fever or chills. ROS Const Constitutional: No body ache, chills, fever(s), malaise or night sweats Resp Respiratory: No shortness of breath Cardio Cardiology: No chest pain at rest or chest pain with exertion Skin Skin: Positive for redness and lesions (blisters) Exam Const General: cooperative, healthy appearing, comfortable, no acute distress, not in acute distress and not in distress Nutritional Appearance: well nourished Orientation: alert, awake and oriented x3 Chest Chest palpation inspection: normal inspection of the chest Resp Effort Inspection: normal respiratory effort Skin Lesions: lesion noted (linear, fluid filled vesicles;) Coding Level of Care Code Off vis,est,level 3 Diagnoses Irritant contact dermatitis, unspecified trigger L24.9 Contact dermatitis type: irritant Contact dermatitis trigger: unspecified trigger Assessment and Plan Assessment and Plan (1) Contact dermatitis: Status: Acute Qualifiers: Contact dermatitis type: irritant Contact dermatitis trigger: unspecified trigger Qualified Code(s): L24.9 - Irritant contact dermatitis, unspecified cause Plan: He was given a course of steroid therapy to assist with symptoms. Side effects and concerns reviewed with him. He acknowledged understanding. Encouraged to get plenty of rest, drink lots of clear liquids, and use Tylenol or Ibuprofen (unless contraindicated) for fever and comfort. Patient also educated on other symptomatic management techniques. To be seen in 7-10 days if no improvement; sooner if worsening of symptoms.??? Patient advised of potential red flags and when appropriate to report to the ED.??? Patient verbalized understanding and agreement with all the above. Medications: New prednisone 10 mg orally; 40mg x5 days, 20mg x5 days, 10mg x5 days 35 tabs 0RF 15 days Plan Details Goals Barriers: Goals Improve ROM Decrease spasm Barriers DDD Comments Comments: Mild/limited dermatitis: Superhigh potency topi (more content not included)... Normal [facility] Internal Medicine Office Vis randall 04-06-2024 Internal Medicine Office Visit [facility] [address] [place] [address] [place] [address] OFFICE VISIT Date of Service: 04/06/24 MR#: [id number] Acct: [id number] Name: BERKLEY SARMIENTO Rep #: [id number] : [id number] Provider: AGNES jordan Age/Sex: 68/M [place] [facility] [place] [facility] [place]: Signed Intake Vital Signs 03/25/24 14:26 04/06/24 13:29 Height 5 ft 6 in Weight: 190 lb BMI 30.7 BP 142/82 H 122/74 H Blood Pressure Location Lt brachial Lt brachial Position Sitting Sitting Respiration 16 16 Pulse 70 92 Pulse Source Monitor NIBP Temp 97.8 F 97.8 F Temp Source Temporal Temporal Pulse Oximetry (%) 98 97 Oxygen Delivery Method room air room air Intake Visit Reasons: RED/IRRITATED EYES Chief Complaint: bilateral eye burning Interventional Radiology Rn Required: No Is patient in pain?: Yes Allergies No Known Allergies Allergy (Verified 04/06/24 13:30) Have you fallen in the past year?: Yes Nurse's Note: bilateral eye burning x 2-3 days ago after working with powder cement. unsure if any got in his eyes but was not using eye protection. has rinsed eyes since then and tried gtts. pt denies tearing or change in vision, denies actual pain but only c/o burning and sensitivity to sunlight. unsure if he has environmental allergies but admits they are improving now that he is indoors. no redness or tearing noted currently. [facility] Medical History (Updated 04/06/24 @ 13:51 by AGNES Johnson) Health care maintenance Borderline type 2 diabetes mellitus History of hiatal hernia Diverticulosis History of TIA (transient ischemic attack) Venous stasis ulcer Edema of right lower leg Right leg swelling Chronic venous insufficiency Mini stroke Spondylarthrosis Non-smoker Wears hearing aid Wears glasses Anxiety Kidney stone Hx of pancreatitis Injury of head and neck History of IBS Gastric reflux CPAP (continuous positive airway pressure) dependence Shortness of breath on exertion Obstructive sleep apnea History of Terry's esophagus Irritable bowel syndrome with constipation Prediabetes Abdominal pain Chest pain Fatigue Severe headache Pancreatitis Degenerative disc disease History of skin cancer GERD (gastroesophageal reflux disease) Hearing loss Arthritis Surgical History History of wisdom tooth extraction History of esophagogastroduodenoscop y (EGD) History of carpal tunnel surgery of right wrist History of cholecystectomy Family History Father Alcoholism Arthritis Heart disease Social History household members: spouse housing: house Smoking Status: Never smoker alcohol intake: never substance use type: does not use what type of physical activity do you participate in: none HPI HPI Chief Complaint: bilateral eye burning Details: BERKLEY SARMIENTO, is a 68 M who presents to the office today for concerns of bilateral eye burning and clear watery discharge x 3 days. He reports 4 days ago he was working with powder cement, he was not using any eye protection. He did rinse his eyes and tried [id number] Visine without significant improvement. He denies changes in vision, blurry vision, eye pain. He also reports that he has photophobia, runny nose, and ear itching. He reports recently his PCP evaluated his blood work and recommended he begin Benadryl. 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 He denies pain with eye movements but reports due to the intense itching it is difficult for him to open his right eye. He denies eye swelling or eyelid pain. Denies sore throat, dry cough, shortness of breath, or wheezing. ROS Const Constitutional: No anorexia (as noted in HPI) Exam Const General: cooperative, healthy appearing, comfortable and no acute distress Nutritional Appearance: average body habitus Orientation: alert, awake and oriented x3 HENMT Head: normal to inspection, normocephalic and atraumatic Ears: hearing grossly normal bilaterally, external ears normal, TM's normal bilaterally, no periauricular adenopathy and EAC abnormal other (dryness) Nose: external nose normal, nares normal and nasal mucous membranes and turbinates normal Face and sinus: normal facial exam, sinuses nontender and face symmetric Mouth: oral mucosae normal, lip normal and tongue normal Teeth and gingiva: fair dentition Throat: posterior oropharynx normal, tonsils normal and uvula midline Eyes General: appearance normal, both eyes and all related structures Visual Olm[place]: normal visual olmstead by confrontation Alignment and Position: alignment normal Periorbital: periorbital findings normal Eyelids: eyelids normal Conjunctivae: conjunctivae normal Sclera: sclerae normal Corne (more content not included)... Normal [facility] Atypical perinuclear antineu trophil cytoplasmic antibodies measurementOrdered By: Tate Chase on 11-27-2023 Neutrophil cytoplasmic Ab.perinuclear.atypical IF (S) [Titer] <1:20 titer Neg:<1:20 [facility] Comment on above: The atypical pANCA p attern has been observed in asignificant percentage of patients with ulcerative colitis,primary sclerosing cholangitis and autoimmune hepatitis. Erythrocyte sedimentation ra teOrdered By: Tate Chase on 11-27-2023 ESR (Bld) [Velocity] 6 mm/h 0-20 [facility] No Panel InformationOrdered By: Tate Chase on 11-27-2023 C-Reactive Protein Extended Range < 2.90 mg/L 0.0-3.0 [facility] Comment on above: C-Reactive Protein ( CRP) provides useful information for thediagnosis, therapy and monitoring of inflammatory processesand associated diseases. For the evaluation of Relative Riskfor Cardiovascular Disease, a High Sensitivity CRP (HSCRP)should be ordered. CA 19-9 Antigen 8 U/mL 0-35 [facility] Comment on above: [facility] El ectrochemiluminescence Immunoassay(ECLIA)Values obtained with different assay methods or kits cannotbe used interchangeably. Results cannot be interpreted asabsolute evidence of the presence or absence of malignantdisease. Centromere B Antibody <0.2 AI 0.0-0.9 [facility] Endomysial IgA Antibody Negative Negative [facility] Immunoglobulin G4 82 mg/dL 2-96 [facility] Intrinsic Factor Antibody 1.1 AU/mL 0.0-1.1 [facility] Comment on above: Performed at: [address] [id number] Director: Marty Perkins PhD, Phone: [phone] at: [facility] [id number] Director: Sharmin Ball MD, Phone: [phone] ZEFERINO-1 Antibody <0.2 AI 0.0-0.9 [facility] SPECIAL NEEDS CHILD CAREGIVER Antibody 0.5 AI 0.0-0.9 [facility] SM Antibody <0.2 AI 0.0-0.9 [facility] SS-A/Ro IgG Antibody < 0.2 AI 0.0-0.9 [facility] SS-B/La IgG Antibody < 0.2 AI 0.0-0.9 [facility] Serum DNA double strand anti body assay (units/volume)Ordered By: Tate Chase on 11-27-2023 DNA double strand Ab Qn (S) [IU]/mL 0-9 [facility] Comment on above: Negative <5 Equivoca l 5 - 9 Positive >9 Serum IgG subclass 1 measure ment (mass/volume)Ordered By: Tate Chase on 11-27-2023 IgG subclass 1 (S) [Mass/Vol] 484 mg/dL 248-810 [facility] Serum IgG subclass 2 measure ment (mass/volume)Ordered By: Tatedalton Chase on 11-27-2023 IgG subclass 2 (S) [Mass/Vol] 361 mg/dL 130-555 [facility] Serum IgG subclass 3 measure ment (mass/volume)Ordered By: Tate Chase on 11-27-2023 IgG subclass 3 (S) [Mass/Vol] 80 mg/dL 15-102 [facility] Serum Scl-70 antibody assay (units/volume)Ordered By: Tate Chase on 11-27-2023 SCL-70 extractable nuclear Ab Qn (S) <0.2 AI 0.0-0.9 [facility] Serum classic neutrophil cyt oplasmic antibody assay (units/volume)Ordered By: Tate Chase on 11-27-2023 Neutrophil cytoplasmic Ab.classic Qn (S) <1:20 titer Neg:<1:20 [facility] Serum or plasma IgA measurem ent (mass/volume)Ordered By: Tate Chase on 11-27-2023 IgA [Mass/Vol] 80 mg/dL 61-437 [facility] Serum or plasma IgG measurem ent (mass/volume)Ordered By: Tate Chase on 11-27-2023 IgG [Mass/Vol] 1123 mg/dL 603-1613 [facility] Serum or plasma gastrin matt urement (mass/volume)Ordered By: Tate Chase on 11-27-2023 Gastrin [Mass/Vol] 16 pg/mL 0-115 [facility] Comment on above: Siemens Immulite 200 0 Immunochemiluminometric assay (ICMA)Values obtained with different assay methods or kits cannotbe used interchangeably. Results cannot be interpreted asabsolute evidence of the presence or absence of malignantdisease. Serum parietal cell antibody assay (units/volume)Ordered By: Tate Chase on 11-27-2023 Parietal cell Ab Qn (S) 2.5 Units 0.0-20.0 [facility] Comment on above: Negative 0.0 - 20.0 Equivocal 20.1 - 24.9 Positive >24.9Parietal Cell Antibodies are found in 90% of patientswith pernicious anemia and 30% of first degreerelatives with pernicious anemia. Serum perinuclear neutrophil cytoplasmic antibody titer by immunofluorescenceOrdered By: Tate Chase on 11-27-2023 Neutrophil cytoplasmic Ab.perinuclear IF (S) [Titer] <1:20 titer Neg:<1:20 [facility] Comment on above: The presence of posi tive fluorescence exhibiting P-ANCA orC-ANCA patterns alone is not specific for the diagnosis ofWegener's Granulomatosis (WG) or microscopic polyangiitis.Decisions about treatment should not be based solely onANCA IFA results. The International ANCA Group Consensusrecommends follow up testing of positive sera with both AL-3 and MPO-ANCA enzyme immunoassays. As many as 5% serumsamples are positive only by EIA. Ref. AM J Clin Niocet4529;111:507-513. Serum tissue transglutaminas e IgA antibody assay (units/volume)Ordered By: Tate Chase on 11-27-2023 tTG IgA Qn (S) <2 U/mL 0-3 [facility] Comment on above: Negative 0 - 3 Weak Positive 4 - 10 Positive >10 Tissue Transglutaminase (tTG) has been identified as the endomysial antigen. Studies have demonstr- ated that endomysial IgA antibodies have over 99% specificity for gluten sensitive enteropathy. Absolute lymphocyte countOrd ered By: Trini Slater on 10-11-2023 Lymphocytes Auto (Unsp spec) [#/Vol] 1.80 10*3/uL 0.83-4.51 [facility] Automated lymphocyte count a s percentage of total leukocytesOrdered By: Trini Slater on 10-11-2023 Lymphocytes/100 WBC Auto (Unsp spec) 27.8 % 19-41 [facility] Basophil percentageOrdered B y: Trini Slater on 10-11-2023 Basophil percentage 0 SEEN /hpf 0-5 [facility] Basophils/100 WBC (Bld) 0.6 % 0-1 [facility] Chloride [Moles/Vol] 109 mmol/L 98-107 [facility] Eosinophils/100 WBC (Bld) 5.6 % 0-5 [facility] Glucose [Mass/Vol] 86 mg/dL 74-106 [facility] Hemoglobin (Bld) [Mass/Vol] 15.1 g/dL 13.0-16.5 [facility] Monocytes/100 WBC (Bld) 12.4 % 0-10 [facility] Neutrophils (Bld) [#/Vol] 3.5 10*3/uL 2.0-7.7 [facility] Neutrophils/100 WBC (Bld) 53.4 % 47-70 [facility] Potassium [Moles/Vol] 3.9 mmol/L 3.5-5.1 [facility] Sodium [Moles/Vol] 141 mmol/L 136-145 [facility] WBC (Bld) [#/Vol] 6.5 10*3/uL 4.4-11.0 [facility] Bilirubin Test strip Ql (U)O rdered By: Trini Slater on 10-11-2023 Bilirubin Ql (U) Negative Negative [facility] Determination of erythrocyte mean corpuscular volume (MCV)Ordered By: Trini Slater on 10-11-2023 MCV (RBC) [Entitic vol] 88.7 fL 80-94 [facility] Erythrocyte distribution wid th ratioOrdered By: Trini Slater on 10-11-2023 Erythrocyte distribution width (RBC) [Ratio] 13.1 % 11.6-14.6 [facility] Erythrocyte distribution wid th standard deviationOrdered By: Trini Slater on 10-11-2023 Erythrocyte distribution width (RBC) [Entitic vol] 42.5 fL 35.1-43.9 [facility] Hematocrit Auto (Bld) [Volum e fraction]Ordered By: Trini Slater on 10-11-2023 Hematocrit (Bld) [Volume fraction] 45.5 % 40-54 [facility] Immature granulocytes/100 WB C Auto (Bld)Ordered By: Trini Slater on 10-11-2023 Immature granulocytes/100 WBC (Bld) 0.200 % 0.0-0.9 [facility] Comment on above: IG% - Immature Granu locytes (promyelocytes, myelocytes and metamyelocytes) > 1% indicates that a LEFT SHIFT is Present. Ketones Test strip Ql (U)Ord ered By: Trini Slater on 10-11-2023 Ketones Ql (U) Negative Negative [facility] Laboratory - Chemistry and C hemistry - challengeOrdered By: Trini Slater on 10-11-2023 CO2 [Moles/Vol] 30.0 mmol/L 21.0-32.0 [facility] Urea nitrogen/Creatinine [Mass ratio] 24.1 mg/mg 10-20 [facility] Laboratory - Hematology and Cell countsOrdered By: Trini Slater on 10-11-2023 MCH (RBC) [Entitic mass] 29.4 pg 27.0-32.0 [facility] MCHC (RBC) [Mass/Vol] 33.2 g/dL 32-36 [facility] Nucleated RBC/100 WBC (Bld) [Ratio] 0 % 0-5 [facility] Platelets (Bld) [#/Vol] 211 10*3/uL 150-450 [facility] Mucus LM Ql (Urine sed)Order ed By: Trini Slater on 10-11-2023 Mucus Ql (Urine sed) 0 SEEN /hpf [facility] Nitrite Test strip Ql (U)Ord ered By: Trini Slater on 10-11-2023 Nitrite Ql (U) Negative Negative [facility] No Panel InformationOrdered By: Trini Slater on 10-11-2023 Estimated Creatinine Clearance Calc 91.05 ml/min [facility] Estimated GFR (MDRD) Amer 126 mL/min >60 [facility] Comment on above: GFR Calc Estimated GFR (MDRD) Non-Af Amer 104 mL/min >60 [facility] Comment on above: Non- GFR Calc Urine RBC 0 SEEN /hpf 0-5 [facility] Platelet mean volume Mars-Ec ker (Bld) [Entitic vol]Ordered By: Trini Slater on 10-11-2023 Platelet mean volume (Bld) [Entitic vol] 10.9 fL 6.2-12.0 [facility] Protein Test strip Ql (U)Ord ered By: Trini Slater on 10-11-2023 Protein Ql (U) Negative Negative [facility] RBC Auto (Bld) [#/Vol]Ordere d By: Trini Slater on 10-11-2023 RBC (Bld) [#/Vol] 5.13 10*6/uL 4.6-6.2 [facility] Serum or plasma calcium matt urement (mass/volume)Ordered By: Trini Slater on 10-11-2023 Calcium [Mass/Vol] 9.2 mg/dL 8.5-10.1 [facility] Serum or plasma creatinine m easurement (mass/volume)Ordered By: Trini Slater on 10-11-2023 Creatinine [Mass/Vol] 0.79 mg/dL 0.70-1.30 [facility] Comment on above: The validity of the calculated GFR & GFRAA in patients over 70 years has not been determined. Clinical correlation is essential. Serum or plasma urea nitroge n measurement (mass/volume)Ordered By: Trini Slater on 10-11-2023 Urea nitrogen [Mass/Vol] 19 mg/dL 7-18 [facility] Squamous epithelial cells de tection in urine sediment by light microscopyOrdered By: Trini Slater on 10-11-2023 Epithelial cells.squamous LM Ql (Urine sed) 0 SEEN /hpf 0-5 [facility] Thin prep Papanicolaou smear with manual screeningOrdered By: Trini Slater on 10-11-2023 Thin prep Papanicolaou smear with manual screening 2 5-15 [facility] Urine blood detectionOrdered By: Trini Slater on 10-11-2023 RBC Ql (U) Negative Negative [facility] Urine clarityOrdered By: Purvi Slater on 10-11-2023 Clarity (U) Clear Clear [facility] Urine color determinationOrd ered By: Trini Slater on 10-11-2023 Color (U) Yellow Yellow [facility] Urine glucose detectionOrder ed By: Trini Slater on 10-11-2023 Glucose Ql (U) Normal mg/dl Normal [facility] Urine leukocyte esterase det ection by dipstickOrdered By: Trini Slater on 10-11-2023 Leukocyte esterase Test strip Ql (U) Negative Negative [facility] Urine pHOrdered By: Trini Slater on 10-11-2023 pH (U) 7.0 [pH] 5.0 - 8.0 [facility] Urine sediment bacteria coun t by microscopy (number/high power field)Ordered By: Trini Slater on 10-11-2023 Bacteria LM.HPF (Urine sed) [#/Area] 0 /[HPF] None Seen [facility] Urine specific gravity measu rementOrdered By: Trini Slater on 10-11-2023 Specific gravity (U) [Rel density] 1.010 1.002-1.03 0 [facility] Urine urobilinogen measureme ntOrdered By: Trini Slater on 10-11-2023 Urobilinogen Ql (U) Normal mg/dl Normal [facility] Absolute lymphocyte countOrd ered By: Renata Ness on 05-20-2023 Lymphocytes Auto (Unsp spec) [#/Vol] 1.60 10*3/uL 0.83-4.51 [facility] Basophil percentageOrdered B y: Renata Ness on 05-20-2023 Basophils/100 WBC (Bld) 0.7 % 0-1 [facility] Bilirubin [Mass/Vol] 1.10 mg/dL 0.20-1.00 [facility] Comment on above: For patients on eltr ombopag therapy, use of Dimension Aneta TBIL is not recommended. Chloride [Moles/Vol] 109 mmol/L 98-107 [facility] Cholesterol [Mass/Vol] 150 mg/dL <[address] [facility] Comment on above: <200 mg/dL Desirable 200-240 mg/dL Borderline >240 mg/dL High Risk Eosinophils/100 WBC (Bld) 4.0 % 0-5 [facility] Glucose [Mass/Vol] 94 mg/dL 74-106 [facility] Neutrophils (Bld) [#/Vol] 3.4 10*3/uL 2.0-7.7 [facility] Neutrophils/100 WBC (Bld) 56.8 % 47-70 [facility] Potassium [Moles/Vol] 3.8 mmol/L 3.5-5.1 [facility] Protein [Mass/Vol] 7.0 g/dL 6.4-8.2 [facility] Sodium [Moles/Vol] 142 mmol/L 136-145 [facility] Triglyceride [Mass/Vol] 91 mg/dL <199 [facility] Comment on above: The drugs N-Acetylcy steine and Metamizole may falsely depress this assay.Serum Triglycerides Reference Interval Normal <150 mg/dL Borderline high 150 - 199 mg/dL High 200 - 499 mg/dL Very High > or = 500 mg/dL WBC (Bld) [#/Vol] 6.1 10*3/uL 4.4-11.0 [facility] Blood erythrocytes count (nu mber/volume)Ordered By: Renata Ness on 05-20-2023 RBC (Bld) [#/Vol] 5.30 10*6/uL 4.6-6.2 [facility] Blood hemoglobin measurement (mass/volume)Ordered By: Renata Ness on 05-20-2023 Hemoglobin (Bld) [Mass/Vol] 15.2 g/dL 13.0-16.5 [facility] Blood lymphocytes/100 leukoc ytesOrdered By: Renata Ness on 05-20-2023 Lymphocytes/100 WBC (Bld) 26.4 % 19-41 [facility] Blood monocytes/100 leukocyt esOrdered By: Renata Grover on 05-20-2023 Monocytes/100 WBC (Bld) 11.9 % 0-10 [facility] Blood platelet mean volumeOr dered By: Renata Grover on 05-20-2023 Platelet mean volume (Bld) [Entitic vol] 11.9 fL 6.2-12.0 [facility] Determination of erythrocyte mean corpuscular volume (MCV)Ordered By: Renata Ness on 05-20-2023 MCV (RBC) [Entitic vol] 88.5 fL 80-94 [facility] Glucose Glucometer (dC) [M ass/Vol]Ordered By: Renata Ness on 05-20-2023 Glucose [Mass/Vol] 97 mg/dL 74-106 [facility] Comment on above: MANAGEMENT OF PATIEN T CARE PER NURSING PROTOCOL Hematocrit Auto (Bld) [Volum e fraction]Ordered By: Renata Ness on 05-20-2023 Hematocrit (Bld) [Volume fraction] 46.9 % 40-54 [facility] Laboratory - Chemistry and C hemistry - challengeOrdered By: Renata Ness on 05-20-2023 ALP [Catalytic activity/Vol] 66 U/L 45-117 [facility] ALT [Catalytic activity/Vol] 24 U/L 16-61 [facility] CO2 [Moles/Vol] 24.0 mmol/L 21.0-32.0 [facility] Globulin (S) [Mass/Vol] 3.6 g/dL 2.2-4.2 [facility] Magnesium [Mass/Vol] 2.2 mg/dL 1.6-2.6 [facility] Urea nitrogen/Creatinine [Mass ratio] 22.5 mg/mg 10-20 [facility] Laboratory - Hematology and Cell countsOrdered By: Renata Ness on 05-20-2023 Erythrocyte distribution width (RBC) [Entitic vol] 41.9 fL 35.1-43.9 [facility] Erythrocyte distribution width (RBC) [Ratio] 12.8 % 11.6-14.6 [facility] Immature granulocytes/100 WBC (Bld) 0.200 % 0.0-0.9 [facility] Comment on above: IG% - Immature Granu locytes (promyelocytes, myelocytes and metamyelocytes) > 1% indicates that a LEFT SHIFT is Present. MCH (RBC) [Entitic mass] 28.7 pg 27.0-32.0 [facility] Nucleated RBC/100 WBC (Bld) [Ratio] 0 % 0-5 [facility] MCHC Auto (RBC) [Mass/Vol]Or dered By: Renata Ness on 05-20-2023 MCHC (RBC) [Mass/Vol] 32.4 g/dL 32-36 [facility] No Panel InformationOrdered By: Renata Ness on 05-20-2023 Estimated Creatinine Clearance Calc 63.21 ml/min [facility] Estimated GFR (MDRD) Amer 142 mL/min >60 [facility] Comment on above: GFR Calc Estimated GFR (MDRD) Non-Af Amer 118 mL/min >60 [facility] Comment on above: Non- GFR Calc Thyroid Stimulating Hormone (TSH) 3.53 uIU/mL 0.358-3.74 [facility] Platelets bldOrdered By: Delia Ness on 05-20-2023 Platelets (Bld) [#/Vol] 183 10*3/uL 150-450 [facility] Serum or plasma albumin matt urement (mass/volume)Ordered By: Renata Ness on 05-20-2023 Albumin [Mass/Vol] 3.4 g/dL 3.2-5.0 [facility] Serum or plasma albumin/glob ulin mass ratioOrdered By: Renata Ness on 05-20-2023 Albumin/Globulin [Mass ratio] 0.9 {ratio} 0.9-2.4 [facility] Serum or plasma calcium matt urement (mass/volume)Ordered By: Renata Ness on 05-20-2023 Calcium [Mass/Vol] 9.1 mg/dL 8.5-10.1 [facility] Serum or plasma cholesterol in HDL measurement (mass/volume)Ordered By: Renata Ness on 05-20-2023 Cholesterol in HDL [Mass/Vol] 50 mg/dL >40 [facility] Comment on above: The drugs N-Acetylcy steine and Metamizole may falsely depress this assay. Reference Range HDL <40 mg/dL Low HDL Cholesterol HDL >or= 60 mg/dL High HDL Cholesterol Serum or plasma cholesterol in VLDL measurement (mass/volume)Ordered By: Renata Ness on 05-20-2023 Cholesterol in VLDL [Mass/Vol] 18 mg/dL 5-40 [facility] Serum or plasma creatinine m easurement (mass/volume)Ordered By: Renata Ness on 05-20-2023 Creatinine [Mass/Vol] 0.71 mg/dL 0.70-1.30 [facility] Comment on above: The validity of the calculated GFR & GFRAA in patients over 70 years has not been determined. Clinical correlation is essential. Serum or plasma low density lipoprotein (LDL) cholesterol measurement (mass/volume)Ordered By: Renata Ness on 05-20-2023 Cholesterol in LDL [Mass/Vol] 82 mg/dL 0-130 [facility] Serum or plasma urea nitroge n measurement (mass/volume)Ordered By: Renata Grover on 05-20-2023 Urea nitrogen [Mass/Vol] 16 mg/dL 7-18 [facility] Thin prep Papanicolaou smear with manual screeningOrdered By: Renata Grover on 05-20-2023 Thin prep Papanicolaou smear with manual screening 16 U/L 15-37 [facility] Thin prep Papanicolaou smear with manual screening 9 5-15 [facility] Whole blood hemoglobin A1c/t otal hemoglobin ratio (mass fraction)Ordered By: Renata Grover on 05-20-2023 HbA1c (Bld) [Mass fraction] 5.8 % 3.8-5.6 [facility] Comment on above: Normal < 5.7 % Predi abetic 5.7 - 6.4 % Diabetic >or= 6.5 % Please note range changes. Absolute lymphocyte countOrd ered By: Miller Husain on 05-19-2023 Lymphocytes Auto (Unsp spec) [#/Vol] 1.68 10*3/uL 0.83-4.51 [facility] Basophil percentageOrdered B y: Miller Husain on 05-19-2023 Basophils/100 WBC (Bld) 0.6 % 0-1 [facility] Chloride [Moles/Vol] 109 mmol/L 98-107 [facility] Eosinophils/100 WBC (Bld) 3.3 % 0-5 [facility] Glucose [Mass/Vol] 96 mg/dL 74-106 [facility] Neutrophils (Bld) [#/Vol] 3.6 10*3/uL 2.0-7.7 [facility] Neutrophils/100 WBC (Bld) 56.8 % 47-70 [facility] Potassium [Moles/Vol] 3.8 mmol/L 3.5-5.1 [facility] Sodium [Moles/Vol] 139 mmol/L 136-145 [facility] WBC (Bld) [#/Vol] 6.4 10*3/uL 4.4-11.0 [facility] Blood erythrocytes count (nu mber/volume)Ordered By: Miller Husain on 05-19-2023 RBC (Bld) [#/Vol] 5.15 10*6/uL 4.6-6.2 [facility] Blood hemoglobin measurement (mass/volume)Ordered By: Miller Husain on 05-19-2023 Hemoglobin (Bld) [Mass/Vol] 14.9 g/dL 13.0-16.5 [facility] Blood lymphocytes/100 leukoc ytesOrdered By: Miller Grahamo on 05-19-2023 Lymphocytes/100 WBC (Bld) 26.5 % 19-41 [facility] Blood monocytes/100 leukocyt esOrdered By: Miller Husain on 05-19-2023 Monocytes/100 WBC (Bld) 12.6 % 0-10 [facility] Blood platelet mean volumeOr dered By: Millershekhar Grahamo on 05-19-2023 Platelet mean volume (Bld) [Entitic vol] 10.8 fL 6.2-12.0 [facility] CNOVon 05-19-2023 CNOV Office Visit (UCWSTR ) ----- BERKLEY SARMIENTO ([id number]) 1955 M Date Time Provider Department 05/19/23 11:00 AM SEBLE DORANTES [facility] During your visit today, we recorded the following information about you: Temperature Pulse Respiration Blood pressure 97.6 degrees 74/minute 18/minute 126/78 Weight 81.9 kg Seble Dorantes APRN.[employer]GER [employer] 05/19/2023 11:20 AM Signed She came in with complaints of extreme [...] care plan and prefers to take himself. Allergies As of Date: 05/19/2023 (No Known Allergies) Date Reviewed: 05/19/2023 Reviewed by: [place], Alma DIRECTOR PAID MEDIA - Fully Assessed Reason for Visit: dizzy and nausea [Other] Cmt: X 3 days Primary Visit Diagnosis:Dizziness [R42] Prescriptions as of 05/19/2023 - cephALEXin (KEFLEX) 500 mg capsule Take 1 capsule by mouth three times daily for 7 days. - mupirocin (BACTROBAN) 2 % ointment Apply 1 application to affected area twice daily. - Omeprazole 40 mg capsule Take 1 capsule by mouth once daily. - polyethylene glycol 3350 (MIRALAX, GLYCOLAX) 17 gram/dose powder Take 17 g by mouth once daily. - celecoxib (CELEBREX) 100 mg capsule Take by mouth. - lactase (LACTAID) 3,000 unit tablet Take 1 tablet by mouth three times daily with meals. - CPAP Chin strap used with CPAP device. - CPAP AutoPAP 6-16 cmH2O, suitable mask, humidity, filters. Lifetime supplies. Dx: G47.33. Download to PISTIS Consult in 6 weeks. Problem List As Of Date 05/19/2023 Noted Resolved History of skin cancer [Z85.828] 11/11/2015 Xerosis cutis [L85.3] 11/11/2015 GERD (gastroesophageal reflux disease) [K21.9] 11/11/2015 ROBYN on CPAP [G47.33] 11/11/2015 Left-sided weakness [R53.1] 11/11/2015 Pruritus [L29.9] 11/11/2015 Morbid obesity due to excess calories (HCC) [E6*11/11/2015 Irritable bowel syndrome with diarrhea [K58.0] 11/11/2015 History of Terry's esophagus [Z87.19] 02/17/2016 History of colon polyps [Z86.010] 02/17/2016 Cervical disc disorder with radiculopathy [M50.*03/25/2019 Encounter Status:Closed by SEBLE DORANTES on 05/19/23 [facility] Galo 05-19-2023 JOAO Telephone (UCWSTR) ----- LUISBERKLEY LEMON ([id number]) 1955 M Date Time Provider Department 05/19/23 PJ SEPULVEDA [facility] During your visit today, we recorded the following information about you: Pj Sepulveda APRN.[employer]NAGER [employer] 05/19/2023 7:17 AM Signed No significant bacterial infection noted on wound culture. Continue antibiotics symptoms are improving. Pj Sepulveda APRN.Mj Fierro MA 05/19/2023 8:16 AM Signed Patient notified of results, verbalized understanding of instructions given. Mj Coyle MA Allergies As of Date: 05/19/2023 (No Known Allergies) Date Reviewed: 05/16/2023 Reviewed by: Alma Villar LPN - Fully Assessed Reason for Visit: Results [95] Prescriptions as of 05/19/2023 - cephALEXin (KEFLEX) 500 mg capsule Take 1 capsule by mouth three times daily for 7 days. - mupirocin (BACTROBAN) 2 % ointment Apply 1 application to affected area twice daily. - Omeprazole 40 mg capsule Take 1 capsule by mouth once daily. - polyethylene glycol 3350 (MIRALAX, GLYCOLAX) 17 gram/dose powder Take 17 g by mouth once daily. - celecoxib (CELEBREX) 100 mg capsule Take by mouth. - lactase (LACTAID) 3,000 unit tablet Take 1 tablet by mouth three times daily with meals. - CPAP Chin strap used with CPAP device. - CPAP AutoPAP 6-16 cmH2O, suitable mask, humidity, filters. Lifetime supplies. Dx: G47.33. Download to PISTIS Consult in 6 weeks. Problem List As Of Date 05/19/2023 Noted Resolved History of skin cancer [Z85.828] 11/11/2015 Xerosis cutis [L85.3] 11/11/2015 GERD (gastroesophageal reflux disease) [K21.9] 11/11/2015 ROBYN on CPAP [G47.33] 11/11/2015 Left-sided weakness [R53.1] 11/11/2015 Pruritus [L29.9] 11/11/2015 Morbid obesity due to excess calories (HCC) [E6*11/11/2015 Irritable bowel syndrome with diarrhea [K58.0] 11/11/2015 History of Terry's esophagus [Z87.19] 02/17/2016 History of colon polyps [Z86.010] 02/17/2016 Cervical disc disorder with radiculopathy [M50.*03/25/2019 Encounter Status:Closed by MJ COYLE on 05/19/23 [facility] Determination of erythrocyte mean corpuscular volume (MCV)Ordered By: Miller Husain on 05-19-2023 MCV (RBC) [Entitic vol] 89.1 fL 80-94 [facility] Hematocrit Auto (Bld) [Volum e fraction]Ordered By: Millershekhar Husain on 05-19-2023 Hematocrit (Bld) [Volume fraction] 45.9 % 40-54 [facility] INR in Blood by Coagulation assayOrdered By: Millershekhar Husain on 05-19-2023 INR Coag (Bld) [Relative time] 1.0 {INR} [facility] Laboratory - Chemistry and C hemistry - challengeOrdered By: Miller Husain on 05-19-2023 CO2 [Moles/Vol] 25.0 mmol/L 21.0-32.0 [facility] Urea nitrogen/Creatinine [Mass ratio] 25.9 mg/mg 10-20 [facility] Laboratory - CoagulationOrde red By: Miller Husain on 05-19-2023 aPTT Coag (Bld) [Time] 30.4 s 24.1-36.[address] [facility] PT Coag (PPP) [Time] 13.5 s 11.7-14.9 [facility] Laboratory - Hematology and Cell countsOrdered By: Miller Husain on 05-19-2023 Erythrocyte distribution width (RBC) [Entitic vol] 41.6 fL 35.1-43.9 [facility] Erythrocyte distribution width (RBC) [Ratio] 12.6 % 11.6-14.6 [facility] Immature granulocytes/100 WBC (Bld) 0.200 % 0.0-0.9 [facility] Comment on above: IG% - Immature Granu locytes (promyelocytes, myelocytes and metamyelocytes) > 1% indicates that a LEFT SHIFT is Present. MCH (RBC) [Entitic mass] 28.9 pg 27.0-32.0 [facility] Nucleated RBC/100 WBC (Bld) [Ratio] 0 % 0-5 [facility] MCHC Auto (RBC) [Mass/Vol]Or dered By: Miller Husain on 05-19-2023 MCHC (RBC) [Mass/Vol] 32.5 g/dL 32-36 [facility] No Panel InformationOrdered By: Miller Husain on 05-19-2023 Estimated Creatinine Clearance Calc 74.36 ml/min [facility] Estimated GFR (MDRD) Amer 116 mL/min >60 [facility] Comment on above: GFR Calc Estimated GFR (MDRD) Non-Af Amer 96 mL/min >60 [facility] Comment on above: Non- GFR Calc Troponin I High Sensitivity 12 pg/mL 3.0-78.0 [facility] Comment on above: Please Note: New Komal t Units and Gender Specific Reference Ranges. For more information see Policy Stat Procedure Aneta High Sensitivity Troponin (TNIH) and attachments. Platelets bldOrdered By: Miller Husain on 05-19-2023 Platelets (Bld) [#/Vol] 193 10*3/uL 150-450 [facility] Serum or plasma calcium matt urement (mass/volume)Ordered By: Miller Husain on 05-19-2023 Calcium [Mass/Vol] 9.1 mg/dL 8.5-10.1 [facility] Serum or plasma creatinine m easurement (mass/volume)Ordered By: Miller Husain on 05-19-2023 Creatinine [Mass/Vol] 0.85 mg/dL 0.70-1.30 [facility] Comment on above: The validity of the calculated GFR & GFRAA in patients over 70 years has not been determined. Clinical correlation is essential. Serum or plasma urea nitroge n measurement (mass/volume)Ordered By: Miller Husain on 05-19-2023 Urea nitrogen [Mass/Vol] 22 mg/dL 7-18 [facility] Thin prep Papanicolaou smear with manual screeningOrdered By: Miller Husain on 05-19-2023 Thin prep Papanicolaou smear with manual screening 5 5-15 [facility] CNPNon 05-17-2023 JOAO Telephone (UCTR) ----- JESSIEBERKLEY Trupti ([id number]) 1955 M Date Time Provider Department 05/17/23 PJ SEPULVEDA [facility] During your visit today, we recorded the following information about you: Pj Sepulveda APRN.CNP 05/17/2023 12:01 PM Signed No significant abnormal findings noted on lab work. Follow-up with PCP as discussed during visit. Pj Sepulveda APRN.Romy Covington 05/17/2023 12:29 PM Signed Patient given results and verbalized understanding of instructions given. Romy Meza Allergies As of Date: 05/17/2023 (No Known Allergies) Date Reviewed: 05/16/2023 Reviewed by: Alma Villar LPN - Fully Assessed Reason for Visit: Results [95] Prescriptions as of 05/17/2023 - cephALEXin (KEFLEX) 500 mg capsule Take 1 capsule by mouth three times daily for 7 days. - mupirocin (BACTROBAN) 2 % ointment Apply 1 application to affected area twice daily. - Omeprazole 40 mg capsule Take 1 capsule by mouth once daily. - polyethylene glycol 3350 (MIRALAX, GLYCOLAX) 17 gram/dose powder Take 17 g by mouth once daily. - celecoxib (CELEBREX) 100 mg capsule Take by mouth. - lactase (LACTAID) 3,000 unit tablet Take 1 tablet by mouth three times daily with meals. - CPAP Chin strap used with CPAP device. - CPAP AutoPAP 6-16 cmH2O, suitable mask, humidity, filters. Lifetime supplies. Dx: G47.33. Download to PISTIS Consult in 6 weeks. Problem List As Of Date 05/17/2023 Noted Resolved History of skin cancer [Z85.828] 11/11/2015 Xerosis cutis [L85.3] 11/11/2015 GERD (gastroesophageal reflux disease) [K21.9] 11/11/2015 ROBYN on CPAP [G47.33] 11/11/2015 Left-sided weakness [R53.1] 11/11/2015 Pruritus [L29.9] 11/11/2015 Morbid obesity due to excess calories (HCC) [E6*11/11/2015 Irritable bowel syndrome with diarrhea [K58.0] 11/11/2015 History of Terry's esophagus [Z87.19] 02/17/2016 History of colon polyps [Z86.010] 02/17/2016 Cervical disc disorder with radiculopathy [M50.*03/25/2019 Encounter Status:Closed by ROMY MEZA on 05/17/23 Normal [facility] Bacteria Wnd Culton 05-16-20 Bacteria identified Cx Nom (Wound) ORGANISM ID: 1 One colony Staphylococcus epidermidis No further workup GRAM STAIN: No organisms seen No Polymorphonuclear Leukocytes Abnormal [facility] Comment on above: Performed By: #### 6 462-6 ####[facility] LABCLIA [id number] [address] [place] CBC W Auto Differential pane l (Bld)on 05-16-2023 Basophils (Bld) [#/Vol] 0.05 10*3/uL <0.11 k/uL [facility] Basophils/100 WBC (Bld) 0.7 % [facility] Differential cell count method Nom (Bld) Auto [facility] Eosinophils (Bld) [#/Vol] 0.31 10*3/uL <0.46 k/ uL [facility] Eosinophils/100 WBC (Bld) 4.3 % [facility] Erythrocyte distribution width (RBC) [Ratio] 12.8 % 11.5 - 15.0 % [facility] Hematocrit (Bld) [Volume fraction] 49.5 % 39.0 - 51.0 % [facility] Hemoglobin (Bld) [Mass/Vol] 15.9 g/dL 13.0 - 17.0 g/dL [facility] Immature granulocytes (Bld) [#/Vol] <0.10 k/uL [facility] Immature granulocytes/100 WBC (Bld) 0.1 % [facility] Lymphocytes (Bld) [#/Vol] 1.44 10*3/uL 1. 00 - 4.00 k/uL [facility] Lymphocytes/100 WBC (Bld) 20.0 % [facility] MCH (RBC) [Entitic mass] 28.8 pg 26. 0 - 34.0 pg [facility] MCHC (RBC) [Mass/Vol] 32.1 g/dL 30.5 - 36.0 g/dL [facility] MCV (RBC) [Entitic vol] 89.5 fL 80.0 - 100.0 fL [facility] Monocytes (Bld) [#/Vol] 0.77 10*3/uL <0.87 k/uL [facility] Monocytes/100 WBC (Bld) 10.7 % [facility] Neutrophils (Bld) [#/Vol] 4.62 10*3/uL 1. 45 - 7.50 k/uL [facility] Neutrophils/100 WBC (Bld) 64.2 % [facility] Nucleated RBC (Bld) [#/Vol] <0.01 k/uL [facility] Nucleated RBC/100 WBC (Bld) [Ratio] 0.0 /100 WBC [facility] Platelet mean volume (Bld) [Entitic vol] 12.3 fL 9.0 - 12.7 fL [facility] Platelets (Bld) [#/Vol] 191 10*3/uL 150 - 400 k/uL [facility] RBC (Bld) [#/Vol] 5.53 10*6/uL 4.20 - 6.00 m/uL [facility] WBC (Bld) [#/Vol] 7.20 10*3/uL 3.70 - 11.00 k/uL [facility] Basophils (Bld) [#/Vol] 0.05 10*3/uL Normal <0.11 [facility] Comment on above: Order Comment: Speci men Type: BLOOD SPECIMENOrdering Facility: [facility] Address: [address] [place] [address] Performed By: #### 5 7021-8 ####[facility] LABCLIA [id number] [facility] [id number], [place] [id number] [place] [address] OF [facility] Basophils/100 WBC (Bld) 0.7 % Normal [facility] Comment on above: Order Comment: Speci men Type: BLOOD SPECIMENOrdering Facility: [facility] Address: [address] Performed By: #### 5 7021-8 ####[facility] LABCLIA [id number] [place] [address] [place] Differential cell count method Nom (Bld) Auto Normal [facility] Comment on above: Order Comment: Speci men Type: BLOOD SPECIMENOrdering Facility: [facility] Address: [address] Performed By: #### 5 7021-8 ####[facility] LABCLIA [id number] [place] [address] [place] Eosinophils (Bld) [#/Vol] 0.31 10*3/uL Normal <0.46 [facility] Comment on above: Order Comment: Speci men Type: BLOOD SPECIMENOrdering Facility: [facility] Address: [address] Performed By: #### 5 7021-8 ####[facility] LABCLIA [id number] [address] [place] Eosinophils/100 WBC (Bld) 4.3 % Normal [facility] Comment on above: Order Comment: Speci men Type: BLOOD SPECIMENOrdering Facility: [facility] Address: [address] Performed By: #### 5 7021-8 ####[facility] LABCLIA [id number] [place] [address] [place] Erythrocyte distribution width (RBC) [Ratio] 12.8 % Normal 11.5-15.0 [facility] Comment on above: Order Comment: Speci men Type: BLOOD SPECIMENOrdering Facility: [facility] Address: [address] Performed By: #### 5 7021-8 ####[facility] LABCLIA [id number] [place] [address] [place] Hematocrit (Bld) [Volume fraction] 49.5 % Normal 39.0-51.0 [facility] Comment on above: Order Comment: Speci men Type: BLOOD SPECIMENOrdering Facility: [facility] Address: [address] [place] [address] Performed By: #### 5 7021-8 ####[facility] LABIA [id number] [place] [address] [place] Hemoglobin (Bld) [Mass/Vol] 15.9 g/dL Normal 13.0-17.0 [facility] Comment on above: Order Comment: Speci men Type: BLOOD SPECIMENOrdering Facility: [facility] Address: [address] [place] [address] Performed By: #### 5 7021-8 ####[facility] LABIA [id number] [place] [address] [place] Immature granulocytes (Bld) [#/Vol] 10*3/uL Normal <0.10 [facility] Comment on above: Order Comment: Speci men Type: BLOOD SPECIMENOrdering Facility: [facility] Address: [address] [place] [address] Performed By: #### 5 7021-8 ####[facility] LABIA [id number] [place] [address] [place] Immature granulocytes/100 WBC (Bld) 0.1 % Normal [facility] Comment on above: Order Comment: Speci men Type: BLOOD SPECIMENOrdering Facility: [facility] Address: [address] [place], [place] [address] Performed By: #### 5 7021-8 ####[facility] LABIA [id number] [place] [address] [place] Lymphocytes (Bld) [#/Vol] 1.44 10*3/uL Normal 1.00-4.0 0 [facility] Comment on above: Order Comment: Speci men Type: BLOOD SPECIMENOrdering Facility: [facility] Address: [address] [place] [address] Performed By: #### 5 7021-8 ####[facility] LABCLIA [id number] [address] [place] OF [facility] Lymphocytes/100 WBC (Bld) 20.0 % Normal [facility] Comment on above: Order Comment: Speci men Type: BLOOD SPECIMENOrdering Facility: [facility] Address: [address] [place] [address] Performed By: #### 5 7021-8 ####[facility] LABIA [id number] [address] [place] MCH (RBC) [Entitic mass] 28.8 pg Normal 26.0-34.0 [facility] Comment on above: Order Comment: Speci men Type: BLOOD SPECIMENOrdering Facility: [facility] Address: [address] [place] [address] Performed By: #### 5 7021-8 ####[facility] LABIA [id number] [address] [place] [facility] MCHC (RBC) [Mass/Vol] 32.1 g/dL Normal 30.5-36.0 [facility] Comment on above: Order Comment: Speci men Type: BLOOD SPECIMENOrdering Facility: [facility] Address: [address] [place], [place] [address] Performed By: #### 5 7021-8 ####[facility] LABIA [id number] [address] [place] MCV (RBC) [Entitic vol] 89.5 fL Normal 80.0-100.0 [facility] Comment on above: Order Comment: Speci men Type: BLOOD SPECIMENOrdering Facility: [facility] Address: [address] [place] [address] Performed By: #### 5 7021-8 ####[facility] LABCLIA [id number] [place] [address] [place] Monocytes (Bld) [#/Vol] 0.77 10*3/uL Normal <0.87 [facility] Comment on above: Order Comment: Speci men Type: BLOOD SPECIMENOrdering Facility: [facility] Address: [address] Performed By: #### 5 7021-8 ####[facility] LABCLIA [id number] [address] OF [facility] Monocytes/100 WBC (Bld) 10.7 % Normal [facility] Comment on above: Order Comment: Speci men Type: BLOOD SPECIMENOrdering Facility: [facility] Address: [address] Performed By: #### 5 7021-8 ####[facility] LABCLIA [id number] [place] [address] [place] Neutrophils (Bld) [#/Vol] 4.62 10*3/uL Normal 1.45-7.5 0 [facility] Comment on above: Order Comment: Speci men Type: BLOOD SPECIMENOrdering Facility: [facility] Address: [address] Performed By: #### 5 7021-8 ####[facility] LABCLIA [id number] [address] [place] Neutrophils/100 WBC (Bld) 64.2 % Normal [facility] Comment on above: Order Comment: Speci men Type: BLOOD SPECIMENOrdering Facility: [facility] Address: [address] Performed By: #### 5 7021-8 ####[facility] LABCLIA [id number] [place] [address] [place] Nucleated RBC (Bld) [#/Vol] 10*3/uL Normal <0.01 [facility] Comment on above: Order Comment: Speci men Type: BLOOD SPECIMENOrdering Facility: [facility] Address: [address] [place], [place] [address] Performed By: #### 5 7021-8 ####[facility] LABCLIA [id number] [place] [address] [place] Nucleated RBC/100 WBC (Bld) [Ratio] 0.0 /100 WBC Normal [facility] Comment on above: Order Comment: Speci men Type: BLOOD SPECIMENOrdering Facility: [facility] Address: [address] [place], [place] [address] Performed By: #### 5 7021-8 ####[facility] LABIA [id number] [place] [address] [place] Platelet mean volume (Bld) [Entitic vol] 12.3 fL Normal 9.0-12.7 [facility] Comment on above: Order Comment: Speci men Type: BLOOD SPECIMENOrdering Facility: [facility] Address: [address] [place], [place] [address] Performed By: #### 5 7021-8 ####[facility] LABIA [id number] [place] [address] [place] Platelets (Bld) [#/Vol] 191 10*3/uL Normal 150-400 [facility] Comment on above: Order Comment: Speci men Type: BLOOD SPECIMENOrdering Facility: [facility] Address: [address] [place] [address] Performed By: #### 5 7021-8 ####[facility] LABCLIA [id number] [place] [address] [place] RBC (Bld) [#/Vol] 5.53 10*6/uL Normal 4.20-6.00 [facility] Comment on above: Order Comment: Speci men Type: BLOOD SPECIMENOrdering Facility: [facility] Address: [address] [address] Performed By: #### 5 7021-8 ####[facility] LABIA [id number] [place] [address] [place] WBC (Bld) [#/Vol] 7.20 10*3/uL Normal 3.70-11.00 [facility] Comment on above: Order Comment: Speci men Type: BLOOD SPECIMENOrdering Facility: [facility] Address: [address] [address] Performed By: #### 5 7021-8 ####[facility] LABIA [id number] [address] [place] CNOVon 05-16-2023 CNOV Office Visit (UCWSTR ) ----- BERKLEY SARMIENTO ([id number]) 1955 M Date Time Provider Department 05/16/23 1:30 PM [place] [facility] During your visit today, we recorded the following information about you: Temperature Pulse Respiration Blood pressure 97.4 degrees 76/minute 18/minute 118/80 Weight 81.8 kg 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 Skin infection - ICD9: 686.9, [...] Discussed expected course of illness Tessa Beach APRN.[facility] PATIENT INFO SKIN INFECTION OVERVIEW Cellulitis is an infection of the skin and soft tissue of the skin. The infection is usually caused by bacteria that normally live on the skin, such as staphylococci (Staph) or streptococci (Strep). The infection develops when there is a [...] types of skin infections include abscesses, furuncles (boils), and carbuncles. These usually cause a collection [...] more swollen, or more tender, call your (more content not included)... Normal [facility] Comprehensive metabolic 2000 panelon 05-16-2023 Albumin [Mass/Vol] 4.3 g/dL Normal 3.9-4.9 [facility] Comment on above: Order Comment: Juliana carter Type: BLOOD SPECIMENOrdering Facility: [facility] Address: [address] [place] [address] Performed By: #### 2 4323-8 ####[facility] LABCLIA [id number] [place] [address] [place] ALP [Catalytic activity/Vol] 68 U/L Normal 38-113 [facility] Comment on above: Order Comment: Juliana carter Type: BLOOD SPECIMENOrdering Facility: [facility] Address: [address] [place] [address] Performed By: #### 2 4323-8 ####[facility] LABCLIA [id number] [place] [address] [place] ALT [Catalytic activity/Vol] 19 U/L Normal 10-54 [facility] Comment on above: Order Comment: Speci men Type: BLOOD SPECIMENOrdering Facility: [facility] Address: [address] Performed By: #### 2 4323-8 ####[facility] LABCLIA [id number] [place] [address] [place] Anion gap [Moles/Vol] 7 mmol/L Low 9-18 [facility] Comment on above: Order Comment: Speci men Type: BLOOD SPECIMENOrdering Facility: [facility] Address: [address] Performed By: #### 2 4323-8 ####[facility] LABCLIA [id number] [place] [address] [place] AST [Catalytic activity/Vol] 22 U/L Normal 14-40 [facility] Comment on above: Order Comment: Speci men Type: BLOOD SPECIMENOrdering Facility: [facility] Address: [address] Performed By: #### 2 4323-8 ####[facility] LABCLIA [id number] [place] [address] [place] Bilirubin [Mass/Vol] 1.1 mg/dL Normal 0.2-1.3 [facility] Comment on above: Order Comment: Speci men Type: BLOOD SPECIMENOrdering Facility: [facility] Address: [address] Performed By: #### 2 4323-8 ####[facility] LABCLIA [id number] [place] [address] [place] Calcium [Mass/Vol] 9.7 mg/dL Normal 8.5-10.2 [facility] Comment on above: Order Comment: Speci men Type: BLOOD SPECIMENOrdering Facility: [facility] Address: [address] [place] [address] Performed By: #### 2 4323-8 ####[facility] LABCLIA [id number] [place] [address] [place] Chloride [Moles/Vol] 105 mmol/L Normal 97-105 [facility] Comment on above: Order Comment: Speci men Type: BLOOD SPECIMENOrdering Facility: [facility] Address: [address] [place] [address] Performed By: #### 2 4323-8 ####[facility] LABCLIA [id number] [place] [address] [place] CO2 [Moles/Vol] 27 mmol/L Normal 22-30 [facility] Comment on above: Order Comment: Speci men Type: BLOOD SPECIMENOrdering Facility: [facility] Address: [address] [place] [address] Performed By: #### 2 4323-8 ####[facility] LABCLIA [id number] [place] [address] [place] Creatinine [Mass/Vol] 0.84 mg/dL Normal 0.73-1.22 [facility] Comment on above: Order Comment: Speci men Type: BLOOD SPECIMENOrdering Facility: [facility] Address: [address] [place], [place] [address] Performed By: #### 2 4323-8 ####[facility] LABCLIA [id number] [place] [address] [place] Creatinine and Glomerular filtration rate.predicted panel (S/P/Bld) 96 mL/min/1.73m??? Normal >=60 [facility] Comment on above: Order Comment: Speci men Type: BLOOD SPECIMENOrdering Facility: [facility] Address: [address] [id number] Result Comment: Zakia mated Glomerular Filtration Rate (eGFR) is calculated using the 2020 CKD-EPI creatinine equation. This equation utilizes serum creatinine, sex, and age as parameters. The creatinine assay has traceable calibration to isotope dilution-mass spectrometry. Refer to KDIGO guidelines for clinical interpretation. In patients with unstable renal function, e.g. those with acute kidney injury, the eGFR may not accurately reflect actual GFR. Performed By: #### 2 4323-8 ####[facility] LABIA [id number] [place] [address] [place] Glucose [Mass/Vol] 94 mg/dL Normal 74-99 [facility] Comment on above: Order Comment: Speci men Type: BLOOD SPECIMENOrdering Facility: [facility] Address: [address] [place] [address] Result Comment: The [place] Diabetes Association (ADA) provides guidance for cutoff values for fasting glucose and random glucose. The ADA defines fasting as no caloric intake for at least 8 hours. Fasting plasma glucose results between 100 to 125 mg/dL indicate increased risk for diabetes (prediabetes). Fasting plasma glucose results greater than or equal to 126 mg/dL meet the criteria for diagnosis of diabetes. In the absence of unequivocal hyperglycemia, results should be confirmed by repeat testing. In a patient with classic symptoms of hyperglycemia or hyperglycemic crisis, random plasma glucose results greater than or equal to 200 mg/dL meet the criteria for diagnosis of diabetes. Reference: Standards of Medical Care in Diabetes 2016, [place] Diabetes Association. Diabetes Care. 2016.39(Suppl 1). Performed By: #### 2 4323-8 ####[facility] LABIA [id number] [place] [address] [place] Potassium [Moles/Vol] 4.5 mmol/L Normal 3.7-5.1 [facility] Comment on above: Order Comment: Lenkai men Type: BLOOD SPECIMENOrdering Facility: [facility] Address: [address] [phone] Performed By: #### 2 4323-8 ####[facility] LABCLIA [id number] [place] [address] [place] Protein [Mass/Vol] 7.3 g/dL Normal 6.3-8.0 [facility] Comment on above: Order Comment: Speci men Type: BLOOD SPECIMENOrdering Facility: [facility] Address: [address] [place] [address] Performed By: #### 2 4323-8 ####[facility] LABCLIA [id number] [place] [address] [place] Sodium [Moles/Vol] 139 mmol/L Normal 136-144 [facility] Comment on above: Order Comment: Speci men Type: BLOOD SPECIMENOrdering Facility: [facility] Address: [address] [place] [address] Performed By: #### 2 4323-8 ####[facility] LABCLIA [id number] [place] [address] [place] Urea nitrogen [Mass/Vol] 13 mg/dL Normal 9-24 [facility] Comment on above: Order Comment: Speci men Type: BLOOD SPECIMENOrdering Facility: [facility] Address: [address] [place] [address] Performed By: #### 2 4323-8 ####[facility] LABCLIA [id number] [place] [address] [place] HbA1c (Bld)on 05-16-2023 Average glucose Estimated from glycated hemoglobin (Bld) [Mass/Vol] 117 mg/dL [facility] HbA1c (Bld) [Mass fraction] 5.7 % High 4.3 - 5.6 % [facility] Average glucose Estimated from glycated hemoglobin (Bld) [Mass/Vol] 117 mg/dL Normal [facility] Comment on above: Order Comment: Speci men Type: BLOOD SPECIMENOrdering Facility: [facility] Address: [address] [place] [address] Result Comment: eAG: (Estimated average glucose) is a calculated value from HgbA1c and is sales account representative of the average blood glucose level in the last 2-3 month period. Performed By: #### 5 5454-3 ####[facility] LABCLIA [id number] [address] [place] HbA1c (Bld) [Mass fraction] 5.7 % High 4.3-5.6 [facility] Comment on above: Order Comment: Speci men Type: BLOOD SPECIMENOrdering Facility: [facility] Address: [address] [phone] Result Comment: [place] Diabetes Association guidelines indicate that patients with HgbA1c in the range 5.7-6.4% are at increased risk for development of diabetes, and intervention by lifestyle modification may be beneficial. HgbA1c greater or equal to 6.5% is considered diagnostic of diabetes. Performed By: #### 5 5454-3 ####[facility] LABCLIA [id number] [address] [place] Absolute lymphocyte countOrd ered By: Rivera Tim on 02-11-2023 Lymphocytes Auto (Unsp spec) [#/Vol] 1.21 10*3/uL 0.83-4.51 [facility] Basophil percentageOrdered B y: Rivera Tim on 02-11-2023 Basophils/100 WBC (Bld) 0.9 % 0-1 [facility] Chloride [Moles/Vol] 110 mmol/L 98-107 [facility] Eosinophils/100 WBC (Bld) 5.5 % 0-5 [facility] Glucose [Mass/Vol] 127 mg/dL 74-106 [facility] Comment on above: Fasting Glucose resu lt greater than or equal to 126 mg/dL suggests DIABETES MELLITUS per A.D.A. criteria. Neutrophils (Bld) [#/Vol] 2.3 10*3/uL 2.0-7.7 [facility] Neutrophils/100 WBC (Bld) 52.6 % 47-70 [facility] Potassium [Moles/Vol] 4.3 mmol/L 3.5-5.1 [facility] Sodium [Moles/Vol] 143 mmol/L 136-145 [facility] WBC (Bld) [#/Vol] 4.4 10*3/uL 4.4-11.0 [facility] Blood erythrocytes count (nu mber/volume)Ordered By: Rivera Dumont on 02-11-2023 RBC (Bld) [#/Vol] 5.07 10*6/uL 4.6-6.2 [facility] Blood hemoglobin measurement (mass/volume)Ordered By: Rivera Dumont on 02-11-2023 Hemoglobin (Bld) [Mass/Vol] 14.8 g/dL 13.0-16.5 [facility] Blood lymphocytes/100 leukoc ytesOrdered By: Rivera Dumont on 02-11-2023 Lymphocytes/100 WBC (Bld) 27.6 % 19-41 [facility] Blood monocytes/100 leukocyt esOrdered By: Rivera Dumont on 02-11-2023 Monocytes/100 WBC (Bld) 13.2 % 0-10 [facility] Blood platelet mean volumeOr dered By: Rivera Dumont on 02-11-2023 Platelet mean volume (Bld) [Entitic vol] 10.7 fL 6.2-12.0 [facility] Determination of erythrocyte mean corpuscular volume (MCV)Ordered By: Rivera Dumont on 02-11-2023 MCV (RBC) [Entitic vol] 88.2 fL 80-94 [facility] Erythrocyte sedimentation ra teOrdered By: Rivera Dumont on 02-11-2023 ESR (Bld) [Velocity] 16 mm/h 0-20 [facility] Hematocrit Auto (Bld) [Volum e fraction]Ordered By: Rivera Dumont on 02-11-2023 Hematocrit (Bld) [Volume fraction] 44.7 % 40-54 [facility] Laboratory - Chemistry and C hemistry - challengeOrdered By: Rivera Dumont on 02-11-2023 CO2 [Moles/Vol] 26.0 mmol/L 21.0-32.0 [facility] Urea nitrogen/Creatinine [Mass ratio] 27.3 mg/mg 10-20 [facility] Laboratory - Hematology and Cell countsOrdered By: Rivera Dumont on 02-11-2023 Erythrocyte distribution width (RBC) [Entitic vol] 42.9 fL 35.1-43.9 [facility] Erythrocyte distribution width (RBC) [Ratio] 13.3 % 11.6-14.6 [facility] Immature granulocytes/100 WBC (Bld) 0.200 % 0.0-0.9 [facility] Comment on above: IG% - Immature Granu locytes (promyelocytes, myelocytes and metamyelocytes) > 1% indicates that a LEFT SHIFT is Present. MCH (RBC) [Entitic mass] 29.2 pg 27.0-32.0 [facility] Nucleated RBC/100 WBC (Bld) [Ratio] 0 % 0-5 [facility] MCHC Auto (RBC) [Mass/Vol]Or dered By: Rivera Dumont on 02-11-2023 MCHC (RBC) [Mass/Vol] 33.1 g/dL 32-36 [facility] No Panel InformationOrdered By: Rivera Dumont on 02-11-2023 Estimated Creatinine Clearance Calc 75.25 ml/min [facility] Estimated GFR (MDRD) Amer 117 mL/min >60 [facility] Comment on above: GFR Calc Estimated GFR (MDRD) Non-Af Amer 97 mL/min >60 [facility] Comment on above: Non- GFR Calc Platelets bldOrdered By: Morris Dumont on 02-11-2023 Platelets (Bld) [#/Vol] 188 10*3/uL 150-450 [facility] Serum or plasma C reactive p rotein measurement (mass/volume)Ordered By: Rivera Dumont on 02-11-2023 CRP [Mass/Vol] mg/L 0.0-3.0 [facility] Comment on above: C-Reactive Protein ( CRP) provides useful information for thediagnosis, therapy and monitoring of inflammatory processesand associated diseases. For the evaluation of Relative Riskfor Cardiovascular Disease, a High Sensitivity CRP (HSCRP)should be ordered. Serum or plasma calcium matt urement (mass/volume)Ordered By: Rivera Dumont on 02-11-2023 Calcium [Mass/Vol] 9.0 mg/dL 8.5-10.1 [facility] Serum or plasma creatinine m easurement (mass/volume)Ordered By: Rivera Dumont on 02-11-2023 Creatinine [Mass/Vol] 0.84 mg/dL 0.70-1.30 [facility] Comment on above: The validity of the calculated GFR & GFRAA in patients over 70 years has not been determined. Clinical correlation is essential. Serum or plasma urea nitroge n measurement (mass/volume)Ordered By: Rivera Dumont on 02-11-2023 Urea nitrogen [Mass/Vol] 23 mg/dL 04-11 [facility] Thin prep Papanicolaou smear with manual screeningOrdered By: Rivera Dumont on 02-11-2023 Thin prep Papanicolaou smear with manual screening 7 02-06 [facility] Laboratory - Hematology and Cell countson 02-09-2023 HbA1c (Bld) [Mass fraction] 5.7 % 4.2-6.3 [facility] CNOVon 02-07-2023 CNOV Office Visit (UCWSTR ) ----- BERKLEY SARMIENTO ([id number]) 1955 M Date Time Provider Department 02/07/23 11:45 AM [place] [facility] During your visit today, we recorded the following information about you: Temperature Pulse Respiration Blood pressure 97.4 degrees 76/minute 16/minute 120/72 Weight 86.6 kg Tessa Beach APRN.[employer]GER [employer] 02/07/2023 12:01 PM Addendum ASSESSMENT/PLAN: 1. Infected blister of second toe [...] - Discussed expected course of illness Tessa Beahc APRN.AROLDO Beach APRN.AROLDO 02/07/2023 12:11 PM Signed Subjective HPI Berkley Sarmiento is a 67 year old male [...] ROBYN on CPAP 11/11/2015 AutoPAP 6-16 [facility]ME [facility] Panic disorder Rectal bleeding Snoring Xerosis cutis 11/11/2015 PAST SURGICAL HISTORY Procedure Laterality Date COLONOSCOPY FLX DX W/COLLJ SPEC WHEN PFRMD 11/10/06;01/16/2009 Colonoscopy COLONOSCOPY FLX DX W/COLLJ SPEC WHEN PFRMD 03/15/2019 Colonoscopy ESOPHAGOGASTRODUODENOSCOP Y TRANSORAL DIAGNOSTIC 2004,2006,12/2008 EGD ESOPHAGOGASTRODUODENOSCOP Y TRANSORAL DIAGNOSTIC 03/15/2019 EGD LAPAROSCOPY SURG CHOLECYSTECTOMY 11/19/2007 Cholecystectomy, lap PAST SURGICAL HISTORY OF 1955 congenital pyloric stenosis ALLERGIES Patient has no known allergies. MEDICATIONS Omeprazole 40 mg capsule Take 1 capsule by mouth once daily. celecoxib (CELEBREX) 100 mg capsule Take by mouth. CPAP Chin strap used with CPAP device. CPAP AutoPAP 6-16 cmH2O, suitable mask, humidity, filters. Lifetime supplies. Dx: G47.33. Download to [facility] in 6 weeks. cephALEXin (KEFLEX) [...] evaluation if any occur. - Discussed supportive (more content not included)... Normal [facility] Absolute lymphocyte countOrd ered By: Dr. Fisher on 12-10-2022 Lymphocytes Auto (Unsp spec) [#/Vol] 1.15 10*3/uL 0.83-4.51 [facility] Basophil percentageOrdered B y: Dr. Fisher on 12-10-2022 Basophil percentage 0 SEEN /hpf 0-5 [facility] Basophils/100 WBC (Bld) 0.5 % 0-1 [facility] Bilirubin [Mass/Vol] 1.20 mg/dL 0.20-1.00 [facility] Comment on above: For patients on eltr ombopag therapy, use of Dimension Aneta TBIL is not recommended. Chloride [Moles/Vol] 107 mmol/L 98-107 [facility] Eosinophils/100 WBC (Bld) 5.3 % 0-5 [facility] Glucose [Mass/Vol] 82 mg/dL 74-106 [facility] Neutrophils (Bld) [#/Vol] 2.0 10*3/uL 2.0-7.7 [facility] Neutrophils/100 WBC (Bld) 48.6 % 47-70 [facility] Potassium [Moles/Vol] 4.0 mmol/L 3.5-5.1 [facility] Protein [Mass/Vol] 7.7 g/dL 6.4-8.2 [facility] Sodium [Moles/Vol] 143 mmol/L 136-145 [facility] WBC (Bld) [#/Vol] 4.1 10*3/uL 4.4-11.0 [facility] Bilirubin Test strip Ql (U)O rdered By: Dr. Fisher on 12-10-2022 Bilirubin Ql (U) Negative Negative [facility] Blood erythrocytes count (nu mber/volume)Ordered By: Dr. Fisher on 12-10-2022 RBC (Bld) [#/Vol] 5.54 10*6/uL 4.6-6.2 [facility] Blood hemoglobin measurement (mass/volume)Ordered By: Dr. Fisher on 12-10-2022 Hemoglobin (Bld) [Mass/Vol] 15.9 g/dL 13.0-16.5 [facility] Blood lymphocytes/100 leukoc ytesOrdered By: Dr. Fisher on 12-10-2022 Lymphocytes/100 WBC (Bld) 27.8 % 19-41 [facility] Blood monocytes/100 leukocyt esOrdered By: Dr. Fisher on 12-10-2022 Monocytes/100 WBC (Bld) 17.6 % 0-10 [facility] Blood platelet mean volumeOr dered By: Dr. Fisher on 12-10-2022 Platelet mean volume (Bld) [Entitic vol] 11.8 fL 6.2-12.0 [facility] Determination of erythrocyte mean corpuscular volume (MCV)Ordered By: Dr. Fisher on 12-10-2022 MCV (RBC) [Entitic vol] 89.5 fL 80-94 [facility] Hematocrit Auto (Bld) [Volum e fraction]Ordered By: Dr. Fisher on 12-10-2022 Hematocrit (Bld) [Volume fraction] 49.6 % 40-54 [facility] INR in Blood by Coagulation assayOrdered By: Dr. Fisher on 12-10-2022 INR Coag (Bld) [Relative time] 1.0 {INR} [facility] Ketones Test strip Ql (U)Ord ered By: Dr. Fisher on 12-10-2022 Ketones Ql (U) Negative Negative [facility] Laboratory - Chemistry and C hemistry - challengeOrdered By: Dr. Fisher on 12-10-2022 ALP [Catalytic activity/Vol] 73 U/L 45-117 [facility] ALT [Catalytic activity/Vol] 37 U/L 16-61 [facility] CO2 [Moles/Vol] 28.0 mmol/L 21.0-32.0 [facility] Globulin (S) [Mass/Vol] 4.2 g/dL 2.2-4.2 [facility] Lipase [Catalytic activity/Vol] 84 U/L 73-393 [facility] Urea nitrogen/Creatinine [Mass ratio] 17.5 mg/mg 10-20 [facility] Laboratory - CoagulationOrde red By: Dr. Fisher on 12-10-2022 aPTT Coag (Bld) [Time] 28.8 s 24.1-36.[address] [facility] PT Coag (PPP) [Time] 13.1 s 11.7-14.9 [facility] Laboratory - Hematology and Cell countsOrdered By: Dr. Fisher on 12-10-2022 Erythrocyte distribution width (RBC) [Entitic vol] 42.5 fL 35.1-43.9 [facility] Erythrocyte distribution width (RBC) [Ratio] 12.9 % 11.6-14.6 [facility] Immature granulocytes/100 WBC (Bld) 0.200 % 0.0-0.9 [facility] Comment on above: IG% - Immature Granu locytes (promyelocytes, myelocytes and metamyelocytes) > 1% indicates that a LEFT SHIFT is Present. MCH (RBC) [Entitic mass] 28.7 pg 27.0-32.0 [facility] Nucleated RBC/100 WBC (Bld) [Ratio] 0 % 0-5 [facility] MCHC Auto (RBC) [Mass/Vol]Or dered By: Dr. Fisher on 12-10-2022 MCHC (RBC) [Mass/Vol] 32.1 g/dL 32-36 [facility] Mucus LM Ql (Urine sed)Order ed By: Dr. Fisher on 12-10-2022 Mucus Ql (Urine sed) 0 SEEN /hpf [facility] Nitrite Test strip Ql (U)Ord ered By: Dr. Fisher on 12-10-2022 Nitrite Ql (U) Negative Negative [facility] No Panel InformationOrdered By: Dr. Fisher on 12-10-2022 Estimated Creatinine Clearance Calc 61.37 ml/min [facility] Estimated GFR (MDRD) Amer 93 mL/min >60 [facility] Comment on above: GFR Calc Estimated GFR (MDRD) Non-Af Amer 77 mL/min >60 [facility] Comment on above: Non- GFR Calc Platelets bldOrdered By: Dr. Fisher on 12-10-2022 Platelets (Bld) [#/Vol] 173 10*3/uL 150-450 [facility] Protein Test strip Ql (U)Ord ered By: Dr. Fisher on 12-10-2022 Protein Ql (U) Negative Negative [facility] Serum or plasma albumin matt urement (mass/volume)Ordered By: Dr. Fisher on 12-10-2022 Albumin [Mass/Vol] 3.5 g/dL 3.2-5.0 [facility] Serum or plasma albumin/glob ulin mass ratioOrdered By: Dr. Fisher on 12-10-2022 Albumin/Globulin [Mass ratio] 0.8 {ratio} 0.9-2.4 [facility] Serum or plasma calcium matt urement (mass/volume)Ordered By: Dr. Fisher on 12-10-2022 Calcium [Mass/Vol] 9.1 mg/dL 8.5-10.1 [facility] Serum or plasma creatinine m easurement (mass/volume)Ordered By: Dr. Fisher on 12-10-2022 Creatinine [Mass/Vol] 1.03 mg/dL 0.70-1.30 [facility] Comment on above: The validity of the calculated GFR & GFRAA in patients over 70 years has not been determined. Clinical correlation is essential. Serum or plasma urea nitroge n measurement (mass/volume)Ordered By: Dr. Fisher on 12-10-2022 Urea nitrogen [Mass/Vol] 18 mg/dL 7 [facility] Squamous epithelial cells de tection in urine sediment by light microscopyOrdered By: Dr. Fisher on 12-10-2022 Epithelial cells.squamous LM Ql (Urine sed) 0 SEEN /hpf 0-5 [facility] Thin prep Papanicolaou smear with manual screeningOrdered By: Dr. Fisher on 12-10-2022 Thin prep Papanicolaou smear with manual screening 33 U/L 15-37 [facility] Thin prep Papanicolaou smear with manual screening 8 5-15 [facility] Urine blood detectionOrdered By: Dr. Fisher on 12-10-2022 RBC Ql (U) Negative Negative [facility] RBC Ql (U) 0 SEEN /hpf 0-5 [facility] Urine clarityOrdered By: Dr. Fisher on 12-10-2022 Clarity (U) Clear Clear [facility] Urine color determinationOrd ered By: Dr. Fisher on 12-10-2022 Color (U) Yellow Yellow [facility] Urine glucose detectionOrder ed By: Dr. Fisher on 12-10-2022 Glucose Ql (U) Normal mg/dl Normal [facility] Urine leukocyte esterase det ection by dipstickOrdered By: Dr. Fisher on 12-10-2022 Leukocyte esterase Test strip Ql (U) Negative Negative [facility] Urine pHOrdered By: Dr. Megan lee on 12-10-2022 pH (U) 7.0 [pH] 5.0 - 8.0 [facility] Urine sediment bacteria coun t by microscopy (number/high power field)Ordered By: Dr. Fisher on 12-10-2022 Bacteria LM.HPF (Urine sed) [#/Area] 0 /[HPF] None Seen [facility] Urine specific gravity measu rementOrdered By: Dr. Fisher on 12-10-2022 Specific gravity (U) [Rel density] 1.010 1.002-1.03 0 [facility] Urobilinogen Auto test strip Ql (U)Ordered By: Dr. Fisher on 12-10-2022 Urobilinogen Ql (U) Normal mg/dl Normal [facility] CNPNon 12-08-2022 CNPN Telephone ([facility]) ----- BERKLEY SARMIENTO ([id number]) 1955 M Date Time Provider Department 12/08/22 ALBERT SAEZ [facility] During your visit today, we recorded the following information about you: MITCHELL Reagan 12/08/2022 7:19 AM Signed You tested positive for COVID-19. Follow the [...] patient to call PCP or schedule an [facility] care virtual visit to discuss antiviral if interested. Alma Villar LPN 12/08/2022 8:09 AM Signed Patient notified and verbalized understanding of instructions given.Alma Villar LPN Allergies As of Date: 12/08/2022 (No Known Allergies) Date Reviewed: 12/07/2022 Reviewed by: Alma Villar LPN - Fully Assessed Reason for Visit: Results [95] Prescriptions as of 12/08/2022 - Omeprazole 40 mg capsule Take 1 capsule by mouth once daily. - polyethylene glycol 3350 (MIRALAX, GLYCOLAX) 17 gram/dose powder Take 17 g by mouth once daily. - celecoxib (CELEBREX) 100 mg capsule Take by mouth. - lactase (LACTAID) 3,000 unit tablet Take 1 tablet by mouth three times daily with meals. - CPAP Chin strap used with CPAP device. - CPAP AutoPAP 6-16 cmH2O, suitable mask, humidity, filters. Lifetime supplies. Dx: G47.33. Download to PISTIS Consult in 6 weeks. Problem List As Of Date 12/08/2022 Noted Resolved History of skin cancer [Z85.828] 11/11/2015 Xerosis cutis [L85.3] 11/11/2015 GERD (gastroesophageal reflux disease) [K21.9] 11/11/2015 ROBYN on CPAP [G47.33, Z99.89] 11/11/2015 Left-sided weakness [R53.1] 11/11/2015 Pruritus [L29.9] 11/11/2015 Morbid obesity due to excess calories (HCC) [E6*11/11/2015 Irritable bowel syndrome with diarrhea [K58.0] 11/11/2015 History of Terry's esophagus [Z87.19] 02/17/2016 History of colon polyps [Z86.010] 02/17/2016 Cervical disc disorder with radiculopathy [M50.*03/25/2019 Encounter Status:Closed by ALMA VILLAR LPN on 12/08/22 [facility] CNOVon 12-07-2022 CNOV Office Visit ([facility] ) ----- BERKLEY SARMIENTO ([id number]) 1955 Date Time Provider Department 12/07/22 4:15 PM HELENA WHITEHEAD [facility] During your visit today, we recorded the following information about you: Temperature Pulse Respiration Blood pressure 98.4 degrees 74/minute 16/minute 142/72 Weight 89.2 kg Helena Whitehead APRN.CNP 12/07/2022 5:14 PM Signed This note was created using Thengine Coriter. Subjective Berkley Sarmiento is a 67 year old male. [...] history is provided by the patient. No supervisor modern languages was used. Cough This is a new [...] ROBYN on CPAP 11/11/2015 AutoPAP 6-16 DME [facility] Panic disorder Rectal bleeding Snoring Xerosis cutis 11/11/2015 PAST SURGICAL HISTORY Procedure Laterality Date COLONOSCOPY FLX DX W/COLLJ SPEC WHEN PFRMD 2/16/07;01/16/2009 Colonoscopy COLONOSCOPY FLX DX W/COLLJ SPEC WHEN PFRMD 03/15/2019 Colonoscopy ESOPHAGOGASTRODUODENOSCOP Y TRANSORAL DIAGNOSTIC 2004,2006,12/2008 EGD ESOPHAGOGASTRODUODENOSCOP Y TRANSORAL DIAGNOSTIC 03/15/2019 EGD LAPAROSCOPY SURG CHOLECYSTECTOMY [...] filters. Lifetime supplies. Dx: G47.33. Download to PISTIS Consult in 6 weeks. polyethylene glycol 3350 (MIRALAX, [...] Temp 36.9 ?C (98.4 ?F) (Tympanic) Resp 1 (more content not included)... Normal [facility] FLUABV + SARS-CoV-2 Pnl Resp TAYLER+prbon 12-07-2022 Influenza virus A and B RNA and SARS-CoV-2 (COVID-19) N gene panel TAYLER+probe (Resp) COVID 19 RESULT: Detected The method used is RT-PCR or an equivalent NAAT method. Reference Range (the expected result in uninfected individuals): Not detected INFLUENZA A PCR: Not detected INFLUENZA B PCR: Not detected Abnormal [facility] Comment on above: Performed By: #### [id number] ####[facility] LABCLIA [id number] [address] OF [facility] XR CHEST 2V FRONTAL/LATon XR CHEST 2V FRONTAL/LAT * * *Final Repor t* * * DATE OF EXAM: Dec 07 2022 4:33PM WOX 5291 - XR CHEST 2V FRONTAL/LAT / PROCEDURE REASON: multiple diagnoses * * * * Physician Interpretation * * * * EXAMINATION: CHEST RADIOGRAPH (2 VIEW FRONTAL and LATERAL) CLINICAL HISTORY: URI, acute Acute cough MQ: XC2_6 EXAM DATE/TIME: 12/07/2022 4:33 PM COMPARISON: Radiograph dated November 09, 2011 RESULT: Lines, tubes, and devices: None. Lungs and pleura: No consolidation. No lung mass. No pleural effusion. No pneumothorax. Cardiomediastinal silhouette: Normal cardiomediastinal silhouette. Bones and soft tissues: Surgical clips in the upper abdomen. Mild degenerative changes in the spine. IMPRESSION: No acute radiographic abnormality. Vegetable Thinner: [facility] Transcribe Date/Time: Dec 07 2022 4:34P Dictated by : RICCO SOLIZ MD This examination was interpreted and the report reviewed and electronically signed by: RICCO SOLIZ MD on Dec 07 2022 4:35PM EST [id number] Normal [facility] XR Chest PA and Lateralon IMPRESSION: No acute radiographic abnormality. Vegetable Thinner: CELSO Transcribe Date/Time: Dec 07 2022 4:34P Dictated by : RICCO SOLIZ MD This examination was interpreted and the report reviewed and electronically signed by: RICCO SOLIZ MD on Dec 07 2022 4:35PM [facility] DIVISION OF RADIOLOGY * * *Final Report* * * DATE OF EXAM: Dec 07 2022 4:33PM WOX 5291 - XR CHEST 2V FRONTAL/LAT / PROCEDURE REASON: multiple diagnoses * * * * Physician Interpretation * * * * EXAMINATION: CHEST RADIOGRAPH (2 VIEW FRONTAL & LATERAL) CLINICAL HISTORY: URI, acute Acute cough MQ: XC2_6 EXAM DATE/TIME: 12/07/2022 4:33 PM COMPARISON: Radiograph dated November 09, 2011 RESULT: Lines, tubes, and devices: None. Lungs and pleura: No consolidation. No lung mass. No pleural effusion. No pneumothorax. Cardiomediastinal silhouette: Normal cardiomediastinal silhouette. Bones and soft tissues: Surgical clips in the upper abdomen. Mild degenerative changes in the spine. DIVISION OF RADIOLOGY Provider, [facility] - 12/07/2022 * * *Final Report* * * DATE OF EXAM: Dec 07 2022 4:33PM WOX 5291 - XR CHEST 2V FRONTAL/LAT / PROCEDURE REASON: multiple diagnoses * * * * Physician Interpretation * * * * EXAMINATION: CHEST RADIOGRAPH (2 VIEW FRONTAL & LATERAL) CLINICAL HISTORY: URI, acute Acute cough MQ: XC2_6 EXAM DATE/TIME: 12/07/2022 4:33 PM COMPARISON: Radiograph dated November 09, 2011 RESULT: Lines, tubes, and devices: None. Lungs and pleura: No consolidation. No lung mass. No pleural effusion. No pneumothorax. Cardiomediastinal silhouette: Normal cardiomediastinal silhouette. Bones and soft tissues: Surgical clips in the upper abdomen. Mild degenerative changes in the spine. IMPRESSION IMPRESSION: No acute radiographic abnormality. Vegetable Thinner: CELSO Transcribe Date/Time: Dec 07 2022 4:34P Dictated by : RICCO SOLIZ MD This examination was interpreted and the report reviewed and electronically signed by: RICCO SOLIZ MD on Dec 07 2022 4:35PM EST [facility] Radiology Study observation (narrative) Sissy heaton [facility] XR Chest PA and LateralOrder ed By: Ccf Provider on 12-07-2022 [facility] CNOVon 10-22-2022 CNOV Office Visit ([facility] ) ----- BERKLEY SARMIENTO ([id number]) 1955 M Date Time Provider Department 10/22/22 10:45 AM ASHA MCLEAN [facility] During your visit today, we recorded the following information about you: Temperature Pulse Respiration Blood pressure 97 degrees 76/minute 21/minute 148/88 Weight 89 kg Asha Mclean APRN.MANAGER IND[employer]RIAL 10/22/2022 11:00 AM Signed Subjective The history is provided by the patient. No supervisor modern languages was used. HPI Berkley Sarmiento is a 67 year old male [...] ROBYN on CPAP 11/11/2015 AutoPAP 6-16 DME [facility] Panic disorder Rectal bleeding Snoring Xerosis cutis 11/11/2015 I have confirmed and edited as necessary, the [facility] Review of Systems Constitutional: Negative for chills [...] detail warranting prompt ER evaluation. Asha Mclean APRN.MANAGER [employer] Allergies As of Date: 10/22/2022 (No Known Allergies) Date Reviewed: 10/22/2022 Reviewed by: Asha Mclean APRN.MANAGER INDUSTRI[employer] - Fully Assessed Reason for Visit: Pain [78] Cmt: Jaw and teeth hurt x 2 days Primary Visit Diagnosis:Pain, dental [K08.89] Other Visit Diagnosis:Jaw pain [R68.84] Order(s):amoxicillin (AMOXIL) 875 mg tabletTake 1 tablet by mouth twice daily for 5 days.Disp: 10 tabletRfl: 0 Prescriptions as of 10/22/2022 - amoxicillin (AMOXIL) 875 mg tablet Take 1 tablet by mouth twice daily for 5 days. - Omeprazole 40 mg capsule Take 1 capsule by mouth once daily. - polyethylene glycol 3350 (MIRALAX, GLYCOLAX) 17 gram/dose powder Take 17 g by mouth once daily. - celecoxib (CELEBREX) 100 mg capsule Take by mouth. - lactase (LACTAID) 3,000 unit tablet Take 1 tablet by mouth three times daily with meals. - CPAP Chin strap used with CPAP device. - CPAP AutoPAP 6-16 cmH2O, suitable mask, humidity, filters. Lifetime supplies. Dx: G47.33. Download to PISTIS Consult in 6 weeks. Problem List As Of Date 10/22/2022 Noted Resolved History of skin cancer [Z85.828] 11/11/2015 Xerosis cutis [L85.3] 11/11/2015 GERD (gastroesophageal reflux disea (more content not included)... Normal [facility] CNOVon 06-03-2022 CNOV Office Visit ([facility] ) ----- BERKLEY SARMIENTO ([id number]) 1955 M Date Time Provider Department 06/03/22 11:15 AM [facility] During your visit today, we recorded the following information about you: Temperature Pulse Respiration Blood pressure 98.1 degrees 82/minute 16/minute 132/84 Weight 86 kg Justin Leigh PA-C 06/03/2022 1:22 PM Signed This note was created using NoteWriter. Subjective Berkley Sarmiento is a 66 year old male. [...] Arthritis Terry's esophagus 11/11/2015 Degenerative disc disease 2011 neck Diverticulosis Fecal incontinence Fibromyalgia GERD (gastroesophageal reflux disease) 11/11/2015 Hemorrhoids Hiatal hernia History of colon polyps 02/17/2016 Tubular adenoma History of shingles History of skin cancer 11/11/[address] Boss? 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 Panic disorder Rectal bleeding Snoring Xerosis [...] filters. Lifetime supplies. Dx: G47.33. Download to PISTIS Consult in 6 weeks. 1 Device 0 cephALEXin [...] DX W/COLLJ SPEC WHEN PFRMD 03/15/2019 Colonoscopy ESOPHAGOGASTRODUODENOSCOP Y TRANSORAL DIAGNOSTIC 2004,2006,12/2008 EGD ESOPHAGOGASTRODUODENOSCOP Y TRANSORAL DIAGNOSTIC 03/15/2019 EGD LAPAROSCOPY SURG CHOLECYSTECTOMY [...] XR WRIST INJURY 4V PA/LAT/OBL/SCAPH LEFT Justin Leigh PA-C Referring Provider: SELF [200] Allergies As of Date: 06/03/2022 (No Known Allergies) Date Reviewed: 06/03/2022 Reviewed by: Pj Pendlebury, [employer] ENGINEER.MANAGER INDUSTRIAL - Fully Assessed Reason for Visit: Trauma [112] Cmt: Pt reported (LT) hand injury, x1 day reported cutting food (more content not included)... Normal [facility] XR WRIST 4V PA/LAT/OBL/SCAPH LTon 06-03-2022 XR WRIST 4V PA/LAT/OBL/SCAPH LT * * *Final Report* * * DATE OF EXAM: Jun 03 2022 11:24AM WOX 5272 - XR WRIST 4V PA/LAT/OBL/SCAPH LT / PROCEDURE REASON: Wrist laceration, left, initial encounter * * * * Physician Interpretation * * * * EXAMINATION: XR WRIST 4V PA/LAT/OBL/SCAPH LT CLINICAL HISTORY: Left wrist pain Technique: XR WRIST 4V PA/LAT/OBL/SCAPH LT -- LEFT with 4 views on 4 images Comparison: None RESULT: No acute fracture or dislocation. Joint spaces are maintained. No radiodense foreign body is visualized. IMPRESSION: No acute fracture or dislocation Vegetable Thinner: [facility] Transcribe Date/Time: Jun 03 2022 11:33A Dictated by : VILMA YAO MD This examination was interpreted and the report reviewed and electronically signed by: VILMA YAO MD on Jun 03 2022 11:35AM EST [id number] Normal [facility] XR Wrist - left 4 Viewson IMPRESSION: No acute fracture or dislocation Vegetable Thinner: [facility] Transcribe Date/Time: Jun 03 2022 11:33A Dictated by : VILMA YAO MD This examination was interpreted and the report reviewed and electronically signed by: VILMA YAO MD on Jun 03 2022 11:35AM EST DIVISION OF RADIOLOGY * * *Final Report* * * DATE OF EXAM: Jun 03 2022 11:24AM WOX 5272 - XR WRIST 4V PA/LAT/OBL/SCAPH LT / PROCEDURE REASON: Wrist laceration, left, initial encounter * * * * Physician Interpretation * * * * EXAMINATION: XR WRIST 4V PA/LAT/OBL/SCAPH LT CLINICAL HISTORY: Left wrist pain Technique: XR WRIST 4V PA/LAT/OBL/SCAPH LT -- LEFT with 4 views on 4 images Comparison: None RESULT: No acute fracture or dislocation. Joint spaces are maintained. No radiodense foreign body is visualized. DIVISION OF RADIOLOGY Provider, [facility] - 06/03/2022 * * *Final Report* * * DATE OF EXAM: Jun 03 2022 11:24AM WOX 5272 - XR WRIST 4V PA/LAT/OBL/SCAPH LT / PROCEDURE REASON: Wrist laceration, left, initial encounter * * * * Physician Interpretation * * * * EXAMINATION: XR WRIST 4V PA/LAT/OBL/SCAPH LT CLINICAL HISTORY: Left wrist pain Technique: XR WRIST 4V PA/LAT/OBL/SCAPH LT -- LEFT with 4 views on 4 images Comparison: None RESULT: No acute fracture or dislocation. Joint spaces are maintained. No radiodense foreign body is visualized. IMPRESSION IMPRESSION: No acute fracture or dislocation Vegetable Thinner: CEL[facility] Transcribe Date/Time: Jun 03 2022 11:33A Dictated by : VILMA YAO MD This examination was interpreted and the report reviewed and electronically signed by: VILMA YAO MD on Jun 03 2022 11:35AM EST [facility] Radiology Study observation (narrative) Sissy heaton [facility] XR Wrist - left 4 ViewsOrder ed By: Cc Provider on 06-03-2022 [facility] Absolute lymphocyte counton 12-27-2021 Lymphocytes Auto (Unsp spec) [#/Vol] 1.40 10*3/uL 0.83-4.51 [facility] Work Phone: Basophil percentageon 2021 Amylase [Catalytic activity/Vol] 26 U/L 25-115 [facility] Work Phone: Basophils/100 WBC (Bld) 0.4 % 0-1 [facility] Work Phone: [phone] Bilirubin [Mass/Vol] 1.30 mg/dL 0.20-1.00 [facility] Work Phone: Comment on above: For patients on eltr ombopag therapy, use of Dimension Aneta TBIL is not recommended. Chloride [Moles/Vol] 107 mmol/L 98-107 [facility] Work Phone: [phone] Eosinophils/100 WBC (Bld) 5.3 % 0-5 [facility] Work Phone: [phone] Glucose [Mass/Vol] 109 mg/dL 74-106 [facility] Work Phone: Comment on above: Fasting Glucose resu lt from 100 to 125 mg/dL suggests IMPAIRED HOMEOSTASIS per A.D.A. criteria. Neutrophils (Bld) [#/Vol] 2.8 10*3/uL 2.0-7.7 [facility] Work Phone: Neutrophils/100 WBC (Bld) 53.3 % 47-70 [facility] Work Phone: Potassium [Moles/Vol] 4.3 mmol/L 3.5-5.1 [facility] Work Phone: Protein [Mass/Vol] 7.5 g/dL 6.4-8.2 [facility] Work Phone: Sodium [Moles/Vol] 140 mmol/L 136-145 [facility] Work Phone: WBC (Bld) [#/Vol] 5.3 10*3/uL 4.4-11.0 [facility] Work Phone: [phone] Blood erythrocytes count (nu mber/volume)on 12-27-2021 RBC (Bld) [#/Vol] 5.47 10*6/uL 4.6-6.2 [facility] Work Phone: Blood hemoglobin measurement (mass/volume)on 12-27-2021 Hemoglobin (Bld) [Mass/Vol] 15.8 g/dL 13.0-16.5 [facility] Work Phone: Blood lymphocytes/100 leukoc yteson 12-27-2021 Lymphocytes/100 WBC (Bld) 26.6 % 19-41 [facility] Work Phone: Blood monocytes/100 leukocyt eson 12-27-2021 Monocytes/100 WBC (Bld) 14.0 % 0-10 [facility] Work Phone: Blood platelet mean volumeon 12-27-2021 Platelet mean volume (Bld) [Entitic vol] 11.0 fL 6.2-12.0 [facility] Work Phone: Determination of erythrocyte mean corpuscular volume (MCV)on 12-27-2021 MCV (RBC) [Entitic vol] 88.5 fL 80-94 [facility] Work Phone: [phone] Direct bilirubinon Bilirubin.direct [Mass/Vol] 0.25 mg/dL 0.00-0.30 [facility] Work Phone: [phone] Hematocrit Auto (Bld) [Volum e fraction]on 12-27-2021 Hematocrit (Bld) [Volume fraction] 48.4 % 40-54 [facility] Work Phone: [phone] Laboratory - Chemistry and C hemistry - challengeon 12-27-2021 ALP [Catalytic activity/Vol] 67 U/L 45-117 [facility] Work Phone: [phone] ALT [Catalytic activity/Vol] 30 U/L 16-61 [facility] Work Phone: [phone] CO2 [Moles/Vol] 30.0 mmol/L 21.0-32.0 [facility] Work Phone: [phone] Globulin (S) [Mass/Vol] 4.0 g/dL 2.2-4.2 [facility] Work Phone: [phone] Lipase [Catalytic activity/Vol] 50 U/L 73-393 [facility] Work Phone: [phone] Urea nitrogen/Creatinine [Mass ratio] 15.6 mg/mg 10-20 [facility] Work Phone: [phone] Laboratory - Hematology and Cell countson 12-27-2021 Erythrocyte distribution width (RBC) [Entitic vol] 42.4 fL 35.1-43.9 [facility] Work Phone: [phone] Erythrocyte distribution width (RBC) [Ratio] 13.0 % 11.6-14.6 [facility] Work Phone: [phone] Immature granulocytes/100 WBC (Bld) 0.400 % 0.0-0.9 [facility] Work Phone: Comment on above: IG% - Immature Granu locytes (promyelocytes, myelocytes and metamyelocytes) > 1% indicates that a LEFT SHIFT is Present. MCH (RBC) [Entitic mass] 28.9 pg 27.0-32.0 [facility] Work Phone: Nucleated RBC/100 WBC (Bld) [Ratio] 0 % 0-5 [facility] Work Phone: MCHC Auto (RBC) [Mass/Vol]on 12-27-2021 MCHC (RBC) [Mass/Vol] 32.6 g/dL 32-36 [facility] Work Phone: No Panel Informationon 12-27 Estimated GFR (MDRD) Amer 109 mL/min >60 [facility] Work Phone: Comment on above: GFR Calc Estimated GFR (MDRD) Non-Af Amer 90 mL/min >60 [facility] Work Phone: Comment on above: Non- GFR Calc Platelets bldon 12-27-2021 Platelets (Bld) [#/Vol] 197 10*3/uL 150-450 [facility] Work Phone: Serum or plasma albumin matt urement (mass/volume)on 12-27-2021 Albumin [Mass/Vol] 3.5 g/dL 3.2-5.0 [facility] Work Phone: Serum or plasma albumin/glob ulin mass ratioon 12-27-2021 Albumin/Globulin [Mass ratio] 0.9 {ratio} 0.9-2.4 [facility] Work Phone: Serum or plasma calcium matt urement (mass/volume)on 12-27-2021 Calcium [Mass/Vol] 9.1 mg/dL 8.5-10.1 [facility] Work Phone: Serum or plasma creatinine m easurement (mass/volume)on 12-27-2021 Creatinine [Mass/Vol] 0.90 mg/dL 0.70-1.30 [facility] Work Phone: Comment on above: The validity of the calculated GFR & GFRAA in patients over 70 years has not been determined. Clinical correlation is essential. Serum or plasma urea nitroge n measurement (mass/volume)on 12-27-2021 Urea nitrogen [Mass/Vol] 14 mg/dL 7-18 [facility] Work Phone: Thin prep Papanicolaou smear with manual screeningon 12-27-2021 Thin prep Papanicolaou smear with manual screening 22 U/L 15-37 [facility] Work Phone: Thin prep Papanicolaou smear with manual screening 3 5-15 [facility] Work Phone: No Panel Information [facility] Vital Signs Date Time Vital Sign Value Performing Clinician Facility 01-15-2024 11:05-0400 Body temperature 97.3 [degF] Dr. Rinku Rubi Work Phone: [facility] 01-15-2024 11:05-0400 Diastolic blood pressure 80 mm[Hg] Dr. Rinku Rubi Work Phone: [facility] 01-15-2024 11:05-0400 Heart rate 72 /min Dr. Rinku Rubi Work Phone: [facility] 01-15-2024 11:05-0400 Respiratory rate 18 /min Dr. Rinku Rubi Work Phone: [facility] 01-15-2024 11:05-0400 SaO2% (BldA) [Mass fraction] 96 % Dr. Rinku Rubi Work Phone: [facility] 01-15-2024 11:05-0400 Systolic blood pressure 122 mm[Hg] Dr. Rinku Rubi Work Phone: [facility] 01-15-2024 09:49-0400 Body height 167.[address] Rinku Rubi Work Phone: [facility] 01-15-2024 09:49-0400 Body mass index (BMI) [Ratio] 29.7 kg/m2 Dr. Rinku Rubi Work Phone: [facility] 01-15-2024 09:49-0400 Body weight 83.[address] Rinku Rubi Work Phone: [facility] 01-11-2024 13:06-0400 Body height 167.6 cm Ronnell Ken DO Work Phone: [facility] 01-11-2024 13:06-0400 Body temperature 97.81 [degF] Lerna Ken DO Work Phone: [facility] 01-11-2024 13:06-0400 Body weight 84.82 kg Lerna Ken DO Work Phone: [facility] 01-11-2024 13:06-0400 Diastolic blood pressure 80 mm[Hg] Ronnell Ken DO Work Phone: [facility] 01-11-2024 13:06-0400 Heart rate 74 /min Lerna Ken DO Work Phone: [facility] 01-11-2024 13:06-0400 SaO2% (BldA) [Mass fraction] 94 % Ronnell Ken DO Work Phone: [facility] 01-11-2024 13:06-0400 Systolic blood pressure 128 mm[Hg] Ronnell Ken DO Work Phone: [facility] 12-11-2023 14:09-0400 Body height 167.6 cm Alyce Mikulski PA-C Work Phone: [facility] 12-11-2023 14:09-0400 Body temperature 98.29 [degF] Alyce Mikulski PA-C Work Phone: [facility] 12-11-2023 14:09-0400 Body weight 84.37 kg Alyce Mikulski PA-C Work Phone: [facility] 10-11-2023 12:22-0500 Body height 167.[address] Rinku Rubi Work Phone: [facility] 10-11-2023 12:22-0500 Body mass index (BMI) [Ratio] 29.8 kg/m2 Dr. Rinku Rubi Work Phone: [facility] 10-11-2023 12:22-0500 Body temperature 96 [degF] Dr. Rinku Rubi Work Phone: [facility] 10-11-2023 12:22-0500 Body weight 83.[address] Rinku Rubi Work Phone: [facility] 10-11-2023 12:22-0500 Diastolic blood pressure 89 mm[Hg] Dr. Rinku Rubi Work Phone: [facility] 10-11-2023 12:22-0500 Heart rate 73 /min Dr. Rinku Rubi Work Phone: [facility] 10-11-2023 12:22-0500 Respiratory rate 18 /min Dr. Rinku Rubi Work Phone: [facility] 10-11-2023 12:22-0500 SaO2% (BldA) [Mass fraction] 99 % Dr. Rinku Rubi Work Phone: [facility] 10-11-2023 12:22-0500 Systolic blood pressure 152 mm[Hg] Dr. Rinku Ruib Work Phone: [facility] 05-30-2023 08:02-0400 Body height 165.[address] Rinku Rubi Work Phone: [facility] 05-30-2023 08:02-0400 Body mass index (BMI) [Ratio] 28.3 kg/m2 Dr. Rinku Rubi Work Phone: [facility] 05-30-2023 08:02-0400 Body temperature 96.9 [degF] Dr. Rinku Rubi Work Phone: [facility] 05-30-2023 08:02-0400 Body weight 77.[address] Rinku Rubi Work Phone: [facility] 05-30-2023 08:02-0400 Diastolic blood pressure 83 mm[Hg] Dr. Rinku Rubi Work Phone: [facility] 05-30-2023 08:02-0400 Heart rate 63 /min Dr. Rinku Rubi Work Phone: [facility] 05-30-2023 08:02-0400 Respiratory rate 16 /min Dr. Rinku Rubi Work Phone: [facility] 05-30-2023 08:02-0400 Systolic blood pressure 133 mm[Hg] Dr. Rinku Rubi Work Phone: [facility] 05-20-2023 15:15-0400 Body temperature 97.8 [degF] Dr. Rinku Rubi Work Phone: [facility] 05-20-2023 15:15-0400 Diastolic blood pressure 81 mm[Hg] Dr. Rinku Rubi Work Phone: [facility] 05-20-2023 15:15-0400 Heart rate 68 /min Dr. Rinku Rubi Work Phone: [facility] 05-20-2023 15:15-0400 Respiratory rate 16 /min Dr. Rinku Rubi Work Phone: [facility] 05-20-2023 15:15-0400 SaO2% (BldA) [Mass fraction] 97 % Dr. Rinku Rubi Work Phone: [facility] 05-20-2023 15:15-0400 Systolic blood pressure 122 mm[Hg] Dr. Rinku Rubi Work Phone: [facility] 05-20-2023 13:17-0400 SaO2% (BldA) [Mass fraction] 98 % Dr. Rinku Rubi Work Phone: [facility] 05-20-2023 09:40-0400 Body temperature 98.6 [degF] Dr. Rinku Rubi Work Phone: [facility] 05-20-2023 09:40-0400 Diastolic blood pressure 69 mm[Hg] Dr. Rinku Rubi Work Phone: [facility] 05-20-2023 09:40-0400 Heart rate 67 /min Dr. Rinku Rubi Work Phone: [facility] 05-20-2023 09:40-0400 Respiratory rate 16 /min Dr. Rinku Rubi Work Phone: [facility] 05-20-2023 09:40-0400 Systolic blood pressure 134 mm[Hg] Dr. Rinku Rubi Work Phone: [facility] 05-20-2023 01:35-0400 Body mass index (BMI) [Ratio] 29.5 kg/m2 Dr. Rinku Rubi Work Phone: [facility] 05-19-2023 18:09-0400 Body height 165.[address] Rinku Rubi Work Phone: [facility] 05-19-2023 18:09-0400 Body weight 80.[address] Rinku Rubi Work Phone: [facility] 05-19-2023 17:30-0400 Diastolic blood pressure 88 mm[Hg] Dr. Rinku Rubi Work Phone: [facility] 05-19-2023 17:30-0400 Heart rate 65 /min Dr. Rinku Rubi Work Phone: [facility] 05-19-2023 17:30-0400 Respiratory rate 16 /min Dr. Rinku Rubi Work Phone: [facility] 05-19-2023 17:30-0400 SaO2% (BldA) [Mass fraction] 94 % Dr. Rinku Rubi Work Phone: [facility] 05-19-2023 17:30-0400 Systolic blood pressure 133 mm[Hg] Dr. Rinku Rubi Work Phone: [facility] 05-19-2023 17:06-0400 Body temperature 97.8 [degF] Dr. Rinku Rubi Work Phone: [facility] 05-19-2023 15:21-0400 Body mass index (BMI) [Ratio] 31.6 kg/m2 Dr. Rinku Rubi Work Phone: [facility] 05-19-2023 15:21-0400 Body weight 86.[address] Rinku Rubi Work Phone: [facility] 05-19-2023 15:20-0400 Body height 165.[address] Rinku Rubi Work Phone: [facility] 05-19-2023 10:57-0400 Body temperature 97.59 [degF] Seble Dorantes APRN.MANAGER INDUSTRIAL Work Phone: [facility] 05-19-2023 10:57-0400 Body weight 81.92 kg Seble Dorantes APRN.MANAGER INDUSTRIAL Work Phone: [facility] 05-19-2023 10:57-0400 Diastolic blood pressure 78 mm[Hg] Seble Dorantes APRN.MANAGER INDUSTRIAL Work Phone: [facility] 05-19-2023 10:57-0400 Heart rate 74 /min Seble Dorantes APRN.MANAGER INDUSTRIAL Work Phone: [facility] 05-19-2023 10:57-0400 Respiratory rate 18 /min Seble Dorantes APRN.MANAGER INDUSTRIAL Work Phone: [facility] 05-19-2023 10:57-0400 SaO2% (BldA) [Mass fraction] 97 % Seble Dorantes SPACECRAFT SYSTEMS ENGINEER.MANAGER INDUSTRIAL Work Phone: [facility] 05-19-2023 10:57-0400 Systolic blood pressure 126 mm[Hg] Seble Dorantes SPACECRAFT SYSTEMS ENGINEER.MANAGER INDUSTRIAL Work Phone: [facility] 05-16-2023 13:28-0400 Body temperature 97.39 [degF] Tessa Praisler-Wood SPACECRAFT SYSTEMS ENGINEER.MANAGER INDUSTRIAL Work Phone: [facility] 05-16-2023 13:28-0400 Body weight 81.83 kg Tessa Praisler-Wood SPACECRAFT SYSTEMS ENGINEER.MANAGER INDUSTRIAL Work Phone: [facility] 05-16-2023 13:28-0400 Diastolic blood pressure 80 mm[Hg] Tessa Praisler-Wood SPACECRAFT SYSTEMS ENGINEER.MANAGER INDUSTRIAL Work Phone: [facility] 05-16-2023 13:28-0400 Heart rate 76 /min Tessa Praisler-Wood SPACECRAFT SYSTEMS ENGINEER.MANAGER INDUSTRIAL Work Phone: [facility] 05-16-2023 13:28-0400 Respiratory rate 18 /min Tessa Praisler-Wood SPACECRAFT SYSTEMS ENGINEER.MANAGER INDUSTRIAL Work Phone: [facility] 05-16-2023 13:28-0400 SaO2% (BldA) [Mass fraction] 96 % Tessa Praisler-Wood SPACECRAFT SYSTEMS ENGINEER.MANAGER INDUSTRIAL Work Phone: [facility] 05-16-2023 13:28-0400 Systolic blood pressure 118 mm[Hg] Tessa Praisler-Wood SPACECRAFT SYSTEMS ENGINEER.MANAGER INDUSTRIAL Work Phone: [facility] 02-11-2023 09:53-0400 Body mass index (BMI) [Ratio] 31.7 kg/m2 Dr. Rinku Rubi Work Phone: [facility] 02-11-2023 09:53-0400 Body temperature 97.8 [degF] Dr. Rinku Rubi Work Phone: [facility] 02-11-2023 09:53-0400 Body weight 86.[address] Rinku Rubi Work Phone: [facility] 02-11-2023 09:53-0400 Diastolic blood pressure 85 mm[Hg] Dr. Rinku Rubi Work Phone: [facility] 02-11-2023 09:53-0400 Heart rate 75 /min Dr. Rinku Rubi Work Phone: [facility] 02-11-2023 09:53-0400 Respiratory rate 18 /min Dr. Rinku Rubi Work Phone: [facility] 02-11-2023 09:53-0400 SaO2% (BldA) [Mass fraction] 98 % Dr. Rinku Rubi Work Phone: [facility] 02-11-2023 09:53-0400 Systolic blood pressure 151 mm[Hg] Dr. Rinku Rubi Work Phone: [facility] 02-09-2023 16:55-0400 Body mass index (BMI) [Ratio] 31.8 kg/m2 Dr. Rinku Rubi Work Phone: [facility] 02-09-2023 16:55-0400 Body temperature 97.2 [degF] Dr. Rinku Rubi Work Phone: [facility] 02-09-2023 16:55-0400 Body weight 86.[address] Rinku Rubi Work Phone: [facility] 02-09-2023 16:55-0400 Diastolic blood pressure 88 mm[Hg] Dr. Rinku Rubi Work Phone: [facility] 02-09-2023 16:55-0400 Heart rate 90 /min Dr. Rinku Rubi Work Phone: [facility] 02-09-2023 16:55-0400 Respiratory rate 12 /min Dr. Rinku Rubi Work Phone: [facility] 02-09-2023 16:55-0400 SaO2% (BldA) [Mass fraction] 97 % Dr. Rinku Rubi Work Phone: [facility] 02-09-2023 16:55-0400 Systolic blood pressure 156 mm[Hg] Dr. Rinku Rubi Work Phone: [facility] 12-10-2022 14:51-0400 Diastolic blood pressure 88 mm[Hg] Dr. Rinku Rubi Work Phone: [facility] 12-10-2022 14:51-0400 Heart rate 72 /min Dr. Rinku Rubi Work Phone: [facility] 12-10-2022 14:51-0400 Respiratory rate 16 /min Dr. Rinku Rubi Work Phone: [facility] 12-10-2022 14:51-0400 SaO2% (BldA) [Mass fraction] 98 % Dr. Rinku Rubi Work Phone: [facility] 12-10-2022 14:51-0400 Systolic blood pressure 135 mm[Hg] Dr. Rinku Rubi Work Phone: [facility] 12-10-2022 09:29-0400 Body height 165.[address] Rinku Rubi Work Phone: [facility] 12-10-2022 09:29-0400 Body mass index (BMI) [Ratio] 31.6 kg/m2 Dr. Rinku Rubi Work Phone: [facility] 12-10-2022 09:29-0400 Body temperature 97.7 [degF] Dr. Rinku Rubi Work Phone: [facility] 12-10-2022 09:29-0400 Body weight 86.[address] Rinku Rubi Work Phone: [facility] 12-05-2022 10:22-0400 Body mass index (BMI) [Ratio] 32.1 kg/m2 Dr. Rinku Rubi Work Phone: [facility] 12-05-2022 10:22-0400 Body weight 87.[address] Rinku Rubi Work Phone: [facility] 12-05-2022 10:22-0400 Diastolic blood pressure 86 mm[Hg] Dr. Rinku Rubi Work Phone: [facility] 12-05-2022 10:22-0400 Heart rate 90 /min Dr. Rinku Rubi Work Phone: [facility] 12-05-2022 10:22-0400 SaO2% (BldA) [Mass fraction] 96 % Dr. Rinku Rubi Work Phone: [facility] 12-05-2022 10:22-0400 Systolic blood pressure 130 mm[Hg] Dr. Rinku Rubi Work Phone: [facility] 11-21-2022 08:15-0500 Body temperature 97.3 [degF] Dr. Rinku Rubi Work Phone: [facility] 11-21-2022 08:15-0500 Diastolic blood pressure 87 mm[Hg] Dr. Rinku Rubi Work Phone: [facility] 11-21-2022 08:15-0500 Heart rate 62 /min Dr. Rinku Rubi Work Phone: [facility] 11-21-2022 08:15-0500 Respiratory rate 18 /min Dr. Rinku Rubi Work Phone: [facility] 11-21-2022 08:15-0500 SaO2% (BldA) [Mass fraction] 97 % Dr. Rinku Rubi Work Phone: [facility] 11-21-2022 08:15-0500 Systolic blood pressure 132 mm[Hg] Dr. Rinku Rubi Work Phone: [facility] 11-21-2022 06:23-0500 Body height 165.[address] Rinku Rubi Work Phone: [facility] 11-21-2022 06:23-0500 Body mass index (BMI) [Ratio] 31.8 kg/m2 Dr. Rinku Rubi Work Phone: [facility] 11-21-2022 06:23-0500 Body weight [address] Rinku Rubi Work Phone: [facility] 09-08-2022 10:55-0500 Body mass index (BMI) [Ratio] 31.6 kg/m2 Dr. Rinku Rubi Work Phone: [facility] 09-08-2022 10:55-0500 Body weight 86.[address] Rinku Rubi Work Phone: [facility] 09-08-2022 10:55-0500 Diastolic blood pressure 78 mm[Hg] Dr. Rinku Rubi Work Phone: [facility] 09-08-2022 10:55-0500 Heart rate 72 /min Dr. Rinku Rubi Work Phone: [facility] 09-08-2022 10:55-0500 SaO2% (BldA) [Mass fraction] 96 % Dr. Rinku Rubi Work Phone: [facility] 09-08-2022 10:55-0500 Systolic blood pressure 138 mm[Hg] Dr. Rinku Rubi Work Phone: [facility] 12-27-2021 08:33-0400 Body height 165.[address] Rinku Rubi Work Phone: [facility] Work Phone: 12-27-2021 08:33-0400 Body mass index (BMI) [Ratio] 30.9 kg/m2 Dr. Rinku Rubi Work Phone: [facility] Work Phone: 12-27-2021 08:33-0400 Body weight 84.[address] Rinku Rubi Work Phone: [facility] Work Phone: 12-27-2021 08:33-0400 Diastolic blood pressure 91 mm[Hg] Dr. Rinku Rubi Work Phone: [facility] Work Phone: 12-27-2021 08:33-0400 Heart rate 69 /min Dr. Rinku Rubi Work Phone: [facility] Work Phone: 12-27-2021 08:33-0400 SaO2% (BldA) [Mass fraction] 95 % Dr. Rinku Rubi Work Phone: [facility] Work Phone: 12-27-2021 08:33-0400 Systolic blood pressure 157 mm[Hg] Dr. Rinku Rubi Work Phone: [facility] Work Phone: 12-22-2021 15:21-0400 Body temperature 96.6 [degF] Dr. Rinku Rubi Work Phone: [facility] Work Phone: 12-22-2021 15:21-0400 Body weight 86.[address] Rinku Rubi Work Phone: [facility] Work Phone: 12-22-2021 15:21-0400 Diastolic blood pressure 80 mm[Hg] Dr. Rinku Rubi Work Phone: [facility] Work Phone: 12-22-2021 15:21-0400 Heart rate 69 /min Dr. Rinku Rubi Work Phone: [facility] Work Phone: 12-22-2021 15:21-0400 Respiratory rate 16 /min Dr. Rinku Rubi Work Phone: [facility] Work Phone: 12-22-2021 15:21-0400 SaO2% (BldA) [Mass fraction] 98 % Dr. Rinku Rubi Work Phone: [facility] Work Phone: 12-22-2021 15:21-0400 Systolic blood pressure 140 mm[Hg] Dr. Rinku Rubi Work Phone: [facility] Work Phone: Encounters Encounter Date Encounter Type Care Provider Facility Start: 01-20-2025 End: 01-20-2025 ambulatory [facility] [place] [place] Start: 01-20-2025 End: 01-20-2025 ambulatory [facility] Facility:[facility] Start: 01-04-2025 End: 01-06-2025 Refill Lerna Luis Daniel Rogers [facility] Comment on above: Refill Request Start: 06-02-2024 End: 06-02-2024 [facility] Start: 04-06-2024 End: 04-06-2024 ambulatory [facility] Start: 01-15-2024 Non-patient / Non-visit Dr. Adri Rubi Work Phone: [facility] Start: 01-15-2024 End: 01-15-2024 Admission to same day surgery center Dr. Rinku Rubi Work Phone: [facility]Endoscopy Work Phone: Start: 01-15-2024 End: 01-15-[address] 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 (Primary Dx); Arthritis, lumbar spine; Cervical radiculopathy; Hyperlipidemia, mixed; Screening for thyroid disorder; Screening for prostate cancer; GERD without esophagitis; Right hand pain; Class 1 obesity with body mass index (BMI) of 30.0 to 30.9 in adult, unspecified obesity type, unspecified whether serious comorbidity present Start: 01-03-2024 Refill Ronnell Rogers DO Work Phone: [facility] Comment on above: Refill Request Start: 12-18-2023 End: 12-18-2023 ambulatory Danis Fuller OT/L [facility] Comment on above: Right hand pain (Veronica yoan Dx) Start: 12-12-2023 ambulatory Alyce Pearson PA-C Work Phone: [facility] Comment on above: injection Start: 12-11-2023 End: 12-11-2023 Patient encounter procedure Alyce Pearson PA-C Work Phone: [facility] Comment on above: 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 Rinku Rubi Work Phone: [facility] Work Phone: Start: 11-27-2023 End: 11-27-[address] Rinku Rubi Work Phone: [facility] Work Phone: Start: 10-11-2023 End: 10-11-2023 Emergency department patient visit Dr. Rinku Rubi Work Phone: [facility]-Emergency Department Work Phone: Start: 05-31-2023 ambulatory Lerna Maurice Rogers DO Work Phone: [facility] [place] Comment on above: Berkley Sarmiento 7. RX for Aspirin Low 81 mg Chw JORGE Start: 05-30-2023 End: 06-24-[address] Rinku Rubi Work Phone: [facility] Work Phone: Start: 05-30-2023 End: 06-24-[address] [facility]ink[facility] Work Phone: Start: 05-21-2023 End: 05-21-[address] Rinku Rubi Work Phone: [facility] Work Phone: Start: 05-20-2023 Non-patient / Non-visit Dr. Adri Rubi Work Phone: [facility] Start: 05-20-2023 Non-patient / Non-visit Dr. Adri Rubi Work Phone: [facility] Work Phone: Start: 05-19-2023 End: 05-20-[address] Rinku Rubi Work Phone: [facility] Work Phone: Start: 05-19-2023 End: 05-20-2023 Evaluation and management of inpatient Dr. Rinku Rubi Work Phone: [facility]-Progressive Care Unit Work Phone: Start: 05-19-2023 Telephone encounter Pj Rajan coreas APRN.MANAGER INDUSTRIAL Work Phone: [facility] Comment on above: Results Start: 05-19-2023 End: 05-19-2023 ambulatory ADRIANDRE RUBI Facility:[facility] Start: 05-19-2023 End: 05-19-2023 Patient encounter procedure Seble Juni SPACECRAFT SYSTEMS ENGINEER.MANAGER INDUSTRIAL Work Phone: [facility] Comment on above: Dizziness (Primary D x) Start: 05-17-2023 Telephone encounter Pj Rajan coreas SPACECRAFT SYSTEMS ENGINEER.MANAGER INDUSTRIAL Work Phone: [facility] Comment on above: Results Start: 05-16-2023 End: 05-17-2023 ambulatory TESSA BEACH Facility:[facility] Start: 05-16-2023 End: 05-16-2023 Patient encounter procedure Tessa Beach SPACECRAFT SYSTEMS ENGINEER.MANAGER INDUSTRIAL Work Phone: [facility] Comment on above: Skin infection (Prim tierney Dx) Start: 02-11-2023 End: 02-11-2023 Emergency department patient visit Dr. Rinku Rubi Work Phone: [facility]Emergency Department Work Phone: Start: 02-09-2023 End: 02-09-[address] Rinku Rubi Work Phone: [facility] Work Phone: Start: 02-07-2023 End: 02-07-2023 ambulatory RINKU RUBI Facility:[facility] Start: 12-10-2022 End: 12-10-2022 Emergency department patient visit Dr. Rinku Rubi Work Phone: [facility]-Emergency Department Start: 12-08-2022 Telephone encounter Albert MEDRANO Work Phone: [facility] Comment on above: Results Start: 12-07-2022 End: 12-07-2022 ambulatory RINKU RUBI Facility:[facility] Start: 12-07-2022 End: 12-07-2022 Subsequent hospital visit by physician [facility] Work Phone: Radiology Comment on above: URI, acute [J06.9] Start: 12-05-2022 End: 12-05-[address] Rinku Rubi Work Phone: [facility] Start: 11-21-2022 Non-patient / Non-visit Dr. Adri Rubi Work Phone: [facility] Start: 11-21-2022 End: 11-21-2022 Admission to same day surgery center Dr. Rinku Rubi Work Phone: [facility]-Endoscopy Start: 11-21-2022 End: 11-21-[address] Rinku Rubi Work Phone: [facility] Work Phone: Start: 10-22-2022 End: 10-22-2022 ambulatory RINKU RUBI Facility:[facility] Start: 09-08-2022 End: 09-08-[address] Rinku Rubi Work Phone: [facility] Start: 06-03-2022 End: 06-03-2022 ambulatory RINKU RUBI Facility:[facility] Start: 06-03-2022 End: 06-03-2022 Subsequent hospital visit by physician [facility] Work Phone: Radiology Comment on above: Wrist laceration, le ft, initial encounter [S61.512A] Start: 02-02-2022 End: 02-02-[address] Rinku Rubi Work Phone: [facility]-Radiology, [facility] Start: 01-29-2022 End: 01-29-[address] Rinku Rubi Work Phone: [facility]-Radiology, [facility] Start: 01-28-2022 End: 01-28-[address] Rinku Rubi Work Phone: [facility]-Radiology, [facility] Start: 01-25-2022 End: 01-25-[address] Rinku Rubi Work Phone: [facility]-Cat Scan, [facility] Start: 12-27-2021 End: 12-27-[address] Rinku Rubi Work Phone: [facility]-Laboratory Start: 12-27-2021 End: 12-27-[address] Rinku Rubi Work Phone: [facility] Start: 12-22-2021 End: 12-22-[address] Rinku Rubi Work Phone: [facility] Internal Medicine Start: 10-30-2018 Patient encounter procedure EZIO FLYNN Facility:[facility] Procedures Date Procedure Procedure Detail Performing Clinician Start: 01-15-[address] Rinku Rubi Work Phone: Start: 12-11-2023 Arthrocentesis aspir&/inj small jt/bursa w/o us Alyce Pearson PA-C Work Phone: Start: 12-11-2023 Radex hand minimum 3 views Alyce Bess i, PA-C Work Phone: Start: 10-11-2023 Computed tomography of abdomen and pelvis with intravenous contrast Dr. Rinku Rubi Work Phone: Start: 05-19-2023 MRI of brain without contrast Dr. Rosas Rubi Work Phone: Start: 05-19-2023 Plain chest X-ray Dr. Rinku Rubi Work Phone: Start: 05-19-2023 CT angiography of head and neck Dr. Thom Rubi Work Phone: Start: 05-19-2023 CT of head without contrast Dr. Charlotte Rubi Work Phone: Start: 05-16-2023 Cul bact xcpt urine blood/stool aerobic isol Tessa Yong SPACECRA[employer] SYSTEMS ENGINEER.MANAGER INDUSTRIAL Work Phone: Start: 02-11-2023 X-ray of both feet Dr. Rinku Rubi Work Phone: Start: 12-10-2022 Computed tomography of abdomen and pelvis with contrast Dr. Rinku Rubi Work Phone: Start: 12-07-2022 Radiologic exam chest 2 views Helena Ri ggs SPACECRAFT SYSTEMS ENGINEER.MANAGER INDUSTRIAL Work Phone: Start: 11-21-[address] Rinku Rubi Work Phone: Start: 06-03-2022 Radex wrist complete minimum 3 views Justin Leigh PA-C Work Phone: Start: 02-02-2022 Diagnostic radiography of abdomen Dr. Adri Rubi Work Phone: Start: 01-29-[address] of abdomen Dr. Adri Rubi Work Phone: Start: 01-28-[address] of abdomen Dr. Adri Rubi Work Phone: Start: 01-25-2022 Computed tomography of abdomen and pelvis with contrast Dr. Rinku Rubi Work Phone: Start: 03-15-2019 Colonoscopy Albert Saez PA Work Phone: Start: 11-25-2015 Lipid 1996 panel - Serum or Plasma Alyce Pearson PA-C Work Phone: Plan of Treatment Date Care Activity Detail Author Start: 03-15-2029 Colonoscopy COLONOSCOPY [facility] Start: 03-15-2029 COLORECTAL CANCER SCREENING COLORECTAL CANCER SCREENING [facility] Start: 03-15-2029 Screening for malign ant neoplasm of colon [facility] Start: 08-10-2027 Urine microalbumin profile [facility] Start: 05-16-2026 DIABETES SCREEN [facility] Start: 05-16-2026 Diabetes Screening Diabetes Screenin g [facility] Start: 09-25-2024 Advance Directive Discussion Advance Directive Discussion [facility] Start: 07-15-2024 End: 07-15-2024 Patient encounter procedure 07/15/2024 1:30 PM EDT [place] [id number] Ronnell Rogers [address] [place] [address] f/u 6months [facility] Comment on above: f/u 6months Start: 05-26-2024 Covid-19 Vaccine ( season) Covid-19 Vaccine ( season) [facility] Start: 05-26-2024 Influenza vaccination C [facility] Start: 01-15-2024 [facility] Start: 01-11-2024 End: 01-10-2025 CBC W Auto Differential panel - Blood COMPLETE BLOOD COUNT AND DIFFERENTIAL Lab Routine Hyperlipidemia, mixed Expected: 01/11/2024, Expires: 01/10/2025 [facility] Work Phone: Comment on above: Expected: 01/11/2024 , Expires: 01/10/2025 Start: 01-11-2024 End: 01-10-2025 Comprehensive metabolic 2000 panel - Serum or Plasma COMPREHENSIVE METABOLIC PANEL Lab Routine Hyperlipidemia, mixed Expected: 01/11/2024, Expires: 01/10/2025 [facility] Work Phone: Comment on above: Expected: 01/11/2024 , Expires: 01/10/2025 Start: 01-11-2024 End: 01-10-2025 Lipid 1996 panel - Serum or Plasma LIPID PANEL BASIC Lab Routine Hyperlipidemia, mixed Expected: 01/11/2024, Expires: 01/10/2025 [facility] Work Phone: Comment on above: Expected: 01/11/2024 , Expires: 01/10/2025 Start: 01-11-2024 End: 01-10-2025 PSA/PROSTATE SPECIFIC ANTIGEN SCREENING PSA/PROSTATE SPECIFIC ANTIGEN SCREENING Lab Routine Screening for prostate cancer Expected: 01/11/2024, Expires: 01/10/2025 [facility] Work Phone: Comment on above: Expected: 01/11/2024 , Expires: 01/10/2025 Start: 01-11-2024 End: 01-10-2025 Thyrotropin [Units/volume] in Serum or Plasma THYROID STIMULATING HORMONE Lab Routine Screening for thyroid disorder Expected: 01/11/2024, Expires: 01/10/2025 [facility] Work Phone: Comment on above: Expected: 01/11/2024 , Expires: 01/10/2025 Start: 10-11-[address] [facility] Start: 09-25-2023 Advance Directive Discussion Advance Directive Discussion [facility] Start: 09-25-2023 Behavioral Health Screening Behavioral Health Screening [facility] Start: 09-25-2023 Depression Assessment Depression Ass essment [facility] Start: 05-26-2023 Covid-19 Vaccine ( season) Covid-19 Vaccine ( season) [facility] Start: 05-26-2023 Influenza vaccination C [facility] Start: 05-20-2023 Patient discharge [facility] Start: 05-19-2023 Ambulation without limitation [facility] Start: 05-19-2023 Assessment of risk o f venous thromboembolism [facility] Start: 05-19-2023 Care regimes management [facility] Start: 05-19-2023 Insertion of cathete r into peripheral vein [facility] Start: 05-19-2023 Notification of physician [facility] Start: 05-19-2023 Oxygen therapy [facility] Start: 05-19-2023 Providing care accor ding to standard [facility] Start: 05-19-2023 Referral to occupati onal therapist [facility] Start: 05-19-2023 Referral [facility] service [facility] Start: 05-19-[address] [facility] Start: 05-19-2023 Care planning and pr oblem solving actions [facility] Start: 05-19-2023 Following clinical pathway protocol [facility] Start: 05-19-2023 Verification routine [facility] Start: 05-19-2023 Admission procedure [facility] Start: 05-19-2023 Oxygen therapy [facility] Start: 05-19-[address] [facility] Start: 05-19-2023 Inhalation therapy procedure [facility] Start: 05-16-2023 End: 07-16-2023 Comprehensive metabolic 2000 panel - Serum or Plasma [facility] Work Phone: Comment on above: Expected: 05/16/2023 , Expires: 07/16/2023 Start: 12-10-[address] [facility] Start: 11-21-2022 Egd transoral biopsy single/multiple EGD BIOPSY SINGLE/MULTIPLE [facility] Start: 11-21-2022 Patient discharge [facility] Start: 09-25-2022 ADVANCE DIRECTIVE DISCUSSION ADVANCE DIRECTIVE DISCUSSION [facility] Start: 09-25-2022 DEPRESSION ASSESSMENT DEPRESSION ASS ESSMENT [facility] Start: 05-26-2022 Influenza vaccination INFLUENZA (#1) [facility] Start: 01-28-2022 Diagnostic radiograp hy of abdomen Abdomen Single View [facility] Work Phone: Start: 12-22-2021 Patient referral [facility] Work Phone: Start: 2021 Pneumococcal Vaccine : 65+ (1 of 1 - PCV) Pneumococcal Vaccine: 65+ (1 of 1 - PCV) [facility] Start: 2021 PNEUMOCOCCAL: 65+ (1 - PCV) PNEUMOCOCCAL: 65+ (1 - PCV) [facility] Start: 02-09-2021 PROSTATE CANCER SCRE ENING DISCUSSION PROSTATE CANCER SCREENING DISCUSSION [facility] Start: 02-09-2021 Prostate specific an tigen measurement Prostate Cancer Screening Discussion [facility] Start: 11-24-2020 Lipid panel Lipid Screening [facility] Start: 11-24-2020 LIPID SCREEN LIPID SCREEN [facility] Start: 11-24-2018 DIABETES SCREEN DIABETES SCREEN [facility] Start: 2016 RSV Vaccine (1 - 1-d ose 60+ series) RSV Vaccine (1 - 1-dose 60+ series) [facility] Start: 2016 RSV Vaccine (1 - Ris k 60-74 years 1-dose series) RSV Vaccine (1 - Risk 60-74 years 1-dose series) [facility] Start: 2006 Pneumococcal Vaccine : 50+ (1 of 1 - PCV) Pneumococcal Vaccine: 50+ (1 of 1 - PCV) [facility] Start: 2006 SHINGRIX VACCINE (1 of 2) SOTO GRIX VACCINE (1 of 2) [facility] Start: 2001 COLOGUARD (FIT-DNA) COLOGUARD (FIT-D NA) [facility] Start: [address] COLONOGRAPHY [facility] Start: 2001 FECAL OCCULT BLOOD FECAL OCCULT BLOO D [facility] Start: 2001 Screening for malign ant neoplasm of colon [facility] Start: 2001 SIGMOIDOSCOPY SIGMOIDOSCOPY [facility] Start: 1974 Anxiety Screening Anxiety Screening [facility] Start: 1974 Depression Screening Depression Scre ening [facility] Start: 04-07-1956 COVID-19 VACCINE (#1) COVID-19 VACCI NE (#1) [facility] Start: 1955 ABDOMINAL AORTIC ANE URYSM SCREENING ABDOMINAL AORTIC ANEURYSM SCREENING [facility] Start: 1955 Abdominal aortic ane urysm screening Abdominal Aortic Aneurysm Screening [facility] Bacteria identified in Wound by Culture ABSCESS AND WOUND CULTURE WITH GRAM STAIN Microbiology Routine Skin infection 05/16/2023 1:48 PM EDT [facility] Work Phone: Patient Education [facility] Work Phone: Patient referral [facility] Work Phone: [facility] Immunizations Immunization Date Immunization Notes Care Provider Adenike castellanos 08-10-2017 tetanus toxoid, redu henri diphtheria toxoid, and acellular pertussis vaccine, adsorbed Dr. Rinku Rubi Work Phone: [facility] 08-03-2017 influenza, injectabl e, madin adalgisa canine kidney, preservative free Krislyn Aberegg PA Work Phone: [facility] 08-03-2017 influenza virus vaccine, unspecified formulation Alyce SUTTONC Work Phone: [facility] 10-29-2014 TD(adult) unspecifie d formulation Krislyleoncio Aberegg PA Work Phone: [facility] 10-29-2014 tetanus and diphther ia toxoids, adsorbed, preservative free, for adult use (2 Lf of tetanus toxoid and 2 Lf of diphtheria toxoid) Dr. Rinku Rubi Work Phone: [facility] 11-09-2011 tetanus toxoid, redu henri diphtheria toxoid, and acellular pertussis vaccine, adsorbed Krislyn Aberegg PA Work Phone: [facility] Work Phone: 07-22-2011 influenza, seasonal, injectable Krislyn Aberegg PA Work Phone: [facility] 12-11-2002 tetanus toxoid, adsorbed Krislyn Aberegg PA Work Phone: [facility] Payers Date Payer Category Payer Self-pay [id number] 2023 Medicare [id number] 2023 Medicare (Managed Care) ROWENA HANSEN Member Subscriber Plan / Payer (Effective 2023-Present) Name: Berkley Sarmiento Relation to Subscriber: Self Name: Berkley Sarmiento Payer ID: [id number] (NAIC) Group ID: Not on file Type: MOISES Address: [place] [id number] 2023 Unknown [id number] 2021 Medicaid [id number] 2021 Medicaid [id number] 2021 Medicare [id number] 2021 Private Health Insurance [id number] 2015 Medicaid [id number] 1955 Unknown [id number] Medicare [employer] MEDICARE [id number] 800 [id number] Unknown [id number] Unknown [id number] Unknown [id number] Unknown [id number] Unknown [id number] Unknown [id number] Social History Date Type Detail Facility Start: 12-27-2021 End: 01-11-2024 Tobacco smoking status NHIS Unknown if ever smoked [facility] Start: 11-23-2020 Non-smoker [facility] Start: 1955 Sex Assigned At Male W [facility] Start: 06-03-2022 Tobacco smoking stat us NHIS Ex-smoker [facility] Start: 09-25-1967 End: 09-25-1978 History of tobacco use Current smoker [facility] Start: 09-25-1967 End: 09-25-1978 History of tobacco use Cigarette Smoker [facility] Start: 06-03-2022 End: 05-25-2023 Cigarettes smoked current (pack per day) - Reported 1 [facility] Start: 06-03-2022 Tobacco use and exposure Smokeless tobacco non-user [facility] Start: 06-03-2022 End: 12-07-2022 Alcohol intake Current non-drinker of alcohol (finding) [facility] Start: 1955 Sex Assigned At Not on file C [facility] Start: 05-16-2023 End: 05-25-2023 Tobacco use panel [facility] Adult Depression Screening Assessment 0 [facility] Start: 05-25-2023 End: 01-11-2024 Alcohol intake Ex-drinker (finding) [facility] Start: 05-24-2022 End: 06-03-2022 Exposure to SARS-CoV-2 (event) Not sure [facility] Work Phone: Goals Date Patient Goal Desired Activity /State Functional Status Date Assessment Result Facility 05-20-2023 Functional status Activity Ability Indepe ndent [facility] Work Phone: Mental Status Date Assessment Result Facility 01-15-2024 Cognitive function Voice/Name [facility] Work Phone: 05-20-2023 Cognitive function Voice/Name [facility] Work Phone: 05-19-2023 Cognitive function Awake;Alert;A ppropriate;Fol lows Commands [facility] Work Phone: 11-21-2022 Cognitive function Voice/Name [facility] Work Phone: Clinical Notes 06-03-2022 to 02-14-2025 Telephone Encounter - Jazmine SuarezNILESH - 01/06/2025 8:51 AM EDTTelephone Encounter - Jazmine SuarezNILESH - 01/06/2025 8:51 AM EDTObenitaRonnell, DO - 01/11/2024 1:15 PM EDT Note Date & Type Note Facility 02-14-2025 Note HNO ID: [id number] Author: DARON HERNANDEZ, RN Service: ? Author Type: Registered Nurse Type: Progress Notes Filed: 02/14/2025 10:19 Note Text: [facility] POPULATION HEALTH NAVIGATION OUTREACH Action/FYI PCP updated per patients request. Patient Identified by Name and : Yes, via phone Reason for Outreach Care Gap or Scheduling Wellness Visits HCC or suspected conditions Care Gap Reviewed:: Annual Wellness visit Outreach Outcome/Action Spoke to patient / parent / legal guardian: PCP confirmed / updated Population Health Navigation Workflow Attribution Chart Review Payer: [employer] Navigation Signature: Daron Hernandez RN February 14, 2025 10:14 AM [facility] 02-14-2025 Note Patient Outreach (FP DOYL) BERKLEY SARMIENTO ([id number]) 1955 Date Time Provider Department 02/14/25 DARON HERNANDEZ FPDOYL During your visit today, we recorded the following information about you: Daron Hernandez RN 02/14/2025 10:19 AM Signed [facility] POPULATION HEALTH NAVIGATION OUTREACH Action/FYI PCP updated per patients request. Patient Identified by Name and : Yes, via phone Reason for Outreach Care Gap or Scheduling Wellness Visits HCC or suspected conditions Care Gap Reviewed:: Annual Wellness visit Outreach Outcome/Action Spoke to patient / parent / legal guardian: PCP confirmed / updated Population Health Navigation Workflow Attribution Chart Review Payer: [employer] Navigation Signature: Daron Hernandez RN February 14, 2025 10:14 AM Allergies As of Date: 02/14/2025 (No Known Allergies) Date Reviewed: 01/11/2024 Reviewed by: Jaylene Chavez LPN - Fully Assessed Reason for Visit: Population Health Navigation Outreach [0800] Cmt: Rowena Attributed Member- Needs 2024 Medicare Wellness Appointment Scheduled Prescriptions as of 02/14/2025 - celecoxib (CELEBREX) 200 mg capsule Take 1 capsule by mouth once daily - omeprazole (PRILOSEC) 40 mg capsule Take 1 capsule by mouth once daily. - atorvastatin (LIPITOR) 20 mg tablet Take 1 tablet by mouth once daily. - aspirin, enteric coated (ADULT LOW DOSE ASPIRIN) 81 mg EC tablet Take 1 tablet by mouth once daily. - MULTI-VITAMIN ORAL Take 1 tablet by mouth once daily. - vitamin B complex (B COMPLEX 1 ORAL) Take 1 tablet by mouth twice daily. - B cmplx 4/vit D3/C/folic/zinc (VITAL-D RX ORAL) Take 1 capsule by mouth once daily. - zinc sulfate (ZINC-15 ORAL) Take 1 tablet by mouth once daily. - Ascorbic Acid (VITAMIN C) 1,000 mg tablet Take 1,000 mg by mouth once daily. - Vitamin E, dl, acetate, 1,000 unit capsule Take 1,000 Units by mouth once daily. - acetaminophen (TYLENOL EXTRA STRENGTH) 500 mg tablet Take 500 mg by mouth every 8 hours as needed. - aspirin 81 mg chewable tablet Take 81 mg by mouth once daily. - atorvastatin (LIPITOR) 20 mg tablet Take 20 mg by mouth once daily. - mupirocin (BACTROBAN) 2 % ointment Apply 1 application to affected area twice daily. - polyethylene glycol 3350 (MIRALAX, GLYCOLAX) 17 gram/dose powder Take 17 g by mouth once daily. - lactase (LACTAID) 3,000 unit tablet Take 1 tablet by mouth three times daily with meals. - CPAP Chin strap used with CPAP device. - CPAP AutoPAP 6-16 cmH2O, suitable mask, humidity, filters. Lifetime supplies. Dx: G47.33. Download to [facility] Consult in 6 weeks. Problem List As Of Date 02/14/2025 Noted Resolved History of skin cancer [Z85.828] 11/11/2015 Xerosis cutis [L85.3] 11/11/2015 GERD (gastroesophageal reflux disease) [K21.9] 11/11/2015 ROBYN on CPAP [G47.33] 11/11/2015 Left-sided weakness [R53.1] 11/11/2015 Pruritus [L29.9] 11/11/2015 Morbid obesity due to excess calories (HCC) [E6*11/11/2015 Irritable bowel syndrome with diarrhea [K58.0] 11/11/2015 History of Terry's esophagus [Z87.19] 02/17/2016 History of colon polyps [Z86.0100] 02/17/2016 Cervical disc disorder with radiculopathy [M50.*03/25/2019 TIA (transient ischemic attack) [G45.9] 06/01/2023 Hyperlipidemia, mixed [E78.2] 06/01/2023 Stasis ulcer (HCC) [I83.009, L97.909] 06/01/2023 Arthritis, lumbar spine [M47.816] 06/01/2023 Terry's esophagus without dysplasia [K22.70] 01/14/2024 Cervical radiculopathy [M54.12] 01/14/2024 Encounter Status:Closed by DARON HERNANDEZ on 02/14/25 [facility] 01-06-2025 Telephone encounter Note Pharmacy faxed requesting the following refill Refill(s) Requested: Requested Prescriptions Pending Prescriptions Disp Refills celecoxib (CELEBREX) 200 mg capsule [Pharmacy Med Name: Celecoxib 200 MG Oral Capsule] 90 capsule 0 Sig: Take 1 capsule by mouth once daily ALLERGIES No Known Allergies (home) [phone] (cell) Last Office Visit Date: 01/11/2024 Last Distance Health Visit: Visit date not found Future Appointment: Visit date not found The patients preferred pharmacy has been captured for this encounter? yes Request is for script(s) to be escript to pharmacy. Jazmine Suarez LPN [facility] 01-06-2025 Miscellaneous Notes Pharmacy faxed requesting the following refill Refill(s) Requested: Requested Prescriptions Pending Prescriptions Disp Refills celecoxib (CELEBREX) 200 mg capsule [Pharmacy Med Name: Celecoxib 200 MG Oral Capsule] 90 capsule 0 Sig: Take 1 capsule by mouth once daily ALLERGIES No Known Allergies (home) [phone] (cell) Last Office Visit Date: 01/11/2024 Last [facility] Visit: Visit date not found Future Appointment: Visit date not found The patients preferred pharmacy has been captured for this encounter? yes Request is for script(s) to be escript to pharmacy. Jazmine Suarez LPN documented in this encounter [facility] 01-15-2024 Procedure note [facility] 01-15-2024 Procedure note [facility] 01-11-2024 History of Presen t illness Narrative Images from the original note were not included. [facility] [address] [place] [address] Date of Evaluation: 01/11/2024 Patient Name: Berkley Sarmiento : 1955 Chief Complaint: Patient presents with: 6 Month Exam Hand Pain: Right hand Nursing Intake: There are no exam notes on file for this visit. Subjective Mr. Sarmiento is a 68 year old male who presents with the following complaint(s): The history is provided by the patient. No supervisor modern languages was used. Hand Pain The pain is present in the right hand. This is a new problem. There has been no history of extremity trauma. The problem occurs daily. The problem has been gradually worsening. Pertinent negatives include no numbness. GERD He complains of heartburn. He reports no chest pain or no coughing. This is a chronic problem. Pertinent negatives include no fatigue. Hypercholesterolemia This is a chronic problem. The current episode started more than 1 year ago. Pertinent negatives include no chest pain or shortness of breath. Back Pain This is a chronic problem. The pain is associated with no known injury. The pain is present in the lumbar spine. Pertinent negatives include no chest pain, no numbness, no headaches and no weakness. Neck Pain This is a new problem. The problem occurs intermittently. The pain is present in the right side. Pertinent negatives include no chest pain, headaches, numbness or weakness. Review of Systems Constitutional: Negative for fatigue and unexpected weight change. HENT: Negative for nosebleeds. Eyes: Negative for redness and visual disturbance. Respiratory: Negative for apnea, cough and shortness of breath. Cardiovascular: Negative for chest pain, palpitations and leg swelling. Gastrointestinal: Positive for heartburn. Genitourinary: Negative for hematuria. Musculoskeletal: Positive for back pain and neck pain. Neurological: Negative for dizziness, weakness, light-headedness, numbness [...] ROBYN on CPAP 11/11/2015 AutoPAP 6-16 DME [facility] Pancreatitis Panic disorder Rectal bleeding Snoring [...] date: 09/25/1967 Quit date: 09/25/1978 Years since quittin.3 Smokeless tobacco: Never Vaping Use Vaping Use: Never used Substance Use Topics Alcohol use: Not Currently Drug use: No Comment: No IVDA. Current Outpatient Medications Medication Sig aspirin, enteric coated (ADULT LOW DOSE ASPIRIN) 81 mg EC tablet Take 1 tablet by mouth once daily. MULTI-VITAMIN ORAL Take 1 tablet by mouth [...] Take 81 mg by mouth once daily. CPAP Chin strap used with CPAP device. CPAP AutoPAP 6-16 cmH2O, suitable mask, humidity, filters. Lifetime supplies. Dx: G47.33. Download to [facility] Consult in 6 weeks. omeprazole (PRILOSEC) 40 mg capsule Take 1 capsule by mouth once daily. celecoxib (CELEBREX) 200 mg capsule Take 1 capsule by mouth once daily. atorvastatin (LIPITOR) 20 mg tablet Take 1 tablet by mouth once daily. atorvastatin (LIPITOR) 20 mg tablet Take 20 mg by mouth once daily. (Patient not taking: Reported on 01/11/2024) mupirocin (BACTROBAN) 2 % ointment Apply 1 application to affected area twice daily. (Patient not taking: Reported on 05/25/2023) polyethylene glycol 3350 (MIRALAX, GLYCOLAX) 17 gram/dose powder Take 17 g by mouth once daily. (Patient not taking: Reported on 05/25/2023) lactase (LACTAID) 3,000 unit tablet Take 1 tablet by mouth three times daily with meals. (Patient not taking: Reported on 01/11/2024) No current facility-administered medications for this visit. I have confirmed and edited as necessary the past medical, family and social histories, HPI, and ROS obtained by others. Objective BP 128/80 Pulse 74 Temp 97.8 Ht 5' 6 (1.68m) Wt 187 lb (84.8kg) SpO2 94% BMI 30.20 kg/(m^2). Physical Exam Vitals and nursing note reviewed. Constitutional: General: He is not in acute distress. Appearance: Normal appearance. He is well-developed. He is not ill-appearing. HENT: Head: Normocephalic. Right Ear: Tympanic membrane, ear canal and external ear normal. There is no impacted cerumen. Left Ear: Tympanic membrane, ear canal and external ear normal. There is no impacted cerumen. Nose: Nose normal. Mouth/Throat: Mouth: Mucous membranes are moist. Pharynx: Oropharynx is clear. Uvula midline. No oropharyngeal exudate or posterior oropharyngeal erythema. Eyes: General: Lids are normal. Vision grossly intact. Gaze aligned appropriately. No scleral icterus. Right eye: No discharge. Left eye: No discharge. Extraocular Movements: Extraocular movements intact. Conjunctiva/sclera: Conjunctivae normal. Pupils: Pupils are equal, round, and reactive to light. Neck: Thyroid: No thyroid mass, thyromegaly or thyroid tenderness. Vascular: No carotid bruit. Trachea: Trachea and phonation normal. Cardiovascular: Rate and Rhythm: Normal rate and regular rhythm. Pulses: Normal pulses. Heart sounds: Normal heart sounds. Pulmonary: Effort: Pulmonary effort is normal. Breath sounds: Normal breath sounds. Abdominal: General: Abdomen is flat. Bowel sounds are normal. Palpations: Abdomen is soft. Musculoskeletal: General: Normal range of motion. Right shoulder: Normal. Left shoulder: Normal. Cervical back: Normal, full passive range of motion without pain and neck supple. No tenderness. No spinous process tenderness. Thoracic back: Normal. Lumbar back: Normal. Right knee: Normal. Left knee: Normal. Right lower leg: No edema. Left lower leg: No edema. Lymphadenopathy: Cervical: No cervical adenopathy. Skin: General: Skin is warm and dry. Neurological: General: No focal deficit present. Mental Status: He is alert and oriented to person, place, and time. Mental status is at baseline. Sensory: Sensation is intact. Motor: Motor function is intact. Psychiatric: Attention and Perception: Attention and perception normal. Mood and Affect: Mood normal. Speech: Speech normal. Behavior: Behavior normal. Thought Content: Thought content normal. Judgment: Judgment normal. Data Reviewed: Most recent labs and imaging results. ASSESSMENT/PLAN: 1. GERD without esophagitis - ICD9: 530.81, ICD10: K21.9 (primary diagnosis) 2. Terry's esophagus without dysplasia - ICD9: 530.85, ICD10: K22.70 - Continue current medication. - OMEPRAZOLE 40 MG CAPSULE,DELAYED RELEASE 3. Arthritis, lumbar spine - ICD9: 721.3, ICD10: M47.816 - Increase Celebrex to 200mg. - CELECOXIB 200 MG CAPSULE 4. Cervical radiculopathy - ICD9: 723.4, ICD10: M54.12 5. Hyperlipidemia, mixed - ICD9: 272.2, ICD10: E78.2 - Control undetermined, due for labs - COMPLETE BLOOD COUNT AND DIFFERENTIAL - COMPREHENSIVE METABOLIC PANEL - LIPID PANEL BASIC 6. Screening for thyroid disorder - ICD9: V77.0, ICD10: Z13.29 - THYROID STIMULATING HORMONE 7. Screening for prostate cancer - ICD9: V76.44, ICD10: Z12.5 - PSA/PROSTATE SPECIFIC ANTIGEN SCREENING 8. Right hand pain - ICD9: 729.5, ICD10: M79.641 - Has upcoming appointment with Ortho. 9. Class 1 obesity with body mass index (BMI) of 30.0 to 30.9 in adult, unspecified obesity type, unspecified whether serious comorbidity present - ICD9: 278.00, V85.30, ICD10: E66.9, Z68.30 Return in about 6 months (around 07/12/2024) for medication follow up. Ronnell Rogers DO Attestation: Scribe Attestation: The patient is seen and examined by Dr. Rogers and the following reflects his/her service. Scribed by Stefania France January 11, 2024 1:30 PMProvider Attestation: I, Ronnell Rogers DO personally performed the services described in this documentation. All medical record entries made by the scribe were at my direction and in my presence. I have reviewed the chart and discharge instructions (if applicable) and agree that the record reflects my personal performance and is accurate and complete. Electronically Signed: Ronnell Rogers DO, January 11, 2024 1:36 PM documented in this encounter [facility] 12-18-2023 History of Presen t illness Narrative Images from the original note were not included. Episode Visit Count: 1 Therapist That Will Accept/Oversee The Plan Of Care: Danis Fuller, OTR/L, CHT Start of Care Date: 12/18/23 Plan of Care Certification Date: 12/18/23 Next Certification Due Date: 02/16/24 Patient Identified by Name and Date of : Yes [facility] OCCUPATIONAL THERAPY EVALUATION PLAN OF CARE: Assessment: Berkley Sarmiento presents with chief complaint of RUE thumb pain 2/2 OA that interferes with physical activities, recreational activities, lifting . He presents with impairments in ADL's, overall function, range of motion, and strength. PROMIS (Patient-Reported Outcomes Measurement Information System) scores were reviewed and identified as a rehabilitation concern. Prognosis for therapy is Good due to: current objective clinical presentation . He will benefit from skilled therapy services to meet the goals established for this plan of care as noted below. Goals for Episode of Care created on 12/18/23 through 02/16/24 Patient will report a good understanding of diagnosis and OT recommendations for progression of program. Patient will demonstrate independence with ongoing home recommendations/exercise program throughout therapy plan of care. Patient will improve function in Right hand in order to be able to perform basic self-care tasks, prior functional tasks, and work tasks. Patient will report a decrease in pain in Right hand to 1/10 with basic self-care tasks, prior functional tasks, and work tasks. Patient will increase AROM of Right hand to WFL in order to be able to improve function for basic self-care tasks, prior functional tasks, and work tasks. Patient Goals: Patient seen in clinic by , sent for [facility] orthotic fitting Planned Interventions, Frequency, and Duration: Current Frequency: 1x every other week Duration: 6 weeks Total Number of Visits Planned: 3 Planned Treatment Interventions: Custom orthosis fabrication, Prefabricated orthosis fitting, Therapeutic exercise (83627), Therapeutic activities (19628), Manual therapy (07750), Neuromuscular re-education (73262), Self-skilled nursing management (24793), Orthotics management and training (31754,40843), Fluidotherapy (88697) PLAN FOR NEXT VISIT:Progress with dynamic strengthening as toelrated - check orthotic fit Patient demonstrates good understanding of plan of care and treatment. The above goals and plan of care were discussed and agreed upon by patient/family. SUBJECTIVE: Patient with RUE thumb pain 2/2 OA. Issued Size 3 push Meatgrip - reviewed joint protection techniques and gentle AROM - Unable to take fnps and pinch strength measures 2/2 pain, advised on increasing palmar abduction as able. 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 5 points is clinically meaningfully difference Percentiles provide an indication of how the patient's score ranks in relation to the general population. Higher percentile rankings indicate better function/quality of life. 50th percentile is the average of the general population and indicates half of respondents had a worse score. OBJECTIVE MEASURES WITH LEVEL OF FUNCTION: Hand Wrist AROM: WFL Right Hand AROM: WFL Left Hand AROM: WFL Thumb AROM: Right Limitation UE AROM Right Hand AROM: WFL Left Hand AROM: WFL Thumb AROM: Right Limitation Hand AROM R Thumb Radial Abduction: 45 Degrees R Thumb Palmar Abduction: 45 Degrees R Thumb Opposition (Functional): LF tip L Thumb Opposition (Functional): LF tip Education: Education Learning Preferences: Explanation, Performance, Printed Materials, Demonstration Barriers: None Learning/educational needs: Plan of Care, Home exercise program, Brace Fit Education Provided: Yes, see treatment interventions for education provided Education Provided To: Patient Education Mode/Type: Demonstration, Explanation/Discussion, Literature/Printed Materials, Performance, Teach Back Response to Education/Teach Back: States/Identifies, Return Demonstration TREATMENT: OT Treatment Interventions : Therapeutic Exercise, Manual Therapy, Therapeutic Activity, Neuromuscular Re-Education, Modalities, Custom Orthosis/Splint Fabrication, Prefabricated Orthosis Fitting, Orthotic Mgmt/Train (Initial), Self-Longterm Management Evaluation Therapeutic Exercise: 1: gentle thumb AROM - focus on palmar abduction 2: opposiiton training 3: EPB isolation for abduction 4: 1st DI/scissors strengthening Skilled Intervention: Patient was educated in proper exercise technique and purpose for exercises. Skilled judgment was used in selection of appropriate interventions. Provided written instruction for home exercise program to facilitate proper performance and compliance. Patient education as noted. Prefabricated orthosis: L 3923 (a) HFO w/out joints (PUSH Metagrip, Actimove) Prefabricated orthosis to provide support of RUE thumb to allow pian relief.. Patient was instructed in wear and care. Instructed in wearing schedule As needed day and/or night for pain relief.. Skilled Intervention: Technical skill required for proper fitting of pre-fabricated orthotic and wearing schedule Required supervision for donning/doffing orthosis Billing * Evaluation Low Complexity: 1 Unit Therapeutic Exercise Treatment Minutes: 15 Orthotic Mgmt/Train (Initial) Treatment Minutes: 15 * L 3923 (a) HFO w/out joints (PUSH Metagrip, Actimove): 1 Skilled Treatment Time Minutes (timed and untimed codes): 40 Total Session Time (minutes): 40 Session Start Time : 1435 Session Stop Time : 1515 NAEL Soto documented in this encounter [facility] 12-12-2023 Miscellaneous Notes Patient was advised to continue with ice, elevate, OTC pain medication for pain control until splint/bracing are fitted. documented in this encounter [facility] 12-11-2023 History of Presen t illness Narrative Associated Order(s): Small Joint Arthro/Inj: R thumb CMC Post-Procedure Diagnose(s): Arthritis of carpometacarpal (CMC) joint of right thumb Images from the original note were not included. ORTHOPAEDIC OFFICE NOTE CHIEF COMPLAINT: New and Pain of the Right Hand HISTORY OF PRESENT ILLNESS Berkley Sarmiento is a 68 year old male right hand dominant who presents for evaluation of right thumb and wrist pain. Patient admits to pain and difficulty with gripping, grasping, and twisting motions. He states he drops objects all the time due to this pain. Admits to having swelling to the radial and dorsal aspects of his right wrist. He admits pain will radiate up into his forearm at times. Denies having any numbness and tingling, pins and needle feeling at this time. Admits to history of carpal tunnel release a few years ago. Denies having any catching or locking of his fingers. Location: right wrist/thumb Severity: 10 on a scale of 0-10 Duration of symptoms: several months Date of injury: None Symptoms have Worsened Previous treatment: icing, elevating, analgesics, OTC wrist cock up brace Numbness/tingling: No Radiating: Yes Context worse with Activity/Motion and Gripping Occupation: [employer] Smoking status: Tobacco Use: 1 packs/day, for 10 years. Quit 09/25/1978. Types: Cigarettes Reviewed nursing note and current pain scale. PAIN EVALUATION 12/11/2023 1407 Pain Level: 10 Description: Sharp;Aching;Radiating Frequency: Continuous PAST MEDICAL HISTORY Past medical, surgical, family, and social histories have been reviewed and updated with the patient today and are located elsewhere in the medical record. Diabetes:No ALLERGIES ALLERGIES No Known Allergies PHYSICAL EXAMINATION Temp 36.8 C (98.3 F) Ht 167.6 cm (5' 6) Wt 84.4 kg (186 lb) BMI 30.02 kg/m Body mass index is 30.02 kg/m . General Appearance: Well appearing, alert, in no acute distress, well-hydrated, well nourished. Psyche: he is alert and oriented and cooperative to our examination. Neuro: he alert and oriented times: 3. Normal affect times: 3. Gait and station: normal. Pulmonary: he has non labored breathing. There is no evidence of cyanosis. There is no clubbing of fingernails. he has no pursed lips. Head: Normocephalic and atraumatic Neck: Supple with no JVD Lymph: There is no palpable epitrochlear Musculoskeletal- Right Hand/Wrist/Upper Extremity Exam: Skin: There is a hard, bony prominence noted at the CMC C joint level of the right index finger, most likely consistent with carpal boss. There is mild swelling noted to right thumb CMC joint, radial wrist, and dorsal wrist. No ecchymosis. There are no skin lacerations or abrasions. Inspection: There are Heberden's nodes. There is no boutonniere or swan-neck deformity of the fingers. There is no ulnar drift of the fingers. There is no intrinsic muscular atrophy. There is a + shoulder sign over the thumb CMC joint. There is no dorsal subluxation of the ulnar head. Cardiovascular: <3 sec capillary refill, +2 radial pulse palpated. Tenderness to palpation: Significantly tender over right thumb CMC joint and STT joint. TTP noted to right radiocarpal joint and radial aspect of right wrist. ROM: Decreased active range of motion of right thumb due to pain and swelling. Pain with thumb hyperextension, hyper opposition, and hyper abduction. Unable to make full composite fist due to pain in wrist and thumb. No active or passive triggering of thumb or fingers noted. Full active flexion of fingers when asked to flex them down and touch finger tips to palm. Instability: none Sensation: Normal sensation Special tests: - Pedrito's test: Negative - Thumb CMC grind: Positive REVIEW OF STUDIES X-rays 12/11/23 3 views of right wrist were taken and evaluated. Radiographic evaluation: No obvious fracture or dislocation is noted. Degenerative changes noted to right thumb CMC and STT joints with osteophyte formations noted. Mild degenerative changes noted to right thumb MPJ and right second metacarpal CMC joint. No soft tissue gas. ASSESSMENT AND PLAN 1. Arthritis of carpometacarpal (CMC) joint of right thumb - ICD9: 716.94, ICD10: M18.11 (primary diagnosis) - CONSULT TO OCCUPATIONAL THERAPY/HAND THERAPY (AG) - XR HAND GENERAL 3V PA/LAT/OBL RIGHT - SMALL JOINT INJECTION/ARTHROCENTESIS 2. Arthritis of emoybowq-joafudklg-nhuokvxap joint of right hand - ICD9: 716.93, ICD10: M19.031 - CONSULT TO OCCUPATIONAL THERAPY/HAND THERAPY (AG) - XR HAND GENERAL 3V PA/LAT/OBL RIGHT 3. Carpal boss of right wrist - ICD9: 726.91, ICD10: M25.731 - XR HAND GENERAL 3V PA/LAT/OBL RIGHT Patient educated on clinical and exam findings, radiographic findings, suspected diagnosis, and treatment options. - I did offer patient a corticosteroid injection into right thumb CMC joint. I explained the risks and benefits of this. Risks of corticosteroid injection were discussed including self-limited post-injection flare, risk of transient blood glucose elevation, risk of self-limited facial flushing, risk of skin atrophy or depigmentation and risk of infection. Activities and restrictions after injection were also discussed. Patient may perform any ADLs after injection. I recommend no increase in baseline activity while the lidocaine is in effect. It could take 3-5 days for maximal steroid effect. Patient advised to monitor symptoms for the next 3 days and allow 2 weeks for maximal effect. Patient expressed understanding and agreed to proceed. See procedure note below. -OT order placed today for patient to obtain thumb CMC splint to wear at his discretion. -Ice/elevate as needed -NSAIDs/Tylenol as needed -We briefly discussed how he would be a candidate for thumb CMC arthroplasty procedure if he becomes interested in the future. Follow up in 6 weeks to assess response - Patient instructed to call office with questions or concerns. Arthritis of carpometacarpal (cmc) joint of right thumb (primary encounter diagnosis) Arthritis of forcdlqr-cfisfgzst-olgurcxur joint of right hand Carpal boss of right wrist Injection performed as detailed below: Small Joint Arthro/Inj: R thumb CMC Informed Consent Consent Obtained: Verbal [place] Protocol A moment to CARE was completed. SIGN IN Personnel directly involved with the procedure wore the appropriate PPE. Special Equipment: Yes Patient/Surrogate Stated/Verified: Patient name, Date of , Relevant allergies and Intended procedure TIME OUT Intended patient and procedure match the source document(s). Consent documented and matches the intended procedure. Relevant labs, photos, and/or imaging studies have been reviewed. Correct side/site marked and visible. Medications required for procedure verified. No fire risk assessment and interventions applicable. No implant(s) inserted. 12/11/2023 3:07 PM The procedure site was prepped in the usual sterile fashion. Medications: 6 mg betamethasone acetate-betamethasone sodium phosphate 6 mg/mL Anesthetics: 1 mL lidocaine 10 mg/mL (1 %) Outcome: tolerated well, no immediate complications Post-injection instructions were reviewed with the patient and the patient voiced understanding of these instructions. SIGN OUT All instruments, equipment, possible retained foreign bodies accounted for. This note was generated via [employer] voice dictation and may contain errors related to that system such as spelling, grammar, punctuation, gender, words, and phrases that may be inappropriate. All reasonable efforts were made to correct dictation errors, however, they still may occur given the software used. ELIAS Hu PA-C [facility] Injection prepared per Dr. Teran's order and handed directly to him. Elizabeth Almanzar LPN REVIEW OF SYSTEMS: GENERAL: Well developed, well nourished. No acute distress PAIN: Negative for pain, history of chronic pain or current treatment for chronic pain conditions CARDIOVASCULAR: Negative for chest pain, leg swelling and palpations. MSK: Negative for joint swelling SKIN: Negative for lesions, rash, itching, metal sensitivity NEURO: Negative for seizure, trauma, numbness/tingling of extremities. ENDOCRINE: Negative for diabetic associated symptoms HEMATOLOGY: Negative for excessive bleeding, clots, bleeding disorders. documented in this encounter [facility] 05-30-2023 History and physical note Note Date/Time May 30, 2023 2:20pm [facility] [address] [place] [address] H&P Exam - Wound Care 05/30/23 1412 MR#: [id number] Acct: [id number] Name: ANUSHABERKLEY RENAE Trupti Rep #:[id number] : 1955 67 From: [place] PCP: Dr. Kinsey Rogers, DO Status :REG RCR Location: History of Present Illness Date of Service: 05/30/23 Chief Complaint: Ulceration of the right medial calf History of Wound: This is a 67-year-old male who presents with an ulceration on the right medial calf. It has been present for several weeks, and started as a blister. Patient has been treated with a course of cephalexin 500 mg p.o. every8 hours, which is now finished. He has been applying mupirocin topically. The patient denies a history of swelling. He also denies a history of lower extremity thrombophlebitis. 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 Patient owns graduated compression stockings, but is unaware of the degree of compression. The patient was admitted to the emergency department at [facility] on May 19, 2023, with symptoms of a TIA. A CT scan revealed no acute intracranial findings. A CTA ofthe head and neck was negative. EKG revealed a normal sinus rhythm. An echocardiogram was unremarkable. The patient's laboratory studies were as follows: White blood count 6.1, hemoglobin 15.2, hematocrit 46.9, platelets 183,000, sodium 142, potassium 3.8, chloride 109, BUN 16, creatinine 0.71, glucose 94, calcium 9.1, magnesium 2.2, total bilirubin 1.10, AST 16, ALT 24, alkaline phosphatase 66, total protein 7.0, albumin 3.4. The patient was discharged on May 20, 2023, one day following his admission. [facility] Medical History Abdominal pain Anxiety Arthritis Chest pain Chronic venous insufficiency CPAP (continuous positive airway pressure) dependence Degenerative disc disease Edema of right lower leg Fatigue Gastric reflux GERD (gastroesophageal reflux disease) Hearing loss History of Terry's esophagus History of IBS History of skin cancer History of TIA (transient ischemic attack) Hx of pancreatitis Injury of head and neck Irritable bowel syndrome with constipation Kidney stone Mini stroke Non-smoker Obstructive sleep apnea Prediabetes Right leg swelling Severe headache Shortness of breath on exertion Spondylarthrosis Venous stasis ulcer Wears glasses Wears hearing aid Home Medications celecoxib 100 mg capsule 100 mg PO DAILY pain 05/19/23 [History Last Taken 05/19/23] esomeprazole magnesium 40 mg capsule,delayed release 40 mg PO Q24H 05/19/23 [History Last Taken 05/19/23] mupirocin 2 % topical ointment 1 applic topical BID SORE ON LEG 05/19/23 [History Last Taken 05/19/23] aspirin 81 mg chewable tablet 81 mg PO BREAKFAST 30 days #30 tabs 05/20/23 [Rx Last Taken Unknown] atorvastatin 20 mg tablet 20 mg PO QHS 30 days #30 tabs 05/20/23 [Rx Last Taken Unknown] Allergy/AdvReac Type Severity Reaction Status Date / Time No Known Allergies Allergy Verified 05/30/23 08:16 Family History Father Alcoholism Arthritis Heart disease Surgical History History of carpal tunnel surgery of right wrist History of cholecystectomy Social History Smoking Status: Never smoker alcohol intake: never substance use type: does not use what type of physical activity do you participate in: none Vital Signs Vital Signs Vital Signs: 05/30/23 08:02 Temperature 96.9 F L Temperature Source Temporal Pulse Rate 63 Respiratory Rate 16 Blood Pressure 133/83 H Blood Pressure Mean 99 Blood Pressure Source Monitor Blood Pressure Position Sitting Blood Pressure Location Right Arm Oxygen Delivery Method Room Air Weight Weight: 170 lb Body Mass Index (BMI) 28.3 Physical Exam Const alert, oriented x3, no apparent distress, average body habitus and well nourished General Appearance: cooperative, comfortable, well kempt and well developed Orientation / Consciousness: awake, oriented to person, oriented to place and oriented to time HEENT normocephalic, head/scalp atraumatic and hearing grossly normal bilaterally Head and Scalp: normal to inspection, normocephalic and atraumatic External Ear: external ears normal Eyes PERRL and EOMs intact bilaterally General Eye: normal appearance of both eyes Resp normal respiratory effort, normal air movement, no retractions and no use of accessory muscles Effort and Inspection: able to speak in complete sentences Extremity no calf tenderness General Extremity: Negative for clubbing or cyanosis Skin Wound Narrative: A small ulceration is noted on the patient right medial calf. Dimensions are documented elsewhere. There is a moderate amount of bioburden. There is no sign of infection or cellulitis. Slight swelling is noted in the patient's right lower extremity. Neuro oriented x3, CN's II-XII intact bilaterally and moves all extremities Sensorium / Orientation: awake, alert, oriented to person, oriented to place andoriented to time Psych Appearance: grossly normal and appropriate Attitude: calm and engaged Activity / Motor Behavior: appropriate eye contact Speech: normal speech Mood & Affect: euthymic mood Thought Process: normal thought process Thought Content: normal thought content Attention / Concentration: attention grossly intact Debridement Note Debridement Note Wound debrided: Right medial calf Laterality: Right Type of Debridement: Excisional debridement Anesthesia Used: 5% Lidocaine Gel Depth: Down to and including healthy tissue and in the subcutaneous layer Percentage of wound debrided: 100 Instrument Used: 5mm curette Severity: Fat Layer Exposed Amount of bleeding with debridement: Mild Bleeding Controlled with: Compression and gauze Patient tolerated procedure: Patient tolerated procedure well Post-Debridement Measurements and Additional Note: Post-Debridement Measurements/Treatment - Nurse 1 - General Ulcer Assessment Start: 05/30/23 08:02 Freq: Status: Active Protocol: ESTELA.SURESHT Activity Type Activity Date Activity User E-sign Co-sign Detail Recorded Client Recorded Date Recorded By Document 05/30/23 08:02 [facility] [id number] 05/30/23 08:13 [facility] 05/30/23 08:02 - Today's Visit Information Type of service Initial Visit Arrival Mode Ambulatory Transfer Assistance None Patient Identification Verified (Name & Yes ) Patient Requires Transmission-Based No Precautions Height and Weight Height 5 ft 5 in Weight 170 lb Weight in Pounds 170.0 lbs Body Mass Index (BMI) 28.3 BMI Classification Overweight BSA - Donell 1.85 Vital Signs Temperature (97.8 F-99.1 F) 96.9 F L Temperature Source Temporal Pulse Rate (60-100) 63 Pulse Location Monitor Respiratory Rate (12-18) 16 Respiratory rate source Observation Oxygen Delivery Method Room Air Blood Pressure (90/60-120/80) 133/83 H Blood Pressure Mean 99 Source Monitor Position Sitting Blood Pressure Location Right Arm History Since Last Visit- (Skip if this is Patient's initial visit) Left Footwear Regular Shoe Right Footwear Regular Shoe Pain Scale: 0-10 Numeric Is Patient Pain Free? Yes Lower Extremity Assessment/ Foot Assessment/ Toe Nail Assessment Right -Posterior Tibial Doppler Multiphasic -Dorsalis Pedis Palpable Yes -Dorsalis Pedis Doppler Multiphasic -Extremity Color Hyperpigmented -Hair Growth on Legs Yes -Hair Growth on Toes No -Thick Yes -Discolored Yes -Deformed No -Improper Length & Hygeine Yes Left -Posterior Tibial Palpable Yes -Posterior Tibial Doppler Multiphasic -Dorsalis Pedis Palpable Yes -Dorsalis Pedis Doppler Multiphasic -Extremity Color Hyperpigmented -Hair Growth on Legs Yes -Hair Growth on Toes No -Thick Yes -Discolored Yes -Deformed No -Improper Length & Hygeine Yes Communication Assessment Preferred language Bulgarian Interventional Radiology Rn Required No Able to Read Yes Able to Write Yes Communication Tools None Right Hearing Abillity Normal Left Hearing Abillity Normal Visual Assistive Devices Glasses Teaching Assessment Preferences Verbal,Written, Audio/Visual, Demonstration Barriers to Learning None Readiness To Learn Excellent Willingness to Engage in Self Management High Activies Readiness to Engage in Self Management High Activities Anxiety Level Calm Cooperation Cooperative Perception Coherent Interest in Health Problem Asks Questions Education Importance Acknowledges Need Does Patient Smoke tobacco or other No substances Is Patient Diabetic Yes Culture/Christian/Metal Leaf Layer Cultural/Christian Needs that may affect No Treatment Plan Teaching: Wound Center *Welcome to the Wound Center -Person Taught Patient,Family -Teaching Method Discussion -Response to teaching Verbalize understanding Welcome to the Wound Care Center English PALMER - Nurse 1 - General Ulcer Measurement Start: 05/30/23 08:02 Freq: Status: Active Protocol: Activity Type Activity Date Activity User E-sign Co-sign Detail Recorded Client Recorded Date Recorded By Document 05/30/23 08:02 [facility] [id number] 05/30/23 08:13 [facility] 05/30/23 08:02 Wound Center Nurse 1 #1- R MED LE -Combined with other wound No -Current Size (cm) - Length 0.1 -Current Size (cm) - Width 0.1 -Current Size (cm) - Depth 0.1 -Total Square Cm 0.01 -Date of Last Picture (Recall this 05/30/23 field) -Photo Taken Yes -Exudate Amt None Present -Wound Margin Distinct, Outline Attached -Slough/Fibrin Yes -Necrosis Amt Large (67-100%) -Necrotic Tissue Type Eschar -Texture (Barbara-wound Skin Appearance) Assessed, Scarring -Moisture (Barbara-wound Skin Appearance) Assessed -Color (Barbara-wound Skin Appearance) Assessed -Temperature (Barbara-wound Skin No Abnormality Appearance) (Pt Warm) -Tenderness on Palpation (Barbara-wound No Skin Appearance) -Ulcer Cleansing Rinsed/ Irrigated with Saline -Foul Odor after Cleansing No -Anesthetic Used 5% Lidocaine Gel Lower Limb Edema Present Yes Right Calf (cm) 36.8 Right Ankle (cm) 22.1 Left Calf (cm) 32.8 Left Ankle (cm) 20.4 WC - Nurse 2 - General Ulcer CM Notes Start: 05/30/23 08:02 Freq: Status: Active Protocol: Activity Type Activity Date Activity User E-sign Co-sign Detail Recorded Client Recorded Date Recorded By Document 05/30/23 13:55 [address] [id number] 05/30/23 13:56 PL 05/30/23 13:55 Wound Center Nurse 2 #1- R MED LE -Time 08:26 -Correct Patient Yes -Correct Side, Site, Position Yes -Correct Procedure Yes -Procedure Performed Yes -Type of Procedure Debridement -Clinical Debridement Subcutaneous -Tissue Removed Subcutaneous -Post Debridement (cm) - Length 0.1 -Post Debridement (cm) - Width 0.1 -Post Debridement (cm) - Depth 0.1 -Total Square (Post) (cm) 0.01 -Area of Debridement (cm) - Length 0.1 -Area of Debridement (cm) - Width 1.1 -Total Square (Area) (cm) 0.11 -Tunneling No -Undermining/Tunneling No -Circular Undermining No -Wound/Ulcer Outcome Not Healed -Ulcer Cleansing Rinsed/ Irrigated with Saline -Foul Odor after Cleansing No -Bioengineered Tissue No -Bleeding Controlled with Pressure -Treatment Response Procedure Tolerated Well -Debridement - Subq, 1st 20sq cm Yes Pain Scale: 0-10 Numeric Is Patient Pain Free? Yes - Nurse 3 - General Ulcer D/C NN Start: 05/30/23 08:02 Freq: Status: Active Protocol: Activity Type Activity Date Activity User E-sign Co-sign Detail Recorded Client Recorded Date Recorded By Document 05/30/23 08:56 DL [id number] 05/30/23 08:57 DL 09/05/23 08:56 Wound Care Center Nurse 3 #1- R MED LE -Ulcer Cleansing Rinsed/ Irrigated with Saline -Foul Odor after Cleansing No -Primary Dressing Applied C Hydrogel ($), Mepilex Border -Mepilex Border 1 sahil -Multi-Layered Wrap Application Multi-Layer Comp - Bilat ($ ) Treatment Response Procedure Tolerated Well Pain Scale: 0-10 Numeric Is Patient Pain Free? Yes WC - Visit Discharge Discharge Condition Stable Ambulatory Status Ambulatory Transportation Private Auto Assessment/Plan Assessment/Plan (1) Venous stasis ulcer: CODE(S): I83.009 - Varicose veins of unspecified lower extremity with ulcer of unspecified site; L97.909 - Non-pressure chronic ulcer of unspecified part of unspecified lower leg with unspecified severity (2) Right leg swelling: CODE(S): M79.89 - Other specified soft tissue disorders (3) Edema of right lower leg: CODE(S): R60.0 - Localized edema (4) Chronic venous insufficiency: CODE(S): I87.2 - Venous insufficiency (chronic) (peripheral) (5) Terry's esophagus without dysplasia: CODE(S): K22.70 - Terry's esophagus without dysplasia (6) Sleep apnea: CODE(S): G47.30 - Sleep apnea, unspecified (7) Hx of pancreatitis: CODE(S): Z87.19 - Personal history of other diseases of the digestive system (8) Psoriasis, unspecified: CODE(S): L40.9 - Psoriasis, unspecified (9) DDD (degenerative disc disease), lumbar: CODE(S): M51.36 - Other intervertebral disc degeneration, lumbar region (10) Chronic constipation: CODE(S): K59.09 - Other constipation (11) Degenerative cervical disc: CODE(S): M50.30 - Other cervical disc degeneration, unspecified cervical region (12) Obstructive sleep apnea: CODE(S): G47.33 - Obstructive sleep apnea (adult) (pediatric) (13) History of Terry's esophagus: CODE(S): Z87.19 - Personal history of other diseases of the digestive system (14) Irritable bowel syndrome with constipation: CODE(S): K58.1 - Irritable bowel syndrome with constipation (15) Prediabetes: CODE(S): R73.03 - Prediabetes (16) Degenerative disc disease: (17) History of skin cancer: CODE(S): Z85.828 - Personal history of other malignant neoplasm of skin (18) GERD (gastroesophageal reflux disease): CODE(S): K21.9 - Gastro-esophageal reflux disease without esophagitis (19) Arthritis: CODE(S): M19.90 - Unspecified osteoarthritis, unspecified site (20) History of TIA (transient ischemic attack): CODE(S): Z86.73 - Personal history of transient ischemic attack (TIA), andcerebral infarction without residual deficits PLAN: Plan This is a 67-year-old male who presented with an ulceration on the right medial calf. It started as a blister several weeks prior to his presentation. We are to implement the conservative treatment regimen. Patient has been advised to elevate his lower extremities is much as possible. Elevation is to be to heart level, or higher, is much as possible. This is to be accomplished during both daytime and nighttime hours. He has been encouraged to sleep on a flat surface at night. Prolonged idle sitting has been discouraged. Activity has been encouraged. We are to implement compression to the lower extremities by means of Tubigrip's, which will be donned on a daily basis. Tubigrip's of 20 to 30 mmHg compression have been provided. Collagen hydrogel will be applied topically to the ulceration on the right medial calf. This will be applied on adaily basis. The patient has been instructed in the appropriate means of application. The patient has been instructed to bring his graduated compressionstockings with him to his next clinic visit, so it can be ascertained whether these are appropriately fitted and of adequate compression. Total time: 50 minutes 05/30/231427 <Electronically signed by Channing Valle MD> Cosigner Signature (if applicable): CC: ~ Signed [facility] Work Phone: 1(914) 318-877408-26-2023 Progress note Author Renata Ness [facility] May 20, 2023 1:55pm Note Date/Time May 20, 2023 5: 42am [facility] Medical Records Department [address] [place] [address] Progress Note - Hospitalist 05/20/23 0541 MR#: [id number] Acct: [id number] Name: BERKLEY SARMIENTO Rep #:[id number] : 1955 67 From: Renata Ness MD PCP: Dr. Rinku Rubi MD Status:A DM WILLY Location: [place] [address] Reason for Visit Reason for Visit: Diagnoses Dizziness and giddiness (05/19/23) Subjective Subjective Patient with no acute events overnight per self and per nursing report. He notes resolution of neurological symptoms except still has some mild dizziness but but denies any at this moment and denies specifically any vertiginous type symptoms or any leaning to one side specifically. He states he did have chronicissues with dizziness in the past. Bilateral ear evaluation today with significant cerumen impaction and discussed this with him and his family presentwith planned ENT follow-up per their preference. Patient denies fevers, chills,nausea, emesis, abdominal pain, chest pain or dyspnea. Objective Data Objective Data Vital Signs: Vital Signs Temp Pulse Resp BP Pulse Ox O2 Del Method 97.7 F L 60 18 129/79 H 99 CPAP 05/20/23 04:30 05/20/23 04:30 05/20/23 04:30 05/20/23 04:30 05/20/23 04:30 05/20/23 04:30 Oxygen Delivery Method CPAP Weight: 177 lb 4.026 oz Body Mass Index (BMI) 29.5 Intake & Output: Intake and Output for Last 24 Hours 05/18/23 05/19/23 05/20/23 23:59 23:59 23:59 Intake Total 100 / 100 Balance 100 / 100 Lab / Micro Data 05/20/23 06:55 05/20/23 06:55 Labs: Laboratory Results - last 24 hr 05/19/23 15:10: WBC 6.4, RBC 5.15, Hgb 14.9, Hct 45.9, MCV 89.1, MCH 28.9, MCHC 32.5, RDW Std Deviation 41.6, RDW Coeff of Campos 12.6, Plt Count 193, MPV 10.8, Immature Gran % (Auto) 0.200, Neut % (Auto) 56.8, Lymph % (Auto) 26.5, Wolfe % (Auto) 12.6 H, Eos % (Auto) 3.3, Baso % (Auto) 0.6, Absolute Neuts (auto) 3.6, Absolute Lymphs (auto) 1.68, Nucleated RBC % 0, PT 13.5, INR 1.0, APTT 30.4, Sodium 139, Potassium 3.8, Chloride 109 H, Carbon Dioxide 25.0, Anion Gap 5, BUN22 H, Creatinine 0.85, Estim Creat Clear Calc 74.36, Est GFR (MDRD) Af Amer 116,Est GFR (MDRD) Non-Af 96, BUN/Creatinine Ratio 25.9 H, Glucose 96, Calcium 9.1, Troponin I High Sens 12, Triglycerides 162, Cholesterol 156, LDL Cholesterol 80,VLDL Cholesterol 32, HDL Cholesterol 44 05/19/23 20:43: POC Glucose 84 05/20/23 03:08: POC Glucose 99 Radiography Diagnostic Testing: Radiology Impression Brain CT 05/19/23 15:11 IMPRESSION: No acute intracranial findings. Electronically Signed: Myke Dixon MD at 15:31 EDT , ADDENDUM: 05/19/23 1544 IMPRESSION: No acute intracranial findings. N.B. : The above Results were Read Back by Myke Dixon MD to Brayan Bhatt MD, and understanding confirmed on 05/19/2023 15:37:32 (ET). Electronically Signed: Myke Dixon MD at 15:31 EDT , ADDENDUM: 05/19/23 1608 IMPRESSION: No acute intracranial findings. N.B. : The above Results were Read Back by Mkye Dixon MD to Brayan Bhatt MD, and understanding confirmed on 05/19/2023 16:01:51 (ET). Electronically Signed: Myke Dixon MD at 15:31 EDT , Head/Neck CTA 05/19/23 15:11 IMPRESSION: Negative CTA Head and Neck. Electronically Signed: Myke Dixon MD at 15:59 EDT , ADDENDUM: 05/19/23 1608 IMPRESSION: Negative CTA Head and Neck. N.B. : The above Results were Read Back by Myke Dixon MD to MILLER HUSAIN MD, and understanding confirmed on 05/19/2023 16:01:37 (ET). Electronically Signed: Myke Dixon MD at 15:59 EDT , Chest X-Ray 05/19/23 15:50 IMPRESSION: No definite acute or significant abnormality seen. Electronically Signed: Kumar Servin MD at 16:16 EDT , Brain MRI 05/19/23 18:19 IMPRESSION: Normal unenhanced MRI of the brain. Electronically Signed: Jeff Simmons MD at 20:21 EDT , Physical Exam Narrative Physical Examination: General: Awake, alert, oriented x 3 and cooperative, seated upright in the bedside chair, no acute distress, notes feeling well and all neurological symptoms currently resolved. Does state he occasionally will have dizziness and this has been chronic but has been sometime since has had it. Skin: Normal color, normal turgor, no icterus, no cyanosis built various stage abrasions and ecchymoses, recent abrasion to the right anterior soto with scab in place, appears to be healing. HEENT: AT/NC, EOMI, PERRLA, MMM, bilateral ear cerumen impaction noted. Lungs: CTA bilaterally, moderate effort, mild decrease BL bases, no rales, ronchi or wheezing. Heart: Regular rate and rhythm; no gallop, rub audible. Abdomen: Soft, weight, NTTP, ND, normal BS. Extremities: No cyanosis, clubbing, or edema, see skin. Neurological: Patient awake, alert, oriented as noted, cognitive function is baseline intact; pupils equally reactive to light and accommodation, cranial nerves II- XII grossly normal, moving all 4 extremities, strength mildly to moderately global decrease but no focal deficits, no aphasia, dysarthria, sensation intact, denies any dizziness at this time but has noted bilateral cerumen impaction evident. Psychiatric: Affect appears normal, no acute evidence of depressive or anxiety feelings. Assessment & Plan Assessment/Plan (1) Dizziness: PLAN: Plan The patient is a 67 y/o F M w/ PMHx: Obesity, Anxiety and Depression, ROBYN on CPAP, GERD w/ Hx Terry's esophagus, Prediabetes, Hx Pancreatitis who presents to the [facility] ED on 05/19/23 with history of dizziness starting 05/15/2023 which has been continuous however he had onset of intermittent expressive aphasia as well as difficulty ambulating and given since it was recurrent including episode mostrecently at 1430 on day of presentation with inability to speak as well as questionable twitching of his extremities and dizziness in addition to a facial droop although normalized prior to ED arrival prompted ED evaluation. #1. Intermittent dizziness, intermittent expressive aphasia as well as gait disturbance concerning for TIA, CVA Ruled out: Work-up in the ED included T97.8,heart rate 68, BP 133/88, respiratory rate 16, 94% on room air, CBC with WBC 6.4, hemoglobin 14.9, platelet 193 without marked shift, unremarkable coags, BMPnot marked appearing, troponin 12, CT the brain with no acute intracranial findings, CTA head and neck unremarkable, chest x-ray with no acute cardiopulmonary findings, EKG with sinus rhythm with no acute evidence of ischemia. ED initial NIH stroke scale noted to be 3. Admitted to PCU, MRI brain without acute intracranial findings with no evidence of any acute stroke, ECHO w/ left ventricular ejection fraction is 65 %, mild TVI, bubble contrast study is negative for PFO/ASD. PT/OT/Speech/Nutrition evaluation per protocol. Patient maintained on asa, added statin w/ AM FLP, fall precautions. Mag 2.2, TSH 3.35, FLP with TG 162, TChol 156, LDL 80, VLDL 32, HDL 44, HgbA1c 5.8% with last noted prior 04/21/21 HgBA1c 5.8%. Given clinical improvement and no obviousevidence of stroke patient discharged to home with TIA with recommended continuebaby aspirin and low-dose statin as well as follow-up with ENT as noted #2 as well as PCP follow-up. #2. Bilateral cerumen impaction: Likely contributing to patient complaint of dizziness and he notes that he has had chronic issues with dizziness previously but has not had it in some time. Discussed with staff unable to unfortunately have irrigation performed at this time therefore following discussion with patient and family present we will have patient follow-up outpatient with ENT with recommended usage of system like Debrox until evaluation. #3. Anxiety and depression: From current list on regimen, encourage continued outpatient follow-up and evaluation as needed. #4. Right lower extremity anterior leg abrasion with possibly recent cellulitisdiagnosis: We will continue patient recently initiated mupirocin and oral Keflexregimen. #5. GERD with history of Terry's esophagus: We will continue patient on PPI. #6. Prediabetes: Not on regimen, ADA diet, accu checks w/ ISS, HgBA1c 5.8% unchanged from prior remote noted 04/21/21, nutrition consulted also per stroke protocol encouraged continued lifestyle and diet changes to bring this down further. #7. Obesity: Weight loss and lifestyle changes encouraged. #8. ROBYN: CPAP nightly. #9. DVT prophylaxis: Lovenox. Charges/Coding Visit Charges Inpatient E&M: 34160 Subs Hosp L2 05/20/23 6741 <Electronically signed by Renata Ness MD> Cosigner Signature (if applicable): CC: ~ Signed [facility] Work Phone: 1([phone]) 827-793508-25-2023 History and physical note Author Ford Blanc [facility] May 19, 2023 8:49pm Note Date/Time May 19, 2023 4: 57pm [facility] Medical Records Department [address] [place] [address] H&P Exam - Hospitalist 05/19/23 1651 MR#: [id number] Acct: [id number] Name: BERKLEY SARMIENTO Rep #:[id number] : 1955 67 From: Ford morfin DO PCP: Dr. Rinku Rubi MD Status:A DM IN Location: [facility] [id number] HPI - General General Date of Admission: 05/19/23 Date of Service: 05/19/23 Chief Complaint: Dizziness, stroke rule out HPI Narrative BERKLEY SARMIENTO is a 67 M with history of GERD with Terry's esophagus, degenerative disc disease, ROBYN and vertigo who presented to [facility] ED on 05/19/2023 with concern for worsening dizziness with ataxia. Patient seen at bedside, daughters present. Patient sitting comfortably in bed,in no acute distress. Does occasionally have some slowing/jumbling of speech, but is answering all questions appropriately. Patient states that symptoms havebeen going on since Monday. He reports dizziness/lightheadedness specifically when going from sitting to standing over that timeframe. Has no history of hypertension, does not take any antihypertensive medications at home. Patient reports eating and drinking fine recently. He states that he feels like his balance is very off, and he is not able to walk straight. He also began to notice slurring of his speech over the last few days. He does have a history ofvertigo, with last episode a few years back. States those episodes were more consistent with the room spinning at various times, very different than current episode. He denies any fevers or chills. Denies any recent infections. Deniesany chest pain or shortness of breath. He denies any arm or leg weakness. Denies any numbness or paresthesia in his limbs. No other acute concerns. Vitals on admit were notable for mild hypertension, otherwise benign. Labs wereunremarkable. CT head and CTA head/neck showed no acute pathology. Chest x- raywas nonacute. [facility] Medical History (Updated 05/19/23 @ 20:[address] Ford Blanc DO) Abdominal pain Anxiety Arthritis Chest pain CPAP (continuous positive airway pressure) dependence Degenerative disc disease Fatigue Gastric reflux GERD (gastroesophageal reflux disease) Hearing loss History of Terry's esophagus History of IBS History of skin cancer Hx of pancreatitis Injury of head and neck Irritable bowel syndrome with constipation Kidney stone Non-smoker Obstructive sleep apnea Prediabetes Severe headache Shortness of breath on exertion Spondylarthrosis Wears glasses Wears hearing aid Home Medications celecoxib 100 mg capsule 100 mg PO DAILY pain 05/19/23 [History Last Taken 05/19/23] cephalexin 500 mg capsule 500 mg PO Q8H 05/19/23 [History Last Taken 05/19/23] esomeprazole magnesium 40 mg capsule,delayed release 40 mg PO Q24H 05/19/23 [History Last Taken 05/19/23] mupirocin 2 % topical ointment 1 applic topical BID SORE ON LEG 05/19/23 [History Last Taken 05/19/23] Allergy/AdvReac Type Severity Reaction Status Date / Time No Known Allergies Allergy Verified 02/11/23 09:56 Family History Father Alcoholism Arthritis Heart disease Surgical History History of carpal tunnel surgery of right wrist History of cholecystectomy Social History Smoking Status: Never smoker alcohol intake: never substance use type: does not use what type of physical activity do you participate in: none ROS Constitutional Constitutional: Denies chills, fatigue, fever(s) or weakness Eyes Eyes: Denies change in vision Cardiovascular Cardiovascular: Denies chest pain Respiratory/Chest Respiratory/Chest: Denies cough Gastrointestinal Gastrointestinal: Denies abdominal pain Musculoskeletal Musculoskeletal: Denies arthralgias Neurologic Neurologic: Reports abnormal speech, disequilibrium and dizziness; Denies confusion, headache(s), numbness or paresthesias Vital Signs Vital Signs Vital Signs: 05/19/23 15:04 05/19/23 15:06 05/19/23 15:25 Temperature 97.2 F L 97.7 F L Temperature Source Temporal Temporal Pulse Rate 18 L 75 96 Respiratory Rate 75 H 18 18 Blood Pressure 175/100 H 175/100 H 157/88 H Blood Pressure Mean 125 125 111 Pulse Ox 97 97 99 Oxygen Delivery Method Room Air Room Air Room Air 05/19/23 15:55 05/19/23 16:25 Temperature 98.1 F Temperature Source Oral Pulse Rate 75 72 Respiratory Rate 18 15 Blood Pressure 150/89 H 152/87 H Blood Pressure Mean 109 108 Pulse Ox 97 96 Oxygen Delivery Method Room Air Room Air Weight Weight: 86.4 kg Body Mass Index (BMI) 31.6 Physical Exam Const alert and oriented x3 Constitutional Narrative: Sitting comfortably in bed, conversing normally, no acute distress. General Appearance: cooperative and comfortable HEENT normocephalic, head/scalp atraumatic, hearing grossly normal bilaterally, nasal mucous membranes and turbinates normal and moist oral mucous membranes Eyes PERRL, EOMs intact bilaterally and conjunctivae normal Neck full ROM, no lymphadenopathy and supple Lymph Lymphatic: no lymphadenopathy noted Chest inspection of chest normal Resp normal respiratory effort, normal air movement, no use of accessory muscles and clear to auscultation bilaterally Cardio regular rate, regular rhythm, no murmurs and peripheral pulses 2+ throughout GI normal to inspection, nondistended, normoactive bowel sounds, soft to palpation,non-tender and non-distended Back/Spine normal ROM Extremity normal to inspection, full ROM and no pedal edema Skin no rashes or lesions noted Neuro moves all extremities and no focal motor deficits Sensorium / Orientation: awake and alert Psych mental status grossly normal Results Lab / Micro Data 05/19/23 15:10 05/19/23 15:10 Labs: Laboratory Results - last 24 hr 05/19/23 15:10: WBC 6.4, RBC 5.15, Hgb 14.9, Hct 45.9, MCV 89.1, MCH 28.9, MCHC 32.5, RDW Std Deviation 41.6, RDW Coeff of Campos 12.6, Plt Count 193, MPV 10.8, Immature Gran % (Auto) 0.200, Neut % (Auto) 56.8, Lymph % (Auto) 26.5, Wolfe % (Auto) 12.6 H, Eos % (Auto) 3.3, Baso % (Auto) 0.6, Absolute Neuts (auto) 3.6, Absolute Lymphs (auto) 1.68, Nucleated RBC % 0, PT 13.5, INR 1.0, APTT 30.4, Sodium 139, Potassium 3.8, Chloride 109 H, Carbon Dioxide 25.0, Anion Gap 5, BUN22 H, Creatinine 0.85, Estim Creat Clear Calc 74.36, Est GFR (MDRD) Af Amer 116,Est GFR (MDRD) Non-Af 96, BUN/Creatinine Ratio 25.9 H, Glucose 96, Calcium 9.1, Troponin I High Sens [address] 05/19/23 15:11 IMPRESSION: No acute intracranial findings. Electronically Signed: Myke Dixon MD at 15:31 EDT , ADDENDUM: 05/19/23 1544 IMPRESSION: No acute intracranial findings. N.B. : The above Results were Read Back by Myke Dixon MD to Brayan Bhatt MD, and understanding confirmed on 05/19/2023 15:37:32 (ET). Electronically Signed: Myke Dixon MD at 15:31 EDT , ADDENDUM: 05/19/23 1608 IMPRESSION: No acute intracranial findings. N.B. : The above Results were Read Back by Myke Dixon MD to Brayan Bhatt MD, and understanding confirmed on 05/19/2023 16:01:51 (ET). Electronically Signed: Myke Dixon MD at 15:31 EDT , Head/Neck CTA 05/19/23 15:11 IMPRESSION: Negative CTA Head and Neck. Electronically Signed: Myke Dixon MD at 15:59 EDT , ADDENDUM: 05/19/23 1608 IMPRESSION: Negative CTA Head and Neck. N.B. : The above Results were Read Back by Myke Dixon MD to MILLER HUSAIN MD, and understanding confirmed on 05/19/2023 16:01:37 (ET). Electronically Signed: Myke Dixon MD at 15:59 EDT , Chest X-Ray 05/19/23 15:50 IMPRESSION: No definite acute or significant abnormality seen. Electronically Signed: Kumar Servin MD at 16:16 EDT , Assessment & Plan Assessment/Plan (1) Dizziness: PLAN: Plan Patient is a 67-year-old male with history of GERD with Terry's esophagus, degenerative disc disease, ROBYN and vertigo who presented to [facility] ED on 05/19/2023 with concern for worsening dizziness with ataxia. 1. Dizziness, concern for CVA Unclear etiology, requires CVA rule out. Does have known history of vertigo in the past, but had not had symptoms for several years. Notes that this episode was different than previous episodes of vertigo, was more consistent with ataxiarather than room spinning. Rule out orthostatic hypotension. CT head and CTA head/neck in the ED negative for any acute pathology as noted above. -MRI brain ordered. Orthostatic vitals ordered. TTE ordered. PT/OT/case management consulted. Lipid panel ordered. We will hold on aspirin and statin for now, can consider as needed. 2. GERD with Terry's esophagus ? Continue home PPI. DVT prophylaxis: Lovenox CODE STATUS: Full code, verified Expected disposition: Home, 1 to 2 days Total clinical time spent by myself addressing the patient's medical issues, reviewing all the data, and collaborating with patient's care team: 55 minutes. Charges/Coding Visit Charges Inpatient E&M: 10471 Init Hosp L2 05/19/232048 <Electronically signed by Ford Blanc DO> Cosigner Signature (if applicable): CC: Dr. Ford Blanc DO; Dr. Rinku Rubi MD~ Signed [facility] Work Phone: 1(807) 323-306008-25-2023 Discharge summary Author Miller Husain [facility] May 19, 2023 4:51pm Note Date/Time May 19, 2023 3: 28pm [facility] Medical Records Department [address] [place] [address] Emergency Department Summary 05/19/23 MR#: [id number] Acct: [id number] Name: BERKLEY SARMIENTO Rep #:[id number] : 1955 67 From: Miller Husain MD PCP: Dr. Rinku Rubi MD Status:R ER Location: ED HPI History of Present Illness Chief Complaint: Stroke Alert Detail of Chief Complaint: Stroke CT and CTA was placed by Dr. Hansen. Informant: patient and spouse/S.O. Onset/Context/Timing Onset: - (Patient had dizziness that started May 15. Please read HPInarrative for complete detail) Timing: Continuous (With respect to the dizziness) and Intermittent (With respect to expressive aphasia) Quality and Location: Positive for Expressive Aphasia and Difficulty with Ambulation Onset: Monday thought it may be benign positional vertigo. Monday at 0300 diffic Current Severity: Moderate Maximum Severity: Moderate Worsened by: Nothing Relieved by: Nothing Associated Symptoms Associated Symptoms: Negative for Headache, Nausea, Vomiting or Chest Pain Narrative Narrative: Patient is a 67-year-old male with history of pancreatitis, sleep apnea, Terry's esophagitis, irritable bowel syndrome, prediabetes and skin cancer whopresents because of dizziness. Dizziness started on Monday. He thought he was having benign positional vertigo and did not present. Monday at 0300 patient had difficulty ambulating to the restroom. told him to lie back inbed and presumed it was paroxysmal benign positional vertigo. He has had persistent dizziness since Monday. He has had problems with his gait that is been intermittent. Apparently he was able to walk without problems thismorning and presented to the emergency room at 11 AM; however, he left because he thought it was busy. states at 1430 he was unable to speak. He also had twitching of his extremity. He is still complaining of dizziness. He was unaware that he had a facial droop. Patient and states his speech is back to normal. Prior similar symptoms: No Recent Illness/Hospitalization: No PFSH PFSH Medical History Abdominal pain Anxiety Arthritis Chest pain CPAP (continuous positive airway pressure) dependence Degenerative disc disease Fatigue Gastric reflux GERD (gastroesophageal reflux disease) Hearing loss History of Terry's esophagus History of IBS History of skin cancer Hx of pancreatitis Injury of head and neck Irritable bowel syndrome with constipation Kidney stone Obstructive sleep apnea Prediabetes Severe headache Shortness of breath on exertion Wears glasses Wears hearing aid Home Medications celecoxib 100 mg capsule 100 mg PO DAILY pain 05/19/23 [History Last Taken 05/19/23] cephalexin 500 mg capsule 500 mg PO Q8H 05/19/23 [History Last Taken 05/19/23] esomeprazole magnesium 40 mg capsule,delayed release 40 mg PO Q24H 05/19/23 [History Last Taken 05/19/23] mupirocin 2 % topical ointment 1 applic topical BID SORE ON LEG 05/19/23 [History Last Taken 05/19/23] Allergy/AdvReac Type Severity Reaction Status Date / Time No Known Allergies Allergy Verified 02/11/23 09:56 Family History Father Alcoholism Arthritis Heart disease Surgical History History of carpal tunnel surgery of right wrist History of cholecystectomy Social History Smoking Status: Never smoker alcohol intake: never substance use type: does not use what type of physical activity do you participate in: none ROS ROS ED Constitutional Constitutional ED: Denies chills, fever(s), subjective, sweats or weakness Eyes Eyes: Denies blurry vision, change in vision or diplopia ENT ENT ED: Denies ear pain, rhinorrhea or sore throat Cardiovascular Cardiovascular: Denies chest pain, palpitations, paroxysmal nocturnal dyspnea orracing heartbeat Respiratory/Chest Respiratory/Chest: Denies cough, dyspnea, dyspnea on exertion or paroxysmal nocturnal dyspnea Gastrointestinal Gastrointestinal: Reports nausea; Denies abdominal pain, constipation, diarrhea,melena or vomiting Genitourinary Genitourinary ED: Denies dysuria, hematuria or urinary frequency Musculoskeletal Musculoskeletal: Denies arthralgias, back pain or myalgias Neurologic Neurologic: Denies headache(s), paresthesias or weakness Endocrine Endocrinology: Denies polydipsia or polyphagia Hematologic/Lymphatic Hematologic/Lymphatic: Denies easy bleeding or easy bruising EXAM Physical Exam Const Vital Signs: 05/19/23 15:04 05/19/23 15:06 05/19/23 15:25 Temperature 97.2 F L 97.7 F L Temperature Source Temporal Temporal Pulse Rate 18 L 75 96 Respiratory Rate 75 H 18 18 Blood Pressure 175/100 H 175/100 H 157/88 H Blood Pressure Mean 125 125 111 Pulse Ox 97 97 99 Oxygen Delivery Method Room Air Room Air Room Air 05/19/23 15:55 Temperature 98.1 F Temperature Source Oral Pulse Rate 75 Respiratory Rate 18 Blood Pressure 150/89 H Blood Pressure Mean 109 Pulse Ox 97 Oxygen Delivery Method Room Air Positive well nourished, well developed and obese General Appearance ED: well developed and NAD Nutritional Appearance: obese HEENT Reports TM's clear and moist mucous membranes atraumatic Tympanic Membrane ED: Yes TM's clear Eyes PERRL and EOMs intact bilaterally General Eye ED: Negative for pale conjunctiva or scleral icterus Neck no lymphadenopathy, supple and no JVD Neck Narrative: There are no carotid bruits. Chest Wall inspection of chest normal and palpation of chest normal Resp normal respiratory effort and clear to auscultation bilaterally Cardio no murmurs Rate: regular rate Rhythm: regular rhythm Heart Sounds: S1 normal and S2 normal GI normal to inspection, nondistended, normoactive bowel sounds, soft to palpation,non-tender, non-distended and no masses Back/Spine no CVA tenderness Extremity Extremity Narrative: Patient has a nonhealing wound anterior distal right leg. Eschar is noted. There is slight erythema. There is no induration, warmth, lymphangitis or popliteal lymphadenopathy. Patient does have stigmata of peripheral arterial disease. Neuro oriented x3, No CN's II-XII intact bilaterally and no sensory deficits noted [place] Coma Scale: document GCS findings Spontaneous Obeys Commands Oriented 15 Sensorium / Orientation: alert Speech: speech normal Gait (Neuro): Negative for normal gait Motor Exam: strength 5/5 throughout Psych mental status grossly normal Skin No no wounds Skin Narrative: Abrasion anterior right leg General Skin Exam: Negative for jaundice Lesions: no lesions NIHSS NIHSS Initial: 1a Level of Consciousness: 0 1b LOC Questions (Score 2 if aphasic/stupor): 0 1c LOC Commands (Only score 1st attempt): 0 2 Best Gaze (If aphasic, use reflexive mvmts.): 0 3 Visual: 0 4 Facial Palsy: 1 5 Motor Arm Right (UN = amputation/fusion): 0 5 Motor Arm Left: 0 6 Motor Leg Right: 0 6 Motor Leg Left: 0 7 Limb ataxia (Only + if out of proportion): 2 8 Sensory (Aphasia/stupor=0 or 1, coma=2): 0 9 Best Language: 0 10 Dysarthria (mute, coma=2, intubated=UN): 0 11 Extinction and Inattention (only scored if +): 0 Total Score: 3 MDM MDM MDM Narrative Medical decision making narrative: Patient presents with posterior strokelike symptoms. Also an expressive aphasia. Stroke order set was initiated. Prior labs were reviewed. History & Record Review Discussion w/independent historian: Patient Additional record(s) reviewed:: Prior outpatient record (Office visit with Dr. Gaffney, orthopedic visit for fractured rib with Dr. TAMAYO), Prior ED visitand Prior labs Lab Data Attestation: I reviewed the patient's lab results. Lab results narrative: CBC is well. Basic metabolic panel is unremarkable. BUN to creatinine ratio iselevated. Troponin is normal. Labs: Laboratory Results - last 24 hr 05/19/23 15:10 WBC 6.4 RBC 5.15 Hgb 14.9 Hct 45.9 MCV 89.1 MCH 28.9 MCHC 32.5 RDW Std Deviation 41.6 RDW Coeff of Campos 12.6 Plt Count 193 MPV 10.8 Immature Gran % (Auto) 0.200 Neut % (Auto) 56.8 Lymph % (Auto) 26.5 Wolfe % (Auto) 12.6 H Eos % (Auto) 3.3 Baso % (Auto) 0.6 Absolute Neuts (auto) 3.6 Absolute Lymphs (auto) 1.68 Nucleated RBC % 0 PT 13.5 INR 1.0 APTT 30.4 Sodium 139 Potassium 3.8 Chloride 109 H Carbon Dioxide 25.0 Anion Gap 5 BUN 22 H Creatinine 0.85 Estim Creat Clear Calc 74.36 Est GFR (MDRD) Af Amer 116 Est GFR (MDRD) Non-Af 96 BUN/Creatinine Ratio 25.9 H Glucose 96 Calcium 9.1 Troponin I High Sens 12 Radiography Chest X-Ray - ED: 1 View and Read by ED Physician (Independently reviewed interpreted by me as negative for any abnormality. There is no infiltrate, effusion, pneumothorax, cardiac silhouette and size normal. Perihilar region normal. Osseous structures are normal.) Diagnostic Testing: Clinical Impression(s) from Imaging Studies Brain CT 05/19/23 15:11 IMPRESSION: No acute intracranial findings. Electronically Signed: Myke Dixon MD at 15:31 EDT , ADDENDUM: 05/19/23 1544 IMPRESSION: No acute intracranial findings. N.B. : The above Results were Read Back by Myke Dixon MD to Brayan Bhatt MD, and understanding confirmed on 05/19/2023 15:37:32 (ET). Electronically Signed: Myke Dixon MD at 15:31 EDT , ADDENDUM: 05/19/23 1608 IMPRESSION: No acute intracranial findings. N.B. : The above Results were Read Back by Myke Dixon MD to Brayan Bhatt MD, and understanding confirmed on 05/19/2023 16:01:51 (ET). Electronically Signed: Myke Dixon MD at 15:31 EDT , Head/Neck CTA 05/19/23 15:11 IMPRESSION: Negative CTA Head and Neck. Electronically Signed: Myke Dixon MD at 15:59 EDT , ADDENDUM: 05/19/23 1608 IMPRESSION: Negative CTA Head and Neck. N.B. : The above Results were Read Back by Myke Dixon MD to MILLER HUSAIN MD, and understanding confirmed on 05/19/2023 16:01:37 (ET). Electronically Signed: Myke Dixon MD at 15:59 EDT Reading Location ID and State: [facility] / [place] Tel , Service support , Chest X-Ray 05/19/23 15:50 IMPRESSION: No definite acute or significant abnormality seen. Electronically Signed: Kumar Servin MD at 16:16 EDT , EKG Initial EKG: Interpretation: Sinus Rhythm (Rate is 80. AL interval is 98 ms. Cures duration 72 ms. QT duration 3 and 54 ms. [place] is normal. There is artifact which computer is reading as an ossific ST-T wave changes.) Management Discussion w/another healthcare provider: Hospitalist, Radiologist (Spoke with the radiologist regarding the unenhanced scan. There is no obvious abnormality noted.) and Other (Neurologist at [facility] and since that time is truly unknown he isnot a candidate for thrombolytics and he is outside the window for clot retrieval.) Stroke Documentation Questions Stroke Team Activated: Yes Reviewed Inclusion/Exclusion criteria: Yes IV Thrombolytic Administered: No (After further detail since he was sent from triage to radiology suite was d) No contraindications from thrombolytic administration: No (Outside of window) Risks, Benefits, Alternatives Discussed: No Discharge Plan Dx/Rx/DC Orders Clinical Impression: Expressive aphasia, Ataxia due to cerebrovascular disease, Abrasion of leg, right Disposition Disposition: Acute Care Hospital [facility] What to do if you have Problems For any increased pain, shortness of breath, bleeding, nausea or vomiting, chestpain, or any unexpected problems, contact your Primary Care Provider. Call [facility] ([phone]) or report to the closest Emergency Room. Call 911 if necessary. 05/19/23 1651 <Electronically signed by Miller Husain MD> Cosigner Signature (if applicable): CC: Dr. Rinku Rubi MD ~ Signed [facility] Work Phone: 1(216) 662-372808-25-2023 Discharge summary Author Miller Husain [facility] May 19, 2023 4:51pm Note Date/Time May 19, 2023 3: 28pm [facility] Medical Records Department [address] [place] [address] Emergency Department Summary 05/19/23 MR#: [id number] Acct: [id number] Name: BERKLEY SARMIENTO Rep #:[id number] : 1955 67 From: Miller Husain MD PCP: Dr. Rinku Rubi MD Status:R ER Location: ED HPI History of Present Illness Chief Complaint: Stroke Alert Detail of Chief Complaint: Stroke CT and CTA was placed by Dr. Hansen. Informant: patient and spouse/S.O. Onset/Context/Timing Onset: - (Patient had dizziness that started May 15. Please read HPInarrative for complete detail) Timing: Continuous (With respect to the dizziness) and Intermittent (With respect to expressive aphasia) Quality and Location: Positive for Expressive Aphasia and Difficulty with Ambulation Onset: Monday thought it may be benign positional vertigo. Monday at 0300 diffic Current Severity: Moderate Maximum Severity: Moderate Worsened by: Nothing Relieved by: Nothing Associated Symptoms Associated Symptoms: Negative for Headache, Nausea, Vomiting or Chest Pain Narrative Narrative: Patient is a 67-year-old male with history of pancreatitis, sleep apnea, Terry's esophagitis, irritable bowel syndrome, prediabetes and skin cancer whopresents because of dizziness. Dizziness started on Monday. He thought he was having benign positional vertigo and did not present. Monday at 0300 patient had difficulty ambulating to the restroom. told him to lie back inbed and presumed it was paroxysmal benign positional vertigo. He has had persistent dizziness since Monday. He has had problems with his gait that is been intermittent. Apparently he was able to walk without problems thismorning and presented to the emergency room at 11 AM; however, he left because he thought it was busy. states at 1430 he was unable to speak. He also had twitching of his extremity. He is still complaining of dizziness. He was unaware that he had a facial droop. Patient and states his speech is back to normal. Prior similar symptoms: No Recent Illness/Hospitalization: No PFSH PFS Medical History Abdominal pain Anxiety Arthritis Chest pain CPAP (continuous positive airway pressure) dependence Degenerative disc disease Fatigue Gastric reflux GERD (gastroesophageal reflux disease) Hearing loss History of Terry's esophagus History of IBS History of skin cancer Hx of pancreatitis Injury of head and neck Irritable bowel syndrome with constipation Kidney stone Obstructive sleep apnea Prediabetes Severe headache Shortness of breath on exertion Wears glasses Wears hearing aid Home Medications celecoxib 100 mg capsule 100 mg PO DAILY pain 05/19/23 [History Last Taken 05/19/23] cephalexin 500 mg capsule 500 mg PO Q8H 05/19/23 [History Last Taken 05/19/23] esomeprazole magnesium 40 mg capsule,delayed release 40 mg PO Q24H 05/19/23 [History Last Taken 05/19/23] mupirocin 2 % topical ointment 1 applic topical BID SORE ON LEG 05/19/23 [History Last Taken 05/19/23] Allergy/AdvReac Type Severity Reaction Status Date / Time No Known Allergies Allergy Verified 02/11/23 09:56 Family History Father Alcoholism Arthritis Heart disease Surgical History History of carpal tunnel surgery of right wrist History of cholecystectomy Social History Smoking Status: Never smoker alcohol intake: never substance use type: does not use what type of physical activity do you participate in: none ROS ROS ED Constitutional Constitutional ED: Denies chills, fever(s), subjective, sweats or weakness Eyes Eyes: Denies blurry vision, change in vision or diplopia ENT ENT ED: Denies ear pain, rhinorrhea or sore throat Cardiovascular Cardiovascular: Denies chest pain, palpitations, paroxysmal nocturnal dyspnea orracing heartbeat Respiratory/Chest Respiratory/Chest: Denies cough, dyspnea, dyspnea on exertion or paroxysmal nocturnal dyspnea Gastrointestinal Gastrointestinal: Reports nausea; Denies abdominal pain, constipation, diarrhea,melena or vomiting Genitourinary Genitourinary ED: Denies dysuria, hematuria or urinary frequency Musculoskeletal Musculoskeletal: Denies arthralgias, back pain or myalgias Neurologic Neurologic: Denies headache(s), paresthesias or weakness Endocrine Endocrinology: Denies polydipsia or polyphagia Hematologic/Lymphatic Hematologic/Lymphatic: Denies easy bleeding or easy bruising EXAM Physical Exam Const Vital Signs: 05/19/23 15:04 05/19/23 15:06 05/19/23 15:25 Temperature 97.2 F L 97.7 F L Temperature Source Temporal Temporal Pulse Rate 18 L 75 96 Respiratory Rate 75 H 18 18 Blood Pressure 175/100 H 175/100 H 157/88 H Blood Pressure Mean 125 125 111 Pulse Ox 97 97 99 Oxygen Delivery Method Room Air Room Air Room Air 05/19/23 15:55 Temperature 98.1 F Temperature Source Oral Pulse Rate 75 Respiratory Rate 18 Blood Pressure 150/89 H Blood Pressure Mean 109 Pulse Ox 97 Oxygen Delivery Method Room Air Positive well nourished, well developed and obese General Appearance ED: well developed and NAD Nutritional Appearance: obese HEENT Reports TM's clear and moist mucous membranes atraumatic Tympanic Membrane ED: Yes TM's clear Eyes PERRL and EOMs intact bilaterally General Eye ED: Negative for pale conjunctiva or scleral icterus Neck no lymphadenopathy, supple and no JVD Neck Narrative: There are no carotid bruits. Chest Wall inspection of chest normal and palpation of chest normal Resp normal respiratory effort and clear to auscultation bilaterally Cardio no murmurs Rate: regular rate Rhythm: regular rhythm Heart Sounds: S1 normal and S2 normal GI normal to inspection, nondistended, normoactive bowel sounds, soft to palpation,non-tender, non-distended and no masses Back/Spine no CVA tenderness Extremity Extremity Narrative: Patient has a nonhealing wound anterior distal right leg. Eschar is noted. There is slight erythema. There is no induration, warmth, lymphangitis or popliteal lymphadenopathy. Patient does have stigmata of peripheral arterial disease. Neuro oriented x3, No CN's II-XII intact bilaterally and no sensory deficits noted [place] Coma Scale: document GCS findings Spontaneous Obeys Commands Oriented 15 Sensorium / Orientation: alert Speech: speech normal Gait (Neuro): Negative for normal gait Motor Exam: strength 5/5 throughout Psych mental status grossly normal Skin No no wounds Skin Narrative: Abrasion anterior right leg General Skin Exam: Negative for jaundice Lesions: no lesions NIHSS NIHSS Initial: 1a Level of Consciousness: 0 1b LOC Questions (Score 2 if aphasic/stupor): 0 1c LOC Commands (Only score 1st attempt): 0 2 Best Gaze (If aphasic, use reflexive mvmts.): 0 3 Visual: 0 4 Facial Palsy: 1 5 Motor Arm Right (UN = amputation/fusion): 0 5 Motor Arm Left: 0 6 Motor Leg Right: 0 6 Motor Leg Left: 0 7 Limb ataxia (Only + if out of proportion): 2 8 Sensory (Aphasia/stupor=0 or 1, coma=2): 0 9 Best Language: 0 10 Dysarthria (mute, coma=2, intubated=UN): 0 11 Extinction and Inattention (only scored if +): 0 Total Score: 3 MDM MDM MDM Narrative Medical decision making narrative: Patient presents with posterior strokelike symptoms. Also an expressive aphasia. Stroke order set was initiated. Prior labs were reviewed. History & Record Review Discussion w/independent historian: Patient Additional record(s) reviewed:: Prior outpatient record (Office visit with Dr. Gaffney, orthopedic visit for fractured rib with Dr. TAMAYO), Prior ED visitand Prior labs Lab Data Attestation: I reviewed the patient's lab results. Lab results narrative: CBC is well. Basic metabolic panel is unremarkable. BUN to creatinine ratio iselevated. Troponin is normal. Labs: Laboratory Results - last 24 hr 05/19/23 15:10 WBC 6.4 RBC 5.15 Hgb 14.9 Hct 45.9 MCV 89.1 MCH 28.9 MCHC 32.5 RDW Std Deviation 41.6 RDW Coeff of Campos 12.6 Plt Count 193 MPV 10.8 Immature Gran % (Auto) 0.200 Neut % (Auto) 56.8 Lymph % (Auto) 26.5 Wolfe % (Auto) 12.6 H Eos % (Auto) 3.3 Baso % (Auto) 0.6 Absolute Neuts (auto) 3.6 Absolute Lymphs (auto) 1.68 Nucleated RBC % 0 PT 13.5 INR 1.0 APTT 30.4 Sodium 139 Potassium 3.8 Chloride 109 H Carbon Dioxide 25.0 Anion Gap 5 BUN 22 H Creatinine 0.85 Estim Creat Clear Calc 74.36 Est GFR (MDRD) Af Amer 116 Est GFR (MDRD) Non-Af 96 BUN/Creatinine Ratio 25.9 H Glucose 96 Calcium 9.1 Troponin I High Sens 12 Radiography Chest X-Ray - ED: 1 View and Read by ED Physician (Independently reviewed interpreted by me as negative for any abnormality. There is no infiltrate, effusion, pneumothorax, cardiac silhouette and size normal. Perihilar region normal. Osseous structures are normal.) Diagnostic Testing: Clinical Impression(s) from Imaging Studies Brain CT 05/19/23 15:11 IMPRESSION: No acute intracranial findings. Electronically Signed: Myke Dixon MD at 15:31 EDT Reading Location ID and State: [facility] / [place] Tel , Service support , ADDENDUM: 05/19/23 1544 IMPRESSION: No acute intracranial findings. N.B. : The above Results were Read Back by Myke Dixon MD to Brayan Bhatt MD, and understanding confirmed on 05/19/2023 15:37:32 (ET). Electronically Signed: Myke Dixon MD at 15:31 EDT , ADDENDUM: 05/19/23 1608 IMPRESSION: No acute intracranial findings. N.B. : The above Results were Read Back by Myke Dixon MD to Brayan Bhatt MD, and understanding confirmed on 05/19/2023 16:01:51 (ET). Electronically Signed: Myke Dixon MD at 15:31 EDT , Head/Neck CTA 05/19/23 15:11 IMPRESSION: Negative CTA Head and Neck. Electronically Signed: Myke Dixon MD at 15:59 EDT , ADDENDUM: 05/19/23 1608 IMPRESSION: Negative CTA Head and Neck. N.B. : The above Results were Read Back by Myke Dixon MD to MILLER HUSAIN MD, and understanding confirmed on 05/19/2023 16:01:37 (ET). Electronically Signed: Myke Dixon MD at 15:59 EDT , Chest X-Ray 05/19/23 15:50 IMPRESSION: No definite acute or significant abnormality seen. Electronically Signed: Kumar Servin MD at 16:16 EDT , EKG Initial EKG: Interpretation: Sinus Rhythm (Rate is 80. AL interval is 98 ms. Cures duration 72 ms. QT duration 3 and 54 ms. [place] is normal. There is artifact which computer is reading as an ossific ST-T wave changes.) Management Discussion w/another healthcare provider: Hospitalist, Radiologist (Spoke with the radiologist regarding the unenhanced scan. There is no obvious abnormality noted.) and Other (Neurologist at [facility] and since that time is truly unknown he isnot a candidate for thrombolytics and he is outside the window for clot retrieval.) Stroke Documentation Questions Stroke Team Activated: Yes Reviewed Inclusion/Exclusion criteria: Yes IV Thrombolytic Administered: No (After further detail since he was sent from triage to radiology suite was d) No contraindications from thrombolytic administration: No (Outside of window) Risks, Benefits, Alternatives Discussed: No Discharge Plan Dx/Rx/DC Orders Clinical Impression: Expressive aphasia, Ataxia due to cerebrovascular disease, Abrasion of leg, right Disposition Disposition: Acute Care Hospital [facility] What to do if you have Problems For any increased pain, shortness of breath, bleeding, nausea or vomiting, chestpain, or any unexpected problems, contact your Primary Care Provider. Call [facility] ([phone]) or report to the closest Emergency Room. Call 911 if necessary. 05/19/23 165 <Electronically signed by Miller Husain MD> Cosigner Signature (if applicable): CC: Dr. Rinku Rubi MD ~ Signed [facility] Work Phone: 1(299) 366-480808-25-2023 NoteHNO ID: [id number] Author: Seble Dorantes APRN.AROLDO Service: ? Author Type: Nurse Practitioner Type: [...] this care plan and prefers to take himself.[facility] 05-19-2023 History of Present illness Narrative* Seble Dorantes APRN.MANAGER INDUSTRIAL - 05/19/2023 11:09 AM EDT She came in with complaints of extreme [...] prefers to take himself. documented in this encounterPromed[facility]08-25-2023 Miscellaneous Notes* Telephone Encounter - Mj Coyle MA - 05/19/2023 8:15 AM EDT Patient notified of results, verbalized understanding of instructions given. Mj Coyle MA * Telephone Encounter - Pj Sepulveda APRN.CNP - 05/19/2023 7:15 AM EDT No significant bacterial infection noted on wound culture. Continue antibiotics symptoms are improving. Pj Sepulveda APRN.CNP documented in this encounterPromedica Flower Hospital08-23-2023 Miscellaneous Notes* Telephone Encounter - Romy Meza - 05/17/2023 12:29 PM EDT Patient given results and verbalized understanding of instructions given. Romy Meza * Telephone Encounter - Pj Sepulveda APRN.CNP - 05/17/2023 12:00 PM EDT No significant abnormal findings noted on lab work. Follow-up with PCP as discussed during visit. Pj Sepulveda APRN.CNP documented in this encounterPromedica Flower Hospital08-22-2023 NoteHNO ID: [id number] Author: Tessa Beach APRN.MANAGER INDUSTRIAL Service: ? Author Type: Nurse Practitioner Type: Progress Notes Filed: 05/16/2023 2:01 PM Note Text: Subjective HPI Berkley Sarmiento is a 67 year old male [...] not had a fever. He saw the senior pricing analyst for a similar blister on his toe [...] ROBYN on CPAP 11/11/2015 AutoPAP 6-16 DME [facility] Panic disorder Rectal bleeding Snoring Xerosis [...] filters. Lifetime supplies. Dx: G47.33. Download to [facility] in 6 weeks. cephALEXin (KEFLEX) [...] Discussed expected course of illness Tessa Beach APRN.[facility]08-22-2023 History of Present illness Narrative* Tessa Beach APRN.MANAGER INDUSTRIAL - 05/16/2023 1:42 PM EDT Images from the original note were not included. Subjective HPI Berkley Sarmiento is a 67 year old male [...] not had a fever. He saw the senior pricing analyst for a similar blister on his toe [...] kg/m PAST MEDICAL HISTORY Diagnosis Date Anxiety 2011 [...] 11/11/2015 ROBYN on CPAP 11/11/2015 AutoPAP 6-16 [facility] Panic disorder Rectal bleeding Snoring Xerosis [...] filters. Lifetime supplies. Dx: G47.33. Download to [facility] in 6 weeks. cephALEXin (KEFLEX) [...] Discussed expected course of illness Tessa Beach APRN.MANAGER INDUSTRIAL documented in this encounterPromedica Flower Hospital08-22-2023 Instructions* Patient Instructions* Tessa Beach APRN.CNP - 05/16/2023 1:42 PM EDT ASSESSMENT/PLAN: 1. [...] Discussed expected course of illness Tessa Beach APRN.CNP [facility] PATIENT INFO SKIN INFECTION OVERVIEW Cellulitis is an infection of the skin and soft tissue of the skin. The infection is usually causedby bacteria that normally live on the skin, such as staphylococci (Staph) or streptococci (Strep). The infection develops when there is a [...] types of skin infections include abscesses, furuncles (boils), andcarbuncles. These usually cause a collection of pus [...] as treatment of any underlying condition that ledto the skin infection. Elevate the area -- [...] be hospitalized and treated with antibiotics given intoa vein (IV). It is important to take [...] from an episode of cellulitis without any complications.If you have skin infection risk factors talk to your healthcare provider to determine if there are steps you can take to minimize the risk of infections in the future. documented in this encounterPromedica Flower Hospital05-16-2023 NoteHNO ID: [id number] Author: Tessa Beach APRN.AROLDO Service: ? Author Type: Nurse Practitioner Type: Progress Notes Filed: 02/07/2023 12:11 PM Note Text: Subjective HPI Berkley Sarmiento is a 67 year old male [...] 11/11/2015 ROBYN on CPAP 11/11/2015 AutoPAP 6-16 [facility] Panic disorder Rectal bleeding Snoring Xerosis [...] filters. Lifetime supplies. Dx: G47.33. Download to [facility] in 6 weeks. cephALEXin (KEFLEX) 500 mg [...] Discussed expected course of illness Tessa Beach APRN.[facility]03-16-2023 Miscellaneous Notes* Telephone Encounter - Alma Villar LPN - 12/08/2022 8:08 AM EDT Patient notified and verbalized understanding of instructions given.Alma Villar LPN * Telephone Encounter - MITCHELL Reagan - 12/08/2022 7:19 AM EDT You tested positive for COVID-19. Follow the [...] patient to call PCP or schedule an [facility] care virtual visit to discuss antiviral if interested. documented in this encounterPromedica Flower Hospital03-15-2023 NoteHNO ID: [id number] Author: RT Esther(R) Service: ? Author Type: Journeyman Operator Assistant Type: Progress Notes Filed: 12/07/2022 4:34 PM Note Text: Radiology Service Progress Note PATIENT NAME: Berkley Sarmiento DATE OF SERVICE: December 07, 2022 [...] PERIPHERAL IV DATA: Not applicable SIGNED BY: Celi Restrepo RT(R) December 07, 2022 4:26 [facility]03-15-2023 NoteHNO ID: [id number] Author: Helena Whitehead APRN.MANAGER INDUSTRIAL Service: ? Author Type: Nurse Practitioner Type: Progress Notes Filed: 12/07/2022 5:14 PM Note Text: This note was created using Thengine Coriter. Subjective Berkley Sarmiento is a 67 year old male. [...] history is provided by the patient. No supervisor modern languages was used. Cough This is a new [...] Arthritis Terry's esophagus 11/11/2015 Degenerative disc disease 2011 neck Diverticulosis Fecal incontinence Fibromyalgia GERD (gastroesophageal reflux disease) 11/11/2015 Hemorrhoids Hiatal hernia History of colon polyps 02/17/2016 Tubular adenoma History of shingles History of skin cancer 11/11/[address] Boss? 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 Panic disorder Rectal bleeding Snoring Xerosis [...] filters. Lifetime supplies. Dx: G47.33. Download to [facility] in 6 weeks. polyethylene glycol 3350 (MIRALAX, [...] toxic-appearing or diaphoretic. HENT: (more content not included)...[facility]02-27-2023 History and physical note Author Tate Friend [facility] November 21, 2022 7:05am Note Date/Time November 21, 2022 7:05am [facility] Medical Records Department [address] [place] [address] History & Physical Exam 11/21/22 0703 MR#: [id number] Acct: [id number] Name: BERKLEY SARMIENTO Rep #:[id number] : 1955 67 From: Tate Chase DO PCP: Dr. Rinku Rubi MD Status:R [facility] Location: [place] [address] History and Physical Date of Admission: 11/21/22 BERKLEY SARMIENTO, is a 66 M who presents to the office today requesting refill of esomeprazole 40 mg daily.? At his last appointment in January 2022 the plan was for him to get EGD because of history of Terry's esophagus, as well as screening colonoscopy.? He has chronic constipation.? He canceled his endoscopies and got a second opinion with another exec. creative director.? He was prescribed something for constipation, it may have been Linzess, but the prescription was too expensive.? He reports he is managing his constipation with prune juice.? He says that exec. creative director declined to prescribe medication for acid reflux.? If he does not take as omeprazole then he has terrible heartburn and difficulty swallowing.? He says his and daughter question if he should remain on it.? Patient says he would like to proceed with upper endoscopy at this time. Exam Const General: cooperative and comfortable Nutritional Appearance: overweight Orientation: alert, awake and oriented x3 Quality Reporting Tobacco Screening ([facility] 138) Smoking Status: Never smoker Assessment and Plan Assessment and Plan (1) GERD (gastroesophageal reflux disease): ?Status:?Chronic ?Plan: 66 yr old male with GERD, hx Terry's esophagus. Will refill his esomeprazole 40 mg daily. He will be scheduled for EGD with office f/u 2 wks later. (2) History of Terry's esophagus: ?Status:?Acute ?Plan: as above ? ? ? Medications: Refilled esomeprazole magnesium 40 mg? PO DAILY 90 caps 3RF ? ? I have examined the patient and the H&P has been reviewed. There are no clinicalchanges since date of exam. ROS Eyes Eyes: No blurry vision, change in vision, double vision, irritation, discharge, vision loss, dry eyes, bulging eyes, floaters, visual disturbances, eye pain, Light sensitivity, spots in vision, tunnel vision or other ENT ENT: No abnormal hearing, ear or mastoid pain, ear discharge, ear pressure, hearing loss, tinnitus, dizziness/vertigo, balance problems, nosebleed/epistaxis, nasal congestion, nasal obstruction, nose pain, sinus pressure, sinus pain, nasal discharge, post nasal drip, facial pain, dental pain, dry mouth, difficulty swallowing, bad breath, hoarseness, lip swelling, mouth lesions, mouth pain, neck pain, sore throat, tongue swelling, throat swelling or other Resp Respiratory: No cough, change in phlegm color, chest congestion, excessive phlegm production, hemoptysis, pain on inspiration, shortness of breath, pain with cough, stridor, wheezing or other Cardio Cardiology: No chest pain at rest, chest pain with exertion, leg pain with exertion, shortness of breath, dyspnea on exertion, generalized swelling, irregular heart rhythm, lightheadedness, orthopnea, radiating jaw, neck or arm pain, fast heart rate, slow heart rate, palpitations, difficulty breathing or other Gastro GI: No abdominal pain, No belching, No bloating, No change in bowel habits, No change in stool character, No coffee ground emesis, No constipation, No cramping, No diarrhea, No heartburn, No Difficulty Swallowing, No feeling full early, No excessive flatus, No incontinent of stools, No Vomiting blood/hematemesis, No Blood in stool, No loose stools, No Black,tarry stools, No nausea/dyspepsia, No pain with swallowing, No vomiting, No hemorrhoids and No rectal pain Genitourinary: No difficulty urinating, burning urination, painful urination, urinary incontinence, urinary frequency, urinary urgency, urinary hesitancy, urinary retention, blood in urine, Frequent nighttime urination/ nocturia, post void dribbling, suprapubic fullness, side pain, sexual problems, genital lesions, genital itching, hot flashes, abnormal periods, abnormal vaginal bleeding, absent period, painful periods, light periods, heavy periods, difficulty getting , painful intercourse, pelvic pain, vaginal dryness, vaginal odor, vaginal itching, erectile dysfunction, penile discharge, difficulty with ejaculations, blood in semen, scrotal swelling, testicle lump, testicle pain or other Musc Musculoskeletal: No abnormal gait, joint pain, back pain, deformity, joint swelling, limited range of motion, loss of height, muscle cramps, muscle weakness, decreased muscle mass, myalgias, neck pain, numbness, radiating pain into limb, stiffness, tingling, Arthritis, sciatica, restless legs, leg pain at night, leg pain with exertion or other Breast Breast: No change in breast shape, breast lump, breast pain, breast skin changes, breast swelling or nipple discharge Neuro Neurology: No abnormal gait, abnormal hearing, numbness, tingling, visual disturbances or restless legs Psych Psychiatric: No lack of enjoyment, No anxiety, No depression, No difficulty concentrating, No hopelessness, No irritability, No mood swings, No panic attacks, No paranoia, No Thoughts of harming yourself/Others, No hallucinations,No Behavioral Problems, No Compulsive Behavior, No hyperactivity, No inattentiveness, No obsessions/compulsions, No Temper Tantrums, No suicidal ideation and No other Endo Endo: No change in body appearance, No cold intolerance, No flushing, No heat intolerance, No increased thirst/drinking, No increased hunger, No increased urine leakage, No change in pigmentation, No nervousness, No abnormal hair distribution, No abnormal change in skin pigmentation, No tremors and No other Aller/Imm Allergy/Immunologic: No food intolerance, lip swelling, seasonal allergy symptoms, throat swelling, tongue swelling, hives, wheezing or other Evans/Lymp Hematologic/Lymphatic: No easy bleeding, easy bruising, enlarged lymph nodes or other 11/21/22 0705 <Electronically signed by Tate Chase DO> Cosigner Signature (if applicable): CC: Dr. Rinku Rubi MD; Tate Chase DO~ Signed [facility] Work Phone: 1(386) 573-614402-27-2023 Procedure [facility] 11-21-2022 Procedure [facility]01-28-2023 NoteHNO ID: [id number] Author: Asha Mclean APRN.MANAGER INDUSTRIAL Service: ? Author Type: Nurse Practitioner Type: Progress Notes Filed: 10/22/2022 11:00 AM Note Text: Subjective The history is provided by the patient. No supervisor modern languages was used. HPI Berkley Sarmiento is a 67 year old male [...] 11/11/2015 ROBYN on CPAP 11/11/2015 AutoPAP 6-16 [facility] Panic disorder Rectal bleeding Snoring Xerosis cutis 11/11/2015 I have confirmed and edited as necessary, the [facility] Review of Systems Constitutional: Negative for chills [...] detail warranting prompt ER evaluation. Asha Mclean APRN.[facility]09-09-2022 NoteHNO ID: [id number] Author: Justin Leigh PA-C Service: ? Author Type: Physician Media Analyst Type: Progress Notes Filed: 06/03/2022 1:22 PM Note Text: This note was created using NoteWriter. Subjective Berkley Sarmiento is a 66 year old male. [...] Arthritis Terry's esophagus 11/11/2015 Degenerative disc disease 2011 neck Diverticulosis Fecal incontinence Fibromyalgia GERD (gastroesophageal reflux disease) 11/11/2015 Hemorrhoids Hiatal hernia History of colon polyps 02/17/2016 Tubular adenoma History of shingles History of skin cancer 11/11/[address] Boss? 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 Panic disorder Rectal bleeding Snoring Xerosis [...] filters. Lifetime supplies. Dx: G47.33. Download to [facility] in 6 weeks. 1 Device 0 cephALEXin [...] - XR WRIST INJURY 4V PA/LAT/OBL/SCAPH LEFT MITCHELL [facility]09-09-2022 NoteHNO ID: [id number] Author: RT Roxana(Juliocesar) Service: Radiology Author Type: Technologist Type: Progress Notes Filed: 06/03/2022 11:24 AM Note Text: Radiology Service Progress Note PATIENT NAME: Berkley Sarmiento DATE OF SERVICE: June 03, 2022 [...] IV DATA: Not applicable SIGNED BY: RT Roxana(Juliocesar) June 03, 2022 11:17 [facility]09-09-2022 History of Present illness Narrative* Rosamaria Marshall RT(R) - 06/03/2022 11:20 AM EDT Radiology Service Progress Note PATIENT NAME: Berkley Sarmiento DATE OF SERVICE: June 03, 2022 TIME: 11:17 AM PATIENT IDENTITY VERIFICATION COMPLETED USING TWO (2) IDENTIFIERS: Name and Date of confirmedby patient verbally. FALL SCREENING: Has the patient had 2 falls in the last year or 1 fall with injury or currently using an Ambulatory Assistive Device (Walker, Cane, Wheelchair, Crutches, etc.)? No PATIENT GENDER DATA: Male PATIENT RELEVANT IMPLANT DATA REVIEWED: Yes RADIOLOGY DEPARTMENT: General X-ray: Exam(s) Completed: Upper Extremity X- Ray(s): Wrist, left PERIPHERAL IV DATA: Not applicable SIGNED BY: DONTA Schmidt) June 03, 2022 11:17 AM documented in this encounterPromedica Flower HospitalDisboston lying-[facility] hospital summary Author Renata Ness [facility] May 20, 2023 1:42pm Note Date/Time May 20, 2023 1: 42pm [facility] Medical Records Department [address] [place] [address] Instructions for Home/Discharge Instructions 05/20/23 1340 MR#: [id number] Acct: [id number] Name: BERKLEY SARMIENTO Rep #:[id number] : 1955 67 From: Renata Ness MD PCP: Dr. Rinku Rubi MD Status:A DM WILLY Discharge Instructions Diet Discharge Diet: Low fat / Low cholesterol and 1800 Calorie Control Diet Activity Discharge Activity: - (Encourage slow positional changes, use assistive devices especially until ENT visit for cerumen removal.) May resume sexual activity in: No Restrictions Dressing / Incision Call your doctor if you observe: Fever of 101 or Higher, Numbness or Tingling, Shortness of breath, Dizziness (Increased dizziness, lightheadedness, vertigo.),Chest pain, Increased palpitations (irregular heartbeat), Calf discomfort, Uncontrolled pain and - (Please also notify your physician if your right lower extremity appears red or starts to have drainage/odor.) Follow Up Care Test Results: Test results from this visit will be discussed in further detail at your follow- up appointment, if applicable. Discharge Plan Admission Admit Date/Time: 05/19/23 17:36 Primary Reason for Your Visit: TIA, acute CVA ruled out, Bilateral cerumen impaction Attending Provider: Renata Ness Primary Care Provider: Rinku Rubi Consulting Providers: Ford Blanc Instructions Patient Instructions: What Is a TIA?, TIA Dc, Impacted Earwax Additional Instructions / Restrictions: ADDITIONAL INSTRUCTIONS/RECOMMENDATIONS: During the admission you were evaluated for potential acute stroke however this was ruled out an MRI demonstrating no acute evidence of recent stroke. In the situations with neurological changes that have resolved within 24 hours we consider this a transient ischemic attack. Work-up has included an echocardiogram which did not demonstrate any concerning findings, MRI with no acute findings as noted as well as routine lab work-up. Your hemoglobin A1c is still 5.8% and was last noted the same level in 2020 therefore we encourage dietand lifestyle continued changes with repeat follow-up testing with PCP. Your thyroid function was normal. Magnesium level was normal. Cholesterol was not severely elevated however in this situation we did start a low-dose cholesterol medicine as well as a baby aspirin and these were continued at discharge. Please continue to utilize antibiotic therapy both topical and oral which was prescribed to you prior to presentation for your right lower extremity abrasion. Please continue to wash your lower extremity gently with soap and water and patdry with an application of the antibiotic topical as prescribed. You did have noted bilateral cerumen impaction and we encourage you until you have follow-up with ear nose and throat to utilize [id number] Debrox earwax removal as an option. Discharge Orders/Prescriptions Prescriptions: New atorvastatin 20 mg Tablet 20 mg PO QHS 30 Days Qty: 30 0RF aspirin 81 mg Tablet,Chewable 81 mg PO BREAKFAST 30 Days Qty: 30 0RF Continued esomeprazole magnesium 40 mg capsule,delayed release(DR/EC) 40 mg PO Q24H celecoxib 100 mg capsule 100 mg PO DAILY cephalexin 500 mg capsule 500 mg PO Q8H Rx Instructions: X7D FILLED 05/16 mupirocin 2 % ointment 1 applic TOPICAL BID Referrals / Follow Up: Rinku Rubi MD [Primary Care Provider] - (Follow-up within 3-5 days to review admission, medication additions.) Benjamin Pierre MD [Med Staff - Active Staff] - (Please follow-up with ENT, may see physician with first open visit for assessment BL cerumen impaction.) Juan Pablo Gillespie DPM [[facility] Staff - Active Staff] - (Please follow-up with podiatry for your routine foot care. Please contact office to make visit with the senior pricing analyst you have been following with most recently.) Disposition Disposition (needs filled in before D/C Order can be placed): Home, Self Care 05/20/231341<Electronically signed by Renata Ness MD>Renata Ness MD CC: Dr. Ford Blanc, DO; Dr. Rinku Rubi MD ~ Signed [facility] Work Phone: Discharge summary Author Renata Ness [facility] May 20, 2023 1:56pm Note Date/Time May 20, 2023 1: 42pm [facility] Medical Records Department [address] [place] [address] Discharge Summary 05/20/231341 MR#: [id number] Acct: [id number] Name: BERKLEY SARMIENTO Rep #:[id number] : 1955 67 From: Renata Ness MD PCP: Dr. Rinku Rubi MD Status:A DM WILLY Location: [place] [address] Providers Date of Admission: 05/19/23 Date of Discharge: 05/20/23 Primary Care Physician: Dr. Rinku Rubi MD Reason For Visit: CVA RULE OUT Diagnosis Discharge Diagnosis (1) Dizziness: Status: Acute Code(s): R42 - Dizziness and giddiness Plan: Discharge Diagnoses: #1. Intermittent dizziness, intermittent expressive aphasia as well as gait disturbance concerning for TIA, CVA Ruled out complicated by #2 #2. Bilateral cerumen impaction #3. Anxiety and depression #4. Right lower extremity anterior leg abrasion with possibly recent cellulitisdiagnosis, well appearing, on treatment #5. GERD with history of Terry's esophagus #6. Prediabetes (HgBA1c 5.8%, similar to last 2020 level noted in [employer]) #7. Obesity #8. ROBYN on CPAP nightly. Medications at Discharge Home Medications celecoxib 100 mg capsule 100 mg PO DAILY pain 05/19/23 cephalexin 500 mg capsule 500 mg PO Q8H 05/19/23 esomeprazole magnesium 40 mg capsule,delayed release 40 mg PO Q24H 05/19/23 mupirocin 2 % topical ointment 1 applic topical BID SORE ON LEG 05/19/23 aspirin 81 mg chewable tablet 81 mg PO BREAKFAST 30 days #30 tabs 05/20/23 atorvastatin 20 mg tablet 20 mg PO QHS 30 days #30 tabs 05/20/23 Hospital Course Operations None Procedures 2-D Echocardiogram and EKG Summary of Care Provided Minutes Spent on Discharge: 35 Hospital Course: The patient is a 67 y/o F M w/ PMHx: Obesity, Anxiety and Depression, ROBYN on CPAP, GERD w/ Hx Terry's esophagus, Prediabetes, Hx Pancreatitis who [facility] with history of dizziness starting 05/15/2023 which has been continuous however he had onset of intermittent expressive aphasia as well as difficulty ambulating and given since it was recurrent including episode mostrecently at 1430 on day of presentation with inability to speak as well as questionable twitching of his extremities and dizziness in addition to a facial droop although normalized prior to ED arrival prompted ED evaluation. Work-up inthe ED included T97.8, heart rate 68, BP 133/88, respiratory rate 16, 94% on room air, CBC with WBC 6.4, hemoglobin 14.9, platelet 193 without marked shift, unremarkable coags, BMP not marked appearing, troponin 12, CT the brain with no acute intracranial findings, CTA head and neck unremarkable, chest x-ray with noacute cardiopulmonary findings, EKG with sinus rhythm with no acute evidence of ischemia. ED initial NIH stroke scale noted to be 3. Admitted to PCU, MRI brain without acute intracranial findings with no evidence of any acute stroke, ECHO w/ left ventricular ejection fraction is 65 %, mild TVI, bubble contrast study is negative for PFO/ASD. PT/OT/Speech/Nutrition evaluation per protocol. Patientmaintained on asa, added lower dose statin w/ AM FLP, fall precautions. Mag 2.2,TSH 3.35, FLP with TG 162, TChol 156, LDL 80, VLDL 32, HDL 44, HgbA1c 5.8% with last noted prior 04/21/21 HgBA1c 5.8%. Patient with bilateral cerumen impaction and unfortunately unable to have irrigation system in house thus following discussion with patient and family preference will have follow-up with ENT in the interim recommended usage of potentially Debrox type system outpatient. Patient with recent right lower extremity abrasion healing well with recent cellulitis diagnosed outpatient, appears resolving and encouraged completion of his antibiotic topical and oral regimen. Patient given clinical improvement andresolution of neurological symptoms was discharged home in stable condition withrecommended follow-up with primary care physician as well as ENT. Weight / BMI Weight Weight: 177 lb 4.026 oz Body Mass Index (BMI) 29.5 ABG / Lab / Microbiology Data 05/20/23 06:55 05/20/23 06:55 Laboratory: Laboratory Results - last 24 hr 05/19/23 15:10: WBC 6.4, RBC 5.15, Hgb 14.9, Hct 45.9, MCV 89.1, MCH 28.9, MCHC 32.5, RDW Std Deviation 41.6, RDW Coeff of Campos 12.6, Plt Count 193, MPV 10.8, Immature Gran % (Auto) 0.200, Neut % (Auto) 56.8, Lymph % (Auto) 26.5, Wolfe % (Auto) 12.6 H, Eos % (Auto) 3.3, Baso % (Auto) 0.6, Absolute Neuts (auto) 3.6, Absolute Lymphs (auto) 1.68, Nucleated RBC % 0, PT 13.5, INR 1.0, APTT 30.4, Sodium 139, Potassium 3.8, Chloride 109 H, Carbon Dioxide 25.0, Anion Gap 5, BUN22 H, Creatinine 0.85, Estim Creat Clear Calc 74.36, Est GFR (MDRD) Af Amer 116,Est GFR (MDRD) Non-Af 96, BUN/Creatinine Ratio 25.9 H, Glucose 96, Calcium 9.1, Troponin I High Sens 12, Triglycerides 162, Cholesterol 156, LDL Cholesterol 80,VLDL Cholesterol 32, HDL Cholesterol 44 05/19/23 20:43: POC Glucose 84 05/20/23 03:08: POC Glucose 99 05/20/23 06:22: POC Glucose 97 05/20/23 06:55: WBC 6.1, RBC 5.30, Hgb 15.2, Hct 46.9, MCV 88.5, MCH 28.7, MCHC 32.4, RDW Std Deviation 41.9, RDW Coeff of Campos 12.8, Plt Count 183, MPV 11.9, Immature Gran % (Auto) 0.200, Neut % (Auto) 56.8, Lymph % (Auto) 26.4, Wolfe % (Auto) 11.9 H, Eos % (Auto) 4.0, Baso % (Auto) 0.7, Absolute Neuts (auto) 3.4, Absolute Lymphs (auto) 1.60, Nucleated RBC % 0, Sodium 142, Potassium 3.8, Chloride 109 H, Carbon Dioxide 24.0, Anion Gap 9, BUN 16, Creatinine 0.71, EstimCreat Clear Calc 63.21, Est GFR (MDRD) Af Amer 142, Est GFR (MDRD) Non-Af 118, BUN/Creatinine Ratio 22.5 H, Glucose 94, Hemoglobin A1c 5.8 H, Calcium 9.1, Magnesium 2.2, Total Bilirubin 1.10 H, AST 16, ALT 24, Alkaline Phosphatase 66, Total Protein 7.0, Albumin 3.4, Globulin 3.6, Albumin/Globulin Ratio 0.9, Triglycerides 91, Cholesterol 150, LDL Cholesterol 82, VLDL Cholesterol 18, HDL Cholesterol 50, TSH 3.53 Radiography Diagnostic Testing: Radiology Impression Brain CT 05/19/23 15:11 IMPRESSION: No acute intracranial findings. Electronically Signed: Myke Dixon MD at 15:31 EDT Reading Location ID and State: [facility] / [place] Tel , Service support , ADDENDUM: 05/19/23 1544 IMPRESSION: No acute intracranial findings. N.B. : The above Results were Read Back by Myke Dixon MD to Brayan Bhatt MD, and understanding confirmed on 05/19/2023 15:37:32 (ET). Electronically Signed: Myke Dixon MD at 15:31 EDT Reading Location ID and State: [facility] / [place] Tel , Service support , ADDENDUM: 05/19/23 1608 IMPRESSION: No acute intracranial findings. N.B. : The above Results were Read Back by Myke Dixon MD to Brayan Bhatt MD, and understanding confirmed on 05/19/2023 16:01:51 (ET). Electronically Signed: Myke Dixon MD at 15:31 EDT Reading Location ID and State: [facility] / [place] Tel , Service support , Head/Neck CTA 05/19/23 15:11 IMPRESSION: Negative CTA Head and Neck. Electronically Signed: Myke Dixon MD at 15:59 EDT Reading Location ID and State: [facility] / [place] Tel , Service support , ADDENDUM: 05/19/23 1608 IMPRESSION: Negative CTA Head and Neck. N.B. : The above Results were Read Back by Myke Dixon MD to MILLER HUSAIN MD, and understanding confirmed on 05/19/2023 16:01:37 (ET). Electronically Signed: Myke Dixon MD at 15:59 EDT , Chest X-Ray 05/19/23 15:50 IMPRESSION: No definite acute or significant abnormality seen. Electronically Signed: Kumar Servin MD at 16:16 EDT , Brain MRI 05/19/23 18:19 IMPRESSION: Normal unenhanced MRI of the brain. Electronically Signed: Jeff Simmons MD at 20:21 EDT , Echocardiogram 05/19/23 18:19 Interpretation Summary The left ventricular ejection fraction is 65 %. Bubble contrast study is negative for PFO/ASD. Mild tricuspid valve insufficiency. Ordering Physician: Ford Blanc Referring Physician: Rinku Rubi Performed By: Klelie Fajardo RCS D/C Instructions Discharge Diet: Low fat / Low cholesterol and 1800 Calorie Control Diet May resume sexual activity in: No Restrictions Call your doctor if you observe: Fever of 101 or Higher, Numbness or Tingling, Shortness of breath, Dizziness (Increased dizziness, lightheadedness, vertigo.),Chest pain, Increased palpitations (irregular heartbeat), Calf discomfort, Uncontrolled pain and - (Please also notify your physician if your right lower extremity appears red or starts to have drainage/odor.) Meaningful Use Info Meaningful Use Diagnoses (Choose all that apply): None applicable Discharge Plan Admission Admit Date/Time: 05/19/23 17:36 Primary Reason for Your Visit: TIA, acute CVA ruled out, Bilateral cerumen impaction Attending Provider: Renata Ness Primary Care Provider: Rinku Rubi Consulting Providers: Ford Blanc Instructions Patient Instructions: What Is a TIA?, TIA Dc, Impacted Earwax Additional Instructions / Restrictions: ADDITIONAL INSTRUCTIONS/RECOMMENDATIONS: During the admission you were evaluated for potential acute stroke however this was ruled out an MRI demonstrating no acute evidence of recent stroke. In the situations with neurological changes that have resolved within 24 hours we consider this a transient ischemic attack. Work-up has included an echocardiogram which did not demonstrate any concerning findings, MRI with no acute findings as noted as well as routine lab work-up. Your hemoglobin A1c is still 5.8% and was last noted the same level in 2020 therefore we encourage dietand lifestyle continued changes with repeat follow-up testing with PCP. Your thyroid function was normal. Magnesium level was normal. Cholesterol was not severely elevated however in this situation we did start a low-dose cholesterol medicine as well as a baby aspirin and these were continued at discharge. Please continue to utilize antibiotic therapy both topical and oral which was prescribed to you prior to presentation for your right lower extremity abrasion. Please continue to wash your lower extremity gently with soap and water and pat dry with an application of the antibiotic topical as prescribed. You did have noted bilateral cerumen impaction and we encourage you until you have follow-up with ear nose and throat to utilize [id number] Debrox earwax removal as an option. Discharge Orders/Prescriptions Prescriptions: New atorvastatin 20 mg Tablet 20 mg PO QHS 30 Days Qty: 30 0RF aspirin 81 mg Tablet,Chewable 81 mg PO BREAKFAST 30 Days Qty: 30 0RF Continued esomeprazole magnesium 40 mg capsule,delayed release(DR/EC) 40 mg PO Q24H celecoxib 100 mg capsule 100 mg PO DAILY cephalexin 500 mg capsule 500 mg PO Q8H Rx Instructions: X7D FILLED 05/16 mupirocin 2 % ointment 1 applic TOPICAL BID Referrals / Follow Up: Rinku Rubi MD [Primary Care Provider] - (Follow-up within 3-5 days to review admission, medication additions.) Benjamin Pierre MD [[facility] Staff - Active Staff] - (Please follow-up with ENT, may see physician with first open visit for assessment BL cerumen impaction.) Juan Pablo Gillespie DPM [Med Staff - Active Staff] - (Please follow-up with podiatry for your routine foot care. Please contact office to make visit with the senior pricing analyst you have been following with most recently.) Disposition Disposition (needs filled in before D/C Order can be placed): Home, Self Care Charges/Coding Visit Charges Inpatient E&M: 98858 Disch Hosp >30min 05/20/23 1356 <Electronically signed by Renata Ness MD> Cosigner Signature (if applicable): CC: Dr. Renata Ness MD; Dr. Rinku Rubi MD~ Signed [facility] Work Phone: Evaluation note* Diagnosis Onset Date Resolution Status Abdominal pain acute GERD (gastroesophageal reflux disease) chronic Abdominal pain acute History of Terry's esophagus acute Hx of pancreatitis acute Irritable bowel syndrome with constipation acute GERD (gastroesophageal reflux disease) [facility] Work Phone: Evaluation note* Diagnosis Onset Date Resolution Status Abdominal pain acute Obstructive sleep apnea acut e GERD (gastroesophageal reflux disease) chronic Abdominal pain acute History of Terry's esophagus acute Hx of pancreatitis acute Irritable bowel syndrome with constipation acute GERD (gastroesophageal reflux disease) [facility] Work Phone: Evaluation note* Diagnosis Onset Date Resolution Status History of Terry's esophagus acute GERD (gastroesophageal reflux disease) chronic [facility] Work Phone: Evaluation note* Diagnosis Onset Date Resolution Status History of Terry's esophagus acute GERD (gastroesophageal reflux disease) chronic Terry's esophagus without dysplasia chronic GERD (gastroesophageal reflux disease) chronic [facility] Work Phone: Evaluation note* Diagnosis Skin infection- Primary Unspecified local infection of skin and subcutaneous tissue [facility] Diagnosis Onset Date Resolution Status Blister of toe of right foot acute Arthritis chronic Abrasion of leg, right acute 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 Expressive aphasia acute [facility] Work Phone: Evaluation note* Diagnosis Dizziness- Primary Dizziness and giddiness [facility] [place] [facility] Diagnosis Onset Date Resolution Status Blister of toe of right foot acute Arthritis chronic Abrasion of leg, right acute 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 Dizziness acute Expressive aphasia acute [facility] Work Phone: Evaluation note* Diagnosis Onset Date Resolution Status Cerumen impaction acute Edema of right lower leg acu te History of Terry's esophagus acute History of skin cancer acute History of TIA (transient ischemic attack) acute Hx of pancreatitis acute Irritable bowel syndrome with constipation acute Obstructive sleep apnea acut e Prediabetes acute Right leg swelling acute Sleep apnea acute Venous stasis ulcer acute Arthritis chronic Terry's esophagus without dysplasia chronic Chronic constipation chronic Chronic venous insufficiency chronic DDD (degenerative disc disease), lumbar chronic Degenerative cervical disc c hronic Degenerative disc disease ch ronic GERD (gastroesophageal reflux disease) chronic Psoriasis, unspecified chron ic [facility] Work Phone: Evaluation note* Diagnosis Onset Date Resolution Status Pancreatitis acute Terry's esophagus without dysplasia chronic [facility] Work Phone: Evaluation note* Diagnosis Arthritis of carpometacarpal (CMC) joint of right thumb- Primary Arthritis of zjenknkk-sjsczpwwi-ckvbwmmty joint of right hand Carpal boss of right wrist [facility] [place] [facility] Diagnosis Right hand pain- Primary Pain in limb [facility] [place] [facility] Diagnosis Terry's esophagus without dysplasia- Primary Terry's esophagus Arthritis, lumbar spine Lumbosacral spondylosis without myelopathy Cervical radiculopathy Brachial neuritis or radiculitis nos Hyperlipidemia, mixed Mixed hyperlipidemia Screening for thyroid disorder Screening for prostate cancer Special screening for malignant neoplasm of prostate GERD without esophagitis Esophageal reflux Right hand pain Pain in limb Class 1 obesity with body mass index (BMI) of 30.0 to 30.9 in adult, unspecified obesity type, unspecified whether serious comorbidity present [facility] URI, acute Acute upper respiratory infections of unspecified site Acute cough [facility] Diagnosis Wrist laceration, left, initial encounter [facility] Diagnosis Arthritis, lumbar spine Lumbosacral spondylosis without myelopathy [facility] Author Tate Chase [facility] January 15, 2024 10:03am Note Date/Time January 15, 2024 10: 03am [facility] Medical Records Department [address] [place] [address] History & Physical Exam 01/15/24 1003 MR#: [id number] Acct: [id number] Name: BERKLEY SARMIENTO Rep #:[id number] : 1955 68 From: Tate Chase DO PCP: Dr. Kinsey Rogers, Status :[facility] Location: [place] [address] History and Physical Date of Admission: 01/15/24 BERKLEY SARMIENTO, is a 68 M who presents to the office today for follow up. *BGI established 4.4.22 with intermittent abdominal pain approximately monthly with nausea lasting 45 minutes before spontaneously passing. BM are hard stool with difficult passing; prune juice causes gas. History of pancreatitis with heavy alcohol use, stopped.?Start Linzess, esomeprazole. EGD/colonoscopy recommended, rescheduled ?Biochemical 4.4.22?CBC, CMP, d.bili, amylase without pertinent abnormality? AST 22-ALT 30-AP 67-t.bili H1.3, lipase L50 ?CT abd/pel 5.3.22?simple hepatic cyst; small bowel loop dilation,?early SBO; fatty pancreas ?KUB 5.6.22?contrast seen in rectal vault ?KUB 5.7.22?patency capsule RUQ; moderate stool burden ?KUB 5.11.22?patency capsule not visualized OV 5 using smooth-move tea and psyllium husk with PRN MiraLAX for BM; continue esomeprazole. EGD rescheduled, declines colonoscopy OV 12?continue esomeprazole ?EGD 11.21.22?short-segment Terry?s, metaplasia+; small hiatal hernia OV 3?increase esomeprazole to BID?as Mylanta has been needed recently ?CT abd/pel 12.10.22 (PCP)?s/p cholecystectomy; small hiatal hernia ?CT abd/pel 1 (ED, LLQ pain)?small hepatic cyst; fatty pancreas; small bilateral inguinal hernia OV 3 Pt well since last visit. Continues to take Esomeprazole 40mg BID. Is not having any heartburn or dysphagia. Reports his BM are regular as long as he drinks prune juice daily. Also reports increase in gas. ROS Const Constitutional: No fatigue ENT ENT: No difficulty swallowing Gastro GI: Positive for constipation; No abdominal pain, belching, bloating, change in bowel habits, change in stool character, coffee ground emesis, cramping, diarrhea, heartburn, difficulty swallowing, feeling full early, excessive flatus, incontinent of stools, Vomiting blood/hematemesis, Blood in stool, loose stools, Black,tarry stools, nausea/dyspepsia, pain with swallowing, vomiting or other Musc Musculoskeletal: No joint pain Skin Skin: No yellowing of the eye or itchy eyes Psych Psychiatric: No anxiety and No depression Endo Endocrine: No fatigue Aller/Imm Allergy/Immunologic: No itchy eyes Evans/Lymp Hematologic/Lymphatic: No easy bleeding or easy bruising Exam Const General: cooperative, healthy appearing, comfortable and no acute distress Orientation: alert, awake and oriented x3 HENMT Head: normal to inspection and atraumatic Ears: hearing grossly normal bilaterally, external ears normal, TM's normal bilaterally, EAC's normal, mastoids normal and EAC abnormal cerumen impaction bilaterally (Right- 90% Blocked, Left-50%) Nose: external nose normal, nares normal and no nasal discharge Mouth: oral mucosae normal, lip normal, tongue normal, oropharynx normal, moist mucous membranes and no drooling Teeth and gingiva: dentition normal Throat: posterior oropharynx normal, tonsils normal and uvula midline Eyes General: appearance normal, both eyes and all related structures Eyelids: eyelids normal Conjunctivae: conjunctivae normal Neck Neck: normal visual inspection and no lymphadenopathy Chest Chest palpation & inspection: normal inspection of the chest Resp Effort & Inspection: normal respiratory effort, able to speak in complete sentences and symmetric chest movement Auscultation: Bilateral: Clear to Auscultation Cardio Rhythm: regular rhythm Heart Sounds: S1 normal, S2 normal and no murmurs GI Inspection: normal to inspection Auscultation: normal bowel sounds Palpation: soft, not firm, no guarding and nontender Skin General: no rashes or lesions noted Quality Reporting Tobacco Screening (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 We will perform a surveillance endoscopy on. Becausehe is having some problems with bloating, abdominal pain, cramping we will also order some blood work due to his history of pancreatitis. His last imaging did not show any signs of chronic pancreatitis and has been gaining weight and not having any diarrhea at this time. Orders: Orders Gastrin, Serum Today K85.90 - Acute pancreatitis without necrosis or infection, unspecified Erythrocyte Sed Rate Today K85.90 - Acute pancreatitis without necrosis or infection, unspecified CRP Today K85.90 - Acute pancreatitis without necrosis or infection, unspecified Anti-Parietal Cell AB, QN Today K85.90 - Acute pancreatitis without necrosis or infection, unspecified Intrinsic Factor Ab Today K85.90 - Acute pancreatitis without necrosis or infection, unspecified IgG Subclasses Today K85.90 - Acute pancreatitis without necrosis or infection, unspecified KIRK Comprehensive Panel Today K85.90 - Acute pancreatitis without necrosis or infection, unspecified ANCA Today K85.90 - Acute pancreatitis without necrosis or infection, unspecified Carbohydrate AG 19-9 Today K85.90 - Acute pancreatitis without necrosis or infection, unspecified Celiac Disease Profile Today K85.90 - Acute pancreatitis without necrosis or infection, unspecified I have examined the patient and the H&P has been reviewed. There are no clinicalchanges since date of exam. 01/15/24 1003 <Electronically signed by Tate Chase DO> Cosigner Signature (if applicable): CC: Dr. Kinsey Rogers, DO; Tate Chase DO~ Signed [facility] Work Phone: [facility] Work Phone: [phone] Work Phone: [phone] Discharge instructions[facility] Work Phone: [facility] instructions[facility] Work Phone: [facility] Work Phone: [facility] Work Phone: Reason for referral (narrative)* Diagnostic Procedure Only (Routine) - Pending Review Specialty Diagnoses / Procedures Referred By Leonie gonsales Referred To Contact XR IMAGING Diagnoses Arthritis of carpometacarpal (CMC) joint of right thumb Arthritis of ufyopivt-icvzyyhes-mdaxqjinx joint of right hand Carpal boss of right wrist Procedures XR HAND GENERAL 3V PA/LAT/OBL RIGHT RADEX HAND MINIMUM 3 VIEWS Alyce Pearson PA-C [address] [facility] [address] [place] [address] [place] [address] Referral ID Status Reason Start Date Expiration Date Visits Requested Visits Authorized [id number] Pending Review Auto-Generat ed Referral 12/11/2023 01/09/2025 1 1 * Transition of Care (Routine) - Ref Not Required Specialty Diagnoses / Procedures Referred By Leonie gonsales Referred To Contact Diagnoses Arthritis of carpometacarpal (CMC) joint of right thumb Arthritis of qnfotete-vevwafbor-ilnvzjbpn joint of right hand Procedures CONSULT TO OCCUPATIONAL THERAPY/HAND THERAPY (AG) Alyce Pearson PA-C [address] [facility] [address] [place] [address] Referral ID Status Reason Start Date Expiration Date Visits Requested Visits Authorized [id number] Ref Not Required PCP Requested Referral 12/11/2023 03/10/2024 1 1 [facility] for referral (narrative)* Diagnostic Procedure Only (Urgent) - Closed Specialty Diagnoses / Procedures Referred By Contac t Referred To Contact XR IMAGING Diagnoses Wrist laceration, left, initial encounter Procedures XR WRIST INJURY 4V PA/LAT/OBL/SCAPH LEFT RADEX WRIST COMPLETE MINIMUM 3 VIEWS Justin Leigh PA-C [address] [place] [address] [place] [address] Referral ID Status Reason Start Date Expiration Date V isits Requested Visits Authorized [id number] Closed Auto-Generate d Referral 06/03/2022 07/03/2023 1 1 [facility] for visit Narrative* Diagnostic Procedure Only (Urgent) - Closed Specialty Diagnoses / Procedures Referred By Contac t Referred To Contact XR IMAGING Diagnoses Wrist laceration, left, initial encounter Procedures XR WRIST INJURY 4V PA/LAT/OBL/SCAPH LEFT RADEX WRIST COMPLETE MINIMUM 3 VIEWS Justin Leigh PA-C [address] [place] [address] [place] [address] Referral ID Status Reason Start Date Expiration Date V isits Requested Visits Authorized [id number] Closed Auto-Generate d Referral 06/03/2022 07/03/2023 1 1 [facility] Summary Purpose Family History No Family History Records Found Relationship Condition Age at Onset Recorded Date/T stacy father Alcoholism Unknown Arthritis Unknown Cardiac disease Unknown Advance Directives No Advanced Directives Records Found Advance Directive Response Recorded Date/ Time Living Will No April 21, 2021 3:59pm Power of Commercial Banker No Katina 28[address], [birth year] 1 3:59pm Advance Directive Response Recorded Date/ Time Living Will No November 15, 2 023 2:55pm Power of Commercial Banker No November 15, 2022 2:55pm Advance Directive Response Recorded Date/ Time Living Will No December 10, 2022 9:34am Power of Commercial Banker No December 10 9:34am Advance Directive Response Recorded Date/ Time Living Will No May 19 3 3:25pm Power of Commercial Banker No May 19, 2 023 3:25pm Advance Directive Response Recorded Date/ Time Living Will No May 19 3 6:03pm Power of Commercial Banker No May 19, 2 023 6:03pm Advance Directive Response Recorded Date/ Time Living Will No October 11 3:21pm Power of Commercial Banker No October 11, 2023 3:21pm Advance Directive Response Recorded Date/ Time Living Will No January 11, 2024 12:32pm Power of Commercial Banker No January 10 12:32pm Chief Complaint and Reason for Visit Chief Complaint HEADACHES, STOMACH A CHES Pain MASK LEAK Reason for Visit Abdominal pain GERD (gastroesophageal reflux disease) Abdominal pain History of Terry's esophagus Hx of pancreatitis Irritable bowel syndrome with constipation GERD (gastroesophageal reflux disease) Chief Complaint HEADACHES, STOMACH A CHES Pain MASK LEAK ABD PAIN *ORAL & IV CONTRAST* BLOCKAGE Reason for Visit Abdominal pain Obstructive sleep apnea GERD (gastroesophageal reflux disease) Abdominal pain History of Terry's esophagus Hx of pancreatitis Irritable bowel syndrome with constipation GERD (gastroesophageal reflux disease) Chief Complaint HEADACHES, STOMACH A CHES Pain MASK LEAK ABD PAIN *ORAL & IV CONTRAST* BLOCKAGE EORDER Reason for Visit Abdominal pain Obstructive sleep apnea GERD (gastroesophageal reflux disease) Abdominal pain History of Terry's esophagus Hx of pancreatitis Irritable bowel syndrome with constipation GERD (gastroesophageal reflux disease) Chief Complaint HEADACHES, STOMACH A CHES Pain MASK LEAK ABD PAIN *ORAL & IV CONTRAST* BLOCKAGE EORDER REEVAL CONSTIPATION Reason for Visit Abdominal pain Obstructive sleep apnea GERD (gastroesophageal reflux disease) Abdominal pain History of Terry's esophagus Hx of pancreatitis Irritable bowel syndrome with constipation GERD (gastroesophageal reflux disease) Chief Complaint FU Reason for Visit History of Terry's esophagus GERD (gastroesophageal reflux disease) Chief Complaint FU 2 WK FU abd pain with nausea Reason for Visit History of Terry's esophagus GERD (gastroesophageal reflux disease) Terry's esophagus without dysplasia GERD (gastroesophageal reflux disease) Chief Complaint BLISTER ON TOE WOUND CEREBELLAR STROKE Reason for Visit Blister of toe of ri ght foot Arthritis Abrasion of leg, right Ataxia due to cerebrovascular disease Expressive aphasia Chief Complaint BLISTER ON TOE WOUND CVA RULE OUT CVA RULE OUT Reason for Visit Blister of toe of ri ght foot Arthritis Abrasion of leg, right Ataxia due to cerebrovascular disease Dizziness Expressive aphasia Chief Complaint CVA RULE OUT CVA RULE OUT CLOGGED EARS wound Reason for Visit Cerumen impaction Edema of right lower leg History of Terry's esophagus History of skin cancer History of TIA (transient ischemic attack) Hx of pancreatitis Irritable bowel syndrome with constipation Obstructive sleep apnea Prediabetes Right leg swelling Sleep apnea Venous stasis ulcer Arthritis Terry's esophagus without dysplasia Chronic constipation Chronic venous insufficiency DDD (degenerative disc disease), lumbar Degenerative cervical disc Degenerative disc disease GERD (gastroesophageal reflux disease) Psoriasis, unspecified Chief Complaint ABD PAIN 1 YR FU Reason for Visit Pancreatitis Terry's esophagus without dysplasia Health Concerns Infection Onset Date Last Indicated Resolved Time COVID-19 Rule-Out 12/07/2022 12/07/2022 12/08/2022 4:28 AM EDT COVID-19 Confirmed 12/07/2022 12/07/2022 Reason for Referral Specialty Diagnoses / Procedures Referred By Contac t Referred To Contact [facility] Diagnoses Right hand pain Procedures OT REHAB FOLLOW UP ORDER THERAPEUT ACTVITY DIRECT PT CONTACT EACH 15 MIN [facility] [address] [place] [address] [facility] [address] [address] Referral ID Status Reason Start Date Expiration Date Visits Requested Visits Authorized [id number] Pending Review PCP Requested Referral Auto-Generate d Referral 12/18/2023 03/17/2024 1 1 Additional Source Comments (unrecognized sect ion and content) No Status Records FoundNo Status Records FoundNo Status Records FoundNo Status Records Found INFORMATION SOURCE (unrecogn ized section and content) DATE CREATED AUTHOR 11/13/2018 [facility] DATE CREATED AUTHOR AUTHOR'S ORGANIZ ATION 05/20/2023 [facility] DATE CREATED AUTHOR AUTHOR'S ORGANIZ ATION 02/20/2025 [facility] DATE CREATED AUTHOR AUTHOR'S ORGANIZ ATION 03/29/2025 [facility] Care Teams (unrecognized sec tion and content) Team Status: Active Member Role Status Dates Dr. Rinku Rubi MD Family Provider Active Dr. Rinku Rubi MD Primary Care Provider Active Team Status: Inactive Member Role Status Dates Dr. Rinku Rubi MD Primary Care Provider, Refer ring Provider Active She Woods PARAPROFESSIONAL AIDE, PARAPROFESSIONAL AIDE-C Attending Provider Active Team Status: Active Member Role Status Dates Dr. Rinku Rubi MD Primary Care Provider, Refer ring Provider Active Dr. Tate Chase DO Attending Provider, Other Prov ider Active Team Status: Inactive Member Role Status Dates Dr. Rinku Rubi MD Primary Care Provider, Refer ring Provider Active Dr. Tate Chase DO Attending Provider Active User Interface Artist Relationship Specialty Start Date End Date Rinku Rubi MD PCP - General Internal Medicine 03/23/19 Team Status: Inactive Member Role Status Dates Dr. Rinku Rubi MD Primary Care Provider Active Dr. Hi Fisher DO Emergency Provider Active User Interface Artist Relationship Specialty Start Date End Date Rinku Rubi MD PCP - General Internal Medicine 03/23/19 User Interface Artist Relationship Specialty Start Date End Date Rinku Rubi MD PCP - General Internal Medicine 03/23/19 Team Status: Inactive Member Role Status Dates Dr. Rinku Rubi MD Primary Care Provider, Refer ring Provider Active Raoul Castellanos PARAPROFESSIONAL AIDE, PARAPROFESSIONAL AIDE-C Attending Provider Active Team Status: Inactive Member Role Status Dates Dr. Rinku Rubi MD Primary Care Provider Active Dr. Rivera Dumont DO Attending Provider, Emergency Provider Active Team Status: Active Member Role Status Dates Dr. Rinku Rubi MD Primary Care Provider Active Dr. Miller Husain MD Emergency Provider Active Dr. Ford Mosteller , DO Admit Provider, Attending Provider Active User Interface Artist Relationship Specialty Start Date End Date Rinku Rubi MD PCP - General Internal Medicine 03/23/19 Team Status: Active Member Role Status Dates Dr. Rinku Rubi MD Primary Care Provider Active Dr. Claire Garcia MD Attending Provider Active Team Status: Active Member Role Status Dates Dr. Rinku Rubi MD Primary Care Provider Active Dr. Miller Husain MD Emergency Provider Active Dr. Ford Blanc , Admit Provider, Other Pro vider Active Dr. Renata Ness MD Attending Provider, Other Prov ider Active Team Status: Inactive Member Role Status Dates Dr. Rinku Rubi MD Primary Care Provider Active Dr. Miller Husain MD Emergency Provider Active Dr. Ford Blanc , DO Admit Provider, Other Pro vider Active Dr. Renata Ness MD Attending Provider Active User Interface Artist Relationship Specialty Start Date End Date Ronnell Rogers DO [address] [place] [address] PCP - General Family Medicine 05/22/23 Team Status: Active Member Role Status Dates Dr. Rinku Rubi MD Family Provider Active Dr. Kinsey Rogers DO Primary Care Provider Acti ve Team Status: Active Member Role Status Dates Dr. Rinku Rubi MD Primary Care Provider Active Dr. Claire Garcia MD Attending Provider, Referring Pr ovider Active Team Status: Inactive Member Role Status Dates Dr. Rinku Rubi MD Primary Care Provider, Refer ring Provider Active Berkley Ayala PARAPROFESSIONAL AIDE, PARAPROFESSIONAL AIDE-C Attending Provider Active Team Status: Inactive Member Role Status Dates Dr. Channing Valle MD Attending Provider, Referring P jackie Active Dr. Kinsey Rogers DO Primary Care Provider Acti ve Team Status: Active Member Role Status Dates Dr. Rinku Rubi MD Family Provider Active Dr. Choco Degroot MD Primary Care Provider Active Team Status: Inactive Member Role Status Dates Dr. Rinku Rubi MD Referring Provider Active Dr. Tate Chase , DO Attending Provider Active Dr. Kinsey Rogers DO Primary Care Provider Acti ve Team Status: Inactive Member Role Status Dates Dr. Kinsey Rogers , DO Primary Care Provider Acti ve Dr. Trini Slater MD Attending Provider, Emergency Provider Active Team Status: Inactive Member Role Status Dates Dr. Choco Degroot MD Primary Care Provider Active Dr. Tate Chase , DO Attending Provider, Referring Provider Active User Interface Artist Relationship Specialty Start Date End Date Ronnell Rogers DO [address] [place] [address] PCP - General Family Medicine 05/22/23 User Interface Artist Relationship Specialty Start Date End Date Ronnell Rogers DO [address] [place] [address] PCP - General Family Medicine 05/22/23 User Interface Artist Relationship Specialty Start Date End Date Ronnell Rogers DO [address] [place] [address] PCP - General Family Medicine 05/22/23 User Interface Artist Relationship Specialty Start Date End Date Ronnell Rogers DO [address] [place] [address] PCP - General Family Medicine 05/22/23 User Interface Artist Relationship Specialty Start Date End Date Ronnell Rogers DO [address] [place] [address] PCP - General Family Medicine 05/22/23 Team Status: Active Member Role Status Dates Dr. Tate Chase , DO Attending Provider, Other Prov ider Active Dr. Kinsey Rogers DO Primary Care Provider, Ref erring Provider Active Team Status: Inactive Member Role Status Dates Dr. Tate Chase , DO Attending Provider Active Dr. Freedland Ken , DO Primary Care Provider, Ref erring Provider Active User Interface Artist Relationship Specialty Start Date End Date Rinku Rubi MD PCP - General Internal Medicine 03/23/19 05/21/23 User Interface Artist Relationship Specialty Start Date End Date Rinku Rubi MD PCP - General Internal Medicine 03/23/19 05/21/23 User Interface Artist Relationship Specialty Start Date End Date Ronnell Rogers DO [address] [place] [address] PCP - General Family Medicine 05/22/23 Source Comments (unrecognize d section and content) In the event this informatio n is protected by the Federal Confidentiality of Alcohol and Drug Abuse Patient Records regulations: The Federal rules restrict any use of the information to criminally investigate or prosecute any alcohol or drug abuse patient.[facility] the event this information is protected by the Federal Confidentiality of Alcohol and Drug Abuse Patient Records regulations: The Federal rules restrict any use of the information to criminally investigate or prosecute any alcohol or drug abuse patient.[facility] the event this information is protected by the Federal Confidentiality of Alcohol and Drug Abuse Patient Records regulations: The Federal rules restrict any use of the information to criminally investigate or prosecute any alcohol or drug abuse patient.[facility] the event this information is protected by the Federal Confidentiality of Alcohol and Drug Abuse Patient Records regulations: The Federal rules restrict any use of the information to criminally investigate or prosecute any alcohol or drug abuse patient.[facility] the event this information is protected by the Federal Confidentiality of Alcohol and Drug Abuse Patient Records regulations: The Federal rules restrict any use of the information to criminally investigate or prosecute any alcohol or drug abuse patient.[facility] the event this information is protected by the Federal Confidentiality of Alcohol and Drug Abuse Patient Records regulations: The Federal rules restrict any use of the information to criminally investigate or prosecute any alcohol or drug abuse patient.[facility] the event this information is protected by the Federal Confidentiality of Alcohol and Drug Abuse Patient Records regulations: The Federal rules restrict any use of the information to criminally investigate or prosecute any alcohol or drug abuse patient.[facility] the event this information is protected by the Federal Confidentiality of Alcohol and Drug Abuse Patient Records regulations: The Federal rules restrict any use of the information to criminally investigate or prosecute any alcohol or drug abuse patient.[facility] the event this information is protected by the Federal Confidentiality of Alcohol and Drug Abuse Patient Records regulations: The Federal rules restrict any use of the information to criminally investigate or prosecute any alcohol or drug abuse patient.[facility] the event this information is protected by the Federal Confidentiality of Alcohol and Drug Abuse Patient Records regulations: The Federal rules restrict any use of the information to criminally investigate or prosecute any alcohol or drug abuse patient.[facility] the event this information is protected by the Federal Confidentiality of Alcohol and Drug Abuse Patient Records regulations: The Federal rules restrict any use of the information to criminally investigate or prosecute any alcohol or drug abuse patient.[facility] the event this information is protected by the Federal Confidentiality of Alcohol and Drug Abuse Patient Records regulations: The Federal rules restrict any use of the information to criminally investigate or prosecute any alcohol or drug abuse patient.[facility] the event this information is protected by the Federal Confidentiality of Alcohol and Drug Abuse Patient Records regulations: The Federal rules restrict any use of the information to criminally investigate or prosecute any alcohol or drug abuse patient.[facility] the event this information is protected by the Federal Confidentiality of Alcohol and Drug Abuse Patient Records regulations: The Federal rules restrict any use of the information to criminally investigate or prosecute any alcohol or drug abuse patient.[facility] Reason for Visit (unrecogniz ed section and content) Reason Comments Results Reason Comments sore on right lower leg X 5 days Reason Comments dizzy and nausea X 3 days Reason Comments New Pain Reason Comments OT EVAL Specialty Diagnoses / Procedures Referred By Contac t Referred To Contact [facility]ER[facility] Diagnoses Arthritis of carpometacarpal (CMC) joint of right thumb Arthritis of mgzshkog-ibephzrws-joekspz id joint of right hand Procedures CONSULT TO OCCUPATIONAL THERAPY/HAND THERAPY (AG) Alyce Pearson PA-C [address] [facility] [address] [place] [address] [facility] [address] [place] [address] Referral ID Status Reason Start Date Expiration Date Visits Requested Visits Authorized [id number] Authorized Patient Cleared - Admin/Chairm an/Director advise to proceed or did not respond 12/11/2023 03/19/2024 10 10 Reason Onset Date Comments Refill Request 01/03/2024 Reason Comments 6 Month Exam Hand Pain Right hand Reason Comments Refill Request Inactive Administered Medications - up to 3 most recent administrations Administered Medications (un recognized section and content) Medication Order MAR Action Action Date Dose Rate Site betamethasone acetate-betamethasone sodium phosphate 6 mg injection (CELESTONE) 6 mg, Injection - FOR ORTHO USE ONLY, ONCE, 1 dose, Starting on Mon12/11/23 at 1507, Until Mon12/11/23 at 1507 Given 12/11/2023 3:07 PM EDT 6 mg Hand, Right lidocaine 10 mg/mL (1 %) 1 mL injection (XYLOCAINE) 1 mL, Injection - FOR ORTHO USE ONLY, ONCE, 1 dose, Starting on Mon12/11/23 at 1507, Until Mon12/11/23 at 1507 Given 12/11/2023 3:07 PM EDT 1 mL Hand, Right FOR RECORDS PERTAINING TO PATIENTS WHO ARE [...] BE BASED ON THE PRIMARY CLINICAL RECORDS. [employer] [facility]. provides no warranty or guarantee of the accuracy or completeness of information in this document.
[2025-05-17] MEDS: Lidocaine 5% Patch 1 PATCH TOPICAL (21:15)
[2025-05-17] MEDS: Orphenadrine 100 MG Tablet PO (21:15)
[2025-05-17 23:26] VITALS: BP 149/76; PULSE 78; RESP 16; TEMP 36.7; O2SAT 98
== END 2025-05-17 23:30 | disposition home or self-care (01) ==
PROVIDERS: Emergency Provider Emergency Medicine; PCP Internal Medicine; Visit Provider Emergency Medicine
DX: M54.50 Low back pain, unspecified (principal); K21.9 Gastro-esophageal reflux disease without esophagitis
CPT/HCPCS: 96372; 99284